=== PATIENT | female | born 1945 | race Caucasian/White ===

== ENCOUNTER → 2021-12-21 | Outpatient (CLI) | payer MEDICARE, OTHER ==
--- NOTE | 2021-12-21 11:44 | FL ---
EXAMINATION TYPE: FL barium swallow w video DATE OF EXAM: 12/21/2021 CLINICAL HISTORY: 76-year-old female R10.13, esophageal Dysphagia. Patient with an episode of food ge tting stuck followed by emesis. TECHNIQUE: Deglutition study is performed utilizing thin liquid barium, honey and nectar thick liqui d barium, barium thick pudding, and barium coated cracker. Total fluoroscopy time: 1 minute 23 seconds. Total images: None. Real-time fluoroscopy support was provided to speech pathology. COMPARISON: None. FINDINGS: The oral and pharyngeal phases show satisfactory initiation and propagation with all modalities teste d. The patient is edentulous but was able to masticate solids. There is an episode of moderate transi ent penetration with thin liquids during a large bolus swallow. No other penetration or aspiration se en. No significant pharyngeal residue was appreciated. Incidentally, we note tapering and narrowing along the distal third esophagus. Mild to moderate stric ture not excluded. There is also suggestion of a tiny hiatal hernia. IMPRESSION: 1. Moderate transient penetration with thin liquids during a large bolus swallow. Otherwise, no addit ional penetration or aspiration seen. 2. Suggestion of a smooth stricture along the distal third esophagus, proximal to the GE junction. En doscopy can further evaluate. Also, suggestion of a tiny hiatal hernia. Please refer to speech therapist notes for further details if necessary.
== END | disposition home or self-care (01) ==
LOC: RADFLMAIN 11:00
PROVIDERS: ATTEND Family Medicine
DX: R10.13 Epigastric pain (principal)
CPT/HCPCS: 74230

== ENCOUNTER 2022-02-08 10:59 | Emergency (ER) | payer MEDICARE, OTHER ==
--- NOTE | 2022-02-08 11:47 | ED ---
General Adult HPI - General Chief complaint: Nausea/Vomiting/Diarrhea Stated complaint: Vomiting Time Seen by Provider: 02/08/22 11:10 Source: patient, EMS, RN notes reviewed, old records reviewed Mode of arrival: EMS - History of Present Illness Initial comments: This is a 76-year-old female presents emergency Department because she was vomiting at the [facility] today. Patient supposedly was recently treated for H. pylori. Patient comes in today because she states she had a couple coughing is morning and then vomited and continues to feel a little bit nauseated. Enriqueta ent denies any abdominal pain patient denies any chest pain patient denies any difficulty breathing shortest breath. Patient denies any fever chills. There is been no report of any other symptoms no information is available because the patient had no family members or caretakers with her. - Related Data Home Medications Medication Instructions Recorded Confirmed Bismuth Subsalicylate 524 mg PO DAILY PRN 02/08/22 02/08/22 [Pepto-Bismol] Gonzalez-Gest 500mg Chew 1 tab PO BID PRN 02/08/22 02/08/22 Calcium Carbonate [Calcium] 600 mg PO DAILY PRN 02/08/22 02/08/22 Cholecalciferol [Vitamin D3 (25 50 mcg PO TU@0800 02/08/22 02/08/22 Mcg = 1000 Iu)] Cyanocobalamin (Vitamin B-12) 1,000 mcg PO Q7D 02/08/22 02/08/22 [Vitamin B-12] Docusate [Colace] 100 mg PO DAILY PRN 02/08/22 02/08/22 Omeprazole 20 mg PO DAILY@0700 02/08/22 02/08/22 Ondansetron [Zofran] 4 mg PO TID-W/MEALS PRN 02/08/22 02/08/22 Allergies Allergy/AdvReac Type Severity Reaction Status Date / Time No Known Allergies Allergy Verified 02/08/22 12:53 Review of Systems ROS Statement: Those systems with pertinent positive or pertinent negative responses have been documented in the HPI. ROS Other: All systems not noted in ROS Statement are negative. 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 Patient is nontoxic and well- hydrated and is in no acute distress. ENT: Neck is soft and supple. No significant lymphadenopathy is noted. Oropharynx is clear. Moist mucous membranes. Neck has full range of motion without eliciting any pain. EYES: The sclera were anicteric and conjunctiva were pink and moist. Extraocular movements were intact and pupils were equal round and reactive to light. Eyelids were unremarkable. PULMONARY: Unlabored respirations. Good breath sounds bilaterally. No audible rales rhonchi or wheezing was noted. CARDIOVASCULAR: There is a regular rate and rhythm without any murmurs gallops or rubs. ABDOMEN: Soft and nontender with normal bowel sounds. No palpable organomegaly was noted. There is no palpable pulsatile mass. SKIN: Skin is clear with no lesions or rashes and otherwise unremarkable. NEUROLOGIC: Patient is alert and oriented 2. Cranial nerves II through XII are grossly intact. Motor and sensory are also intact. Normal speech, volume and content. Symmetrical smile. MUSCULOSKELETAL: Normal extremities with adequate strength and full range of motion. LYMPHATICS: No significant lymphadenopathy is noted PSYCHIATRIC: Normal psychiatric evaluation. Course Vital Signs 02/08/22 02/08/22 11:04 12:23 Temperature 98.1 F Pulse Rate 79 71 Respiratory 18 20 Rate Blood Pressure 149/57 143/61 O2 Sat by Pulse 97 95 Oximetry Medical Decision Making - Medical Decision Making Patient was able to eat in the emergency department without any vomiting and she stated she had no nausea. Chest x-ray showed no acute abnormality - Lab Data Result diagrams: 02/08/22 11:41 02/08/22 11:41 Lab Results 02/08/22 02/08/22 Range/Units 11:41 11:41 WBC 7.3 (3.8-10.6) k/uL RBC 4.60 (3.80-5.40) m/uL Hgb 13.4 (11.4-16.0) gm/dL Hct 43.8 (34.0-46.0) % MCV 95.1 (80.0-100.0) fL MCH 29.1 (25.0-35.0) pg MCHC 30.6 L (31.0-37.0) g/dL RDW 14.2 (11.5-15.5) % Plt Count 318 (150-450) k/uL MPV 7.3 Neutrophils % 64 % Lymphocytes % 26 % Monocytes % 5 % Eosinophils % 3 % Basophils % 1 % Neutrophils # 4.7 (1.3-7.7) k/uL Lymphocytes # 1.9 (1.0-4.8) k/uL Monocytes # 0.3 (0-1.0) k/uL Eosinophils # 0.2 (0-0.7) k/uL Basophils # 0.1 (0-0.2) k/uL Sodium 141 (137-145) mmol/L Potassium 3.5 (3.5-5.1) mmol/L Chloride 107 (98-107) mmol/L Carbon Dioxide 19 L (22-30) mmol/L Anion Gap 15 mmol/L BUN 26 H (7-17) mg/dL Creatinine 1.45 H (0.52-1.04) mg/dL Est GFR (CKD-EPI)AfAm 41 (>60 ml/min/1.73 sqM) Est GFR (CKD-EPI)NonAf 35 (>60 ml/min/1.73 sqM) Glucose 102 H (74-99) mg/dL Calcium 9.3 (8.4-10.2) mg/dL Total Bilirubin 0.9 (0.2-1.3) mg/dL AST 22 (14-36) U/L ALT 11 (4-34) U/L Alkaline Phosphatase 80 (38-126) U/L Total Protein 8.2 (6.3-8.2) g/dL Albumin 4.5 (3.5-5.0) g/dL Amylase 133 H (30-110) U/L Lipase 98 (23-300) U/L Disposition Clinical Impression: Acute vomiting Disposition: HOME SELF-CARE Condition: Good Instructions (If sedation given, give patient instructions): Acute Nausea and Vomiting (ED) Is patient prescribed a controlled substance at d/c from ED?: No Referrals: Sam Hernandez MD [Primary Care Provider] - 1-2 days Time of Disposition: 13:15
--- NOTE | 2022-02-08 11:55 | XR ---
EXAMINATION TYPE: XR chest 2V DATE OF EXAM: 02/08/2022 COMPARISON: None HISTORY: Shortness of breath TECHNIQUE: Frontal and lateral views of the chest are obtained. FINDINGS: Scattered senescent parenchymal changes noted. Hyperinflation compatible with COPD. No evidence for infiltrate. No evidence for atelectasis. Heart size is stable. Mediastinal structures are stable and grossly unremarkable. No evidence for hilar prominence. Degenerative changes dorsal spine. IMPRESSION: 1. No evidence for acute pulmonary disease.
[2022-02-08 12:08] LABS: Basophils # (A) 0.1 k/uL (0-0.2); Basophils % (A) 1 %; Eosinophils # (A) 0.2 k/uL (0-0.7); Eosinophils % (A) 3 %; HCT 43.8 % (34.0-46.0); HGB 13.4 gm/dL (11.4-16.0); Lymphocytes # (A) 1.9 k/uL (1.0-4.8); Lymphocytes % (A) 26 %; MCH 29.1 pg (25.0-35.0); MCHC 30.6 g/dL (31.0-37.0); MCV 95.1 fL (80.0-100.0); Mean Platelet Volume 7.3; Monocytes # (A) 0.3 k/uL (0-1.0); Monocytes % (A) 5 %; Neutrophils # (A) 4.7 k/uL (1.3-7.7); Neutrophils % (A) 64 %; Platelet Count 318 k/uL (150-450); RDW 14.2 % (11.5-15.5); WBC 7.3 k/uL (3.8-10.6)
[2022-02-08 12:18] LABS: Albumin 4.5 g/dL (3.5-5.0); Calcium 9.3 mg/dL (8.4-10.2); Potassium 3.5 mmol/L (3.5-5.1); Total Bilirubin 0.9 mg/dL (0.2-1.3); Total Protein 8.2 g/dL (6.3-8.2)
[2022-02-08 15:43] VITALS: BP 143/77; PULSE 74; RESP 16; TEMP 98.2
== END 2022-02-08 15:41 | disposition home or self-care (01) ==
LOC: EC 10:59 → EEVIPCON 10:59 → EC 15:41
DX: R11.2 Nausea with vomiting, unspecified (principal)
CPT/HCPCS: 36415; 71046; 80053; 82150; 83690; 85025; 99284

== ENCOUNTER 2022-02-22 10:29 | Day surgery (SDC) | payer MEDICARE, OTHER ==
[~2022-02-22 10:29] MED LIST: LACTATED RINGERS 1,000 ML IV SCH
[2022-02-22 11:12] VITALS: TEMP 97.2
[2022-02-22] MEDS ORDERED: LIDOCAINE 2% INJ 20 MG/ML (2 ML VIAL) ONE (12:23)
[2022-02-22] MEDS ORDERED: PROPOFOL 10 MG/ML 20 ML VIAL IV ONE (12:23)
--- NOTE | 2022-02-22 12:39 | P.PCN ---
Date of Procedure: 02/22/22 Procedure(s) Performed: BRIEF HISTORY: Patient is a 76-year-old, pleasant, white female scheduled for an upper endoscopy as a part of evaluation of intermittent dysphagia to solids and pills for the last 1 month duration associated with intermittent passive regurgitation. She is on omeprazole 20 mg daily with no relief in her symptoms. PROCEDURE PERFORMED: Esophagogastroduodenoscopy with biopsy and dilation. PREOPERATIVE DIAGNOSIS: Intermittent dysphagia to solids. IV sedation per anesthesia. PROCEDURE: After informed consent was obtained, the patient was brought into the endoscopy unit. IV sedation was administered by Anesthesia under continuous monitoring. Initially the Olympus GIF-140 video endoscope was inserted into the mouth. Esophagus intubated without any difficulty. It was gradually advanced into the esophagus where a tight esophagus which was identified at 28 cm from the incisors.. The scope could not be advanced of the stricture. At this time I proceeded with balloon dilation using 8-10 mm TTS balloon in a sequential fashion for 30 seconds. Findings with dilation was able to advance the scope into the the stomach and duodenum and carefully examined. The bulb and the second part of the duodenum appeared normal. The scope at this time was withdrawn to the stomach, adequately insufflated with air, and upon careful examination, mucosa of the antrum, body, cardia and the fundus appeared normal. The scope was then withdrawn into the esophagus. The GE junction was located at 30 cm from the incisors. There was long segment of Moreno's esophagus extending from 28-30 cm from the incisors and multiple biopsies were done from this area. The rest of the esophagus appeared normal. There were no erosions or ulcerations seen and the patient tolerated the procedure well. IMPRESSION: 1. 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 2. 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 Moderate size hiatal hernia. RECOMMENDATIONS: The findings of this examination were discussed with the patient as well as her family. She will be started a liquid diet for lunch today. Continue with omeprazole 20 mg daily. Follow-up in office in 3 months. If he continues to persistent symptoms we'll plan a repeat upper endoscopy with dilation.
[2022-02-22] MEDS ORDERED: LABETALOL SYRINGE 5 MG/ML IV ONE (13:21)
[2022-02-22 13:42] VITALS: BP 160/70; PULSE 71; RESP 16
== END 2022-02-22 13:50 | disposition home or self-care (01) ==
LOC: ORWHC2ENDO 10:29
PROVIDERS: ATTEND Internal Medicine Gastroenterology
DX: K22.2 Esophageal obstruction (principal); K22.70 Barrett's esophagus without dysplasia; K44.9 Diaphragmatic hernia without obstruction or gangrene; Z79.899 Other long term (current) drug therapy; K21.9 Gastro-esophageal reflux disease without esophagitis; F03.90 Unspecified dementia, unspecified severity, without behavioral disturbance, psychotic disturbance, mood disturbance, and anxiety; Z97.2 Presence of dental prosthetic device (complete) (partial); Z90.49 Acquired absence of other specified parts of digestive tract
CPT/HCPCS: 88305; 43239; 43249; J2704; J2001; C1726

== ENCOUNTER 2022-09-25 20:14 | Emergency (ER) | payer MEDICARE, OTHER ==
--- NOTE | 2022-09-25 22:07 | XR ---
EXAMINATION TYPE: XR ankle complete LT DATE OF EXAM: 09/25/2022 9:55 PM INDICATION: Patient age:Female; 77 years old; Reason for study: pain; . COMPARISON: None TECHNIQUE: The left ankle is imaged in frontal, lateral and oblique projections. FINDINGS: There is no evidence of acute osseous pathology. The joint spaces are well-preserved without evidenc e of subluxation or dislocation. Kager's fat pad is intact. Soft tissues are within normal limits No radiopaque foreign bodies are identified. IMPRESSION: 1. No evidence of acute fracture.
--- NOTE | 2022-09-25 22:08 | XR ---
EXAMINATION TYPE: XR tibia fibula LT DATE OF EXAM: 09/25/2022 9:55 PM INDICATION: Patient age:Female; 77 years old; Reason for study: pain; PHH. COMPARISON: None TECHNIQUE: The left tibia/fibula was examined in AP and lateral projections. FINDINGS: No evidence of any acute osseous pathology, joint dislocation, or soft tissue swelling is n oted. IMPRESSION: No evidence of acute fracture.
--- NOTE | 2022-09-25 22:23 | ED ---
General Adult HPI - General Chief complaint: Extremity Injury, Lower Stated complaint: Left ankle pain Time Seen by Provider: 09/25/22 21:04 Source: EMS Mode of arrival: EMS Limitations: altered mental status - History of Present Illness Initial comments: This is a 77-year-old female who presents emergency department via EMS from her long term after suffering a left ankle sprain. The patient is at her baseline and was unable to provide any history. The patient did point to her left ankle and stated that it was painful however had full range of motion. The patient denied of any deformity noted. EMS was not present at the bedside however did give the report to the nurse. No further history was obtained at this time by the patient. - Related Data Home Medications Medication Instructions Recorded Confirmed Omeprazole 20 mg PO QAM 02/08/22 02/22/22 Ergocalciferol [Vitamin D2 (1250 1,250 mcg PO TU 02/20/22 02/20/22 Mcg = 21264 Iu)] Allergies Allergy/AdvReac Type Severity Reaction Status Date / Time No Known Allergies Allergy Verified 09/25/22 20:20 Review of Systems ROS Statement: Those systems with pertinent positive or pertinent negative responses have been documented in the HPI. 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 History of Any Multi-Drug Resistant Organisms: None Reported Past Surgical History: Unable to Obtain Past Psychological History: No Psychological Hx Reported Smoking Status: Never smoker General Exam Limitations: altered mental status (At baseline per EMS and obtained documen tation from the long term) General appearance: alert, in no apparent distress Head exam: Present: atraumatic, normocephalic Eye exam: Present: normal appearance, PERRL Pupils: Present: normal accommodation ENT exam: Present: normal exam, normal oropharynx Neck exam: Present: normal inspection, full ROM Respiratory exam: Present: normal lung sounds bilaterally Cardiovascular Exam: Present: regular rate, normal rhythm, normal heart sounds GI/Abdominal exam: Present: soft, normal bowel sounds Extremities exam: Present: normal inspection, full ROM, tenderness (Minor tenderness to palpation noted to the medial aspect of the left ankle however full range of motion was noted, no deformities noted) Back exam: Present: normal inspection, full ROM Neurological exam: Present: alert, altered (At baseline), CN II-XII intact Psychiatric exam: Present: normal affect, normal mood Skin exam: Present: warm, dry Course Vital Signs 09/25/22 20:21 Temperature 98.7 F Pulse Rate 78 Respiratory 15 Rate Blood Pressure 167/88 O2 Sat by Pulse 100 Oximetry Medical Decision Making - Medical Decision Making Was pt. sent in by a medical professional or institution? @ [Patient sent from long term Did you speak to anyone other than the patient for history? @EMS, nurse receiving the report from EMS Did you review nursing and triage notes? @Nursing and triage notes were reviewed as the patient was unable to provide a history but was at baseline Were old charts reviewed? @Obtained records from the long term was reviewed Differential Diagnosis? @Ankle fracture, left lower extremity fracture, left ankle sprain EKG interpreted by me (3pts min.)? @ [none] X-rays interpreted by me (1pt min.)? @X-rays of the left tib-fib and left ankle were obtained and were interpreted by myself and did not show any acute fractures or abnormalities noted. CT interpreted by me (1pt min.)? @ [none] U/S interpreted by me (1pt. min.)? @ [none] What testing was considered but not performed? (CT, X-rays, U/S, labs)? Why? @Computed tomography scan was considered however the patient had full range of motion of the left lower extremity and left ankle without any obvious deformity noted therefore x-rays were sufficient at this time What meds were considered but not given? Why? @What all was considered for pain however the patient did not complain of any acute pain and was not in acute distress Did you discuss the management of the patient with other professionals? @None Did you reconcile home meds? @ [none] Was smoking cessation discussed for >3mins.? @ [none] Was critical care preformed (if so, how long)? @ [none] Were there social determinants of health that impacted care today? How? (Homelessness, low income, unemployed, alcoholism, drug addiction, transportation, low edu. Level, literacy, decrease access to med. care, [facility], rehab)? @Patient does have developed mental delay vs dementia Was there de-escalation of care discussed even if they declined? (Discuss DNR or withdrawal of care, Hospice)? @None What co-morbidities impacted this encounter? (DM, HTN, Smoking, COPD, CAD, Cancer, CVA, Hep., AIDS, mental health diagnosis, sleep apnea, morbid obesity)? @Development delay versus dementia Was patient admitted / discharged? @The patient was seen and evaluated. X-rays were performed and were negative per the above interpretation. The patient continued to remain stable was stable for discharge back to the long term. The patient was placed in an dominic wrap and was discharged in stable condition. Undiagnosed new problem with uncertain prognosis? @ [none] Drug Therapy requiring intensive monitoring for toxicity (Heparin, Nitro, Insulin, Cardizem)? @ [none] Were any procedures done? @ [none] Diagnosis/symptom? @Left ankle sprain with tenderness of patient noted to the left medial ankle Acute, or Chronic, or Acute on Chronic? @Acute Uncomplicated (without systemic symptoms) or Complicated (systemic symptoms)? @Uncomplicated Side effects of treatment? @ [none] Exacerbation, Progression, or Severe Exacerbation] @ [no] Poses a threat to life or bodily function? @ [no] Disposition Clinical Impression: Ankle sprain Disposition: HOME SELF-CARE Condition: Stable Instructions (If sedation given, give patient instructions): Ankle Sprain (ED) Is patient prescribed a controlled substance at d/c from ED?: No Referrals: Sam Hernandez MD [Primary Care Provider] - 1-2 days Time of Disposition: 22:15
[2022-09-25 23:06] VITALS: BP 160/70; PULSE 80; RESP 20; TEMP 98.2
== END 2022-09-25 23:45 | disposition home or self-care (01) ==
LOC: EC 20:14
DX: S93.402A Sprain of unspecified ligament of left ankle, initial encounter (principal); X58.XXXA Exposure to other specified factors, initial encounter
CPT/HCPCS: 99283

== ENCOUNTER 2024-12-16 14:59 | Inpatient (IN) | payer MEDICARE, OTHER ==
[2024-12-16 15:09] LABS: Glucose,Whole Blood 153 mg/dL (70-110)
[2024-12-16 15:17] LABS: Glucose,Whole Blood 163 mg/dL (70-110)
--- NOTE | 2024-12-16 15:21 | ED ---
General Adult HPI - General Chief complaint: Altered Mental Status Stated complaint: AMS Time Seen by Provider: 12/16/24 15:02 Source: EMS, RN notes reviewed Mode of arrival: EMS Limitations: altered mental status, physical limitation - History of Present Illness Initial comments: Patient is a 79-year-old female presenting to the emergency department from [facility]. Patient is nonverbal and provides no history. This was reported as chronic. Patient reportedly sent to the emergency department secondary to vomiting and diarrhea. Patient does have order of stool and close are saturated. Patient does not converse or follow commands. - Related Data Home Medications Medication Instructions Recorded Confirmed Omeprazole 20 mg PO DAILY@0700 02/08/22 12/16/24 Bismuth Subsalicylate 524 mg PO DAILY PRN 07/02/23 12/16/24 [Pepto-Bismol] Calcium Carbonate [Calcium] 600 mg PO DAILY PRN 07/02/23 12/16/24 Cyanocobalamin (Vitamin B-12) 1,000 mcg PO FR@1700 07/02/23 12/16/24 [Vitamin B-12] Ondansetron [Zofran] 4 mg PO TID PRN 07/02/23 12/16/24 Albuterol Sulfate [Albuterol 2 puff INHALATION RT-Q6H PRN 12/16/24 12/16/24 Sulfate Hfa] Ammonium Lactate Cream [Lac-Hydrin 1 applic TOPICAL BID 12/16/24 12/16/24 12% Cream] Aspirin EC [Ecotrin Low Dose] 81 mg PO DAILY@0812/16/24 12/16/24 Atorvastatin [Lipitor] 20 mg PO HS@199912/16/24 12/16/24 Calcium Carbonate [Tums] 500 mg PO BID PRN 12/16/24 12/16/24 Cholecalciferol (Vitamin D3) 50 mcg PO DAILY@0800 12/16/24 12/16/24 [Vitamin D3 (50 Mcg = 2000 Iu)] Fluticasone/Vilanterol [Breo 1 puff INHALATION RT-DAILY@79912/16/24 12/16/24 Ellipta 100-25 Mcg Inhalr] Gabapentin [Neurontin] 100 mg PO TID@0800,1400,199912/16/24 12/16/24 Nystatin [Nystop] 1 applic TOPICAL HS@199912/16/24 12/16/24 cloNIDine HCL [Catapres] 0.2 mg PO BID@080012/16/24 12/16/24 Allergies Allergy/AdvReac Type Severity Reaction Status Date / Time No Known Allergies Allergy Verified 12/16/24 16:40 Review of Systems ROS Statement: Those systems with pertinent positive or pertinent negative responses have been documented in the HPI. ROS Other: All systems not noted in ROS Statement are negative. Limitations: ROS unobtainable due to patients medical condition Past Medical History Past Medical History: Dementia Additional Past Medical History / Comment(s): mental retardation History of Any Multi-Drug Resistant Organisms: None Reported Past Surgical History: Unable to Obtain Past Anesthesia/Blood Transfusion Reactions: Unable to Obtain Past Psychological History: No Psychological Hx Reported Smoking Status: Never smoker Past Alcohol Use History: Unable to Obtain Past Drug Use History: Unable to Obtain General Exam Limitations: altered mental status General appearance: in no apparent distress Head exam: Present: atraumatic Eye exam: Present: normal appearance, PERRL ENT exam: Present: mucous membranes dry Neck exam: Present: normal inspection. Absent: tenderness, meningismus Respiratory exam: Present: normal lung sounds bilaterally Cardiovascular Exam: Present: regular rate, normal rhythm GI/Abdominal exam: Present: soft. Absent: tenderness Extremities exam: Present: normal inspection. Absent: tenderness, pedal edema, calf tenderness Neurological exam: Present: altered, other (Nonverbal. Does not follow commands. No flaccid paralysis.) Expanded Eye Response: (3) open to voice Motor Response: (4) withdraws to pain Verbal Response: (1) no verbal response Psychiatric exam: Present: flat affect Skin exam: Present: normal color Course Vital Signs 12/16/24 12/16/24 12/16/24 15:01 16:11 17:37 Temperature 96.4 F L Pulse Rate 94 96 81 Respiratory 18 18 18 Rate Blood Pressure 132/81 155/87 131/79 O2 Sat by Pulse 87 L 96 95 Oximetry EKG Findings - EKG Results: EKG: interpreted by ERMD (LVH with repolarization changes), sinus rhythm, normal axis EKG shows: tachycardia Medical Decision Making - Medical Decision Making CT scan of the brain without acute abnormality. Age-related changes. Interpret ed by myself. Chest x-ray interpreted by myself does show mild interstitial changes. Was pt. sent in by a medical professional or institution (, JENI, EGG WORKER, urgent care, hospital, or senior living...) When possible be specific @ -Patient sent from home care Did you speak to anyone other than the patient for history (EMS, parent, family, police, friend...)? What history was obtained from this source @ -No Did you review nursing and triage notes (agree or disagree)? Why? @ -I reviewed and agree with nursing and triage notes Were old charts reviewed (outside hosp., previous admission, EMS record, old EKG, old radiological studies, urgent care reports/EKG's, senior living records)? Report findings @ -No old charts were reviewed Differential Diagnosis (chest pain, altered mental status, abdominal pain women, abdominal pain men, vaginal bleeding, weakness, fever, dyspnea, syncope, headac he, dizziness, GI bleed, back pain, seizure, CVA, palpatations, mental health, musculoskeletal)? @ -Differential Altered Mental Status: Hypoglycemia, DKA, hypercapnia, ETOH, overdose, CO poisoning, trauma, myxedema coma, HTN encephalopathy, infection, encephalitis, psychosis, intercranial hemorrhage, hepatic encephalopathy, meningitis, CVA, this is not meant to be an all-inclusive list EKG interpreted by me (3pts min.). @ -As above X-rays interpreted by me (1pt min.). @ -As above CT interpreted by me (1pt min.). @ -As above U/S interpreted by me (1pt. min.). @ -None done What testing was considered but not performed or refused? (CT, X-rays, U/S, labs)? Why? @ -None What meds were considered but not given or refused? Why? @ -None Did you discuss the management of the patient with other professionals (professionals i.e. , JENI, EGG WORKER, lab, RT, psych nurse, social sciences chair, quality checker, teacher, aoc director combat plans officer, correctional counselor/case manager)? Give summary @ -Case was discussed with Dr. Lynn will admit covering Dr. hernandez Was smoking cessation discussed for >3mins.? @ -No Was critical care preformed (if so, how long)? @ -No Were there social determinants of health that impacted care today? How? ( Homelessness, low income, unemployed, alcoholism, drug addiction, transportation, low edu. Level, literacy, decrease access to med. care, nursing home, rehab)? @ -No Was there de-escalation of care discussed even if they declined (Discuss DNR or withdrawal of care, Hospice)? DNR status @ -No What co-morbidities impacted this encounter? (DM, HTN, Smoking, COPD, CAD, Cancer, CVA, ARF, Chemo, Hep., AIDS, mental health diagnosis, sleep apnea, morbid obesity)? @ -None Was patient admitted / discharged? Hospital course, mention meds given and route, prescriptions, significant lab abnormalities, going to OR and other pertinent info. @ -Patient presents with vomiting and diarrhea and concern for change in mental status. Patient reevaluated and is able to state that she is cold and wants a blanket. Patient will be admitted. Admission orders written. Undiagnosed new problem with uncertain prognosis? @ -No Drug Therapy requiring intensive monitoring for toxicity (Heparin, Nitro, Insulin, Cardizem)? @ -No Were any procedures done? @ -No Diagnosis/symptom? @ -Altered mental status Acute, or Chronic, or Acute on Chronic? @ -Acute Uncomplicated (without systemic symptoms) or Complicated (systemic symptoms)? @ -Default Side effects of treatment? @ -No Exacerbation, Progression, or Severe Exacerbation? @ -No Poses a threat to life or bodily function? How? (Chest pain, USA, CA, pneumonia, PE, COPD, DKA, ARF, appy, cholecystitis, CVA, Diverticulitis, Homicidal, Suicidal, threat to staff... and all critical care pts) @ -No - Lab Data Result diagrams: 12/16/24 15:25 12/16/24 15:25 Lab Results 12/16/24 12/16/24 12/16/24 Range/Units 15:08 15:15 15:25 WBC (3.8-10.6) k/uL RBC (3.80-5.40) m/uL Hgb (11.4-16.0) gm/dL Hct (34.0-46.0) % MCV (80.0-100.0) fL MCH (25.0-35.0) pg MCHC (31.0-37.0) g/dL RDW (11.5-15.5) % Plt Count (150-450) k/uL MPV Neutrophils % % Lymphocytes % % Monocytes % % Eosinophils % % Basophils % % Neutrophils # (1.3-7.7) k/uL Lymphocytes # (1.0-4.8) k/uL Monocytes # (0-1.0) k/uL Eosinophils # (0-0.7) k/uL Basophils # (0-0.2) k/uL Hypochromasia PT (10.0-12.5) sec INR (<1.2) APTT (22.0-30.0) sec Sodium (137-145) mmol/L Potassium (3.5-5.1) mmol/L Chloride (98-107) mmol/L Carbon Dioxide (22-30) mmol/L Anion Gap mmol/L BUN (7-17) mg/dL Creatinine (0.52-1.04) mg/dL Est GFR (CKD-EPI)AfAm (>60 ml/min/1.73 sqM) Est GFR (CKD-EPI)NonAf (>60 ml/min/1.73 sqM) Glucose (74-99) mg/dL POC Glucose (mg/dL) 153 H 163 H (70-110) mg/dL POC Glu Special Service Representative ID Polly Kimmie [facility] Calcium (8.4-10.2) mg/dL Total Bilirubin (0.2-1.3) mg/dL AST (14-36) U/L ALT (4-34) U/L Alkaline Phosphatase (38-126) U/L Troponin I (0.000-0.034) ng/mL Total Protein (6.3-8.2) g/dL Albumin (3.5-5.0) g/dL Urine Color Urine Appearance (Clear) Urine pH (5.0-8.0) Ur Specific [place] (1.001-1.035) Urine Protein (Negative) Urine Glucose (UA) (Negative) Urine Ketones (Negative) Urine Blood (Negative) Urine Nitrite (Negative) Urine Bilirubin (Negative) Urine Urobilinogen (<2.0) mg/dL Ur Leukocyte Esterase (Negative) Urine RBC (0-5) /hpf Urine WBC (0-5) /hpf Ur Squamous Epith Cells (0-4) /hpf Urine Bacteria (None) /hpf Urine Mucus (None) /hpf Urine Opiates Screen (NotDetected) Ur Oxycodone Screen (NotDetected) Urine Methadone Screen (NotDetected) Ur Barbiturates Screen (NotDetected) U Tricyclic Antidepress (NotDetected) Ur Phencyclidine Scrn (NotDetected) Ur Amphetamines Screen (NotDetected) U Methamphetamines Scrn (NotDetected) U Benzodiazepines Scrn (NotDetected) Urine Cocaine Screen (NotDetected) U Marijuana (THC) Screen (NotDetected) Influenza Type A (PCR) Not Detected (Not Detectd) Influenza Type B (PCR) Not Detected (Not Detectd) RSV (PCR) Not Detected (Not Detectd) SARS-CoV-2 (PCR) Not Detected (Not Detectd) 12/16/24 12/16/24 12/16/24 Range/Units 15:25 15:25 15:25 WBC 17.3 H (3.8-10.6) k/uL RBC 4.76 (3.80-5.40) m/uL Hgb 13.7 (11.4-16.0) gm/dL Hct 46.1 H (34.0-46.0) % MCV 96.7 (80.0-100.0) fL MCH 28.8 (25.0-35.0) pg MCHC 29.8 L (31.0-37.0) g/dL RDW 15.2 (11.5-15.5) % Plt Count 332 (150-450) k/uL MPV 6.9 Neutrophils % 90 % Lymphocytes % 6 % Monocytes % 3 % Eosinophils % 0 % Basophils % 0 % Neutrophils # 15.6 H (1.3-7.7) k/uL Lymphocytes # 1.0 (1.0-4.8) k/uL Monocytes # 0.5 (0-1.0) k/uL Eosinophils # 0.0 (0-0.7) k/uL Basophils # 0.1 (0-0.2) k/uL Hypochromasia Marked PT 11.0 (10.0-12.5) sec INR 1.0 (<1.2) APTT 25.9 (22.0-30.0) sec Sodium (137-145) mmol/L Potassium (3.5-5.1) mmol/L Chloride (98-107) mmol/L Carbon Dioxide (22-30) mmol/L Anion Gap mmol/L BUN (7-17) mg/dL Creatinine (0.52-1.04) mg/dL Est GFR (CKD-EPI)AfAm (>60 ml/min/1.73 sqM) Est GFR (CKD-EPI)NonAf (>60 ml/min/1.73 sqM) Glucose (74-99) mg/dL POC Glucose (mg/dL) (70-110) mg/dL POC Glu Special Service Representative ID Calcium (8.4-10.2) mg/dL Total Bilirubin (0.2-1.3) mg/dL AST (14-36) U/L ALT (4-34) U/L Alkaline Phosphatase (38-126) U/L Troponin I (0.000-0.034) ng/mL Total Protein (6.3-8.2) g/dL Albumin (3.5-5.0) g/dL Urine Color Light Yellow Urine Appearance Cloudy H (Clear) Urine pH 5.5 (5.0-8.0) Ur Specific [place] 1.013 (1.001-1.035) Urine Protein Trace H (Negative) Urine Glucose (UA) Negative (Negative) Urine Ketones Negative (Negative) Urine Blood Negative (Negative) Urine Nitrite Positive H (Negative) Urine Bilirubin Negative (Negative) Urine Urobilinogen <2.0 (<2.0) mg/dL Ur Leukocyte Esterase Trace H (Negative) Urine RBC 1 (0-5) /hpf Urine WBC 11 H (0-5) /hpf Ur Squamous Epith Cells <1 (0-4) /hpf Urine Bacteria Occasional H (None) /hpf Urine Mucus Rare H (None) /hpf Urine Opiates Screen Not Detected (NotDetected) Ur Oxycodone Screen Not Detected (NotDetected) Urine Methadone Screen Not Detected (NotDetected) Ur Barbiturates Screen Not Detected (NotDetected) U Tricyclic Antidepress Detected H (NotDetected) Ur Phencyclidine Scrn Not Detected (NotDetected) Ur Amphetamines Screen Not Detected (NotDetected) U Methamphetamines Scrn Not Detected (NotDetected) U Benzodiazepines Scrn Not Detected (NotDetected) Urine Cocaine Screen Not Detected (NotDetected) U Marijuana (THC) Screen Not Detected (NotDetected) Influenza Type A (PCR) (Not Detectd) Influenza Type B (PCR) (Not Detectd) RSV (PCR) (Not Detectd) SARS-CoV-2 (PCR) (Not Detectd) 12/16/24 12/16/24 Range/Units 15:25 15:25 WBC (3.8-10.6) k/uL RBC (3.80-5.40) m/uL Hgb (11.4-16.0) gm/dL Hct (34.0-46.0) % MCV (80.0-100.0) fL MCH (25.0-35.0) pg MCHC (31.0-37.0) g/dL RDW (11.5-15.5) % Plt Count (150-450) k/uL MPV Neutrophils % % Lymphocytes % % Monocytes % % Eosinophils % % Basophils % % Neutrophils # (1.3-7.7) k/uL Lymphocytes # (1.0-4.8) k/uL Monocytes # (0-1.0) k/uL Eosinophils # (0-0.7) k/uL Basophils # (0-0.2) k/uL Hypochromasia PT (10.0-12.5) sec INR (<1.2) APTT (22.0-30.0) sec Sodium 142 (137-145) mmol/L Potassium 4.9 (3.5-5.1) mmol/L Chloride 107 (98-107) mmol/L Carbon Dioxide 18 L (22-30) mmol/L Anion Gap 17 mmol/L BUN 32 H (7-17) mg/dL Creatinine 1.19 H (0.52-1.04) mg/dL Est GFR (CKD-EPI)AfAm 51 (>60 ml/min/1.73 sqM) Est GFR (CKD-EPI)NonAf 44 (>60 ml/min/1.73 sqM) Glucose 177 H (74-99) mg/dL POC Glucose (mg/dL) (70-110) mg/dL POC Glu Special Service Representative ID Calcium 9.6 (8.4-10.2) mg/dL Total Bilirubin 0.9 (0.2-1.3) mg/dL AST 29 (14-36) U/L ALT 20 (4-34) U/L Alkaline Phosphatase 147 H (38-126) U/L Troponin I <0.012 (0.000-0.034) ng/mL Total Protein 8.6 H (6.3-8.2) g/dL Albumin 4.7 (3.5-5.0) g/dL Urine Color Urine Appearance (Clear) Urine pH (5.0-8.0) Ur Specific [place] (1.001-1.035) Urine Protein (Negative) Urine Glucose (UA) (Negative) Urine Ketones (Negative) Urine Blood (Negative) Urine Nitrite (Negative) Urine Bilirubin (Negative) Urine Urobilinogen (<2.0) mg/dL Ur Leukocyte Esterase (Negative) Urine RBC (0-5) /hpf Urine WBC (0-5) /hpf Ur Squamous Epith Cells (0-4) /hpf Urine Bacteria (None) /hpf Urine Mucus (None) /hpf Urine Opiates Screen (NotDetected) Ur Oxycodone Screen (NotDetected) Urine Methadone Screen (NotDetected) Ur Barbiturates Screen (NotDetected) U Tricyclic Antidepress (NotDetected) Ur Phencyclidine Scrn (NotDetected) Ur Amphetamines Screen (NotDetected) U Methamphetamines Scrn (NotDetected) U Benzodiazepines Scrn (NotDetected) Urine Cocaine Screen (NotDetected) U Marijuana (THC) Screen (NotDetected) Influenza Type A (PCR) (Not Detectd) Influenza Type B (PCR) (Not Detectd) RSV (PCR) (Not Detectd) SARS-CoV-2 (PCR) (Not Detectd) Disposition Clinical Impression: Altered mental status Disposition: ADMITTED IP TO THIS HOSP Is patient prescribed a controlled substance at d/c from ED?: No Referrals: Sam Hernandez MD [Primary Care Provider] - 1-2 days Time of Disposition: 20:49
[2024-12-16] MEDS: SODIUM CHLORIDE 0.9% 1,000 ML IV ONE (15:30)
[2024-12-16 15:47] LABS: Basophils # (A) 0.1 k/uL (0-0.2); Basophils % (A) 0 %; Eosinophils % (A) 0 %; HCT 46.1 % (34.0-46.0); HGB 13.7 gm/dL (11.4-16.0); Hypochromasia Marked; Lymphocytes % (A) 6 %; MCH 28.8 pg (25.0-35.0); MCHC 29.8 g/dL (31.0-37.0); MCV 96.7 fL (80.0-100.0); Mean Platelet Volume 6.9; Monocytes # (A) 0.5 k/uL (0-1.0); Monocytes % (A) 3 %; Neutrophils # (A) 15.6 k/uL (1.3-7.7); Neutrophils % (A) 90 %; Platelet Count 332 k/uL (150-450); RBC 4.76 m/uL (3.80-5.40); RDW 15.2 % (11.5-15.5); WBC 17.3 k/uL (3.8-10.6)
[2024-12-16 15:58] LABS: Partial Thromboplastin Time 25.9 sec (22.0-30.0)
[2024-12-16 15:59] LABS: ALT 20 U/L (4-34); African American GFR (CKD) 51 (>60 ml/min/1.73 sqM); Albumin 4.7 g/dL (3.5-5.0); Anion Gap 17 mmol/L; Blood Urea Nitrogen 32 mg/dL (7-17); Calcium 9.6 mg/dL (8.4-10.2); Carbon Dioxide 18 mmol/L (22-30); Chloride 107 mmol/L (98-107); Glucose 177 mg/dL (74-99); Non-African American GFR(CKD) 44 (>60 ml/min/1.73 sqM); Sodium 142 mmol/L (137-145); Total Bilirubin 0.9 mg/dL (0.2-1.3); Total Protein 8.6 g/dL (6.3-8.2)
[2024-12-16 16:02] LABS: AST 29 U/L (14-36); Alkaline Phosphatase 147 U/L (38-126); Potassium 4.9 mmol/L (3.5-5.1)
--- NOTE | 2024-12-16 16:05 | XR ---
EXAMINATION TYPE: XR chest 2V DATE OF EXAM: 12/16/2024 3:58 PM COMPARISON: Chest radiographs from 07/02/2023. CLINICAL INDICATION: Female, 79 years old with history of altered mental status; [facility] TECHNIQUE: XR chest 2V Frontal and lateral views of the chest. FINDINGS: Lungs/Pleura: There is no evidence of pleural effusion, focal consolidation, or pneumothorax. Pulmonary vascularity: Pulmonary vascular congestion. Heart/mediastinum: Cardiomediastinal silhouette is unremarkable. Atherosclerotic calcifications are seen in the aorta. Musculoskeletal: No acute osseous pathology. IMPRESSION: Mild pulmonary edema correlate with serum BNP. [facility], , 12/16/2024 4:03 PM
--- NOTE | 2024-12-16 16:09 | CT ---
EXAMINATION TYPE: CT brain wo con DATE OF EXAM: 12/16/2024 COMPARISON: 07/02/2023 CLINICAL INDICATION: Female, 79 years old with history of Altered mental status; [facility], AMS CT DLP: 1162.4 mGycm Automated exposure control for dose reduction was used. Findings: The ventricles, basal cisterns and sulci over the convexities are within normal limits for the patien t's age and there is no mass effect or shift of midline structures. No abnormal density is seen throughout the brain parenchyma and there is no acute intra or extra-axia l hemorrhage. The posterior fossa including the brainstem, fourth ventricle and cerebellar pontine angles appear no rmal. Intraorbital contents appear normal and symmetric. Visualized paranasal sinuses and mastoid air cells are well aerated. The calvarium is intact. IMPRESSION: There is no acute bleed or mass effect. Mild age appropriate senescent changes. No interval change co mpared to previous [facility], , 12/16/2024 4:07 PM
[2024-12-16 16:24] LABS: Influenza A Not Detected (Not Detectd); Influenza B Not Detected (Not Detectd); RSV Not Detected (Not Detectd)
[2024-12-16 17:26] LABS: Appearance,Urine Cloudy (Clear); Bacteria,Urine Occasional /hpf; Bilirubin,Urine Negative (Negative); Blood,Urine Negative (Negative); Color,Urine Light Yellow; Glucose,Urine (UA) Negative (Negative); Ketones,Urine Negative (Negative); Leukocyte Esterase,Urine Trace (Negative); Mucus,Urine Rare /hpf; Nitrite,Urine Positive (Negative); PH, Urine 5.5 (5.0-8.0); Protein,Urine Trace (Negative); RBC,Urine 1 /hpf (0-5); Specific Gravity,Urine 1.013 (1.001-1.035); Squamous Epithelial Cell,Urine <1 /hpf (0-4); Urobilinogen,Urine <2.0 mg/dL (<2.0); WBC,Urine 11 /hpf (0-5)
[2024-12-16 17:28] LABS: Amphetamine Screen,Urine Not Detected (NotDetected); Barbiturate Screen,Urine Not Detected (NotDetected); Benzodiazepines Screen,Urine Not Detected (NotDetected); Cocaine Screen,Urine Not Detected (NotDetected); Methadone Screen, Urine Not Detected (NotDetected); Opiate Screen,Urine Not Detected (NotDetected); Oxycodone Screen, Urine Not Detected (NotDetected); Phencyclidine Screen,Urine Not Detected (NotDetected); Tricyclic Antidepressant,Urine Detected (NotDetected); Urn Cannabinoid Scrn Not Detected (NotDetected)
[2024-12-16] MEDS ORDERED: NALOXONE 0.4 MG/ML 1 ML VIAL IV PRN (20:49)
[2024-12-16] MEDS ORDERED: CALCIUM CARBONATE 500 MG CHEWABLE PO PRN (21:21)
[2024-12-16] MEDS ORDERED: ONDANSETRON ODT 4 MG TAB PO PRN (21:21)
[2024-12-16] MEDS: cloNIDine HCL 0.2 MG TAB PO SCH (22:55)
[2024-12-16] MEDS: GABAPENTIN 100 MG CAP PO SCH (22:55)
[2024-12-16] MEDS: SODIUM CHLORIDE 0.9% 1,000 ML IV SCH (23:02)
[2024-12-16] MEDS: ATORVASTATIN 20 MG TAB PO SCH (23:06)
[2024-12-16] MEDS: ENOXAPARIN 40 MG/0.4 ML SYRINGE SQ SCH (23:06)
[2024-12-17] MEDS: AMMONIUM LACTATE 12% CREAM 140 GM TUBE TOPICAL SCH (00:11)
[2024-12-17 04:53] LABS: Basophils % (A) 0 %; Eosinophils % (A) 0 %; HCT 42.6 % (34.0-46.0); HGB 12.9 gm/dL (11.4-16.0); Hypochromasia Moderate; Lymphocytes # (A) 1.4 k/uL (1.0-4.8); Lymphocytes % (A) 9 %; MCH 28.9 pg (25.0-35.0); MCHC 30.2 g/dL (31.0-37.0); MCV 95.6 fL (80.0-100.0); Monocytes # (A) 0.8 k/uL (0-1.0); Monocytes % (A) 5 %; Neutrophils # (A) 14.1 k/uL (1.3-7.7); Neutrophils % (A) 85 %; Platelet Count 315 k/uL (150-450); RBC 4.46 m/uL (3.80-5.40); RDW 15.3 % (11.5-15.5); WBC 16.5 k/uL (3.8-10.6)
[2024-12-17 05:06] LABS: ALT 16 U/L (4-34); AST 21 U/L (14-36); African American GFR (CKD) 49 (>60 ml/min/1.73 sqM); Albumin 3.9 g/dL (3.5-5.0); Alkaline Phosphatase 118 U/L (38-126); Anion Gap 9 mmol/L; Blood Urea Nitrogen 32 mg/dL (7-17); Calcium 9.2 mg/dL (8.4-10.2); Carbon Dioxide 24 mmol/L (22-30); Chloride 108 mmol/L (98-107); Glucose 115 mg/dL (74-99); Non-African American GFR(CKD) 42 (>60 ml/min/1.73 sqM); Potassium 4.9 mmol/L (3.5-5.1); Sodium 141 mmol/L (137-145); Total Bilirubin 0.6 mg/dL (0.2-1.3); Total Protein 7.1 g/dL (6.3-8.2)
[2024-12-17] MEDS: SYMBICORT 80-4.5 MCG INHALER INHALATION SCH (07:52)
[2024-12-17] MEDS ORDERED: PANTOPRAZOLE 40 MG/10 ML VIAL IV SCH (09:00)
[2024-12-17] MEDS: PANTOPRAZOLE 40 MG TABLET PO SCH (09:53)
[2024-12-17] MEDS: ASPIRIN 81 MG PO SCH (09:53)
--- NOTE | 2024-12-17 15:07 | P.CNNES ---
History of Present Illness Consult date: 12/17/24 Requesting physician: Georgi Rudolph Reason for Consult: ams History of Present Illness: This is a 79 year-old woman who presents to the emergency department on 12/16/2024 from [place] home for episode of vomiting and diarrhea. Unable to obtain history from patient. Per the ED note, patient is non verbal at baseline. Upon seeing her she stated her name and date of but unable to provide history. Some of the work-up during this hospital visit consisted of: Is afebrile. wbc 17K and repeated is 16.5K and predominately is neutrophilic. Glucose is 177. Na, Ca, AST,ALT are normal. Creatnine is 1.23 and BUN 32. Patient has CKD. U/A: Nitrite is positive, leuko esteraste is trace and wbc 11 UDS is TCA positive. CT head: No acute bleed or mass effect. No interval change compared to previous. I personally reviewed CT and agree with report. CXR: Mild pumopnary edema. Review of Systems Limited but as per HPI. Past Medical History Past Medical History: Dementia Additional Past Medical History / Comment(s): mental retardation History of Any Multi-Drug Resistant Organisms: None Reported Past Surgical History: Unable to Obtain Past Anesthesia/Blood Transfusion Reactions: Unable to Obtain Past Psychological History: No Psychological Hx Reported Smoking Status: Never smoker Past Alcohol Use History: Unable to Obtain Past Drug Use History: Unable to Obtain Medications and Allergies Home Medications Medication Instructions Recorded Confirmed Type Omeprazole 20 mg PO DAILY@0700 /03/2712/16/24 History Bismuth Subsalicylate 524 mg PO DAILY PRN 07/02/23 12/16/24 History [Pepto-Bismol] Calcium Carbonate [Calcium] 600 mg PO DAILY PRN 07/02/23 12/16/24 History Cyanocobalamin (Vitamin B-12) 1,000 mcg PO FR@1700 07/02/23 12/16/24 History [Vitamin B-12] Ondansetron [Zofran] 4 mg PO TID PRN 07/02/23 12/16/24 History Albuterol Sulfate [Albuterol 2 puff INHALATION RT-Q6H PRN 12/16/24 12/16/24 History Sulfate Hfa] Ammonium Lactate Cream [Lac-Hydrin 1 applic TOPICAL BID 12/16/24 12/16/24 History 12% Cream] Aspirin EC [Ecotrin Low Dose] 81 mg PO DAILY@0800 12/16/24 12/16/24 History Atorvastatin [Lipitor] 20 mg PO HS@199912/16/24 12/16/24 History Calcium Carbonate [Tums] 500 mg PO BID PRN 12/16/24 12/16/24 History Cholecalciferol (Vitamin D3) 50 mcg PO DAILY@0800 12/16/24 12/16/24 History [Vitamin D3 (50 Mcg = 2000 Iu)] Fluticasone/Vilanterol [Breo 1 puff INHALATION RT-DAILY@0800 12/16/24 12/16/24 History Ellipta 100-25 Mcg Inhalr] Gabapentin [Neurontin] 100 mg PO TID@0800,1399,199912/16/24 12/16/24 History Nystatin [Nystop] 1 applic TOPICAL HS@199912/16/24 12/16/24 History cloNIDine HCL [Catapres] 0.2 mg PO BID@0800,199912/16/24 12/16/24 History Allergies Allergy/AdvReac Type Severity Reaction Status Date / Time No Known Allergies Allergy Verified 12/16/24 16:40 Physical Examination - Vital Signs Vital Signs: Vital Signs Temp Pulse Pulse Pulse Resp BP BP 12/17/24 12:23 97.6 F 71 18 189/75 12/17/24 07:27 98.6 F 92 17 166/63 12/17/24 01:03 97.8 F 19 156/69 12/16/24 23:58 97.3 F L 101 H 20 193/73 12/16/24 23:28 101 H 20 12/16/24 22:35 93 18 175/93 12/16/24 17:37 81 18 131/79 12/16/24 16:11 96 18 155/87 12/16/24 15:01 96.4 F L 94 18 132/81 Pulse Ox 12/17/24 12:23 95 12/17/24 07:27 95 12/17/24 01:03 96 12/16/24 23:58 92 L 12/16/24 23:28 12/16/24 22:35 94 L 12/16/24 17:37 95 12/16/24 16:11 96 12/16/24 15:01 87 L Intake and Output 12/16/24 12/17/24 12/17/24 22:59 06:59 14:59 Output Total 200 Balance -200 Output: Urine 200 Other: Weight 83.915 kg 83.915 kg General: Lying in bed and does not appear in acute distress. HENT: could not evaluated for neck rigidity since was not complying with examination. Neuro: Limited because of cooperation. Is awake, alert, oriented to self. Upon asking year and moth she would state her date of and kept on repeating it. Is following simple few commands by mimicking (closing eyes, lifting arms and smiles). Pupils are 4mm, round and reactive to light bilaterally. No facial weakness. No dysarthria. Motor: Strength is placing her arms at 90 degrees bilaterally and lifting legs above gravity. Sensation: Kept on repeating, "I can feel that". Rest is limited. Results - Laboratory Findings CBC and BMP: 12/17/24 04:14 12/17/24 04:14 Abnormal Lab Findings: Abnormal Labs 12/16/24 12/16/24 12/16/24 15:08 15:15 15:25 WBC 17.3 H Hct 46.1 H MCHC 29.8 L Neutrophils # 15.6 H Chloride Carbon Dioxide BUN Creatinine Glucose POC Glucose (mg/dL) 153 H 163 H Alkaline Phosphatase Total Protein Urine Appearance Urine Protein Urine Nitrite Ur Leukocyte Esterase Urine WBC Urine Bacteria Urine Mucus U Tricyclic Antidepress 12/16/24 12/16/24 12/17/24 15:25 15:25 04:14 WBC 16.5 H Hct MCHC 30.2 L Neutrophils # 14.1 H Chloride Carbon Dioxide 18 L BUN 32 H Creatinine 1.19 H Glucose 177 H POC Glucose (mg/dL) Alkaline Phosphatase 147 H Total Protein 8.6 H Urine Appearance Cloudy H Urine Protein Trace H Urine Nitrite Positive H Ur Leukocyte Esterase Trace H Urine WBC 11 H Urine Bacteria Occasional H Urine Mucus Rare H U Tricyclic Antidepress Detected H 12/17/24 04:14 WBC Hct MCHC Neutrophils # Chloride 108 H Carbon Dioxide BUN 32 H Creatinine 1.23 H Glucose 115 H POC Glucose (mg/dL) Alkaline Phosphatase Total Protein Urine Appearance Urine Protein Urine Nitrite Ur Leukocyte Esterase Urine WBC Urine Bacteria Urine Mucus U Tricyclic Antidepress Assessment and Plan Assessment: This is a 79 y/o woman who presents because of vomiting, diarrhea. Neurology is seeing patient for ams. She had leukocytosis and is afebrile. She has limited language per the ED (they stated nonverbal) and is chronic but she had limited language. Altered mental status possible due to urosepsis/septic encephalopathy. Mild pulmonary edema on CXR. Underlying dementia with limited language CKD Plan: I consulted I.D. team Pending urine and blood culture. Is on Ceftriaxone. I ordered ammonia level, TSH, Vitamin B12. If continues to be confused and unknown source can consider lumbar puncture. Will defer the rest of medical management to primary team and other specialist. Thank you for the consultation. Dr. Gomez will resume neurology service tomorrow A.M. Time with Patient: Greater than 30
--- NOTE | 2024-12-17 16:21 | P.CONS ---
History of Present Illness - Reason for Consult Consult date: 12/17/24 AMS, leukocytosis Requesting physician: Prabhakar aH - Chief Complaint Nausea vomiting and diarrhea x 1 day - History of Present Illness Patient is a 79-year-old female with a past medical history significant for mental dehydration/dementia and skilled nursing resident patient has been brought into the hospital from [facility] concerning for vomiting and diarrhea apparently started the day of presentation to the hospital on arrival to the ER patient was afebrile and no fever have recorded subsequently patient was not tachycardic hypotensive mildly hypoxic currently on 6 L nasal cannula oxygen he did have a white count of 17.3 BUN/creatinine has been mildly elevated liver enzymes are normal urine has been mildly positive patient did have a chest x-ray mild pulmonary edema correlate with serum BNP patient was started on Rocephin infectious disease was consulted patient not a very good historian for keep on repeating the same sentence and saying yes to most of the questions answered Review of Systems Negative positive point and negatives has been mentioned in the HPI, complete review of systems was performed and all other systems are negative Past Medical History Past Medical History: Dementia Additional Past Medical History / Comment(s): mental retardation History of Any Multi-Drug Resistant Organisms: None Reported Past Surgical History: Unable to Obtain Past Anesthesia/Blood Transfusion Reactions: Unable to Obtain Past Psychological History: No Psychological Hx Reported Smoking Status: Never smoker Past Alcohol Use History: Unable to Obtain Past Drug Use History: Unable to Obtain Medications and Allergies Home Medications Medication Instructions Recorded Confirmed Type Omeprazole 20 mg PO DAILY@0700 /03/2712/16/24 History Bismuth Subsalicylate 524 mg PO DAILY PRN 07/02/23 12/16/24 History [Pepto-Bismol] Calcium Carbonate [Calcium] 600 mg PO DAILY PRN 07/02/23 12/16/24 History Cyanocobalamin (Vitamin B-12) 1,000 mcg PO FR@1700 07/02/23 12/16/24 History [Vitamin B-12] Ondansetron [Zofran] 4 mg PO TID PRN 07/02/23 12/16/24 History Albuterol Sulfate [Albuterol 2 puff INHALATION RT-Q6H PRN 12/16/24 12/16/24 History Sulfate Hfa] Ammonium Lactate Cream [Lac-Hydrin 1 applic TOPICAL BID 12/16/24 12/16/24 History 12% Cream] Aspirin EC [Ecotrin Low Dose] 81 mg PO DAILY@0800 12/16/24 12/16/24 History Atorvastatin [Lipitor] 20 mg PO HS@199912/16/24 12/16/24 History Calcium Carbonate [Tums] 500 mg PO BID PRN 12/16/24 12/16/24 History Cholecalciferol (Vitamin D3) 50 mcg PO DAILY@0800 12/16/24 12/16/24 History [Vitamin D3 (50 Mcg = 2000 Iu)] Fluticasone/Vilanterol [Breo 1 puff INHALATION RT-DAILY@0812/16/24 12/16/24 History Ellipta 100-25 Mcg Inhalr] Gabapentin [Neurontin] 100 mg PO TID@0800,1399,199912/16/24 12/16/24 History Nystatin [Nystop] 1 applic TOPICAL HS@199912/16/24 12/16/24 History cloNIDine HCL [Catapres] 0.2 mg PO BID@08,199912/16/24 12/16/24 History Allergies Allergy/AdvReac Type Severity Reaction Status Date / Time No Known Allergies Allergy Verified 12/16/24 16:40 Physical Exam Vitals: Vital Signs Temp Pulse Pulse Pulse Resp BP BP 12/17/24 07:27 98.6 F 92 17 166/63 12/17/24 01:03 97.8 F 19 156/69 12/16/24 23:58 97.3 F L 101 H 20 193/73 12/16/24 23:28 101 H 20 12/16/24 22:35 93 18 175/93 12/16/24 17:37 81 18 131/79 12/16/24 16:11 96 18 155/87 12/16/24 15:01 96.4 F L 94 18 132/81 Pulse Ox 12/17/24 07:27 95 12/17/24 01:03 96 12/16/24 23:58 92 L 12/16/24 23:28 12/16/24 22:35 94 L 12/16/24 17:37 95 12/16/24 16:11 96 12/16/24 15:01 87 L Intake and Output 12/16/24 12/17/24 12/17/24 22:59 06:59 14:59 Output Total 200 Balance -200 Output: Urine 200 Other: Weight 83.915 kg 83.915 kg GENERAL DESCRIPTION: Elderly FEmale lying in bed, no distress. No tachypnea or accessory muscle of respiration use. HEENT: Shows Pallor , no scleral icterus. Oral mucous membrane is dry. NECK: Trachea central, no thyromegaly. LUNGS: Unlabored breathing. Clear to auscultation anteriorly. No wheeze or crackle. HEART: S1, S2, regular rate and rhythm. No loud murmur ABDOMEN: Soft, no tenderness , EXTREMITIES: No edema of feet. SKIN: No rash, no masses palpable. NEUROLOGICAL: The patient is pleasantly confused orientation cannot determine Results CBC & Chem 7: 12/17/24 04:14 12/17/24 04:14 Labs: Abnormal Lab Results - Last 24 Hours (Table) 12/16/24 12/16/24 12/16/24 Range/Units 15:08 15:15 15:25 WBC 17.3 H (3.8-10.6) k/uL Hct 46.1 H (34.0-46.0) % MCHC 29.8 L (31.0-37.0) g/dL Neutrophils # 15.6 H (1.3-7.7) k/uL Chloride (98-107) mmol/L Carbon Dioxide (22-30) mmol/L BUN (7-17) mg/dL Creatinine (0.52-1.04) mg/dL Glucose (74-99) mg/dL POC Glucose (mg/dL) 153 H 163 H (70-110) mg/dL Alkaline Phosphatase (38-126) U/L Total Protein (6.3-8.2) g/dL Urine Appearance (Clear) Urine Protein (Negative) Urine Nitrite (Negative) Ur Leukocyte Esterase (Negative) Urine WBC (0-5) /hpf Urine Bacteria (None) /hpf Urine Mucus (None) /hpf U Tricyclic Antidepress (NotDetected) 12/16/24 12/16/24 12/17/24 Range/Units 15:25 15:25 04:14 WBC 16.5 H (3.8-10.6) k/uL Hct (34.0-46.0) % MCHC 30.2 L (31.0-37.0) g/dL Neutrophils # 14.1 H (1.3-7.7) k/uL Chloride (98-107) mmol/L Carbon Dioxide 18 L (22-30) mmol/L BUN 32 H (7-17) mg/dL Creatinine 1.19 H (0.52-1.04) mg/dL Glucose 177 H (74-99) mg/dL POC Glucose (mg/dL) (70-110) mg/dL Alkaline Phosphatase 147 H (38-126) U/L Total Protein 8.6 H (6.3-8.2) g/dL Urine Appearance Cloudy H (Clear) Urine Protein Trace H (Negative) Urine Nitrite Positive H (Negative) Ur Leukocyte Esterase Trace H (Negative) Urine WBC 11 H (0-5) /hpf Urine Bacteria Occasional H (None) /hpf Urine Mucus Rare H (None) /hpf U Tricyclic Antidepress Detected H (NotDetected) 12/17/24 Range/Units 04:14 WBC (3.8-10.6) k/uL Hct (34.0-46.0) % MCHC (31.0-37.0) g/dL Neutrophils # (1.3-7.7) k/uL Chloride 108 H (98-107) mmol/L Carbon Dioxide (22-30) mmol/L BUN 32 H (7-17) mg/dL Creatinine 1.23 H (0.52-1.04) mg/dL Glucose 115 H (74-99) mg/dL POC Glucose (mg/dL) (70-110) mg/dL Alkaline Phosphatase (38-126) U/L Total Protein (6.3-8.2) g/dL Urine Appearance (Clear) Urine Protein (Negative) Urine Nitrite (Negative) Ur Leukocyte Esterase (Negative) Urine WBC (0-5) /hpf Urine Bacteria (None) /hpf Urine Mucus (None) /hpf U Tricyclic Antidepress (NotDetected) Assessment and Plan (1) Leukocytosis Current Visit: Yes Status: Acute Code(s): D72.829 - ELEVATED WHITE BLOOD CELL COUNT, UNSPECIFIED SNOMED Code(s): 873144640 (2) UTI (urinary tract infection) Current Visit: Yes Status: Acute Code(s): N39.0 - URINARY TRACT INFECTION, SITE NOT SPECIFIED SNOMED Code(s): 32805361 Plan: 1patient presented to hospital mental status changes also having nausea vomiting and diarrhea and did have elevated white count positive UA questionable UTI as abdominal was soft her clinical examination clinical suspicion remains to be low for BLOCK STACKER infection 2we will obtain stool studies and wait for urine culture to finalize 3continue empiric Rocephin 4if no improvement will consider LP We will follow on clinical condition and cultures to further adjust medication if needed Thank you for this consultation we will follow the patient along with you Dictation was produced using [employer] dictation software. please excuse any grammatical, word or spelling errors. Time with Patient: Greater than 30
[2024-12-17] MEDS: CYANOCOBALAMIN 500 MCG TAB PO SCH (17:36)
[2024-12-17] MEDS: ALBUTEROL NEBULIZED 2.5 MG/3 ML INHALATION PRN (17:46)
--- NOTE | 2024-12-17 17:54 | P.HPIM ---
History of Present Illness H&P Date: 12/17/24 Chief Complaint: Change in mentation This is a 79-year-old patient, resident of [facility]. Being followed by Dr. Larsen. Spoke to Kat the sr. social media & mobile manager she gave me this baseline after she spoke to the social media content manager at the [facility]. Normally patient gets around with a walker. Apparently is able x 1. Will often just say yes. She was sent in because they felt she was speaking less than her baseline. She patient unable to give me any history. I spoke to the aide on the floor. Patient not been eating. Covered head under the blankets. Patient is found to have UTI in the ER. Started on IV ceftriaxone. IV fluids. Review of systems cannot be done as patient really does not answer questions Social history: Resident of [facility]. Does use a four-wheel walker. No smoking alcohol history reported Physical examination: VITAL SIGNS: 98.6, 92, 17, 166 Pacitti 3, 95% 4 L GENERAL: BMI 29.9, lying bed awake. Often just say yeah yeah EYES: Pupils equal. Conjunctiva damian l. HEENT: External appearance of nose and ears normal, oral cavity grossly normal. NECK: JVD not raised; masses not palpable. HEART: First and second heart sounds are normal; no edema. LUNGS: Respiratory rate normal; clear to auscultation. ABDOMEN: Soft, nontender, liver spleen not palpable, no masses palpable. PSYCH: [Patient does state her name. Otherwise just Says yeah.. MUSCULOSKELETAL:No Clubbing/cyanosis;muscles-grossly intact. OA NEUROLOGICAL: Cranial nerves grossly intact; no facial asymmetry, moving all 4 limbs. Following simple commands. LYMPHATICS: No lymph nodes palpable in the axilla and neck INVESTIGATIONS, reviewed in the clinical context: November 19, 2024: White count 16.5 hemoglobin 12.9 platelets 315 sodium 141 potassium 4.9 BUN 32 creatinine 1.23 Troponin I less than 0.012 UA positive for nitrite, leukoesterase WBC Urine drug screen positive for tricyclic antidepressants Influenza type A, type B, RSV, SARS-CoV-2: Not detected EKG tracing personally reviewed by me-normal sinus rhythm. LVH. Some ST changes inferolateral leads. Chest x-ray film personally reviewed by me-possible infiltrate versus chronic changes CT brain: No acute. Age-appropriate senescent changes. Assessment and plan: -Acute mental status changes likely acute delirium from underlying UTI. 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 At baseline. 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 Ralph Heatonta Full code Care was discussed with nurse and the sr. social media & mobile manager. Antibiotics. IV fluids. Past Medical History Past Medical History: Dementia Additional Past Medical History / Comment(s): mental retardation History of Any Multi-Drug Resistant Organisms: None Reported Past Surgical History: Unable to Obtain Past Anesthesia/Blood Transfusion Reactions: Unable to Obtain Past Psychological History: No Psychological Hx Reported Smoking Status: Never smoker Past Alcohol Use History: Unable to Obtain Past Drug Use History: Unable to Obtain Medications and Allergies Home Medications Medication Instructions Recorded Confirmed Type Omeprazole 20 mg PO DAILY@0702/08/22 12/16/24 History Bismuth Subsalicylate 524 mg PO DAILY PRN 07/02/23 12/16/24 History [Pepto-Bismol] Calcium Carbonate [Calcium] 600 mg PO DAILY PRN 07/02/23 12/16/24 History Cyanocobalamin (Vitamin B-12) 1,000 mcg PO FR@1700 07/02/23 12/16/24 History [Vitamin B-12] Ondansetron [Zofran] 4 mg PO TID PRN 07/02/23 12/16/24 History Albuterol Sulfate [Albuterol 2 puff INHALATION RT-Q6H PRN 12/16/24 12/16/24 History Sulfate Hfa] Ammonium Lactate Cream [Lac-Hydrin 1 applic TOPICAL BID 12/16/24 12/16/24 History 12% Cream] Aspirin EC [Ecotrin Low Dose] 81 mg PO DAILY@79912/16/24 12/16/24 History Atorvastatin [Lipitor] 20 mg PO HS@199912/16/24 12/16/24 History Calcium Carbonate [Tums] 500 mg PO BID PRN 12/16/24 12/16/24 History Cholecalciferol (Vitamin D3) 50 mcg PO DAILY@0812/16/24 12/16/24 History [Vitamin D3 (50 Mcg = 2000 Iu)] Fluticasone/Vilanterol [Breo 1 puff INHALATION RT-DAILY@0800 12/16/24 12/16/24 History Ellipta 100-25 Mcg Inhalr] Gabapentin [Neurontin] 100 mg PO TID@08,1399,199912/16/24 12/16/24 History Nystatin [Nystop] 1 applic TOPICAL HS@199912/16/24 12/16/24 History cloNIDine HCL [Catapres] 0.2 mg PO BID@08,199912/16/24 12/16/24 History Allergies Allergy/AdvReac Type Severity Reaction Status Date / Time No Known Allergies Allergy Verified 12/16/24 16:40 Physical Exam Vitals: Vital Signs Temp Pulse Pulse Pulse Resp BP BP 12/17/24 07:27 98.6 F 92 17 166/63 12/17/24 01:03 97.8 F 19 156/69 12/16/24 23:58 97.3 F L 101 H 20 193/73 12/16/24 23:28 101 H 20 12/16/24 22:35 93 18 175/93 12/16/24 17:37 81 18 131/79 12/16/24 16:11 96 18 155/87 12/16/24 15:01 96.4 F L 94 18 132/81 Pulse Ox 12/17/24 07:27 95 12/17/24 01:03 96 12/16/24 23:58 92 L 12/16/24 23:28 12/16/24 22:35 94 L 12/16/24 17:37 95 12/16/24 16:11 96 12/16/24 15:01 87 L Intake and Output 12/16/24 12/17/24 12/17/24 22:59 06:59 14:59 Output Total 200 Balance -200 Output: Urine 200 Other: Weight 83.915 kg 83.915 kg Results CBC & Chem 7: 12/17/24 04:14 12/17/24 04:14 Labs: Abnormal Lab Results - Last 24 Hours (Table) 12/16/24 12/16/24 12/16/24 Range/Units 15:08 15:15 15:25 WBC 17.3 H (3.8-10.6) k/uL Hct 46.1 H (34.0-46.0) % MCHC 29.8 L (31.0-37.0) g/dL Neutrophils # 15.6 H (1.3-7.7) k/uL Chloride (98-107) mmol/L Carbon Dioxide (22-30) mmol/L BUN (7-17) mg/dL Creatinine (0.52-1.04) mg/dL Glucose (74-99) mg/dL POC Glucose (mg/dL) 153 H 163 H (70-110) mg/dL Alkaline Phosphatase (38-126) U/L Total Protein (6.3-8.2) g/dL Urine Appearance (Clear) Urine Protein (Negative) Urine Nitrite (Negative) Ur Leukocyte Esterase (Negative) Urine WBC (0-5) /hpf Urine Bacteria (None) /hpf Urine Mucus (None) /hpf U Tricyclic Antidepress (NotDetected) 12/16/24 12/16/24 12/17/24 Range/Units 15:25 15:25 04:14 WBC 16.5 H (3.8-10.6) k/uL Hct (34.0-46.0) % MCHC 30.2 L (31.0-37.0) g/dL Neutrophils # 14.1 H (1.3-7.7) k/uL Chloride (98-107) mmol/L Carbon Dioxide 18 L (22-30) mmol/L BUN 32 H (7-17) mg/dL Creatinine 1.19 H (0.52-1.04) mg/dL Glucose 177 H (74-99) mg/dL POC Glucose (mg/dL) (70-110) mg/dL Alkaline Phosphatase 147 H (38-126) U/L Total Protein 8.6 H (6.3-8.2) g/dL Urine Appearance Cloudy H (Clear) Urine Protein Trace H (Negative) Urine Nitrite Positive H (Negative) Ur Leukocyte Esterase Trace H (Negative) Urine WBC 11 H (0-5) /hpf Urine Bacteria Occasional H (None) /hpf Urine Mucus Rare H (None) /hpf U Tricyclic Antidepress Detected H (NotDetected) 12/17/24 Range/Units 04:14 WBC (3.8-10.6) k/uL Hct (34.0-46.0) % MCHC (31.0-37.0) g/dL Neutrophils # (1.3-7.7) k/uL Chloride 108 H (98-107) mmol/L Carbon Dioxide (22-30) mmol/L BUN 32 H (7-17) mg/dL Creatinine 1.23 H (0.52-1.04) mg/dL Glucose 115 H (74-99) mg/dL POC Glucose (mg/dL) (70-110) mg/dL Alkaline Phosphatase (38-126) U/L Total Protein (6.3-8.2) g/dL Urine Appearance (Clear) Urine Protein (Negative) Urine Nitrite (Negative) Ur Leukocyte Esterase (Negative) Urine WBC (0-5) /hpf Urine Bacteria (None) /hpf Urine Mucus (None) /hpf U Tricyclic Antidepress (NotDetected) Thrombosis Risk Factor Assmnt - Choose All That Apply Any of the Below Risk Factors Present?: No Other Risk Factors: Yes Each Risk Factor Represents 3 Points: Age 75 years or older Other congenital or acquired thrombophilia - If yes, enter type in comment: No Thrombosis Risk Factor Assessment Total Risk Factor Score: 3 Thrombosis Risk Factor Assessment Level: Moderate Risk
[2024-12-17] MEDS: NYSTATIN 100,000 UNIT/GM POWD 15 GM TOPICAL SCH (20:53)
[2024-12-17] MEDS: ZINC OXIDE PASTE (Z-GUARD) 1 APPLIC TOPICAL PRN (20:53)
--- NOTE | 2024-12-18 13:42 | XR ---
EXAMINATION TYPE: XR chest 2V DATE OF EXAM: 12/18/2024 1:32 PM COMPARISON: Chest radiographs from 12/16/2024 TECHNIQUE: XR chest 2V Frontal and lateral views of the chest. CLINICAL INDICATION:Female, 79 years old with history of cough; FINDINGS: Lungs/Pleura: There is flattening of the diaphragm with increased lucency of the lungs. No evidence o f pneumothorax, pleural effusion or focal consolidation. Left lower lung linear scarring. Chronic sen escent parenchymal change. Pulmonary vascularity: Unremarkable. Heart/mediastinum: Cardiomediastinal silhouette is enlarged and stable. Atherosclerotic calcificatio ns are seen in the aorta. Musculoskeletal: No acute osseous pathology. IMPRESSION: 1. No acute cardiopulmonary disease process. 2. COPD changes. [facility], , 12/18/2024 1:40 PM
--- NOTE | 2024-12-18 15:23 | P.PN ---
Subjective Progress Note Date: 12/18/24 The patient is a 79-year-old female who is seen in neurologic follow-up on December 18, 2024, in cross coverage for Dr. Ha, in collaboration with Patti Small, via teleneurology. The patient reportedly has a history of dementia and is currently diagnosed with urosepsis. Laboratory evaluation ordered by Dr. Ha reveals a normal ammonia level of 18. TSH is normal at 0.897. Vitamin D level continues to be pending at this time. Objective - Vital Signs Vital signs: Vital Signs Temp 98.2 F 12/18/24 12:15 Pulse 72 12/18/24 12:15 Resp 16 12/18/24 12:15 BP 126/83 12/18/24 12:15 Pulse Ox 96 12/18/24 12:15 FiO2 Intake & Output 12/17/24 12/18/24 12/18/24 18:59 06:59 18:59 Intake Total 2735 1490 2200 Balance 2735 1490 2200 Intake: Intake, IV Titration 875 950 Amount Sodium Chloride 0.9% 1, 825 900 000 ml @ 75 mls/hr IV . [id number] HERIBERTO Rx#:[id number] cefTRIAXone 1 gm In 50 50 Sodium Chloride 0.9% 50 ml @ 100 mls/hr IVPB Q12HR HERIBERTO Rx#:[id number] Oral [id number] Other: Voiding Method Diaper Toilet Bedpan Diaper External Catheter # Voids 3 1 5 - Exam General: The patient is reclining in the bed. She is well-nourished and in no acute distress. HEENT: Head is atraumatic, normocephalic. Fundus not visualized. There is no scleral icterus. Mucous membranes are moist. Extremities: There are multiple areas of ecchymosis involving the bilateral upper extremities. Neurological examination Mental status: The patient is awake. She is able to state her first name and date of . She is unable to report her age, location or current year. The patient speech is clear. She is markedly hard of hearing. Cranial nerves: 2-12 grossly intact, with the exception of diminished hearing. Motor: The patient is able to move all 4 extremities. She is unable to cooperate with formal strength testing. - Labs CBC & Chem 7: 12/17/24 04:14 12/17/24 04:14 Labs: Microbiology - Last 24 Hours (Table) 12/16/24 15:25 Urine Culture - Preliminary Urine,Catheterized Gram Neg Bacilli 12/16/24 22:46 Blood Culture - Preliminary Blood Assessment and Plan Assessment: This is a 79 y/o woman who presents because of vomiting, diarrhea. Neurology is seeing patient for ams. She had leukocytosis and is afebrile. She has limited language per the ED (they stated nonverbal) and is chronic but she had limited language. Altered mental status likely due to urosepsis/septic encephalopathy. Mild pulmonary edema on CXR. Underlying dementia with limited language CKD Plan: 1. Primary team to continue treating urosepsis 2. No further neurologic intervention is needed at this time. Neurology will sign off. Please call with questions or concerns. Time with Patient: Greater than 30 (40 minutes were spent caring for this patient today including, obtaining history, examining the patient, reviewing imaging, chart documentation, labs and creating this note)
--- NOTE | 2024-12-18 16:05 | P.PN ---
Subjective Progress Note Date: 12/18/24 Principal diagnosis: Reason for follow-up is UTI/leukocytosis Patient is a 79-year-old female with a past medical history significant for mental dehydration/dementia and skilled nursing resident patient has been brought into the hospital from [facility] concerning for vomiting and diarrhea did have a positive UA elevated white count concerning for UTI prompting this consultation. On today's evaluation that is 12/18/2024, patient did not have any fever patient seem to be slightly more awake today noticed to have more shortness of breath and requiring supplemental oxygen no clear history of choking on the food vomiting or diarrhea reported by the nursing staff. Blood cultures pending urine is growing gram-negative chest x-ray no acute cardiopulmonary disease process Objective - Vital Signs Vital signs: Vital Signs Temp 98.2 F 12/18/24 12:15 Pulse 72 12/18/24 12:15 Resp 16 12/18/24 12:15 BP 126/83 12/18/24 12:15 Pulse Ox 96 12/18/24 12:15 FiO2 Intake & Output 12/17/24 12/18/24 12/18/24 18:59 06:59 18:59 Intake Total 2735 1490 2200 Balance 2735 1490 2200 Intake: Intake, IV Titration 875 950 Amount Sodium Chloride 0.9% 1, 825 900 000 ml @ 75 mls/hr IV . [id number] HERIBERTO Rx#:[id number] cefTRIAXone 1 gm In 50 50 Sodium Chloride 0.9% 50 ml @ 100 mls/hr IVPB Q12HR HERIBERTO Rx#:[id number] Oral [id number] Other: Voiding Method Diaper Toilet Bedpan Diaper External Catheter # Voids 3 1 5 - Exam GENERAL DESCRIPTION: An elderly female lying in bed in no distress RESPIRATORY SYSTEM: Unlabored breathing , decreased breath sounds at bases HEART: S1 S2 regular rate and rhythm , ABDOMEN: Soft , no tenderness EXTREMITIES: No edema feet - Labs CBC & Chem 7: 12/17/24 04:14 12/17/24 04:14 Labs: Microbiology - Last 24 Hours (Table) 12/16/24 15:25 Urine Culture - Preliminary Urine,Catheterized Gram Neg Bacilli 12/16/24 22:46 Blood Culture - Preliminary Blood Assessment and Plan (1) Leukocytosis Current Visit: Yes Status: Acute Code(s): D72.829 - ELEVATED WHITE BLOOD CELL COUNT, UNSPECIFIED SNOMED Code(s): 264977918 (2) UTI (urinary tract infection) Current Visit: Yes Status: Acute Code(s): N39.0 - URINARY TRACT INFECTION, SITE NOT SPECIFIED SNOMED Code(s): 41863551 Plan: 1patient presented to hospital mental status changes also having nausea vomiting and diarrhea and did have elevated white count positive UA questionable UTI as abdominal was soft her clinical examination clinical suspicion remains to be low for TOOL DISTRIBUTOR infection 2patient did have some improvement her mentation urine is growing gram-negative with ID sensitivities pending continue with Rocephin while waiting for the culture to finalize Dictation was produced using [employer] dictation software. please excuse any grammatical, word or spelling errors. Time with Patient: Less than 30
--- NOTE | 2024-12-18 18:58 | P.PN ---
Progress Note - Text Progress Note Date: 12/18/24 Chief Complaint: Change in mentation This is a 79-year-old patient, resident of [facility]. Being followed by Dr. Larsen. Spoke to Kat the high school social studies tutor she gave me this baseline after she spoke to the retail planning manager at the [facility]. Normally patient gets around with a walker. Apparently is able x 1. Will often just say yes. She was sent in because they felt she was speaking less than her baseline. She patient unable to give me any history. I spoke to the aide on the floor. Patient not been eating. Covered head under the blankets. Patient is found to have UTI in the ER. Started on IV ceftriaxone. IV fluids. December 18: Patient doing much better today. Communicative. Stating that she wants to go back to the [facility]. Wants to get discharge.. Eating better. IV ceftriaxone.Urine culture growing gram-negative bacilli. Chest x-ray done today unremarkable. Have the patient sit up in the chair. Active Medications Albuterol Sulfate (Albuterol Nebulized 2.5 Mg/3 Ml) 2.5 mg INHALATION RT-Q6H PRN PRN Reason: Shortness Of Breath Last Admin: 12/18/24 18:06 Dose: 2.5 mg Aspirin (Aspirin 81 Mg) 81 mg PO DAILY@08 [facility] Last Admin: 12/18/24 09:07 Dose: 81 mg Atorvastatin Calcium (Atorvastatin 20 Mg Tab) 20 mg PO HS@1999 [facility] Last Admin: 12/17/24 20:52 Dose: 20 mg Budesonide/Formoterol Fumarate (Symbicort 80-4.5 Mcg Inhaler) 2 puff INHALATION RT-BID [facility] Last Admin: 12/18/24 18:07 Dose: 2 puff Calcium Carbonate/Glycine (Calcium Carbonate 500 Mg Chewable) 500 mg PO BID PRN PRN Reason: GI Upset Clonidine (Clonidine Hcl 0.2 Mg Tab) 0.2 mg PO BID@799,1999 [facility] Last Admin: 12/18/24 09:07 Dose: 0.2 mg Cyanocobalamin (Cyanocobalamin 500 Mcg Tab) 1,000 mcg PO FR@1700 [facility] Last Admin: 12/17/24 17:36 Dose: 1,000 mcg Enoxaparin Sodium (Enoxaparin 40 Mg/0.4 Ml Syringe) 40 mg SQ HS [facility] Last Admin: 12/17/24 20:52 Dose: 40 mg Gabapentin (Gabapentin 100 Mg Cap) 100 mg PO TID@0800,1400,1999 [facility] Last Admin: 12/18/24 14:52 Dose: 100 mg Ceftriaxone Sodium 1 gm/ (Sodium Chloride) 50 mls @ 100 mls/hr IVPB Q12HR [facility]; Protocol Last Admin: 12/18/24 09:07 Dose: 100 mls/hr Lactic Acid (Ammonium Lactate 12% Cream 140 Gm Tube) 1 applic TOPICAL BID [facility]; Protocol Last Admin: 12/18/24 09:07 Dose: 1 applic Naloxone HCl (Naloxone 0.4 Mg/Ml 1 Ml Vial) 0.2 mg IV Q2M PRN PRN Reason: Opioid Reversal Nystatin (Nystatin 100,000 Unit/Gm Powd 15 Gm) 1 applic TOPICAL HS@1999 [facility]; Protocol Last Admin: 12/17/24 20:53 Dose: 1 applic Ondansetron HCl (Ondansetron Odt 4 Mg Tab) 4 mg PO TID PRN PRN Reason: NAUSEA WITH MEALS Pantoprazole Sodium (Pantoprazole 40 Mg Tablet) 40 mg PO DAILY@0700 [facility] Last Admin: 12/18/24 09:07 Dose: 40 mg Petrolatum (Zinc Oxide Paste (Z-Guard) 1 Applic) 1 applic TOPICAL BID PRN; Protocol PRN Reason: Wound Healing Last Admin: 12/17/24 20:53 Dose: 1 applic Social history: Resident of [facility]. Does use a four-wheel walker. No smoking alcohol history reported Physical examination: VITAL SIGNS: 98, 78, 16, 152 x 70, 95% on 4 L GENERAL: BMI 29.9, lying bed awake. More talkative today. EYES: Pupils equal. Conjunctiva damian l. HEENT: External appearance of nose and ears normal, oral cavity grossly normal. NECK: JVD not raised; masses not palpable. HEART: First and second heart sounds are normal; no edema. LUNGS: Respiratory rate normal; clear to auscultation. ABDOMEN: Soft, nontender, liver spleen not palpable, no masses palpable. PSYCH: [Patient does state her name. Otherwise just Says yeah.. MUSCULOSKELETAL:No Clubbing/cyanosis;muscles-grossly intact. OA NEUROLOGICAL: Cranial nerves grossly intact; no facial asymmetry, moving all 4 limbs. Following simple commands. LYMPHATICS: No lymph nodes palpable in the axilla and neck INVESTIGATIONS, reviewed in the clinical context: November 19, 2024: White count 16.5 hemoglobin 12.9 platelets 315 sodium 141 potassium 4.9 BUN 32 creatinine 1.23 Troponin I less than 0.012 UA positive for nitrite, leukoesterase WBC Urine drug screen positive for tricyclic antidepressants Influenza type A, type B, RSV, SARS-CoV-2: Not detected EKG tracing personally reviewed by me-normal sinus rhythm. LVH. Some ST changes inferolateral leads. Chest x-ray film personally reviewed by me-possible infiltrate versus chronic changes CT brain: No acute. Age-appropriate senescent changes. 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 At baseline. 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 Breo Ellipta Full code Doing better. Continue IV ceftriaxone. Await cultures. Eating better. Past Medical History Past Medical History: Dementia Additional Past Medical History / Comment(s): mental retardation History of Any Multi-Drug Resistant Organisms: None Reported Past Surgical History: Unable to Obtain Past Anesthesia/Blood Transfusion Reactions: Unable to Obtain Past Psychological History: No Psychological Hx Reported Smoking Status: Never smoker Past Alcohol Use History: Unable to Obtain Past Drug Use History: Unable to Obtain
[2024-12-19 09:10] LABS: ABG Base Excess -1.7 mmol/L; ABG HCO3 24 mmol/L (21-25); ABG Oxygen Saturation 98.8 % (94-97); ABG PCO2 43 mmHg (35-45); ABG PH 7.35 (7.35-7.45); ABG PO2 120 mmHg (83-108); ABG TCO2 25 mmol/L (19-24); Allen Test Performed? Yes
[2024-12-19] MEDS: FUROSEMIDE 10 MG/ML 10 ML VIAL IV STA (11:04)
--- NOTE | 2024-12-19 11:14 | XR ---
EXAMINATION TYPE: XR chest 1V portable DATE OF EXAM: 12/19/2024 11:06 AM COMPARISON: Chest radiographs from 12/18/2024 TECHNIQUE: XR chest 1V portable Portable AP radiograph of the chest. CLINICAL INDICATION:Female, 79 years old with history of sob; FINDINGS: Lungs/Pleura: There is flattening of the diaphragm with increased lucency of the lungs. No evidence o f pneumothorax, pleural effusion or focal consolidation. Scattered regions of linear scarring and/or atelectasis. Chronic senescent parenchymal change. Pulmonary vascularity: Unremarkable. Heart/mediastinum: Cardiomediastinal silhouette is enlarged and stable. Atherosclerotic calcificatio ns are seen in the aorta. Musculoskeletal: No acute osseous pathology. IMPRESSION: 1. No acute cardiopulmonary disease process. 2. COPD changes with scattered regions of linear scarring and/or atelectasis. [facility], , 12/19/2024 11:12 AM
--- NOTE | 2024-12-19 13:44 | P.PN ---
Progress Note - Text Progress Note Date: 12/19/24 Chief Complaint: Shortness of breath This is a 79-year-old patient, resident of [facility]. Being followed by Dr. Larsen. Spoke to Kat the social security specialist she gave me this baseline after she spoke to the artist's manager at the [facility]. Normally patient gets around with a walker. Apparently is able x 1. Will often just say yes. She was sent in because they felt she was speaking less than her baseline. She patient unable to give me any history. I spoke to the aide on the floor. Patient not been eating. Covered head under the blankets. Patient is found to have UTI in the ER. Started on IV ceftriaxone. IV fluids. December 18: Patient doing much better today. Communicative. Stating that she wants to go back to the [facility]. Wants to get discharge.. Eating better. IV ceftriaxone.Urine culture growing gram-negative bacilli. Chest x-ray done today unremarkable. Have the patient sit up in the chair. December 19: Critical care note. Nurse called me this morning that patient's become more short of breath. Was down to 72% on 5 L. Patient's placed on Airvo. 70% FiO2. I ordered a stat chest x-ray. Patient had received IV fluids until yesterday. Patient is getting IV ceftriaxone for a UTI. Based on clinical findings and picture I gave the patient 1 dose of IV Lasix 60 mg. Patient remains on Airvo. Pulmonary Dr. Jeffery was consulted. I did speak to him. Spoke to the nurse. Patient moved to the telemetry floor/3 S. versus ICU depending on clinical course. ABG ordered: Active Medications Albuterol Sulfate (Albuterol Nebulized 2.5 Mg/3 Ml) 2.5 mg INHALATION RT-Q6H PRN PRN Reason: Shortness Of Breath Last Admin: 12/19/24 08:34 Dose: 2.5 mg Aspirin (Aspirin 81 Mg) 81 mg PO DAILY@0800 [facility] Last Admin: 12/19/24 09:03 Dose: 81 mg Atorvastatin Calcium (Atorvastatin 20 Mg Tab) 20 mg PO HS@2000 [facility] Last Admin: 12/18/24 20:13 Dose: 20 mg Budesonide/Formoterol Fumarate (Symbicort 80-4.5 Mcg Inhaler) 2 puff INHALATION RT-BID [facility] Last Admin: 12/19/24 08:28 Dose: 2 puff Calcium Carbonate/Glycine (Calcium Carbonate 500 Mg Chewable) 500 mg PO BID PRN PRN Reason: GI Upset Clonidine (Clonidine Hcl 0.2 Mg Tab) 0.2 mg PO BID@0800,1999 [facility] Last Admin: 12/19/24 09:03 Dose: 0.2 mg Cyanocobalamin (Cyanocobalamin 500 Mcg Tab) 1,000 mcg PO FR@1700 [facility] Last Admin: 12/17/24 17:36 Dose: 1,000 mcg Enoxaparin Sodium (Enoxaparin 40 Mg/0.4 Ml Syringe) 40 mg SQ HS [facility] Last Admin: 12/18/24 20:12 Dose: 40 mg Gabapentin (Gabapentin 100 Mg Cap) 100 mg PO TID@0800,1400,1999 [facility] Last Admin: 12/19/24 09:03 Dose: 100 mg Ceftriaxone Sodium 1 gm/ (Sodium Chloride) 50 mls @ 100 mls/hr IVPB Q12HR [facility]; Protocol Last Admin: 12/19/24 09:04 Dose: 100 mls/hr Lactic Acid (Ammonium Lactate 12% Cream 140 Gm Tube) 1 applic TOPICAL BID [facility]; Protocol Last Admin: 12/19/24 09:06 Dose: 1 applic Naloxone HCl (Naloxone 0.4 Mg/Ml 1 Ml Vial) 0.2 mg IV Q2M PRN PRN Reason: Opioid Reversal Nystatin (Nystatin 100,000 Unit/Gm Powd 15 Gm) 1 applic TOPICAL HS@1999 [facility]; Protocol Last Admin: 12/18/24 20:13 Dose: 1 applic Ondansetron HCl (Ondansetron Odt 4 Mg Tab) 4 mg PO TID PRN PRN Reason: NAUSEA WITH MEALS Pantoprazole Sodium (Pantoprazole 40 Mg Tablet) 40 mg PO DAILY@0700 [facility] Last Admin: 12/19/24 09:03 Dose: 40 mg Petrolatum (Zinc Oxide Paste (Z-Guard) 1 Applic) 1 applic TOPICAL BID PRN; Protocol PRN Reason: Wound Healing Last Admin: 12/17/24 20:53 Dose: 1 applic Social history: Resident of [facility]. Does use a four-wheel walker. No smoking alcohol history reported Physical examination: VITAL SIGNS: 97.5, 102, 26, 135 x 58, 100% on Airvo 60/70. GENERAL: BMI 29.9, lying bed awake. Short of breath EYES: Pupils equal. Conjunctiva damian l. HEENT: External appearance of nose and ears normal, oral cavity grossly normal. NECK: JVD unable to assess; masses not palpable. HEART: First and second heart sounds are normal; no edema. LUNGS: Respiratory rate increased, decreased breath sounds. ABDOMEN: Soft, nontender, liver spleen not palpable, no masses palpable. PSYCH: [Patient does state her name. Otherwise just Says yeah.. MUSCULOSKELETAL:No Clubbing/cyanosis;muscles-grossly intact. OA INVESTIGATIONS, reviewed in the clinical context: November 19, 2024: White count 16.5 hemoglobin 12.9 platelets 315 sodium 141 potassium 4.9 BUN 32 creatinine 1.23 Troponin I less than 0.012 UA positive for nitrite, leukoesterase WBC Urine drug screen positive for tricyclic antidepressants Influenza type A, type B, RSV, SARS-CoV-2: Not detected EKG tracing personally reviewed by me-normal sinus rhythm. LVH. Some ST changes inferolateral leads. Chest x-ray film personally reviewed by me-possible infiltrate versus chronic changes CT brain: No acute. Age-appropriate senescent changes. Assessment and plan: -Acute mental status changes likely acute delirium from underlying UTI.: Much improved -Acute UTI causing delirium: Cultures growing gram-negative bacilli IV ceftriaxone -Acute hypoxic respiratory failure likely from pulm edema from IV fluids Patient requiring Airvo. Pulmonary consulted. Chest x-ray reviewed. Move the patient to telemetry floor 3 W. -Acute pulm edema from IV fluids Lasix 60 mg IV x 1 given. Monitor I's and O's. 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 At baseline. 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 Breo Ellipta Full code Airvo. IV Lasix. Chest x-ray. ABG. Discussed with environmental sciences professor. Move the patient off the floor with telemetry. Critical care time spent: 40 minutes Past Medical History Past Medical History: Dementia Additional Past Medical History / Comment(s): mental retardation History of Any Multi-Drug Resistant Organisms: None Reported Past Surgical History: Unable to Obtain Past Anesthesia/Blood Transfusion Reactions: Unable to Obtain Past Psychological History: No Psychological Hx Reported Smoking Status: Never smoker Past Alcohol Use History: Unable to Obtain Past Drug Use History: Unable to Obtain
--- NOTE | 2024-12-19 13:49 | P.CNPUL ---
History of Present Illness Consult date: 12/19/24 Reason for consult: dyspnea History of present illness: This is a 79-year-old female patient who became acutely hypoxic this morning and the patient got transferred to telemetry unit and a pulmonary consultation was requested accordingly. The patient comes from [facility] home. The patient is known to have COPD and normally she gets around with the help of a walker. She has dementia and she is got some underlying mental and developmental delay and apparently she is is oriented x 1 at baseline. Her ability to provide history is quite limited. She was admitted to the hospital initially for some delirium and this was suspected to be related to urine tract infection and the patient was confirmed to have a gram-negative UTI and accordingly she was started on IV Rocephin. Cultures are still pending for now. Meanwhile, her blood counts were showing some leukocytosis and the white cell count on 12/17/2024 was at 16 with a hemoglobin 12.9. The patient also had a component of chronic kidney disease and the creatinine was at 1.1 with a BUN of 32 and a sodium level of 142. Troponins were negative. LFTs were normal. Thyroid function test showed a TSH of 0.8. The viral screen was negative at time of admission. The patient becomes hypoxic and according to the patient was placed on Airvo which is currently at 60 L with an FiO2 of 70%. Current pulse ox is 99%. She is afebrile. A chest x-ray was done this morning and it showed COPD with scattered linear changes and atelectatic change in lung base bilaterally and some mild pulm vessel congestion. The patient was given 60 mg of IV Lasix and subsequently she produced adequate urine output. She seems to be much more comfortable at this point in time. Hemodynamically, she remains stable. No reported aspiration. No reported seizure activity. Review of Systems ROS unobtainable: due to mental status Past Medical History Past Medical History: Dementia Additional Past Medical History / Comment(s): mental retardation History of Any Multi-Drug Resistant Organisms: None Reported Past Surgical History: Unable to Obtain Past Anesthesia/Blood Transfusion Reactions: Unable to Obtain Past Psychological History: No Psychological Hx Reported Smoking Status: Never smoker Past Alcohol Use History: Unable to Obtain Past Drug Use History: Unable to Obtain Medications and Allergies Home Medications Medication Instructions Recorded Confirmed Type Omeprazole 20 mg PO DAILY@0700 02/08/22 12/16/24 History Bismuth Subsalicylate 524 mg PO DAILY PRN 07/02/23 12/16/24 History [Pepto-Bismol] Calcium Carbonate [Calcium] 600 mg PO DAILY PRN 07/02/23 12/16/24 History Cyanocobalamin (Vitamin B-12) 1,000 mcg PO FR@1700 07/02/23 12/16/24 History [Vitamin B-12] Ondansetron [Zofran] 4 mg PO TID PRN 07/02/23 12/16/24 History Albuterol Sulfate [Albuterol 2 puff INHALATION RT-Q6H PRN 12/16/24 12/16/24 History Sulfate Hfa] Ammonium Lactate Cream [Lac-Hydrin 1 applic TOPICAL BID 12/16/24 12/16/24 History 12% Cream] Aspirin EC [Ecotrin Low Dose] 81 mg PO DAILY@0800 12/16/24 12/16/24 History Atorvastatin [Lipitor] 20 mg PO HS@199912/16/24 12/16/24 History Calcium Carbonate [Tums] 500 mg PO BID PRN 12/16/24 12/16/24 History Cholecalciferol (Vitamin D3) 50 mcg PO DAILY@0800 12/16/24 12/16/24 History [Vitamin D3 (50 Mcg = 2000 Iu)] Fluticasone/Vilanterol [Breo 1 puff INHALATION RT-DAILY@0812/16/24 12/16/24 H istory Ellipta 100-25 Mcg Inhalr] Gabapentin [Neurontin] 100 mg PO TID@0800,1400,199912/16/24 12/16/24 History Nystatin [Nystop] 1 applic TOPICAL HS@199912/16/24 12/16/24 History cloNIDine HCL [Catapres] 0.2 mg PO BID@0800,199912/16/24 12/16/24 History Allergies Allergy/AdvReac Type Severity Reaction Status Date / Time No Known Allergies Allergy Verified 12/16/24 16:40 Physical Exam Vitals: Vital Signs Temp Pulse Pulse Resp BP Pulse Ox FiO2 12/19/24 08:57 102 H 12/19/24 08:56 94 L 80 12/19/24 08:35 94 42 H 12/19/24 08:30 72 L 12/19/24 07:30 98.2 F 94 16 155/67 91 L 12/19/24 01:40 98.3 F 70 12 121/65 98 12/18/24 20:19 156/70 91 L 12/18/24 18:15 60 18 12/18/24 18:07 78 18 12/18/24 16:50 98.0 F 56 L 16 152/70 95 12/18/24 16:43 20 96 12/18/24 16:35 20 98 12/18/24 12:15 98.2 F 72 16 126/83 96 Intake and Output 12/18/24 12/19/24 12/19/24 22:59 06:59 14:59 Intake Total 540 237 Output Total 400 Balance 140 237 Intake: Oral 540 237 Output: Urine 400 Other: Voiding Method Diaper External Catheter The patient appeared well nourished and normally developed. Vital signs as documented. The patient is currently on Airvo with 50 L and FiO2 of 75% Head exam is unremarkable. No scleral icterus or corneal arcus noted. Neck is without jugular venous distension, thyromegaly, or carotid bruits. Carotid upstrokes are brisk bilaterally. Lungs are diminished breath sound lung base bilaterally along with some bibasilar crackles Or wheeze Cardiac exam reveals the PMI to be normally sized and situated. Rhythm is regular. First and second heart sounds normal. No murmurs, rubs or gallops. Abdominal exam reveals normal bowel sounds, no masses, no organomegaly and no aortic enlargement. Extremities are nonedematous and both femoral and pedal pulses are normal. Examination of the skin revealed no evidence of significant rashes, suspicious appearing nevi or other concerning lesions. Neurologically, the patient is awake and alert and the patient does not have any focal neurological deficit. Cranial nerves are essentially intact. Results - Laboratory Findings CBC and BMP: 12/17/24 04:14 12/17/24 04:14 ABG ABG pH 7.35 (7.35-7.45) 12/19/24 09:04 ABG pCO2 43 mmHg (35-45) 12/19/24 09:04 ABG pO2 120 mmHg (83-108) H 12/19/24 09:04 ABG O2 Saturation 98.8 % (94-97) H 12/19/24 09:04 PT/INR, D-dimer PT 11.0 sec (10.0-12.5) 12/16/24 15:25 INR 1.0 (<1.2) 12/16/24 15:25 Abnormal lab findings: Abnormal Labs 12/16/24 12/16/24 12/16/24 15:08 15:15 15:25 WBC 17.3 H Hct 46.1 H MCHC 29.8 L Neutrophils # 15.6 H ABG pO2 ABG Total CO2 ABG O2 Saturation Chloride Carbon Dioxide BUN Creatinine Glucose POC Glucose (mg/dL) 153 H 163 H Alkaline Phosphatase Total Protein Urine Appearance Urine Protein Urine Nitrite Ur Leukocyte Esterase Urine WBC Urine Bacteria Urine Mucus U Tricyclic Antidepress 12/16/24 12/16/24 12/17/24 15:25 15:25 04:14 WBC 16.5 H Hct MCHC 30.2 L Neutrophils # 14.1 H ABG pO2 ABG Total CO2 ABG O2 Saturation Chloride Carbon Dioxide 18 L BUN 32 H Creatinine 1.19 H Glucose 177 H POC Glucose (mg/dL) Alkaline Phosphatase 147 H Total Protein 8.6 H Urine Appearance Cloudy H Urine Protein Trace H Urine Nitrite Positive H Ur Leukocyte Esterase Trace H Urine WBC 11 H Urine Bacteria Occasional H Urine Mucus Rare H U Tricyclic Antidepress Detected H 12/17/24 12/19/24 04:14 09:04 WBC Hct MCHC Neutrophils # ABG pO2 120 H ABG Total CO2 25 H ABG O2 Saturation 98.8 H Chloride 108 H Carbon Dioxide BUN 32 H Creatinine 1.23 H Glucose 115 H POC Glucose (mg/dL) Alkaline Phosphatase Total Protein Urine Appearance Urine Protein Urine Nitrite Ur Leukocyte Esterase Urine WBC Urine Bacteria Urine Mucus U Tricyclic Antidepress - Diagnostic Findings Chest x-ray: image reviewed Assessment and Plan Plan: Acute hypoxic respiratory failure, the patient became acutely hypoxic this morning and the blood gases showed no significant respiratory acidosis. The patient is currently on Airvo at 60 L and FiO2 of 70%. Responded well to diuretics. Chest x-ray was reviewed. It showed chronic changes of COPD and some increased interstitial markings bilaterally. No reported aspiration. No evidence of pneumonia. Pulmonary embolism needs also to be considered. Urinary tract infection with gram-negative bacillus, remains on IV Rocephin Chronic dementia/developmental delay with impairment of the cognitive functions. Chronic gait dysfunction Hypertension Hyperlipidemia COPD/asthma maintained on Breo Ellipta on outpatient basis Acid reflux Plan Chesters the patient to telemetry Keep the patient on Airvo Continue IV Rocephin Check D-dimer Monitor urine output. Put the patient on Lasix 40 mg IV every [address] of the chest if no improvement in oxygenation with the next few hours Continue Symbicort and add albuterol nebulizer treatments 4 times daily [id number] Aspiration precautions Will continue to follow. Time with Patient: Greater than 30
--- NOTE | 2024-12-19 16:02 | P.PN ---
Subjective Progress Note Date: 12/19/24 Principal diagnosis: Reason for follow-up is UTI/leukocytosis Patient is a 79-year-old female with a past medical history significant for mental dehydration/dementia and senior care resident patient has been brought into the hospital from [facility] concerning for vomiting and diarrhea did have a positive UA elevated white count concerning for UTI prompting this consultation. On today's evaluation that is 12/19/2024, Patient is afebrile patient is currently on high flow nasal cannula oxygen/Airvo, the patient slightly more weak denies any chest pain no worsening cough no abdominal pain or diarrhea. Patient did have a D-dimer of 0.82 no CBC was done today urine with an E. coli sensitive to ceftriaxone blood culture negative Objective - Vital Signs Vital signs: Vital Signs Temp 98.5 F 12/19/24 15:32 Pulse 56 L 12/19/24 15:32 Resp 22 12/19/24 15:32 BP 145/71 12/19/24 15:32 Pulse Ox 99 12/19/24 15:32 FiO2 70 12/19/24 15:32 Intake & Output 12/18/24 12/19/24 12/19/24 18:59 06:59 18:59 Intake Total 2200 540 237 Output Total 400 1075 Balance 2200 140 -838 Intake: Oral 2200 540 237 Output: Urine 400 1075 Other: Voiding Method Toilet Diaper Diaper Bedpan External Catheter External Catheter Diaper External Catheter # Voids 5 - Exam GENERAL DESCRIPTION: An elderly female lying in bed in no distress RESPIRATORY SYSTEM: Unlabored breathing , decreased breath sounds at bases HEART: S1 S2 regular rate and rhythm , ABDOMEN: Soft , no tenderness EXTREMITIES: No edema feet - Labs CBC & Chem 7: 12/17/24 04:14 12/17/24 04:14 Labs: Abnormal Lab Results - Last 24 Hours (Table) 12/19/24 12/19/24 Range/Units 09:04 14:32 D-Dimer 0.82 H (<0.60) mg/L FEU ABG pO2 120 H (83-108) mmHg ABG Total CO2 25 H (19-24) mmol/L ABG O2 Saturation 98.8 H (94-97) % Microbiology - Last 24 Hours (Table) 12/16/24 15:25 Urine Culture - Final Urine,Catheterized Escherichia coli 12/16/24 22:46 Blood Culture - Preliminary Blood Assessment and Plan (1) Leukocytosis Current Visit: Yes Status: Acute Code(s): D72.829 - ELEVATED WHITE BLOOD CELL COUNT, UNSPECIFIED SNOMED Code(s): 325840644 (2) UTI (urinary tract infection) Current Visit: Yes Status: Acute Code(s): N39.0 - URINARY TRACT INFECTION, SITE NOT SPECIFIED SNOMED Code(s): 08088490 Plan: 1patient presented to hospital mental status changes also having nausea vomiting and diarrhea and did have elevated white count positive UA questionable UTI as abdominal was soft her clinical examination clinical suspicion remains to be low for DIRECTOR NEW PRODUCT infection 2patient did have some improvement her mentation urine is growing E. coli that is sensitive to ceftriaxone blood culture have been negative 3we will continue with Rocephin and monitor clinical course closely Dictation was produced using [employer] dictation software. please excuse any grammatical, word or spelling errors. Time with Patient: Less than 30
--- NOTE | 2024-12-20 12:52 | XR ---
EXAMINATION TYPE: XR chest 1V portable DATE OF EXAM: 12/20/2024 12:49 PM COMPARISON: 12/19/2024 CLINICAL INDICATION: Female, 79 years old with history of sob, TECHNIQUE: XR chest 1V portable views of the chest are obtained. FINDINGS: Demonstrated are scattered senescent parenchymal change. There is no evidence for focal infiltrate. The heart is stable. Hilar and mediastinal structures are within normal limits. Degenerative changes are seen of the dorsal spine. IMPRESSION: 1. Chronic changes without evidence for acute pulmonary disease. [facility], , 12/20/2024 12:50 PM
--- NOTE | 2024-12-20 13:15 | US ---
EXAMINATION TYPE: US venous doppler duplex LE DATE OF EXAM: 12/20/2024 12:25 PM COMPARISON: NONE CLINICAL INDICATION: Female, 79 years old with history of poss DVT; Pain, Pain TECHNIQUE: The lower extremity deep venous system is examined utilizing real time linear array sonog camacho with graded compression, color doppler sonography, and spectral doppler. SIDE PERFORMED: Bilateral FINDINGS: VESSELS IMAGED: Common Femoral Vein Deep Femoral Vein Greater Saphenous Vein * Femoral Vein Popliteal Vein Small Saphenous Vein * Proximal Calf Veins (* superficial vessels) Right Leg: Negative for DVT, Color Doppler imaging shows patency of the vessels. Spectral waveforms are within normal limits. Left Leg: Negative for DVT, Color Doppler imaging shows patency of the vessels. Spectral waveforms a re within normal limits. IMPRESSION: No ultrasound evidence for deep venous thrombosis. [facility], , 12/20/2024 1:12 PM
--- NOTE | 2024-12-20 17:19 | P.PN ---
Subjective Progress Note Date: 12/20/24 Principal diagnosis: Reason for follow-up is UTI/leukocytosis Patient is a 79-year-old female with a past medical history significant for mental dehydration/dementia and long term resident patient has been brought into the hospital from [facility] concerning for vomiting and diarrhea did have a positive UA elevated white count concerning for UTI prompting this consultation. On today's evaluation that is 12/20/2024, patient has been afebrile, patient is breathing comfortably however still requiring high flow nasal cannula oxygen denies any chest pain or any worsening cough no abdominal pain or diarrhea. No new lab has been repeated today chest x-ray chronic changes without evidence for acute pulmonary process lower extremity Doppler negative for DVT Objective - Vital Signs Vital signs: Vital Signs Temp 97.9 F 12/20/24 08:00 Pulse 53 L 12/20/24 12:00 Resp 24 12/20/24 12:00 BP 122/74 12/20/24 12:00 Pulse Ox 94 L 12/20/24 12:10 FiO2 64 12/20/24 12:10 Intake & Output 12/19/24 12/20/24 12/20/24 18:59 06:59 18:59 Intake Total 237 10 576 Output Total 1525 200 200 Balance -1288 -190 376 Weight 82 kg Intake: IV 10 Invasive Line 3 10 Oral 237 576 Output: Urine 1525 200 200 Other: Voiding Method Diaper Diaper External Catheter External Catheter # Bowel Movements 0 - Exam GENERAL DESCRIPTION: An elderly female lying in bed in no distress RESPIRATORY SYSTEM: Unlabored breathing , decreased breath sounds at bases HEART: S1 S2 regular rate and rhythm , ABDOMEN: Soft , no tenderness EXTREMITIES: No edema feet - Labs CBC & Chem 7: 12/17/24 04:14 12/17/24 04:14 Labs: Abnormal Lab Results - Last 24 Hours (Table) 12/19/24 Range/Units 14:32 D-Dimer 0.82 H (<0.60) mg/L FEU Microbiology - Last 24 Hours (Table) 12/16/24 22:46 Blood Culture - Preliminary Blood 12/16/24 15:25 Urine Culture - Final Urine,Catheterized Escherichia coli Assessment and Plan (1) Leukocytosis Current Visit: Yes Status: Acute Code(s): D72.829 - ELEVATED WHITE BLOOD CELL COUNT, UNSPECIFIED SNOMED Code(s): 007412742 (2) UTI (urinary tract infection) Current Visit: Yes Status: Acute Code(s): N39.0 - URINARY TRACT INFECTION, SITE NOT SPECIFIED SNOMED Code(s): 20618065 Plan: 1patient presented to hospital mental status changes also having nausea vomiting and diarrhea and did have elevated white count positive UA questionable UTI as abdominal was soft her clinical examination clinical suspicion remains to be low for AUTOMOTIVE DISMANTLER infection 2patient did have some improvement her mentation urine is growing E. coli that is sensitive to ceftriaxone blood culture have been negative 3patient is currently being treated with Rocephin to continue while inpatient care discussed with admitting physician Dictation was produced using [employer] dictation software. please excuse any grammatical, word or spelling errors. Time with Patient: Less than 30
--- NOTE | 2024-12-20 18:56 | P.PN ---
Subjective Progress Note Date: 12/20/24 This is a 79-year-old female patient who became acutely hypoxic this morning and the patient got transferred to telemetry unit and a pulmonary consultation was requested accordingly. The patient comes from [facility] home. The patient is known to have COPD and normally she gets around with the help of a walker. She has dementia and she is got some underlying mental and developmental delay and apparently she is is oriented x 1 at baseline. Her ability to provide history is quite limited. She was admitted to the hospital initially for some delirium and this was suspected to be related to urine tract infection and the patient was confirmed to have a gram-negative UTI and accordingly she was started on IV Rocephin. Cultures are still pending for now. Meanwhile, her blood counts were showing some leukocytosis and the white cell count on 12/17/2024 was at 16 with a hemoglobin 12.9. The patient also had a component of chronic kidney disease and the creatinine was at 1.1 with a BUN of 32 and a sodium level of 142. Troponins were negative. LFTs were normal. Thyroid function test showed a TSH of 0.8. The viral screen was negative at time of admission. The patient becomes hypoxic and according to the patient was placed on Airvo which is currently at 60 L with an FiO2 of 70%. Current pulse ox is 99%. She is afebrile. A chest x-ray was done this morning and it showed COPD with scattered linear changes and atelectatic change in lung base bilaterally and some mild pulm vessel congestion. The patient was given 60 mg of IV Lasix and subsequently she produced adequate urine output. She seems to be much more comfortable at this point in time. Hemodynamically, she remains stable. No reported aspiration. No reported seizure activity. The patient is seen today December 20, 2024 in follow-up on the selective care unit. She is currently resting in bed. She remains on Airvo high flow oxygen at 60 L and 64% FiO2. She is a poor historian. Unable to obtain much information. Arterial blood gases on 80% FiO2 revealed a PaO2 of 120, pCO2 43 and a pH of 7.35. No evidence for acute pulmonary disease. Doppler of the lower extremities revealed no evidence of DVT. No new labs today. She remains on Symbicort, albuterol. Urine culture positive for E. coli. Antibiotics in the form of ceftriaxone. Lovenox for DVT prophylaxis. Objective - Vital Signs Vital signs: Vital Signs Temp 97.9 F 12/20/24 08:00 Pulse 60 12/20/24 18:45 Resp 24 12/20/24 16:00 BP 133/61 12/20/24 16:00 Pulse Ox 100 12/20/24 18:32 FiO2 64 12/20/24 18:32 Intake & Output 12/19/24 12/20/24 12/20/24 18:59 06:59 18:59 Intake Total 237 10 716 Output Total 1525 200 200 Balance -1288 -190 516 Weight 82 kg Intake: IV 10 20 Invasive Line 3 10 20 Oral 237 696 Output: Urine 1525 200 200 Other: Voiding Method Diaper Diaper Diaper External Catheter External Catheter External Catheter # Bowel Movements 0 - Exam GENERAL EXAM: Alert, 79-year-old female, on Airvo high flow oxygen at 60 L and 64%, comfortable in no apparent distress. HEAD: Normocephalic. EYES: Normal reaction of pupils, equal size. NOSE: Clear with pink turbinates. THROAT: No erythema or exudates. NECK: No masses, no JVD. CHEST: No chest wall deformity. LUNGS: Equal air entry with no crackles, wheeze, rhonchi or dullness. CVS: S1 and S2 normal with no audible murmur, regular rhythm. ABDOMEN: No hepatosplenomegaly, normal bowel sounds, no guarding or rigidity. SPINE: No scoliosis or deformity SKIN: No rashes CENTRAL NERVOUS SYSTEM: Impaired, only answers yes to questioning, tone is normal in all 4 extremities. EXTREMITIES: There is no peripheral edema. No clubbing, no cyanosis. Peripheral pulses are intact. - Labs CBC & Chem 7: 12/17/24 04:14 12/17/24 04:14 Labs: Microbiology - Last 24 Hours (Table) 12/16/24 22:46 Blood Culture - Preliminary Blood Assessment and Plan Assessment: Acute hypoxic respiratory failure, the patient became acutely hypoxic yesterday and the blood gases showed no significant respiratory acidosis. The patient is currently on Airvo at 60 L and FiO2 of 64%. Responded well to diuretics. Chest x-ray was reviewed. It showed chronic changes of COPD and some increased interstitial markings bilaterally. No reported aspiration. No evidence of pneumonia. Pulmonary embolism needs also to be considered. Dopplers of the lower extremity negative for DVT Urinary tract infection with E. coli, remains on IV Rocephin Chronic dementia/developmental delay with impairment of the cognitive functions. Chronic gait dysfunction Hypertension Hyperlipidemia COPD/asthma maintained on Breo Ellipta on outpatient basis Acid reflux Plan: The patient was seen and evaluated Chest x-ray, Dopplers and medications reviewed No evidence of DVT Continue antibiotics for UTI Continue bronchodilators Lovenox for DVT prophylaxis Titrate down the FiO2 as tolerated We will continue to follow I have personally seen and examined the patient, performed the documentation and the assessment and plan as written. Number of minutes spent on the visit: 10 Dictation was produced using [employer] dictation software. Please excuse any grammatical, word or spelling errors.
--- NOTE | 2024-12-20 21:25 | P.PN ---
Progress Note - Text Progress Note Date: 12/20/24 Chief Complaint: Shortness of breath This is a 79-year-old patient, resident of [facility]. Being followed by Dr. Larsen. Spoke to Kat the social media content manager she gave me this baseline after she spoke to the brand development manager at the [facility]. Normally patient gets around with a walker. Apparently is able x 1. Will often just say yes. She was sent in because they felt she was speaking less than her baseline. She patient unable to give me any history. I spoke to the aide on the floor. Patient not been eating. Covered head under the blankets. Patient is found to have UTI in the ER. Started on IV ceftriaxone. IV fluids. December 18: Patient doing much better today. Communicative. Stating that she wants to go back to the [facility]. Wants to get discharge.. Eating better. IV ceftriaxone.Urine culture growing gram-negative bacilli. Chest x-ray done today unremarkable. Have the patient sit up in the chair. December 19: Critical care note. Nurse called me this morning that patient's become more short of breath. Was down to 72% on 5 L. Patient's placed on Airvo. 70% FiO2. I ordered a stat chest x-ray. Patient had received IV fluids until yesterday. Patient is getting IV ceftriaxone for a UTI. Based on clinical findings and picture I gave the patient 1 dose of IV Lasix 60 mg. Patient remains on Airvo. Pulmonary Dr. Jeffery was consulted. I did speak to him. Spoke to the nurse. Patient moved to the telemetry floor/3 S. versus ICU depending on clinical course. ABG ordered: December 20: On telemetry floor. On Airvo. Ordered a chest x-ray. No infiltrate. May be venous prominence. Will repeat a dose of Lasix 60 mg x 1. Order Doppler ultrasound lower extremity. Negative for DVT. Pulmonary did order a VQ scan. Active Medications Albuterol Sulfate (Albuterol Nebulized 2.5 Mg/3 Ml) 2.5 mg INHALATION RT-Q6H PRN PRN Reason: Shortness Of Breath Last Admin: 12/20/24 18:32 Dose: 2.5 mg Aspirin (Aspirin 81 Mg) 81 mg PO DAILY@0800 [facility] Last Admin: 12/20/24 08:47 Dose: 81 mg Atorvastatin Calcium (Atorvastatin 20 Mg Tab) 20 mg PO HS@1999 [facility] Last Admin: 12/20/24 20:30 Dose: 20 mg Budesonide/Formoterol Fumarate (Symbicort 80-4.5 Mcg Inhaler) 2 puff INHALATION RT-BID [facility] Last Admin: 12/20/24 18:32 Dose: 2 puff Calcium Carbonate/Glycine (Calcium Carbonate 500 Mg Chewable) 500 mg PO BID PRN PRN Reason: GI Upset Clonidine (Clonidine Hcl 0.2 Mg Tab) 0.2 mg PO BID@0800,1999 [facility] Last Admin: 12/20/24 20:30 Dose: 0.2 mg Cyanocobalamin (Cyanocobalamin 500 Mcg Tab) 1,000 mcg PO FR@1700 [facility] Last Admin: 12/17/24 17:36 Dose: 1,000 mcg Enoxaparin Sodium (Enoxaparin 40 Mg/0.4 Ml Syringe) 40 mg SQ HS [facility] Last Admin: 12/20/24 20:30 Dose: 40 mg Furosemide (Furosemide 10 Mg/Ml 10 Ml Vial) 60 mg IV ONCE STA Stop: 12/20/24 21:23 Gabapentin (Gabapentin 100 Mg Cap) 100 mg PO TID@0800,1400,1999 [facility] Last Admin: 12/20/24 20:30 Dose: 100 mg Ceftriaxone Sodium 1 gm/ (Sodium Chloride) 50 mls @ 100 mls/hr IVPB Q12HR [facility]; Protocol Last Admin: 12/20/24 20:30 Dose: 100 mls/hr Lactic Acid (Ammonium Lactate 12% Cream 140 Gm Tube) 1 applic TOPICAL BID [facility]; Protocol Last Admin: 12/20/24 20:31 Dose: 1 applic Naloxone HCl (Naloxone 0.4 Mg/Ml 1 Ml Vial) 0.2 mg IV Q2M PRN PRN Reason: Opioid Reversal Nystatin (Nystatin 100,000 Unit/Gm Powd 15 Gm) 1 applic TOPICAL HS@1999 [facility]; Protocol Last Admin: 12/20/24 20:31 Dose: 1 applic Ondansetron HCl (Ondansetron Odt 4 Mg Tab) 4 mg PO TID PRN PRN Reason: NAUSEA WITH MEALS Pantoprazole Sodium (Pantoprazole 40 Mg Tablet) 40 mg PO DAILY@0700 [facility] Last Admin: 12/20/24 06:32 Dose: 40 mg Petrolatum (Zinc Oxide Paste (Z-Guard) 1 Applic) 1 applic TOPICAL BID PRN; Protocol PRN Reason: Wound Healing Last Admin: 12/17/24 20:53 Dose: 1 applic Social history: Resident of [facility]. Does use a four-wheel walker. No smoking alcohol history reported Physical examination: VITAL SIGNS: 97.9, 59, 22, 156 x 75, 96% on Airvo 60/65 GENERAL: BMI 29.9, lying bed awake. Short of breath EYES: Pupils equal. Conjunctiva damian l. HEENT: External appearance of nose and ears normal, oral cavity grossly normal. NECK: JVD unable to assess; masses not palpable. HEART: First and second heart sounds are normal; no edema. LUNGS: Respiratory rate increased, decreased breath sounds. ABDOMEN: Soft, nontender, liver spleen not palpable, no masses palpable. PSYCH: [Patient does state her name. Otherwise just Says yeah.. MUSCULOSKELETAL:No Clubbing/cyanosis;muscles-grossly intact. OA INVESTIGATIONS, reviewed in the clinical context: Doppler ultrasound bilateral lower extremity: Negative for DVT December 19: D-dimer 0.82 November 19, 2024: White count 16.5 hemoglobin 12.9 platelets 315 sodium 141 potassium 4.9 BUN 32 creatinine 1.23 Troponin I less than 0.012 UA positive for nitrite, leukoesterase WBC Urine drug screen positive for tricyclic antidepressants Influenza type A, type B, RSV, SARS-CoV-2: Not detected EKG tracing personally reviewed by me-normal sinus rhythm. LVH. Some ST changes inferolateral leads. Chest x-ray film personally reviewed by me-possible infiltrate versus chronic changes CT brain: No acute. Age-appropriate senescent changes. Assessment and plan: -Acute mental status changes likely acute delirium from underlying UTI.: Much improved -Acute UTI causing delirium: Cultures growing E. coli IV ceftriaxone -Acute hypoxic respiratory failure: Not improving Possible fluid overload. Repeat IV Lasix 60 mg. No clinical evidence of infiltrate. Rule out PE. 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 At baseline. 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 Breo Ellipta Full code Airvo. Repeat IV Lasix. VQ scan ordered. Doppler negative for DVT. Past Medical History Past Medical History: Dementia Additional Past Medical History / Comment(s): mental retardation History of Any Multi-Drug Resistant Organisms: None Reported Past Surgical History: Unable to Obtain Past Anesthesia/Blood Transfusion Reactions: Unable to Obtain Past Psychological History: No Psychological Hx Reported Smoking Status: Never smoker Past Alcohol Use History: Unable to Obtain Past Drug Use History: Unable to Obtain
[2024-12-20] MEDS: FUROSEMIDE 10 MG/ML 10 ML VIAL IV STA (23:04)
[2024-12-21 08:20] LABS: African American GFR (CKD) 42 (>60 ml/min/1.73 sqM); Anion Gap 10 mmol/L; Blood Urea Nitrogen 32 mg/dL (7-17); Calcium 8.6 mg/dL (8.4-10.2); Carbon Dioxide 29 mmol/L (22-30); Chloride 99 mmol/L (98-107); Glucose 95 mg/dL (74-99); Non-African American GFR(CKD) 36 (>60 ml/min/1.73 sqM); Sodium 138 mmol/L (137-145)
--- NOTE | 2024-12-21 09:31 | NM ---
EXAMINATION TYPE: NM pul perfusion DATE OF EXAM: 12/21/2024 COMPARISON: NONE CLINICAL INDICATION: Female, 79 years old with history of pulm embolism; Following administration of 5.31 mCi Tc 99m MAA. Images obtained post injection. FINDINGS: Patchy areas of perihilar decrease perfusion are indeterminant. No segmental or subsegmental perfusio n defects. Correlate with ventilation study. IMPRESSION: Indeterminate probability for pulmonary embolism. [facility], , 12/21/2024 9:29 AM
[2024-12-21] MEDS: Apixaban Initiation Dose--VTE 5 MG TAB PO SCH (12:34)
--- NOTE | 2024-12-21 15:36 | P.PN ---
Subjective Progress Note Date: 12/21/24 Principal diagnosis: Reason for follow-up is UTI/leukocytosis Patient is a 79-year-old female with a past medical history significant for mental dehydration/dementia and senior care resident patient has been brought into the hospital from [facility] concerning for vomiting and diarrhea did have a positive UA elevated white count concerning for UTI prompting this consultation. On today's evaluation that is 12/21/2024, Patient is afebrile this morning patient denies having any chest pain shortness of breath with no cough no nausea with no abdominal pain or diarrhea. Patient did have a creatinine 1.40 blood culture has been negative urine is growing E. coli Objective - Vital Signs Vital signs: Vital Signs Temp 97.9 F 12/21/24 09:45 Pulse 83 12/21/24 09:45 Resp 20 12/21/24 09:45 BP 120/72 12/21/24 09:45 Pulse Ox 94 L 12/21/24 15:16 FiO2 60 12/21/24 08:01 Intake & Output 12/20/24 12/21/24 12/21/24 18:59 06:59 18:59 Intake Total 716 20 250 Output Total 200 1450 Balance 516 -1430 250 Weight 82.1 kg Intake: IV 20 20 10 Invasive Line 3 20 20 10 Oral 696 240 Output: Urine 200 1450 Other: Voiding Method Diaper Diaper Diaper External Catheter External Catheter External Catheter - Exam GENERAL DESCRIPTION: An elderly female lying in bed in no distress RESPIRATORY SYSTEM: Unlabored breathing , decreased breath sounds at bases HEART: S1 S2 regular rate and rhythm , ABDOMEN: Soft , no tenderness EXTREMITIES: No edema feet - Labs CBC & Chem 7: 12/17/24 04:14 12/21/24 07:28 Labs: Abnormal Lab Results - Last 24 Hours (Table) 12/21/24 Range/Units 07:28 BUN 32 H (7-17) mg/dL Creatinine 1.40 H (0.52-1.04) mg/dL Assessment and Plan (1) Leukocytosis Current Visit: Yes Status: Acute Code(s): D72.829 - ELEVATED WHITE BLOOD CELL COUNT, UNSPECIFIED SNOMED Code(s): 385831800 (2) UTI (urinary tract infection) Current Visit: Yes Status: Acute Code(s): N39.0 - URINARY TRACT INFECTION, SITE NOT SPECIFIED SNOMED Code(s): 60436857 Plan: 1patient presented to hospital mental status changes also having nausea vomiting and diarrhea and did have elevated white count positive UA questionable UTI as abdominal was soft her clinical examination clinical suspicion remains to be low for CERTIFIED ORTHOTIST PRACTICE MANAGER infection 2patient did have some improvement her mentation urine is growing E. coli that is sensitive to ceftriaxone blood culture have been negative 3patient to continue with Rocephin while inpatient and monitor clinical course closely Dictation was produced using [employer] dictation software. please excuse any grammatical, word or spelling errors. Time with Patient: Less than 30
--- NOTE | 2024-12-21 15:49 | P.PN ---
Subjective Progress Note Date: 12/21/24 Principal diagnosis: Acute hypoxic respiratory failure secondary to COPD and possible pulmonary embolism. This is a 79-year-old female patient who became acutely hypoxic this morning and the patient got transferred to telemetry unit and a pulmonary consultation was requested accordingly. The patient comes from [facility] home. The patient is known to have COPD and normally she gets around with the help of a walker. She has dementia and she is got some underlying mental and developmental delay and apparently she is is oriented x 1 at baseline. Her ability to provide history i s quite limited. She was admitted to the hospital initially for some delirium and this was suspected to be related to urine tract infection and the patient was confirmed to have a gram-negative UTI and accordingly she was started on IV Rocephin. Cultures are still pending for now. Meanwhile, her blood counts were showing some leukocytosis and the white cell count on 12/17/2024 was at 16 with a hemoglobin 12.9. The patient also had a component of chronic kidney disease and the creatinine was at 1.1 with a BUN of 32 and a sodium level of 142. Troponins were negative. LFTs were normal. Thyroid function test showed a TSH of 0.8. The viral screen was negative at time of admission. The patient becomes hypoxic and according to the patient was placed on Airvo which is currently at 60 L with an FiO2 of 70%. Current pulse ox is 99%. She is afebrile. A chest x-ray was done this morning and it showed COPD with scattered linear changes and atelectatic change in lung base bilaterally and some mild pulm vessel congestion. The patient was given 60 mg of IV Lasix and subsequently she prod uced adequate urine output. She seems to be much more comfortable at this point in time. Hemodynamically, she remains stable. No reported aspiration. No reported seizure activity. The patient is seen today December 20, 2024 in follow-up on the selective care unit. She is currently resting in bed. She remains on Airvo high flow oxygen at 60 L and 64% FiO2. She is a poor historian. Unable to obtain much information. Arterial blood gases on 80% FiO2 revealed a PaO2 of 120, pCO2 43 and a pH of 7.35. No evidence for acute pulmonary disease. Doppler of the lower extremities revealed no evidence of DVT. No new labs today. She remains on Symbicort, albuterol. Urine culture positive for E. coli. Antibiotics in the form of ceftriaxone. Lovenox for DVT prophylaxis. Seen today on 12/21/2024, continues to require significant amount of oxygen, presently on 15 L high flow nasal cannula and O2 saturation is 94 to 96%. A VQ scan was done yesterday, and it was in intermediate probability. Considering we cannot do a CT angiogram of the chest, and considering her D-dimer is elevated, although she had a negative venous Doppler, I am going to recommend that we place the patient on Eliquis. Dr. Lynn is considering a bubble echocardiogram to rule out shunt. I believe at this point it is best to continue present supportive care measures and treat the patient with Eliquis and once her renal functioning improves, could consider CT angiogram of the chest. The patient herself is not a great historian, she seems to be quite confused. And answers yes to every question we asked. ABG on 80% FiO2 showed a pO2 of 120 pCO2 43 pH of 7.35, very unlikely that this is an ABG of a shunt. Objective - Vital Signs Vital signs: Vital Signs Temp 97.9 F 12/21/24 09:45 Pulse 83 12/21/24 09:45 Resp 20 12/21/24 09:45 BP 120/72 12/21/24 09:45 Pulse Ox 94 L 12/21/24 15:16 FiO2 60 12/21/24 08:01 Intake & Output 12/20/24 12/21/24 12/21/24 18:59 06:59 18:59 Intake Total 716 20 250 Output Total 200 1450 Balance 516 -1430 250 Weight 82.1 kg Intake: IV 20 20 10 Invasive Line 3 20 20 10 Oral 696 240 Output: Urine 200 1450 Other: Voiding Method Diaper Diaper Diaper External Catheter External Catheter External Catheter - Exam GENERAL EXAM: Alert, 79-year-old female, 15 L high flow nasal cannula HEAD: Normocephalic. EYES: Normal reaction of pupils, equal size. NOSE: Clear with pink turbinates. THROAT: No erythema or exudates. NECK: No masses, no JVD. CHEST: No chest wall deformity. LUNGS: Equal air entry with no crackles, wheeze, rhonchi or dullness. CVS: S1 and S2 normal with no audible murmur, regular rhythm. ABDOMEN: No hepatosplenomegaly, normal bowel sounds, no guarding or rigidity. SKIN: No rashes CENTRAL NERVOUS SYSTEM: Impaired, only answers yes to questioning, tone is normal in all 4 extremities. EXTREMITIES: There is no peripheral edema. No clubbing, no cyanosis. Peripheral pulses are intact. - Labs CBC & Chem 7: 12/17/24 04:14 12/21/24 07:28 Labs: Abnormal Lab Results - Last 24 Hours (Table) 12/21/24 Range/Units 07:28 BUN 32 H (7-17) mg/dL Creatinine 1.40 H (0.52-1.04) mg/dL Assessment and Plan Assessment: Impression: Acute hypoxic respiratory failure, the patient became acutely hypoxic yesterday and the blood gases showed no significant respiratory acidosis. Requiring high flow FiO2 15 L high flow nasal cannula however considering the patient has an intermediate VQ scan, I will recommend treatment with Eliquis for presumptive thromboembolic disease, although this is not confirmed, but we cannot perform a CT angiogram on this patient, and consider CT angiogram of the chest once her renal functioning improved. Urinary tract infection with E. coli, remains on IV Rocephin Chronic dementia/developmental delay with impairment of the cognitive functions. Chronic gait dysfunction Hypertension Hyperlipidemia COPD/asthma maintained on Breo Ellipta on outpatient basis Acid reflux Plan: Will recommend Eliquis per protocol based on intermediate VQ scan and cannot do CT angiogram, elevated D-dimer, VQ scan was reviewed Chest x-ray, Dopplers and medications reviewed No evidence of DVT Continue antibiotics for UTI Continue bronchodilators Lovenox for DVT prophylaxis Titrate FiO2 as tolerated Will continue to follow Discussed her status with admitting physician/Dr. Lynn Time with Patient: Less than 30
--- NOTE | 2024-12-21 21:52 | P.PN ---
Progress Note - Text Progress Note Date: 12/21/24 Chief Complaint: Shortness of breath This is a 79-year-old patient, resident of [facility]. Being followed by Dr. Larsen. Spoke to Kat the social science analyst she gave me this baseline after she spoke to the manager field sales at the [facility]. Normally patient gets around with a walker. Apparently is able x 1. Will often just say yes. She was sent in because they felt she was speaking less than her baseline. She patient unable to give me any history. I spoke to the aide on the floor. Patient not been eating. Covered head under the blankets. Patient is found to have UTI in the ER. Started on IV ceftriaxone. IV fluids. December 18: Patient doing much better today. Communicative. Stating that she wants to go back to the [facility]. Wants to get discharge.. Eating better. IV ceftriaxone.Urine culture growing gram-negative bacilli. Chest x-ray done today unremarkable. Have the patient sit up in the chair. December 19: Critical care note. Nurse called me this morning that patient's become more short of breath. Was down to 72% on 5 L. Patient's placed on Airvo. 70% FiO2. I ordered a stat chest x-ray. Patient had received IV fluids until yesterday. Patient is getting IV ceftriaxone for a UTI. Based on clinical findings and picture I gave the patient 1 dose of IV Lasix 60 mg. Patient remains on Airvo. Pulmonary Dr. Jeffery was consulted. I did speak to him. Spoke to the nurse. Patient moved to the telemetry floor/3 S. versus ICU depending on clinical course. ABG ordered: December 20: On telemetry floor. On Airvo. Ordered a chest x-ray. No infiltrate. May be venous prominence. Will repeat a dose of Lasix 60 mg x 1. Order Doppler ultrasound lower extremity. Negative for DVT. Pulmonary did order a VQ scan. December 21: VQ scan was ordered by pulmonary. Intermediate probability. This started the patient on Eliquis. 2D echo with bubble study is being ordered to check if there is a shunt. 2 explain for her hypoxia. Eating some. Will DC IV ceftriaxone.-Has received 5 days for UTI. Active Medications Albuterol Sulfate (Albuterol Nebulized 2.5 Mg/3 Ml) 2.5 mg INHALATION RT-Q6H PRN PRN Reason: Shortness Of Breath Last Admin: 12/21/24 08:01 Dose: 2.5 mg Apixaban (Apixaban Initiation Dose--Vte 5 Mg Tab) 10 mg PO BID [facility]; Taper Stop: 01/20/25 08:59 Last Admin: 12/21/24 12:34 Dose: 10 mg Aspirin (Aspirin 81 Mg) 81 mg PO DAILY@0800 [facility] Last Admin: 12/21/24 09:38 Dose: 81 mg Atorvastatin Calcium (Atorvastatin 20 Mg Tab) 20 mg PO HS@1999 [facility] Last Admin: 12/20/24 20:30 Dose: 20 mg Budesonide/Formoterol Fumarate (Symbicort 80-4.5 Mcg Inhaler) 2 puff INHALATION RT-BID [facility] Last Admin: 12/21/24 21:02 Dose: 2 puff Calcium Carbonate/Glycine (Calcium Carbonate 500 Mg Chewable) 500 mg PO BID PRN PRN Reason: GI Upset Clonidine (Clonidine Hcl 0.2 Mg Tab) 0.2 mg PO BID@799,1999 [facility] Last Admin: 12/21/24 09:38 Dose: 0.2 mg Cyanocobalamin (Cyanocobalamin 500 Mcg Tab) 1,000 mcg PO FR@1700 [facility] Last Admin: 12/17/24 17:36 Dose: 1,000 mcg Gabapentin (Gabapentin 100 Mg Cap) 100 mg PO TID@0800,1399,1999 [facility] Last Admin: 12/21/24 12:35 Dose: 100 mg Ceftriaxone Sodium 1 gm/ (Sodium Chloride) 50 mls @ 100 mls/hr IVPB Q12HR [facility]; Protocol Last Admin: 12/21/24 09:38 Dose: 100 mls/hr Lactic Acid (Ammonium Lactate 12% Cream 140 Gm Tube) 1 applic TOPICAL BID [facility]; Protocol Last Admin: 12/21/24 09:38 Dose: 1 applic Naloxone HCl (Naloxone 0.4 Mg/Ml 1 Ml Vial) 0.2 mg IV Q2M PRN PRN Reason: Opioid Reversal Nystatin (Nystatin 100,000 Unit/Gm Powd 15 Gm) 1 applic TOPICAL HS@1999 [facility]; Protocol Last Admin: 12/20/24 20:31 Dose: 1 applic Ondansetron HCl (Ondansetron Odt 4 Mg Tab) 4 mg PO TID PRN PRN Reason: NAUSEA WITH MEALS Pantoprazole Sodium (Pantoprazole 40 Mg Tablet) 40 mg PO DAILY@0700 [facility] Last Admin: 12/21/24 06:22 Dose: 40 mg Petrolatum (Zinc Oxide Paste (Z-Guard) 1 Applic) 1 applic TOPICAL BID PRN; Protocol PRN Reason: Wound Healing Last Admin: 12/17/24 20:53 Dose: 1 applic Social history: Resident of [facility]. Does use a four-wheel walker. No smoking alcohol history reported Physical examination: VITAL SIGNS: 97.9, 83, 20, 120 x 72, 94% on 15 L GENERAL: BMI 29.9, lying bed awake. Short of breath EYES: Pupils equal. Conjunctiva damian l. HEENT: External appearance of nose and ears normal, oral cavity grossly normal. NECK: JVD unable to assess; masses not palpable. HEART: First and second heart sounds are normal; no edema. LUNGS: Respiratory rate increased, decreased breath sounds. ABDOMEN: Soft, nontender, liver spleen not palpable, no masses palpable. PSYCH: [Patient does state her name. Otherwise just Says yeah.. MUSCULOSKELETAL:No Clubbing/cyanosis;muscles-grossly intact. OA INVESTIGATIONS, reviewed in the clinical context: December 21: BUN 32 creatinine 1.40 TSH 0.8 B12 733 folate 14.9 Doppler ultrasound bilateral lower extremity: Negative for DVT December 19: D-dimer 0.82 November 19, 2024: White count 16.5 hemoglobin 12.9 platelets 315 sodium 141 potassium 4.9 BUN 32 creatinine 1.23 Troponin I less than 0.012 UA positive for nitrite, leukoesterase WBC Urine drug screen positive for tricyclic antidepressants Influenza type A, type B, RSV, SARS-CoV-2: Not detected EKG tracing personally reviewed by me-normal sinus rhythm. LVH. Some ST changes inferolateral leads. Chest x-ray film personally reviewed by me-possible infiltrate versus chronic changes CT brain: No acute. Age-appropriate senescent changes. Assessment and plan: -Acute mental status changes likely acute delirium from underlying UTI.: Much improved -Acute UTI causing delirium: Cultures growing E. coli IV ceftriaxone-will DC has received 5 days of the same -Acute hypoxic respiratory failure: Possibility of PE. Possible fluid overload. Repeat IV Lasix 60 mg. No clinical evidence of infiltrate. 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 At baseline. 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 Breo Ellipta Full code High flow nasal cannula. Eliquis started for intermediate VQ scan. DC ceftriaxone. 2D echocardiogram with bubble study. Past Medical History Past Medical History: Dementia Additional Past Medical History / Comment(s): mental retardation History of Any Multi-Drug Resistant Organisms: None Reported Past Surgical History: Unable to Obtain Past Anesthesia/Blood Transfusion Reactions: Unable to Obtain Past Psychological History: No Psychological Hx Reported Smoking Status: Never smoker Past Alcohol Use History: Unable to Obtain Past Drug Use History: Unable to Obtain
--- NOTE | 2024-12-22 17:03 | P.PN ---
Subjective Progress Note Date: 12/22/24 Principal diagnosis: Acute hypoxic respiratory failure secondary to COPD and possible pulmonary embolism. This is a 79-year-old female patient who became acutely hypoxic this morning and the patient got transferred to telemetry unit and a pulmonary consultation was requested accordingly. The patient comes from [facility] home. The patient is known to have COPD and normally she gets around with the help of a walker. She has dementia and she is got some underlying mental and developmental delay and apparently she is is oriented x 1 at baseline. Her ability to provide history i s quite limited. She was admitted to the hospital initially for some delirium and this was suspected to be related to urine tract infection and the patient was confirmed to have a gram-negative UTI and accordingly she was started on IV Rocephin. Cultures are still pending for now. Meanwhile, her blood counts were showing some leukocytosis and the white cell count on 12/17/2024 was at 16 with a hemoglobin 12.9. The patient also had a component of chronic kidney disease and the creatinine was at 1.1 with a BUN of 32 and a sodium level of 142. Troponins were negative. LFTs were normal. Thyroid function test showed a TSH of 0.8. The viral screen was negative at time of admission. The patient becomes hypoxic and according to the patient was placed on Airvo which is currently at 60 L with an FiO2 of 70%. Current pulse ox is 99%. She is afebrile. A chest x-ray was done this morning and it showed COPD with scattered linear changes and atelectatic change in lung base bilaterally and some mild pulm vessel congestion. The patient was given 60 mg of IV Lasix and subsequently she prod uced adequate urine output. She seems to be much more comfortable at this point in time. Hemodynamically, she remains stable. No reported aspiration. No reported seizure activity. The patient is seen today December 20, 2024 in follow-up on the selective care unit. She is currently resting in bed. She remains on Airvo high flow oxygen at 60 L and 64% FiO2. She is a poor historian. Unable to obtain much information. Arterial blood gases on 80% FiO2 revealed a PaO2 of 120, pCO2 43 and a pH of 7.35. No evidence for acute pulmonary disease. Doppler of the lower extremities revealed no evidence of DVT. No new labs today. She remains on Symbicort, albuterol. Urine culture positive for E. coli. Antibiotics in the form of ceftriaxone. Lovenox for DVT prophylaxis. Seen today on 12/21/2024, continues to require significant amount of oxygen, presently on 15 L high flow nasal cannula and O2 saturation is 94 to 96%. A VQ scan was done yesterday, and it was in intermediate probability. Considering we cannot do a CT angiogram of the chest, and considering her D-dimer is elevated, although she had a negative venous Doppler, I am going to recommend that we place the patient on Eliquis. Dr. Lynn is considering a bubble echocardiogram to rule out shunt. I believe at this point it is best to continue present supportive care measures and treat the patient with Eliquis and once her renal functioning improves, could consider CT angiogram of the chest. The patient herself is not a great historian, she seems to be quite confused. And answers yes to every question we asked. ABG on 80% FiO2 showed a pO2 of 120 pCO2 43 pH of 7.35, very unlikely that this is an ABG of a shunt. Patient was seen today, remains on high flow nasal cannula alternate between 8 up to 15, patient does not seem to be in distress, O2 sats is 95%. Yesterday I placed the patient on Eliquis, not much of a change noted so far, she is supposed to have a bubble study to make sure the patient does not have a shunt. Again clinically the patient seems to be in no distress whatsoever. But still requiring high FiO2. Basic metabolic profile is normal BUN is 32 creat 1.40, last chest x-ray from 12/20 showed mostly chronic changes but no clear-cut evidence of acute pulmonary disease. Objective - Vital Signs Vital signs: Vital Signs Temp 97.4 F L 12/22/24 16:00 Pulse 54 L 12/22/24 16:00 Resp 20 12/22/24 16:00 BP 114/60 12/22/24 16:00 Pulse Ox 95 12/22/24 16:00 FiO2 60 12/21/24 08:01 Intake & Output 12/21/24 12/22/24 12/22/24 18:59 06:59 18:59 Intake Total 440 10 Balance 440 10 Weight 82 kg Intake: IV 20 10 Invasive Line 3 20 10 Oral 420 Other: Voiding Method Diaper Diaper Diaper External Catheter External Catheter External Catheter # Voids 1 - Exam GENERAL EXAM: Alert, 79-year-old female, on high flow nasal cannula HEAD: Normocephalic. EYES: Normal reaction of pupils, equal size. NOSE: Clear with pink turbinates. THROAT: No erythema or exudates. NECK: No masses, no JVD. CHEST: No chest wall deformity. LUNGS: Equal air entry with no crackles, wheeze, rhonchi or dullness. CVS: S1 and S2 normal with no audible murmur, regular rhythm. ABDOMEN: No hepatosplenomegaly, normal bowel sounds, no guarding or rigidity. SKIN: No rashes CENTRAL NERVOUS SYSTEM: Impaired, cannot assess patient is nonverbal however today she mentioned that she is being discharged EXTREMITIES: There is no peripheral edema. No clubbing, no cyanosis. Peripheral pulses are intact. - Labs CBC & Chem 7: 12/17/24 04:14 12/21/24 07:28 Labs: Microbiology - Last 24 Hours (Table) 12/16/24 22:46 Blood Culture - Final Blood Assessment and Plan Assessment: Impression: Acute hypoxic respiratory failure, the patient became acutely hypoxic yesterday and the blood gases showed no significant respiratory acidosis. Requiring high flow FiO2 15 L high flow nasal cannula however considering the patient has an intermediate VQ scan, I will recommend treatment with Eliquis for presumptive thromboembolic disease, although this is not confirmed, but we cannot perform a CT angiogram on this patient, and consider CT angiogram of the chest once her renal functioning improved. Urinary tract infection with E. coli, remains on IV Rocephin Chronic dementia/developmental delay with impairment of the cognitive functions. Chronic gait dysfunction Hypertension Hyperlipidemia COPD/asthma maintained on Breo Ellipta on outpatient basis Acid reflux Plan: Continue present supportive care measures Continue FiO2 titration as tolerated Awaiting bubble study which was ordered by Dr. Lynn Continue antibiotics for UTI Continue bronchodilators Lovenox for DVT prophylaxis Titrate FiO2 as tolerated Will continue to follow Time with Patient: Less than 30
--- NOTE | 2024-12-22 17:11 | P.PN ---
Subjective Progress Note Date: 12/22/24 Principal diagnosis: Reason for follow-up is UTI/leukocytosis Patient is a 79-year-old female with a past medical history significant for mental dehydration/dementia and [facility] resident patient has been brought into the hospital from [facility] concerning for vomiting and diarrhea did have a positive UA elevated white count concerning for UTI prompting this consultation. On today's evaluation that is 12/22/2024,the patient denies any fever or any chills, patient is breathing comfortably however still requiring 15 L high flow nasal oxygen denies any chest pain occasional cough no abdominal pain or diarrhea mention he wants to go home. Patient did not have any blood draw today blood culture negative Objective - Vital Signs Vital signs: Vital Signs Temp 98 F 12/22/24 12:00 Pulse 56 L 12/22/24 12:00 Resp 21 12/22/24 12:00 BP 119/62 12/22/24 12:00 Pulse Ox 98 12/22/24 12:22 FiO2 60 12/21/24 08:01 Intake & Output 12/21/24 12/22/24 12/22/24 18:59 06:59 18:59 Intake Total 440 10 Balance 440 10 Weight 82 kg Intake: IV 20 10 Invasive Line 3 20 10 Oral 420 Other: Voiding Method Diaper Diaper Diaper External Catheter External Catheter External Catheter # Voids 1 - Exam GENERAL DESCRIPTION: An elderly female lying in bed in no distress RESPIRATORY SYSTEM: Unlabored breathing , decreased breath sounds at bases HEART: S1 S2 regular rate and rhythm , ABDOMEN: Soft , no tenderness EXTREMITIES: No edema feet - Labs CBC & Chem 7: 12/17/24 04:14 12/21/24 07:28 Labs: Microbiology - Last 24 Hours (Table) 12/16/24 22:46 Blood Culture - Final Blood Assessment and Plan (1) Leukocytosis Current Visit: Yes Status: Acute Code(s): D72.829 - ELEVATED WHITE BLOOD CELL COUNT, UNSPECIFIED SNOMED Code(s): 852917479 (2) UTI (urinary tract infection) Current Visit: Yes Status: Acute Code(s): N39.0 - URINARY TRACT INFECTION, SITE NOT SPECIFIED SNOMED Code(s): 96991236 Plan: 1patient presented to hospital mental status changes also having nausea vomiting and diarrhea and did have elevated white count positive UA questionable UTI as abdominal was soft her clinical examination clinical suspicion remains to be low for TERMITE [employer] REPRESENTATIVE infection 2patient has completed antibiotic therapy for the UTI Rocephin was discontinued by admitting team yesterday we will monitor the patient closely off antibiotic therapy, currently waiting for the stabilization of the pulmonary status before discharge Dictation was produced using [employer] dictation software. please excuse any grammatical, word or spelling errors. Time with Patient: Less than 30
--- NOTE | 2024-12-22 19:19 | P.PN ---
Progress Note - Text Progress Note Date: 12/22/24 Chief Complaint: Shortness of breath This is a 79-year-old patient, resident of [facility]. Being followed by Dr. Larsen. Spoke to Kat the social media intern she gave me this baseline after she spoke to the land leases and rentals manager at the [facility]. Normally patient gets around with a walker. Apparently is able x 1. Will often just say yes. She was sent in because they felt she was speaking less than her baseline. She patient unable to give me any history. I spoke to the aide on the floor. Patient not been eating. Covered head under the blankets. Patient is found to have UTI in the ER. Started on IV ceftriaxone. IV fluids. December 18: Patient doing much better today. Communicative. Stating that she wants to go back to the [facility]. Wants to get discharge.. Eating better. IV ceftriaxone.Urine culture growing gram-negative bacilli. Chest x-ray done today unremarkable. Have the patient sit up in the chair. December 19: Critical care note. Nurse called me this morning that patient's become more short of breath. Was down to 72% on 5 L. Patient's placed on Airvo. 70% FiO2. I ordered a stat chest x-ray. Patient had received IV fluids until yesterday. Patient is getting IV ceftriaxone for a UTI. Based on clinical findings and picture I gave the patient 1 dose of IV Lasix 60 mg. Patient remains on Airvo. Pulmonary Dr. Jeffery was consulted. I did speak to him. Spoke to the nurse. Patient moved to the telemetry floor/3 S. versus ICU depending on clinical course. ABG ordered: December 20: On telemetry floor. On Airvo. Ordered a chest x-ray. No infiltrate. May be venous prominence. Will repeat a dose of Lasix 60 mg x 1. Order Doppler ultrasound lower extremity. Negative for DVT. Pulmonary did order a VQ scan. December 21: VQ scan was ordered by pulmonary. Intermediate probability. This started the patient on Eliquis. 2D echo with bubble study is being ordered to check if there is a shunt. 2 explain for her hypoxia. Eating some. Will DC IV ceftriaxone.-Has received 5 days for UTI. December 22: Patient on 15 L high flow nasal cannula. This afternoon. More breathing. Pending 2D echo with bubble study. Patient is felt to have underlying PE given the suddenness of presentation. Hence on Eliquis. Active Medications Albuterol Sulfate (Albuterol Nebulized 2.5 Mg/3 Ml) 2.5 mg INHALATION RT-Q6H PRN PRN Reason: Shortness Of Breath Last Admin: 12/21/24 08:01 Dose: 2.5 mg Apixaban (Apixaban Initiation Dose--Vte 5 Mg Tab) 10 mg PO BID [facility]; Taper Stop: 01/20/25 08:59 Last Admin: 12/22/24 08:52 Dose: 10 mg Aspirin (Aspirin 81 Mg) 81 mg PO DAILY@0800 [facility] Last Admin: 12/22/24 08:53 Dose: 81 mg Atorvastatin Calcium (Atorvastatin 20 Mg Tab) 20 mg PO HS@1999 [facility] Last Admin: 12/21/24 22:41 Dose: 20 mg Budesonide/Formoterol Fumarate (Symbicort 80-4.5 Mcg Inhaler) 2 puff INHALATION RT-BID [facility] Last Admin: 12/22/24 08:56 Dose: 2 puff Calcium Carbonate/Glycine (Calcium Carbonate 500 Mg Chewable) 500 mg PO BID PRN PRN Reason: GI Upset Clonidine (Clonidine Hcl 0.2 Mg Tab) 0.2 mg PO BID@799,1999 [facility] Last Admin: 12/22/24 08:53 Dose: 0.2 mg Cyanocobalamin (Cyanocobalamin 500 Mcg Tab) 1,000 mcg PO FR@1700 [facility] Last Admin: 12/17/24 17:36 Dose: 1,000 mcg Gabapentin (Gabapentin 100 Mg Cap) 100 mg PO TID@0800,1400,1999 [facility] Last Admin: 12/22/24 17:28 Dose: 100 mg Ceftriaxone Sodium 1 gm/ (Sodium Chloride) 50 mls @ 100 mls/hr IVPB Q12HR [facility]; Protocol Last Admin: 12/22/24 08:52 Dose: 100 mls/hr Lactic Acid (Ammonium Lactate 12% Cream 140 Gm Tube) 1 applic TOPICAL BID [facility]; Protocol Last Admin: 12/22/24 08:53 Dose: 1 applic Naloxone HCl (Naloxone 0.4 Mg/Ml 1 Ml Vial) 0.2 mg IV Q2M PRN PRN Reason: Opioid Reversal Nystatin (Nystatin 100,000 Unit/Gm Powd 15 Gm) 1 applic TOPICAL HS@1999 [facility]; Protocol Last Admin: 12/21/24 22:41 Dose: 1 applic Ondansetron HCl (Ondansetron Odt 4 Mg Tab) 4 mg PO TID PRN PRN Reason: NAUSEA WITH MEALS Pantoprazole Sodium (Pantoprazole 40 Mg Tablet) 40 mg PO DAILY@0700 [facility] Last Admin: 12/22/24 06:35 Dose: 40 mg Petrolatum (Zinc Oxide Paste (Z-Guard) 1 Applic) 1 applic TOPICAL BID PRN; Protocol PRN Reason: Wound Healing Last Admin: 12/17/24 20:53 Dose: 1 applic Social history: Resident of [facility]. Does use a four-wheel walker. No smoking alcohol history reported Physical examination: VITAL SIGNS: 98, 56, 21, 119/62, 100% on 15 L high flow oxygen GENERAL: BMI 29.9, lying bed awake. Mouth breathing EYES: Pupils equal. Conjunctiva damian l. HEENT: External appearance of nose and ears normal, oral cavity grossly normal. NECK: JVD unable to assess; masses not palpable. HEART: First and second heart sounds are normal; no edema. LUNGS: Respiratory rate increased, decreased breath sounds. ABDOMEN: Soft, nontender, liver spleen not palpable, no masses palpable. PSYCH: [Patient does state her name. Otherwise just Says yeah.. MUSCULOSKELETAL:No Clubbing/cyanosis;muscles-grossly intact. OA INVESTIGATIONS, reviewed in the clinical context: December 21: BUN 32 creatinine 1.40 TSH 0.8 B12 733 folate 14.9 Doppler ultrasound bilateral lower extremity: Negative for DVT December 19: D-dimer 0.82 November 19, 2024: White count 16.5 hemoglobin 12.9 platelets 315 sodium 141 po tassium 4.9 BUN 32 creatinine 1.23 Troponin I less than 0.012 UA positive for nitrite, leukoesterase WBC Urine drug screen positive for tricyclic antidepressants Influenza type A, type B, RSV, SARS-CoV-2: Not detected EKG tracing personally reviewed by me-normal sinus rhythm. LVH. Some ST changes inferolateral leads. Chest x-ray film personally reviewed by me-possible infiltrate versus chronic c hanges CT brain: No acute. Age-appropriate senescent changes. Assessment and plan: -Acute mental status changes likely acute delirium from underlying UTI.: Much improved -Acute UTI causing delirium: Cultures growing E. coli IV ceftriaxone-will DC has received 5 days of the same -Acute hypoxic respiratory failure: Probable PE.-Given the suddenness of presentation: Slow to respond. Currently on 15 L- Initially fluid overload received IV Lasix. 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 At baseline. 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 Breo Ellipta Full code High flow nasal cannula. Eliquis. Pending. 2D echocardiogram with bubble study. Past Medical History Past Medical History: Dementia Additional Past Medical History / Comment(s): mental retardation History of Any Multi-Drug Resistant Organisms: None Reported Past Surgical History: Unable to Obtain Past Anesthesia/Blood Transfusion Reactions: Unable to Obtain Past Psychological History: No Psychological Hx Reported Smoking Status: Never smoker Past Alcohol Use History: Unable to Obtain Past Drug Use History: Unable to Obtain
[2024-12-23 06:58] LABS: HCT 36.8 % (34.0-46.0); HGB 11.4 gm/dL (11.4-16.0); Hypochromasia Slight; MCH 29.4 pg (25.0-35.0); MCV 94.9 fL (80.0-100.0); Mean Platelet Volume 7.8; Platelet Count 299 k/uL (150-450); RBC 3.87 m/uL (3.80-5.40); RDW 14.7 % (11.5-15.5); WBC 9.4 k/uL (3.8-10.6)
[2024-12-23 07:16] LABS: African American GFR (CKD) 49 (>60 ml/min/1.73 sqM); Anion Gap 5 mmol/L; Blood Urea Nitrogen 34 mg/dL (7-17); Calcium 8.4 mg/dL (8.4-10.2); Carbon Dioxide 31 mmol/L (22-30); Chloride 101 mmol/L (98-107); Glucose 112 mg/dL (74-99); Non-African American GFR(CKD) 42 (>60 ml/min/1.73 sqM); Potassium 3.9 mmol/L (3.5-5.1); Sodium 137 mmol/L (137-145)
--- NOTE | 2024-12-23 11:46 | CA ---
Transthoracic Echo Report Name: Orville Calix Age: 79 Gender: F : 1945 Exam Date: 12/23/2024 09:26 Exam Location: [place] [facility] Ht (in): 66 Wt (lb): 180 Ordering Physician: Dago Lynn MD Attending/Referring Phys: Pickle Processor Linda Sanabria RDCS Procedure CPT: Indications: bubble study for shunt Cardiac Hx: Dementia Technical Quality: Fair Contrast 1: Agitated Saline Total Dose (mL): 10 Contrast 2: Total Dose (mL): MEASUREMENTS (Male / Female) Normal Values 2D ECHO LV Diastolic Diameter PLAX 3.4 cm 4.2 - 5.9 / 3.9 - 5.3 cm LV Systolic Diameter PLAX 1.6 cm IVS Diastolic Thickness 0.9 cm 0.6 - 1.0 / 0.6 - 0.9 cm LVPW Diastolic Thickness 1.0 cm 0.6 - 1.0 / 0.6 - 0.9 cm LV Relative Wall Thickness 0.6 RV Internal Dim ED PLAX 2.2 cm LVOT Diameter 2.0 cm LA Systolic Diameter LX 3.5 cm 3.0 - 4.0 / 2.7 - 3.8 cm LV Diastolic Volume MOD BP 28.7 cm??? 67 - 155 / 56 - 104 cm??? LV Systolic Volume MOD BP 10.9 cm??? 22 - 58 / 19 - 49 cm??? LV Ejection Fraction MOD BP 61.8 % >= 55 % LV Cardiac Index MOD BP 664.6 cm???/min???m??? LV Diastolic Volume MOD 4C 37.7 cm??? LV Systolic Volume MOD 4C 13.9 cm??? LV Ejection Fraction MOD 4C 63.1 % LV Cardiac Index MOD 4C 892.4 cm???/min???m??? LV Diastolic Length 4C 6.5 cm LV Systolic Length 4C 5.3 cm LV Diastolic Volume MOD 2C 19.0 cm??? LV Systolic Volume MOD 2C 8.8 cm??? LV Ejection Fraction MOD 2C 53.9 % LV Cardiac Index MOD 2C 384.1 cm???/min???m??? LV Diastolic Length 2C 5.7 cm LV Systolic Length 2C 5.5 cm M-MODE Aortic Root Diameter MM 2.6 cm LA Systolic Diameter MM 3.3 cm LA Ao Ratio MM 1.3 AV Cusp Separation MM 0.9 cm DOPPLER AV Peak Velocity 210.9 cm/s AV Peak Gradient 17.8 mmHg AV Mean Velocity 142.6 cm/s AV Mean Gradient 9.3 mmHg AV Velocity Time Integral 46.7 cm AI Peak Velocity 374.8 cm/s AI Peak Gradient 56.2 mmHg AI Pressure Half Time 623.4 ms LVOT Peak Velocity 119.4 cm/s LVOT Peak Gradient 5.7 mmHg LVOT Velocity Time Integral 28.7 cm LVOT Stroke Volume 94.0 cm??? LVOT Stroke Volume Index 49.2 ml/m??? LVOT Cardiac Index 3528.3 cm???/min???m??? AV Area Cont Eq vti 2.0 cm??? AV Area Cont Eq pk 1.9 cm??? Mitral E Point Velocity 97.7 cm/s Mitral A Point Velocity 106.9 cm/s Mitral E to A Ratio 0.9 MV Deceleration Time 272.4 ms MV E' Velocity 6.5 cm/s Mitral E to MV E' Ratio 15.1 TR Peak Velocity 238.7 cm/s TR Peak Gradient 22.8 mmHg FINDINGS Left Ventricle Left ventricular ejection fraction is estimated at 60-65%. Mildly increased posterior wall thickness. Normal left ventricular systolic function with no obvious regional wall motion abnormalities. Left ventricular cavity size normal. Right Ventricle Normal right ventricular size and function. Right ventricular systolic pressure within normal limits. Right Atrium Mild right atrial dilatation. Negative agitated saline bubble study for right to left shunt. Left Atrium Mild left atrial dilatation. Mitral Valve Structurally normal mitral valve. Trace to mild mitral regurgitation. No mitral stenosis. Aortic Valve Trileaflet aortic valve. Mild aortic stenosis with a peak gradient of 18mmHg and a mean gradient of 9mmHg. Mild aortic regurgitation. Tricuspid Valve Structurally normal tricuspid valve. Mild tricuspid regurgitation. No tricuspid stenosis. Pulmonic Valve Structurally normal pulmonic valve. Trace pulmonic regurgitation. No pulmonic stenosis. Pericardium No pericardial or pleural effusion. Aorta Normal size aortic root and proximal ascending aorta. CONCLUSIONS Normal LV size and systolic function. Aortic valve sclerosis and mild mitral annular calcification. Mildly increased gradient across aortic valve. Mild mitral and tricuspid regurgitation. Mildly enlarged atria. No pericardial effusion. Bubble study was negative for shunt Previewed by: Dr. Shanice Ricardo MD (Electronically Signed) Final Date: 23 December 2024 11:45
[2024-12-23 14:31] VITALS: BMI 29.2
--- NOTE | 2024-12-23 15:00 | P.PN ---
Subjective Progress Note Date: 12/23/24 Principal diagnosis: Acute hypoxic respiratory failure secondary to COPD and possible pulmonary embolism. This is a 79-year-old female patient who became acutely hypoxic this morning and the patient got transferred to telemetry unit and a pulmonary consultation was requested accordingly. The patient comes from [facility] home. The patient is known to have COPD and normally she gets around with the help of a walker. She has dementia and she is got some underlying mental and developmental delay and apparently she is is oriented x 1 at baseline. Her ability to provide history i s quite limited. She was admitted to the hospital initially for some delirium and this was suspected to be related to urine tract infection and the patient was confirmed to have a gram-negative UTI and accordingly she was started on IV Rocephin. Cultures are still pending for now. Meanwhile, her blood counts were showing some leukocytosis and the white cell count on 12/17/2024 was at 16 with a hemoglobin 12.9. The patient also had a component of chronic kidney disease and the creatinine was at 1.1 with a BUN of 32 and a sodium level of 142. Troponins were negative. LFTs were normal. Thyroid function test showed a TSH of 0.8. The viral screen was negative at time of admission. The patient becomes hypoxic and according to the patient was placed on Airvo which is currently at 60 L with an FiO2 of 70%. Current pulse ox is 99%. She is afebrile. A chest x-ray was done this morning and it showed COPD with scattered linear changes and atelectatic change in lung base bilaterally and some mild pulm vessel congestion. The patient was given 60 mg of IV Lasix and subsequently she prod uced adequate urine output. She seems to be much more comfortable at this point in time. Hemodynamically, she remains stable. No reported aspiration. No reported seizure activity. The patient is seen today December 20, 2024 in follow-up on the selective care unit. She is currently resting in bed. She remains on Airvo high flow oxygen at 60 L and 64% FiO2. She is a poor historian. Unable to obtain much information. Arterial blood gases on 80% FiO2 revealed a PaO2 of 120, pCO2 43 and a pH of 7.35. No evidence for acute pulmonary disease. Doppler of the lower extremities revealed no evidence of DVT. No new labs today. She remains on Symbicort, albuterol. Urine culture positive for E. coli. Antibiotics in the form of ceftriaxone. Lovenox for DVT prophylaxis. Seen today on 12/21/2024, continues to require significant amount of oxygen, presently on 15 L high flow nasal cannula and O2 saturation is 94 to 96%. A VQ scan was done yesterday, and it was in intermediate probability. Considering we cannot do a CT angiogram of the chest, and considering her D-dimer is elevated, although she had a negative venous Doppler, I am going to recommend that we place the patient on Eliquis. Dr. Lynn is considering a bubble echocardiogram to rule out shunt. I believe at this point it is best to continue present supportive care measures and treat the patient with Eliquis and once her renal functioning improves, could consider CT angiogram of the chest. The patient herself is not a great historian, she seems to be quite confused. And answers yes to every question we asked. ABG on 80% FiO2 showed a pO2 of 120 pCO2 43 pH of 7.35, very unlikely that this is an ABG of a shunt. Patient was seen today, remains on high flow nasal cannula alternate between 8 up to 15, patient does not seem to be in distress, O2 sats is 95%. Yesterday I placed the patient on Eliquis, not much of a change noted so far, she is supposed to have a bubble study to make sure the patient does not have a shunt. Again clinically the patient seems to be in no distress whatsoever. But still requiring high FiO2. Basic metabolic profile is normal BUN is 32 creat 1.40, last chest x-ray from 12/20 showed mostly chronic changes but no clear-cut evidence of acute pulmonary disease. Patient was seen today on 12/23/2024, remains on nasal cannula, however patient is down to 4 L nasal cannula, and her O2 saturation is ranging between 95 to 100%. Patient has made a significant improvement almost in the last 2 days. We were able to titrate her FiO2 down, and I believe at this point the patient coul d be considered for discharge to [facility]. Patient is asking to be discharged home, she is becoming even more verbal at this point. WBC count is 9.4 hemoglobin 11.4 electrolytes are normal BUN is 34 creatinine 1.23 Objective - Vital Signs Vital signs: Vital Signs Temp 98.5 F 12/23/24 08:10 Pulse 74 12/23/24 11:40 Resp 18 12/23/24 11:40 BP 109/54 12/23/24 11:40 Pulse Ox 100 12/23/24 11:40 FiO2 60 12/21/24 08:01 Intake & Output 12/22/24 12/23/24 12/23/24 18:59 06:59 18:59 Intake Total 118 360 Output Total 500 250 400 Balance -382 -250 -40 Weight 82 kg 82 kg Intake: Oral 118 360 Output: Urine 500 250 400 Other: Voiding Method Diaper Diaper Diaper External Catheter External Catheter External Catheter - Exam GENERAL EXAM: Alert, 79-year-old female, on 4 L nasal cannula HEAD: Normocephalic. EYES: Normal reaction of pupils, equal size. NOSE: Clear with pink turbinates. THROAT: No erythema or exudates. NECK: No masses, no JVD. CHEST: No chest wall deformity. LUNGS: Equal air entry with no crackles, wheeze, rhonchi or dullness. CVS: S1 and S2 normal with no audible murmur, regular rhythm. ABDOMEN: No hepatosplenomegaly, normal bowel sounds, no guarding or rigidity. SKIN: No rashes CENTRAL NERVOUS SYSTEM: Impaired, but today she seems to be more verbal and asking to be discharged. EXTREMITIES: There is no peripheral edema. No clubbing, no cyanosis. Peripheral pulses are intact. - Labs CBC & Chem 7: 12/23/24 06:12 12/23/24 06:12 Labs: Abnormal Lab Results - Last 24 Hours (Table) 12/23/24 Range/Units 06:12 Carbon Dioxide 31 H (22-30) mmol/L BUN 34 H (7-17) mg/dL Creatinine 1.23 H (0.52-1.04) mg/dL Glucose 112 H (74-99) mg/dL Assessment and Plan Assessment: Impression: Acute hypoxic respiratory failure,, multifactorial, significantly improved Possible pulmonary embolism remains on anticoagulation therapy Urinary tract infection with E. coli, remains on IV Rocephin Chronic dementia/developmental delay with impairment of the cognitive functions. Chronic gait dysfunction Hypertension Hyperlipidemia COPD/asthma maintained on Breo Ellipta on outpatient basis Acid reflux Plan: Continue O2 titration Consider discharge planning Follow-up on outpatient basis. Continue antibiotics for UTI, on outpatient basis Continue bronchodilators on outpatient basis Will clear patient for discharge Time with Patient: Less than 30
--- NOTE | 2024-12-23 15:28 | P.PN ---
Subjective Progress Note Date: 12/23/24 Principal diagnosis: Reason for follow-up is UTI/leukocytosis Patient is a 79-year-old female with a past medical history significant for mental dehydration/dementia and long-term resident patient has been brought into the hospital from [facility] concerning for vomiting and diarrhea did have a positive UA elevated white count concerning for UTI prompting this consultation. On today's evaluation that is 12/23/2024,the patient remains to be afebrile, patient is on r 4 L nasal cannula supplemental oxygen and denies any chest pain or cough no abdominal pain diarrhea fever nausea want to go home. The patient white count is 9.4, creatinine is 1.23 blood culture has been negative Objective - Vital Signs Vital signs: Vital Signs Temp 98.5 F 12/23/24 08:10 Pulse 74 12/23/24 11:40 Resp 18 12/23/24 11:40 BP 109/54 12/23/24 11:40 Pulse Ox 100 12/23/24 11:40 FiO2 60 12/21/24 08:01 Intake & Output 12/22/24 12/23/24 12/23/24 18:59 06:59 18:59 Intake Total 118 180 Output Total 500 250 Balance -382 -250 180 Weight 82 kg Intake: Oral 118 180 Output: Urine 500 250 Other: Voiding Method Diaper Diaper Diaper External Catheter External Catheter External Catheter - Exam GENERAL DESCRIPTION: An elderly female lying in bed in no distress RESPIRATORY SYSTEM: Unlabored breathing , decreased breath sounds at bases HEART: S1 S2 regular rate and rhythm , ABDOMEN: Soft , no tenderness EXTREMITIES: No edema feet - Labs CBC & Chem 7: 12/23/24 06:12 12/23/24 06:12 Labs: Abnormal Lab Results - Last 24 Hours (Table) 12/23/24 Range/Units 06:12 Carbon Dioxide 31 H (22-30) mmol/L BUN 34 H (7-17) mg/dL Creatinine 1.23 H (0.52-1.04) mg/dL Glucose 112 H (74-99) mg/dL Assessment and Plan (1) Leukocytosis Current Visit: Yes Status: Acute Code(s): D72.829 - ELEVATED WHITE BLOOD CELL COUNT, UNSPECIFIED SNOMED Code(s): 864822790 (2) UTI (urinary tract infection) Current Visit: Yes Status: Acute Code(s): N39.0 - URINARY TRACT INFECTION, SITE NOT SPECIFIED SNOMED Code(s): 36377936 Plan: 1patient presented to hospital mental status changes also having nausea vomiting and diarrhea and did have elevated white count positive UA questionable UTI as abdominal was soft her clinical examination clinical suspicion remains to be low for POSTDOCTORAL SCIENTIST infection 2patient has completed antibiotic therapy for the UTI Rocephin has been discontinued seem to be doing well off antibiotic white count has been normal Dictation was produced using [employer] dictation software. please excuse any grammatical, word or spelling errors. Time with Patient: Less than 30
--- NOTE | 2024-12-23 23:40 | P.PN ---
Progress Note - Text Progress Note Date: 12/23/24 Chief Complaint: Shortness of breath This is a 79-year-old patient, resident of [facility]. Being followed by Dr. Larsen. Spoke to Kat the social service manager she gave me this baseline after she spoke to the manager finance at the [facility]. Normally patient gets around with a walker. Apparently is able x 1. Will often just say yes. She was sent in because they felt she was speaking less than her baseline. She patient unable to give me any history. I spoke to the aide on the floor. Patient not been eating. Covered head under the blankets. Patient is found to have UTI in the ER. Started on IV ceftriaxone. IV fluids. December 18: Patient doing much better today. Communicative. Stating that she wants to go back to the [facility]. Wants to get discharge.. Eating better. IV ceftriaxone.Urine culture growing gram-negative bacilli. Chest x-ray done today unremarkable. Have the patient sit up in the chair. December 19: Critical care note. Nurse called me this morning that patient's become more short of breath. Was down to 72% on 5 L. Patient's placed on Airvo. 70% FiO2. I ordered a stat chest x-ray. Patient had received IV fluids until yesterday. Patient is getting IV ceftriaxone for a UTI. Based on clinical findings and picture I gave the patient 1 dose of IV Lasix 60 mg. Patient remains on Airvo. Pulmonary Dr. Jeffery was consulted. I did speak to him. Spoke to the nurse. Patient moved to the telemetry floor/3 S. versus ICU depending on clinical course. ABG ordered: December 20: On telemetry floor. On Airvo. Ordered a chest x-ray. No infiltrate. May be venous prominence. Will repeat a dose of Lasix 60 mg x 1. Order Doppler ultrasound lower extremity. Negative for DVT. Pulmonary did order a VQ scan. December 21: VQ scan was ordered by pulmonary. Intermediate probability. This started the patient on Eliquis. 2D echo with bubble study is being ordered to check if there is a shunt. 2 explain for her hypoxia. Eating some. Will DC IV ceftriaxone.-Has received 5 days for UTI. December 22: Patient on 15 L high flow nasal cannula. This afternoon. More breathing. Pending 2D echo with bubble study. Patient is felt to have underlying PE given the suddenness of presentation. Hence on Eliquis. December 23: Saw the patient this morning. FiO2 down to 4 L. 2D echo-EF 60 to 65%. Negative bubble study. Patient be treated for PE. Taper down FiO2.. Active Medications Albuterol Sulfate (Albuterol Nebulized 2.5 Mg/3 Ml) 2.5 mg INHALATION RT-Q6H PRN PRN Reason: Shortness Of Breath Last Admin: 12/22/24 20:47 Dose: 2.5 mg Apixaban (Apixaban Initiation Dose--Vte 5 Mg Tab) 10 mg PO BID [facility]; Taper Stop: 01/20/25 08:59 Last Admin: 12/23/24 20:21 Dose: 10 mg Aspirin (Aspirin 81 Mg) 81 mg PO DAILY@08 [facility] Last Admin: 12/23/24 10:19 Dose: 81 mg Atorvastatin Calcium (Atorvastatin 20 Mg Tab) 20 mg PO HS@1999 [facility] Last Admin: 12/23/24 20:21 Dose: 20 mg Budesonide/Formoterol Fumarate (Symbicort 80-4.5 Mcg Inhaler) 2 puff INHALATION RT-BID [facility] Last Admin: 12/23/24 20:19 Dose: 2 puff Calcium Carbonate/Glycine (Calcium Carbonate 500 Mg Chewable) 500 mg PO BID PRN PRN Reason: GI Upset Clonidine (Clonidine Hcl 0.2 Mg Tab) 0.2 mg PO BID@799,1999 [facility] Last Admin: 12/23/24 20:21 Dose: 0.2 mg Cyanocobalamin (Cyanocobalamin 500 Mcg Tab) 1,000 mcg PO FR@1700 [facility] Last Admin: 12/17/24 17:36 Dose: 1,000 mcg Gabapentin (Gabapentin 100 Mg Cap) 100 mg PO TID@0800,1399,1999 [facility] Last Admin: 12/23/24 20:21 Dose: 100 mg Lactic Acid (Ammonium Lactate 12% Cream 140 Gm Tube) 1 applic TOPICAL BID [facility]; Protocol Last Admin: 12/23/24 20:22 Dose: Not Given Naloxone HCl (Naloxone 0.4 Mg/Ml 1 Ml Vial) 0.2 mg IV Q2M PRN PRN Reason: Opioid Reversal Nystatin (Nystatin 100,000 Unit/Gm Powd 15 Gm) 1 applic TOPICAL HS@1999 [facility]; Protocol Last Admin: 12/23/24 20:22 Dose: Not Given Ondansetron HCl (Ondansetron Odt 4 Mg Tab) 4 mg PO TID PRN PRN Reason: NAUSEA WITH MEALS Pantoprazole Sodium (Pantoprazole 40 Mg Tablet) 40 mg PO DAILY@0700 [facility] Last Admin: 12/23/24 06:43 Dose: 40 mg Petrolatum (Zinc Oxide Paste (Z-Guard) 1 Applic) 1 applic TOPICAL BID PRN; Protocol PRN Reason: Wound Healing Last Admin: 12/17/24 20:53 Dose: 1 applic Social history: Resident of [facility]. Does use a four-wheel walker. No smoking alcohol history reported Physical examination: VITAL SIGNS: 98.5, 52, 18, 114/59, 95% on 4 L GENERAL: BMI 29.9, lying bed awake. More comfortable EYES: Pupils equal. Conjunctiva damian l. HEENT: External appearance of nose and ears normal, oral cavity grossly normal. NECK: JVD unable to assess; masses not palpable. HEART: First and second heart sounds are normal; no edema. LUNGS: Respiratory rate increased, decreased breath sounds. ABDOMEN: Soft, nontender, liver spleen not palpable, no masses palpable. PSYCH: [Patient does state her name. Otherwise just Says yeah.. MUSCULOSKELETAL:No Clubbing/cyanosis;muscles-grossly intact. OA INVESTIGATIONS, reviewed in the clinical context: December 31: White count 9.4 hemoglobin 11.4 platelets 299 potassium 3.9 BUN 34 creatinine 1.23. Ammonia 16 vitamin B12 733 folate 14.9 TSH 0.8 December 21: BUN 32 creatinine 1.40 TSH 0.8 B12 733 folate 14.9 Doppler ultrasound bilateral lower extremity: Negative for DVT December 19: D-dimer 0.82 November 19, 2024: White count 16.5 hemoglobin 12.9 platelets 315 sodium 141 potassium 4.9 BUN 32 creatinine 1.23 Troponin I less than 0.012 UA positive for nitrite, leukoesterase WBC Urine drug screen positive for tricyclic antidepressants Influenza type A, type B, RSV, SARS-CoV-2: Not detected EKG tracing personally reviewed by me-normal sinus rhythm. LVH. Some ST changes inferolateral leads. Chest x-ray film personally reviewed by me-possible infiltrate versus chronic changes CT brain: No acute. Age-appropriate senescent changes. Assessment and plan: -Acute mental status changes likely acute delirium from underlying UTI.: Much improved -Acute UTI causing delirium: Cultures growing E. coli IV ceftriaxone-will DC has received 5 days of the same -Acute hypoxic respiratory failure: Probable PE.-Given the suddenness of presentation: Much improved Initially on 15 L of oxygen. Now down to 4 L. Initially fluid overload received IV Lasix. 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 At baseline. 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 Breo Ellipta Full code Taper down FiO2. Hopefully plan to discharge tomorrow. Past Medical History Past Medical History: Dementia Additional Past Medical History / Comment(s): mental retardation History of Any Multi-Drug Resistant Organisms: None Reported Past Surgical History: Unable to Obtain Past Anesthesia/Blood Transfusion Reactions: Unable to Obtain Past Psychological History: No Psychological Hx Reported Smoking Status: Never smoker Past Alcohol Use History: Unable to Obtain Past Drug Use History: Unable to Obtain
[2024-12-24 08:11] VITALS: TEMP 97.9
--- NOTE | 2024-12-24 14:58 | P.PN ---
Subjective Progress Note Date: 12/24/24 Principal diagnosis: Reason for follow-up is UTI/leukocytosis Patient is a 79-year-old female with a past medical history significant for mental dehydration/dementia and half-way resident patient has been brought into the hospital from [facility] concerning for vomiting and diarrhea did have a positive UA elevated white count concerning for UTI prompting this consultation. On today's evaluation that is 12/24/2024, the patient continues to be afebrile, the patient is on 3 L of oxygen and breathing comfortably, the Pt denies having any chest pain or cough, the patient denies abdominal pain or diarrhea. White count is 9.4 creatinine is 1.23 as of yesterday no lab draw today Objective - Vital Signs Vital signs: Vital Signs Temp 97.9 F 12/24/24 08:10 Pulse 50 L 12/24/24 11:05 Resp 17 12/24/24 11:05 BP 100/66 12/24/24 11:05 Pulse Ox 96 12/24/24 11:05 FiO2 60 12/21/24 08:01 Intake & Output 12/23/24 12/24/24 12/24/24 18:59 06:59 18:59 Intake Total 540 180 Output Total 400 550 Balance 140 -550 180 Weight 82 kg 70 kg Intake: Oral 540 180 Output: Urine 400 550 Other: Voiding Method Diaper Diaper Diaper External Catheter External Catheter External Catheter # Voids 125 - Exam GENERAL DESCRIPTION: An elderly female lying in bed in no distress RESPIRATORY SYSTEM: Unlabored breathing , decreased breath sounds at bases HEART: S1 S2 regular rate and rhythm , ABDOMEN: Soft , no tenderness EXTREMITIES: No edema feet - Labs CBC & Chem 7: 12/23/24 06:12 12/23/24 06:12 Assessment and Plan (1) Leukocytosis Current Visit: Yes Status: Acute Code(s): D72.829 - ELEVATED WHITE BLOOD CELL COUNT, UNSPECIFIED SNOMED Code(s): 634676203 (2) UTI (urinary tract infection) Current Visit: Yes Status: Acute Code(s): N39.0 - URINARY TRACT INFECTION, SITE NOT SPECIFIED SNOMED Code(s): 30004581 Plan: 1patient presented to hospital mental status changes also having nausea vomiting and diarrhea and did have elevated white count positive UA questionable UTI as abdominal was soft her clinical examination clinical suspicion remains to be low for [employer] infection 2patient has completed antibiotic therapy for the UTI Rocephin has been discontinued and is currently being monitored closely off antibiotic therapy white count remains to be normal as of yesterday Dictation was produced using [employer] software. please excuse any grammatical, word or spelling errors. Time with Patient: Less than 30
[2024-12-24 15:12] VITALS: BP 107/45; PULSE 54; RESP 18
--- NOTE | 2024-12-24 15:31 | P.PN ---
Subjective Progress Note Date: 12/24/24 Principal diagnosis: Acute hypoxic respiratory failure secondary to COPD and possible pulmonary embolism. This is a 79-year-old female patient who became acutely hypoxic this morning and the patient got transferred to telemetry unit and a pulmonary consultation was requested accordingly. The patient comes from [facility] home. The patient is known to have COPD and normally she gets around with the help of a walker. She has dementia and she is got some underlying mental and developmental delay and apparently she is is oriented x 1 at baseline. Her ability to provide history i s quite limited. She was admitted to the hospital initially for some delirium and this was suspected to be related to urine tract infection and the patient was confirmed to have a gram-negative UTI and accordingly she was started on IV Rocephin. Cultures are still pending for now. Meanwhile, her blood counts were showing some leukocytosis and the white cell count on 12/17/2024 was at 16 with a hemoglobin 12.9. The patient also had a component of chronic kidney disease and the creatinine was at 1.1 with a BUN of 32 and a sodium level of 142. Troponins were negative. LFTs were normal. Thyroid function test showed a TSH of 0.8. The viral screen was negative at time of admission. The patient becomes hypoxic and according to the patient was placed on Airvo which is currently at 60 L with an FiO2 of 70%. Current pulse ox is 99%. She is afebrile. A chest x-ray was done this morning and it showed COPD with scattered linear changes and atelectatic change in lung base bilaterally and some mild pulm vessel congestion. The patient was given 60 mg of IV Lasix and subsequently she prod uced adequate urine output. She seems to be much more comfortable at this point in time. Hemodynamically, she remains stable. No reported aspiration. No reported seizure activity. The patient is seen today December 20, 2024 in follow-up on the selective care unit. She is currently resting in bed. She remains on Airvo high flow oxygen at 60 L and 64% FiO2. She is a poor historian. Unable to obtain much information. Arterial blood gases on 80% FiO2 revealed a PaO2 of 120, pCO2 43 and a pH of 7.35. No evidence for acute pulmonary disease. Doppler of the lower extremities revealed no evidence of DVT. No new labs today. She remains on Symbicort, albuterol. Urine culture positive for E. coli. Antibiotics in the form of ceftriaxone. Lovenox for DVT prophylaxis. Seen today on 12/21/2024, continues to require significant amount of oxygen, presently on 15 L high flow nasal cannula and O2 saturation is 94 to 96%. A VQ scan was done yesterday, and it was in intermediate probability. Considering we cannot do a CT angiogram of the chest, and considering her D-dimer is elevated, although she had a negative venous Doppler, I am going to recommend that we place the patient on Eliquis. Dr. Lynn is considering a bubble echocardiogram to rule out shunt. I believe at this point it is best to continue present supportive care measures and treat the patient with Eliquis and once her renal functioning improves, could consider CT angiogram of the chest. The patient herself is not a great historian, she seems to be quite confused. And answers yes to every question we asked. ABG on 80% FiO2 showed a pO2 of 120 pCO2 43 pH of 7.35, very unlikely that this is an ABG of a shunt. Patient was seen today, remains on high flow nasal cannula alternate between 8 up to 15, patient does not seem to be in distress, O2 sats is 95%. Yesterday I placed the patient on Eliquis, not much of a change noted so far, she is supposed to have a bubble study to make sure the patient does not have a shunt. Again clinically the patient seems to be in no distress whatsoever. But still requiring high FiO2. Basic metabolic profile is normal BUN is 32 creat 1.40, last chest x-ray from 12/20 showed mostly chronic changes but no clear-cut evidence of acute pulmonary disease. Patient was seen today on 12/23/2024, remains on nasal cannula, however patient is down to 4 L nasal cannula, and her O2 saturation is ranging between 95 to 100%. Patient has made a significant improvement almost in the last 2 days. We were able to titrate her FiO2 down, and I believe at this point the patient coul d be considered for discharge to [facility]. Patient is asking to be discharged home, she is becoming even more verbal at this point. WBC count is 9.4 hemoglobin 11.4 electrolytes are normal BUN is 34 creatinine 1.23 Seen today on 12/24/2024, patient is doing much better, now on 3 L nasal cannula with O2 sats 96%, she has no active pulmonary symptoms, and I believe the patient is awaiting ECF placement. Objective - Vital Signs Vital signs: Vital Signs Temp 97.9 F 12/24/24 08:10 Pulse 54 L 12/24/24 15:11 Resp 18 12/24/24 15:11 BP 107/45 12/24/24 15:11 Pulse Ox 96 12/24/24 15:11 FiO2 60 12/21/24 08:01 Intake & Output 12/23/24 12/24/24 12/24/24 18:59 06:59 18:59 Intake Total 540 180 Output Total 400 550 Balance 140 -550 180 Weight 82 kg 70 kg Intake: Oral 540 180 Output: Urine 400 550 Other: Voiding Method Diaper Diaper Diaper External Catheter External Catheter External Catheter # Voids 125 - Exam GENERAL EXAM: Alert, 79-year-old female, on 3 L nasal cannula O2 sats 96% HEAD: Normocephalic. EYES: Normal reaction of pupils, equal size. NOSE: Clear with pink turbinates. THROAT: No erythema or exudates. NECK: No masses, no JVD. CHEST: No chest wall deformity. LUNGS: Equal air entry with no crackles, wheeze, rhonchi or dullness. CVS: S1 and S2 normal with no audible murmur, regular rhythm. ABDOMEN: No hepatosplenomegaly, normal bowel sounds, no guarding or rigidity. SKIN: No rashes CENTRAL NERVOUS SYSTEM: Impaired, but today she seems to be more verbal and asking to be discharged. EXTREMITIES: There is no peripheral edema. No clubbing, no cyanosis. Peripheral pulses are intact. - Labs CBC & Chem 7: 12/23/24 06:12 12/23/24 06:12 Assessment and Plan Assessment: Impression: Acute hypoxic respiratory failure,, multifactorial, significantly improved Possible pulmonary embolism remains on anticoagulation therapy Urinary tract infection with E. coli, remains on IV Rocephin Chronic dementia/developmental delay with impairment of the cognitive functions. Chronic gait dysfunction Hypertension Hyperlipidemia COPD/asthma maintained on Breo Ellipta on outpatient basis Acid reflux Plan: Continue O2 titration Cleared for discharge if cleared by other consultants Follow-up on outpatient basis. Continue antibiotics for UTI, on outpatient basis Continue bronchodilators on outpatient basis Will clear patient for discharge Time with Patient: Less than 30
--- NOTE | 2024-12-24 18:05 | P.DS ---
Providers Date of admission: 12/16/24 20:50 Expected date of discharge: 12/24/24 Attending physician: Dago Lynn Consults: 12/16/24 20:49 Consult Physician Routine Consulting Provider: Prabhakar Ha Consult Reason/Comments: ams Do you want consulting provider notified?: Yes 12/17/24 10:12 Consult Physician Routine Consulting Provider: Randy Guidry Consult Reason/Comments: ams, leukocytosis Do you want consulting provider notified?: Yes 12/19/24 09:00 Consult Physician Urgent Consulting Provider: Nery Jeffery Consult Reason/Comments: respiratory distress Do you want consulting provider notified?: Yes Primary care physician: [facility] Course: Chief Complaint: Shortness of breath This is a 79-year-old patient, resident of [facility]. Being followed by Dr. Larsen. Spoke to Kat the social science instructor she gave me this baseline after she spoke to the stable manager at the [facility]. Normally patient gets around with a walker. Apparently is able x 1. Will often just say yes. She was sent in because they felt she was speaking less than her baseline. She patient unable to give me any history. I spoke to the aide on the floor. Patient not been eating. Covered head under the blankets. Patient is found to have UTI in the ER. Started on IV ceftriaxone. IV fluids. December 18: Patient doing much better today. Communicative. Stating that she wants to go back to the [facility]. Wants to get discharge.. Eating better. IV ceftriaxone.Urine culture growing gram-negative bacilli. Chest x-ray done today unremarkable. Have the patient sit up in the chair. December 19: Critical care note. Nurse called me this morning that patient's become more short of breath. Was down to 72% on 5 L. Patient's placed on Airvo. 70% FiO2. I ordered a stat chest x-ray. Patient had received IV fluids until yesterday. Patient is getting IV ceftriaxone for a UTI. Based on clinical findings and picture I gave the patient 1 dose of IV Lasix 60 mg. Patient remains on Airvo. Pulmonary Dr. Jeffery was consulted. I did speak to him. Spoke to the nurse. Patient moved to the telemetry floor/3 S. versus ICU depending on clinical course. ABG ordered: December 20: On telemetry floor. On Airvo. Ordered a chest x-ray. No infiltrate. May be venous prominence. Will repeat a dose of Lasix 60 mg x 1. Order Doppler ultrasound lower extremity. Negative for DVT. Pulmonary did order a VQ scan. December 21: VQ scan was ordered by pulmonary. Intermediate probability. This started the patient on Eliquis. 2D echo with bubble study is being ordered to check if there is a shunt. 2 explain for her hypoxia. Eating some. Will DC IV ceftriaxone.-Has received 5 days for UTI. December 22: Patient on 15 L high flow nasal cannula. This afternoon. More breathing. Pending 2D echo with bubble study. Patient is felt to have underlying PE given the suddenness of presentation. Hence on Eliquis. December 23: Saw the patient this morning. FiO2 down to 4 L. 2D echo-EF 60 to 65%. Negative bubble study. Patient be treated for PE. Taper down FiO2.. December 24: Saw the patient this morning. Breathing better. On room air did desaturate. Will be discharged on 3 L of oxygen. On Eliquis. Eating fair. Discussed with Dr. Horton and nurse: Cleared for discharge Discussion and discharge planning more than 35 minutes Social history: Resident of [facility]. Does use a four-wheel walker. No smoking alcohol history reported Physical examination: VITAL SIGNS: Afebrile, 54, 18, 107 x 45, 96% on 3 L. Did desaturate on room air GENERAL: BMI 29.9, lying bed awake., Comfortable EYES: Pupils equal. Conjunctiva damian l. HEENT: External appearance of nose and ears normal, oral cavity grossly normal. NECK: JVD unable to assess; masses not palpable. HEART: First and second heart sounds are normal; no edema. LUNGS: Respiratory rate increased, decreased breath sounds. ABDOMEN: Soft, nontender, liver spleen not palpable, no masses palpable. PSYCH: [[place] few words. MUSCULOSKELETAL:No Clubbing/cyanosis;muscles-grossly intact. OA INVESTIGATIONS, reviewed in the clinical context: December 23 White count 9.4 hemoglobin 11.4 platelets 299 potassium 3.9 BUN 34 creatinine 1.23. Ammonia 16 vitamin B12 733 folate 14.9 TSH 0.8 December 21: BUN 32 creatinine 1.40 TSH 0.8 B12 733 folate 14.9 Doppler ultrasound bilateral lower extremity: Negative for DVT December 19: D-dimer 0.82 November 19, 2024: White count 16.5 hemoglobin 12.9 platelets 315 sodium 141 potassium 4.9 BUN 32 creatinine 1.23 Troponin I less than 0.012 UA positive for nitrite, leukoesterase WBC Urine drug screen positive for tricyclic antidepressants Influenza type A, type B, RSV, SARS-CoV-2: Not detected EKG tracing personally reviewed by me-normal sinus rhythm. LVH. Some ST changes inferolateral leads. Chest x-ray film personally reviewed by me-possible infiltrate versus chronic changes CT brain: No acute. Age-appropriate senescent changes. Assessment and plan: -Acute mental status changes likely acute delirium from underlying UTI.: Much improved -Acute UTI causing delirium: Cultures growing E. coli IV ceftriaxone-will DC has received 5 days of the same -Acute hypoxic respiratory failure: Probable PE.-Given the suddenness of presentation: Much improved Initially on 15 L of oxygen. Now down to 4 L. Initially fluid overload received IV Lasix. 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 At baseline. 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 Ralph Scott Full code Disposition: [facility] Past Medical History Past Medical History: Dementia Additional Past Medical History / Comment(s): mental retardation History of Any Multi-Drug Resistant Organisms: None Reported Past Surgical History: Unable to Obtain Past Anesthesia/Blood Transfusion Reactions: Unable to Obtain Past Psychological History: No Psychological Hx Reported Smoking Status: Never smoker Past Alcohol Use History: Unable to Obtain Past Drug Use History: Unable to Obtain Plan - Discharge Summary Discharge Rx Participant: Yes New Discharge Prescriptions: New Apixaban [Eliquis Starter Pack (for VTE)] 5 - 10 mg PO DIRECTED 30 Days #1 each Continue Omeprazole 20 mg PO DAILY@0700 Cyanocobalamin (Vitamin B-12) [Vitamin B-12] 1,000 mcg PO FR@1700 Calcium Carbonate [Calcium] 600 mg PO DAILY PRN PRN Reason: Gi Upset Albuterol Sulfate [Albuterol Sulfate Hfa] 2 puff INHALATION RT-Q6H PRN PRN Reason: Shortness Of Breath Gabapentin [Neurontin] 100 mg PO TID@0800,1400,1999 Atorvastatin [Lipitor] 20 mg PO HS@1999 Ammonium Lactate Cream [Lac-Hydrin 12% Cream] 1 applic TOPICAL BID Bismuth Subsalicylate [Pepto-Bismol] 524 mg PO DAILY PRN PRN Reason: Gi Upset Ondansetron [Zofran] 4 mg PO TID PRN PRN Reason: NAUSEA WITH MEALS Calcium Carbonate [Tums] 500 mg PO BID PRN PRN Reason: Gi Upset Cholecalciferol (Vitamin D3) [Vitamin D3 (50 Mcg = 2000 Iu)] 50 mcg PO DAILY@0800 Nystatin [Nystop] 1 applic TOPICAL HS@1999 cloNIDine HCL [Catapres] 0.2 mg PO BID@08,1999 Fluticasone/Vilanterol [Breo Ellipta 100-25 Mcg Inhalr] 1 puff INHALATION RT- DAILY@0800 Aspirin EC [Ecotrin Low Dose] 81 mg PO DAILY@0800 Discharge Medication List Omeprazole 20 mg PO DAILY@0700 02/08/22 [History] Bismuth Subsalicylate [Pepto-Bismol] 524 mg PO DAILY PRN 07/02/23 [History] Calcium Carbonate [Calcium] 600 mg PO DAILY PRN 07/02/23 [History] Cyanocobalamin (Vitamin B-12) [Vitamin B-12] 1,000 mcg PO FR@1700 07/02/23 [History] Ondansetron [Zofran] 4 mg PO TID PRN 07/02/23 [History] Albuterol Sulfate [Albuterol Sulfate Hfa] 2 puff INHALATION RT-Q6H PRN 12/16/24 [History] Ammonium Lactate Cream [Lac-Hydrin 12% Cream] 1 applic TOPICAL BID 12/16/24 [History] Aspirin EC [Ecotrin Low Dose] 81 mg PO DAILY@0800 12/16/24 [History] Atorvastatin [Lipitor] 20 mg PO HS@199912/16/24 [History] Calcium Carbonate [Tums] 500 mg PO BID PRN 12/16/24 [History] Cholecalciferol (Vitamin D3) [Vitamin D3 (50 Mcg = 2000 Iu)] 50 mcg PO DAILY@0800 12/16/24 [History] Fluticasone/Vilanterol [Breo Ellipta 100-25 Mcg Inhalr] 1 puff INHALATION RT- DAILY@0812/16/24 [History] Gabapentin [Neurontin] 100 mg PO TID@0800,1400,199912/16/24 [History] Nystatin [Nystop] 1 applic TOPICAL HS@199912/16/24 [History] cloNIDine HCL [Catapres] 0.2 mg PO BID@0800,199912/16/24 [History] Apixaban [Eliquis Starter Pack (for VTE)] 5 - 10 mg PO DIRECTED 30 Days #1 each 12/24/24 [Rx] Follow up Appointment(s)/Referral(s): Emir Horton MD [STAFF PHYSICIAN] - 2 Weeks Sam Hernandez MD [Primary Care Provider] - 1-2 days Activity/Diet/Wound Care/Special Instructions: [employer] [phone] supplier of home oxygen.
== END 2024-12-24 18:13 | disposition home or self-care (01) | DRG 689 ==
LOC: EC 14:59 → 5NMEDONC 20:49 → OBSVTOIN 20:50 → 5NMEDONC 21:45 → 3SCARD 12-19 11:36
PROVIDERS: ADMIT Hospitalist; ATTEND Hospitalist
DX: N39.0 Urinary tract infection, site not specified (principal); G93.41 Metabolic encephalopathy; J96.01 Acute respiratory failure with hypoxia; J81.0 Acute pulmonary edema; I26.99 Other pulmonary embolism without acute cor pulmonale; F02.80 Dementia in other diseases classified elsewhere, unspecified severity, without behavioral disturbance, psychotic disturbance, mood disturbance, and anxiety; Z11.52 Encounter for screening for COVID-19; I12.9 Hypertensive chronic kidney disease with stage 1 through stage 4 chronic kidney disease, or unspecified chronic kidney disease; J45.40 Moderate persistent asthma, uncomplicated; N18.9 Chronic kidney disease, unspecified; I08.3 Combined rheumatic disorders of mitral, aortic and tricuspid valves; F05 Delirium due to known physiological condition; G30.9 Alzheimer's disease, unspecified; J44.89 Other specified chronic obstructive pulmonary disease; R26.9 Unspecified abnormalities of gait and mobility; E78.5 Hyperlipidemia, unspecified; F79 Unspecified intellectual disabilities; K21.9 Gastro-esophageal reflux disease without esophagitis; B96.20 Unspecified Escherichia coli [E. coli] as the cause of diseases classified elsewhere; E87.70 Fluid overload, unspecified; Z79.51 Long term (current) use of inhaled steroids; Z79.82 Long term (current) use of aspirin; Z79.899 Other long term (current) drug therapy
CPT/HCPCS: 36415; 36600; 70450; 71045; 71046; 78580; 80048; 80053; 80306; 81001; 82140; 82607; 82746; 82805; 83605; 84443; 84484; 85025; 85027; 85379; 85610; 85730; 87040; 87077; 87086; 87186; 87636; 93005; 93306; 93970; 94640; 94760; 96360; 96361; 96372; 99285

== ENCOUNTER 2025-03-07 09:56 | Inpatient (IN) | payer MEDICARE, OTHER ==
[2025-03-07] MEDS: IPRATROPIUM 0.5 MG/2.5 ML NEBU INHALATION STA (10:45)
[2025-03-07] MEDS: ALBUTEROL NEBULIZED 2.5 MG/3 ML INHALATION STA (10:46)
--- NOTE | 2025-03-07 10:52 | XR ---
EXAMINATION TYPE: XR chest 2V DATE OF EXAM: 03/07/2025 10:45 AM COMPARISON: 12/20/2024 CLINICAL INDICATION: Female, 79 years old with history of difficulty breathing, TECHNIQUE: XR chest 2V view(s) obtained. FINDINGS: The heart size is normal. The pulmonary vasculature is upper limits of normal. The lungs are clear. IMPRESSION: 1. Mild vascular prominence. Correlate for volume overload. [facility], , 03/07/2025 10:50 AM
--- NOTE | 2025-03-07 11:07 | ED ---
General Adult HPI - General Chief complaint: Shortness of Breath Stated complaint: SHANI Time Seen by Provider: 03/07/25 10:05 Source: patient, EMS, RN notes reviewed, old records reviewed Mode of arrival: EMS Limitations: no limitations - History of Present Illness Initial comments: This is a 79-year-old female who is unable to give any of her history secondary to her dementia. Patient was brought in because she is having difficulty breathing. Patient has had no history of fever chills. Patient has no chest pain or palpitations. Patient has a history of COPD. - Related Data Home Medications Medication Instructions Recorded Confirmed Omeprazole 20 mg PO DAILY@0700 02/08/22 12/16/24 Bismuth Subsalicylate 524 mg PO DAILY PRN 07/02/23 12/16/24 [Pepto-Bismol] Calcium Carbonate [Calcium] 600 mg PO DAILY PRN 07/02/23 12/16/24 Cyanocobalamin (Vitamin B-12) 1,000 mcg PO FR@1700 07/02/23 12/16/24 [Vitamin B-12] Ondansetron [Zofran] 4 mg PO TID PRN 07/02/23 12/16/24 Albuterol Sulfate [Albuterol 2 puff INHALATION RT-Q6H PRN 12/16/24 12/16/24 Sulfate Hfa] Ammonium Lactate Cream [Lac-Hydrin 1 applic TOPICAL BID 12/16/24 12/16/24 12% Cream] Aspirin EC [Ecotrin Low Dose] 81 mg PO DAILY@0812/16/24 12/16/24 Atorvastatin [Lipitor] 20 mg PO HS@199912/16/24 12/16/24 Calcium Carbonate [Tums] 500 mg PO BID PRN 12/16/24 12/16/24 Cholecalciferol (Vitamin D3) 50 mcg PO DAILY@0812/16/24 12/16/24 [Vitamin D3 (50 Mcg = 2000 Iu)] Fluticasone/Vilanterol [Breo 1 puff INHALATION RT-DAILY@79912/16/24 12/16/24 Ellipta 100-25 Mcg Inhalr] Gabapentin [Neurontin] 100 mg PO TID@0800,1400,199912/16/24 12/16/24 Nystatin [Nystop] 1 applic TOPICAL HS@199912/16/24 12/16/24 cloNIDine HCL [Catapres] 0.2 mg PO BID@0800,199912/16/24 12/16/24 Previous Rx's Medication Instructions Recorded Apixaban [Eliquis Starter Pack 5 - 10 mg PO DIRECTED 30 Days 12/24/24 (for VTE)] #1 each Allergies Allergy/AdvReac Type Severity Reaction Status Date / Time No Known Allergies Allergy Verified 03/07/25 10:05 Review of Systems ROS Statement: Those systems with pertinent positive or pertinent negative responses have been documented in the HPI. ROS Other: All systems not noted in ROS Statement are negative. Past Medical History Past Medical History: Dementia Additional Past Medical History / Comment(s): mental retardation History of Any Multi-Drug Resistant Organisms: None Reported Past Surgical History: Unable to Obtain Past Anesthesia/Blood Transfusion Reactions: Unable to Obtain Past Psychological History: No Psychological Hx Reported Smoking Status: Never smoker Past Alcohol Use History: Unable to Obtain Past Drug Use History: Unable to Obtain General Exam - General Exam Comments Initial Comments: GENERAL: Patient is well-developed and well-nourished. Patient is nontoxic and well- hydrated and is in mild distress. ENT: Neck is soft and supple. No significant lymphadenopathy is noted. Oropharynx is clear. Moist mucous membranes. Neck has full range of motion without eliciting any pain. There is no thyroid enlargement and no masses were felt. EYES: The sclera were anicteric and conjunctiva were pink and moist. Extraocular movements were intact and pupils were equal round and reactive to light. Ey elids were unremarkable. PULMONARY: Patient is having diffuse wheezing CARDIOVASCULAR: There is a regular rate and rhythm without any murmurs gallops or rubs. Femoral pulses are equal bilaterally ABDOMEN: Soft and nontender with normal bowel sounds. No palpable organomegaly was noted. There is no palpable pulsatile mass. SKIN: Skin is clear with no lesions or rashes and otherwise unremarkable. NEUROLOGIC: Patient is alert and oriented x 1. Cranial nerves II through XII are grossly intact. Motor and sensory are also intact. Normal speech, volume and content. Symmetrical smile. MUSCULOSKELETAL: Normal extremities with adequate strength and full range of motion. No lower extremity swelling or edema. No calf tenderness. LYMPHATICS: No significant lymphadenopathy is noted PSYCHIATRIC: Unable to assess secondary to the patient's dementia Limitations: no limitations Course Vital Signs 03/07/25 03/07/25 03/07/25 10:01 10:05 10:46 Temperature 97.6 F Pulse Rate 92 73 Respiratory 32 H Rate Blood Pressure 133/51 O2 Sat by Pulse 83 L 97 Oximetry 03/07/25 03/07/25 11:06 11:14 Temperature Pulse Rate 80 86 Respiratory 22 Rate Blood Pressure 109/50 O2 Sat by Pulse 90 L Oximetry Medical Decision Making - Medical Decision Making Was pt. sent in by a medical professional or institution (, JENI, SURGICAL ASSISTANT CERTIFIED, urgent care, hospital, or intermediate...) When possible be specific @ -No Did you speak to anyone other than the patient for history (EMS, parent, family, police, friend...)? What history was obtained from this source @ -No Did you review nursing and triage notes (agree or disagree)? Why? @ -I reviewed and agree with nursing and triage notes Were old charts reviewed (outside hosp., previous admission, EMS record, old EKG, old radiological studies, urgent care reports/EKG's, intermediate records)? Report findings @ -No old charts were reviewed Differential Diagnosis? @ -Differential Dyspnea: Coronary syndrome, arrhythmia, tamponade, asthma, COPD, pulmonary embolism, pneumonia, pneumothorax, pulmonary effusion, anaphylaxis, diabetic ketoacidosis, flailed chest, pulmonary contusion, diaphragmatic rupture, anemia, neuromuscular, this is not meant to be an all-inclusive list. EKG interpreted by me (3pts min.). @ -As above X-rays interpreted by me (1pt min.). @ -Chest x-ray shows no acute abnormality CT interpreted by me (1pt min.). @ -None done U/S interpreted by me (1pt. min.). @ -None done What testing was considered but not performed or refused? (CT, X-rays, U/S, labs)? Why? @ -None What meds were considered but not given or refused? Why? @ -None Did you discuss the management of the patient with other professionals (professionals i.e. JENI Lyman, SURGICAL ASSISTANT CERTIFIED, lab, RT, psych nurse, social media marketing specialist, flooring professional, teacher, consumer safety officer, machine adjuster leader case trim)? Give summary @ -I spoke with Dr. Lynn and he agreed to admit the patient Was smoking cessation discussed for >3mins.? @ -No Was critical care preformed (if so, how long)? @ -35 minutes Were there social determinants of health that impacted care today? How? (Homelessness, low income, unemployed, alcoholism, drug addiction, trans portation, low edu. Level, literacy, decrease access to med. care, [facility], rehab)? @ -No Was there de-escalation of care discussed even if they declined (Discuss DNR or withdrawal of care, Hospice)? DNR status @ -No What co-morbidities impacted this encounter? (DM, HTN, Smoking, COPD, CAD, Cancer, CVA, ARF, Chemo, Hep., AIDS, mental health diagnosis, sleep apnea, morbid obesity)? @ -None Was patient admitted / discharged? Hospital course, mention meds given and route, prescriptions, significant lab abnormalities, going to OR and other pertinent info. @ -Patient got multiple breathing treatments in the emergency department while steroids and antibiotics. Patient will be admitted for exacerbation of COPD. Undiagnosed new problem with uncertain prognosis? @ -No Drug Therapy requiring intensive monitoring for toxicity (Heparin, Nitro, Insulin, Cardizem)? @ -No Were any procedures done? @ -No Diagnosis/symptom? @ -COPD exacerbation Acute, or Chronic, or Acute on Chronic? @ -Acute Uncomplicated (without systemic symptoms) or Complicated (systemic symptoms)? @ -Complicated Side effects of treatment? @ -No Exacerbation, Progression, or Severe Exacerbation? @ -No Poses a threat to life or bodily function? How? (Chest pain, [place], ND, pneumonia, PE, COPD, DKA, ARF, appy, cholecystitis, CVA, Diverticulitis, Homicidal, Suicidal, threat to staff... and all critical care pts) @ -Yes this can lead to hypoxia and endorgan dysfunction - Lab Data Result diagrams: 03/07/25 10:20 03/07/25 10:20 Lab Results 03/07/25 03/07/25 03/07/25 Range/Units 10:20 10:20 10:20 WBC 15.84 H (4.50-10.00) 10*3/uL RBC 3.85 L (4.10-5.20) 10*6/uL Hgb 11.4 L (12.0-15.0) g/dL Hct 36.4 L (37.2-46.3) % MCV 94.5 (80.0-97.0) fL MCH 29.6 (27.0-32.0) pg MCHC 31.3 L (32.0-37.0) g/dL Plt Count 258 (140-440) 10*3/uL MPV 9.3 L (9.5-12.2) fL Immature Gran % (Auto) 0.5 % Neutrophils % 87.3 % Lymphocytes % 6.6 % Monocytes % 5.0 % Eosinophils % 0.3 % Basophils % 0.3 % Immature Gran # 0.08 H (0.00-0.04) 10*3/uL Neutrophils # 13.82 H (1.80-7.70) 10*3/uL Lymphocytes # 1.05 (0.90-5.00) 10*3/uL Monocytes # 0.79 (0.20-1.00) 10*3/uL Eosinophils # 0.05 (0.04-0.35) 10*3/uL Basophils # 0.05 (0.00-0.10) 10*3/uL PT 14.7 H (10.0-12.5) sec INR 1.4 H (<1.2) APTT 37.5 H (22.0-30.0) sec Sodium 140 (137-145) mmol/L Potassium 4.9 (3.5-5.1) mmol/L Chloride 109 H (98-107) mmol/L Carbon Dioxide 18 L (22-30) mmol/L Anion Gap 13 mmol/L BUN 33 H (7-17) mg/dL Creatinine 1.44 H (0.52-1.04) mg/dL Est GFR (CKD-EPI)AfAm 40 (>60 ml/min/1.73 sqM) Est GFR (CKD-EPI)NonAf 35 (>60 ml/min/1.73 sqM) Glucose 186 H (74-99) mg/dL Plasma Lactic Acid Emilio (0.7-2.0) mmol/L Calcium 8.9 (8.4-10.2) mg/dL Magnesium 1.9 (1.6-2.3) mg/dL Total Bilirubin 1.0 (0.2-1.3) mg/dL AST 26 (14-36) U/L ALT 13 (4-34) U/L Alkaline Phosphatase 127 H (38-126) U/L Troponin I (0.000-0.034) ng/mL NT-Pro-B Natriuret Pep 1280 pg/mL Total Protein 6.7 (6.3-8.2) g/dL Albumin 3.5 (3.5-5.0) g/dL 03/07/25 03/07/25 Range/Units 10:20 10:20 WBC (4.50-10.00) 10*3/uL RBC (4.10-5.20) 10*6/uL Hgb (12.0-15.0) g/dL Hct (37.2-46.3) % MCV (80.0-97.0) fL MCH (27.0-32.0) pg MCHC (32.0-37.0) g/dL Plt Count (140-440) 10*3/uL MPV (9.5-12.2) fL Immature Gran % (Auto) % Neutrophils % % Lymphocytes % % Monocytes % % Eosinophils % % Basophils % % Immature Gran # (0.00-0.04) 10*3/uL Neutrophils # (1.80-7.70) 10*3/uL Lymphocytes # (0.90-5.00) 10*3/uL Monocytes # (0.20-1.00) 10*3/uL Eosinophils # (0.04-0.35) 10*3/uL Basophils # (0.00-0.10) 10*3/uL PT (10.0-12.5) sec INR (<1.2) APTT (22.0-30.0) sec Sodium (137-145) mmol/L Potassium (3.5-5.1) mmol/L Chloride (98-107) mmol/L Carbon Dioxide (22-30) mmol/L Anion Gap mmol/L BUN (7-17) mg/dL Creatinine (0.52-1.04) mg/dL Est GFR (CKD-EPI)AfAm (>60 ml/min/1.73 sqM) Est GFR (CKD-EPI)NonAf (>60 ml/min/1.73 sqM) Glucose (74-99) mg/dL Plasma Lactic Acid Emilio 2.7 H* (0.7-2.0) mmol/L Calcium (8.4-10.2) mg/dL Magnesium (1.6-2.3) mg/dL Total Bilirubin (0.2-1.3) mg/dL AST (14-36) U/L ALT (4-34) U/L Alkaline Phosphatase (38-126) U/L Troponin I <0.012 (0.000-0.034) ng/mL NT-Pro-B Natriuret Pep pg/mL Total Protein (6.3-8.2) g/dL Albumin (3.5-5.0) g/dL Disposition Clinical Impression: COPD exacerbation Disposition: ADMITTED IP TO THIS HOSP Referrals: Nestor Larsen MD [Primary Care Provider] - 1-2 days Time of Disposition: 13:40
[2025-03-07] MEDS: methylPREDNISolone SOD SUCCI 125 MG/2 ML VIAL IV STA (11:12)
[2025-03-07 11:27] LABS: Basophils # (A) 0.05 10*3/uL (0.00-0.10); Basophils % (A) 0.3 %; Eosinophils # (A) 0.05 10*3/uL (0.04-0.35); Eosinophils % (A) 0.3 %; HCT 36.4 % (37.2-46.3); HGB 11.4 g/dL (12.0-15.0); Lymphocytes # (A) 1.05 10*3/uL (0.90-5.00); Lymphocytes % (A) 6.6 %; MCH 29.6 pg (27.0-32.0); MCHC 31.3 g/dL (32.0-37.0); MCV 94.5 fL (80.0-97.0); Mean Platelet Volume 9.3 fL (9.5-12.2); Monocytes # (A) 0.79 10*3/uL (0.20-1.00); Neutrophils # (A) 13.82 10*3/uL (1.80-7.70); Neutrophils % (A) 87.3 %; Platelet Count 258 10*3/uL (140-440); RBC 3.85 10*6/uL (4.10-5.20); RDW 15.9 % (11.5-14.5); WBC 15.84 10*3/uL (4.50-10.00)
[2025-03-07 11:34] LABS: ALT 13 U/L (4-34); African American GFR (CKD) 40 (>60 ml/min/1.73 sqM); Albumin 3.5 g/dL (3.5-5.0); Anion Gap 13 mmol/L; Blood Urea Nitrogen 33 mg/dL (7-17); Calcium 8.9 mg/dL (8.4-10.2); Carbon Dioxide 18 mmol/L (22-30); Chloride 109 mmol/L (98-107); Magnesium 1.9 mg/dL (1.6-2.3); Non-African American GFR(CKD) 35 (>60 ml/min/1.73 sqM); Sodium 140 mmol/L (137-145); Total Protein 6.7 g/dL (6.3-8.2)
[2025-03-07 11:35] LABS: INR 1.4 (<1.2); Partial Thromboplastin Time 37.5 sec (22.0-30.0); Prothrombin Time 14.7 sec (10.0-12.5)
[2025-03-07 11:42] LABS: NT-Pro-B-Type Natriuretic Pept 1280 pg/mL
[2025-03-07 11:53] LABS: AST 26 U/L (14-36); Alkaline Phosphatase 127 U/L (38-126); Glucose 186 mg/dL (74-99)
[2025-03-07 11:56] LABS: Potassium 4.9 mmol/L (3.5-5.1)
[2025-03-07] MEDS ORDERED: NALOXONE 0.4 MG/ML 1 ML VIAL IVP PRN (13:47)
[2025-03-07] MEDS: AMOXIC-POT CLAV 875-125MG 1 EACH TAB PO SCH (14:41)
[2025-03-07] MEDS: IPRATROPIUM-ALBUTEROL 3 ML NEB INHALATION SCH (14:48)
[2025-03-07] MEDS: IPRATROPIUM-ALBUTEROL 3 ML NEB INHALATION STA (15:59)
[2025-03-07] MEDS: methylPREDNISolone SOD SUCCI 125 MG/2 ML VIAL IV SCH (18:09)
[2025-03-07] MEDS ORDERED: ONDANSETRON ODT 4 MG TAB PO PRN (19:21)
[2025-03-07] MEDS ORDERED: NON FORMULARY DRUG (Calcium Carbonate [Calcium] 600 MG Tablet) PO PRN (19:21)
--- NOTE | 2025-03-07 19:40 | P.HPIM ---
History of Present Illness H&P Date: 03/07/25 Chief Complaint: Short of breath This is a 79-year-old patient, resident of [facility]. Being followed by Dr. Larsen. baseline: Normally patient gets around with a walker. Speaks in short sentences, with limited vocabulary. December 22, 2024 patient diagnosed with acute PE. For which she is on Eliquis. Patient was discharged on 3 L of oxygen Patient was sent into the ER for shortness of breath. Per the EMS report patient had a cough and a runny nose all weekend. And patient's pulse ox dropped down to the 70s. Found the patient to have wheezing was given a nebulized bronchodilator. EMS took a pulse ox it was 86%.-RA Not really able to give much of history. Review of systems: See above Social history: Resident of [facility]. Does use a four-wheel walker. No smoking alcohol history reported Physical examination: VITAL SIGNS: 133 x 57, 86, respiration 22, pulse ox 86% room air at the [facility] per EMS GENERAL: BMI 30, laying in bed, appears short of EYES: Pupils equal. Conjunctiva damian l. HEENT: External appearance of nose and ears normal, oral cavity grossly normal. NECK: JVD unable to assess; masses not palpable. HEART: First and second heart sounds are normal; no edema. LUNGS: Respiratory rate increased, decreased breath sounds. ABDOMEN: Soft, nontender, liver spleen not palpable, no masses palpable. PSYCH: [Speaks in Short sentences. Keeps repeating she was to go back s. MUSCULOSKELETAL:No Clubbing/cyanosis;muscles-grossly intact. OA NEUROLOGICAL: Cranial nerves grossly intact; no facial asymmetry, moving all 4 limbs. Following simple commands. LYMPHATICS: No lymph nodes palpable in the axilla and neck INVESTIGATIONS, reviewed in the clinical context: . March 07, 2025: White count 15.8 hemoglobin 11.4 platelets 258 sodium 140 potassium 4.9 BUN 33 creatinine 1.44 Lactic acid 2.7 Troponin I less than 0.012, proBNP 1280 EKG tracing personally reviewed by me-normal sinus rhythm. Chest x-ray film personally reviewed by me-possible infiltrate Assessment and plan: -Pneumonia, suspect gram-negative organism, causing hypoxia IV ceftriaxone. -Acute hypoxic respiratory failure from above. [facility] reported pulse ox in the 70s. Oxygen supplement -Chronic hypoxic respiratory failure. Patient recently discharged on 3 L of oxygen. -Chronic PE. 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 At baseline.). Speaks in short sentences. Repeats herself. 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 does use a four-wheel walker -GERD Omeprazole -Essential hypertension Catapres 0.2 mg twice daily -Hyperlipidemia Lipitor 20 mg nightly -Moderate persistent asthma Bronchodilators Full code Past Medical History Past Medical History: Dementia Additional Past Medical History / Comment(s): mental retardation History of Any Multi-Drug Resistant Organisms: None Reported Past Surgical History: Unable to Obtain Past Anesthesia/Blood Transfusion Reactions: Unable to Obtain Past Psychological History: No Psychological Hx Reported Smoking Status: Never smoker Past Alcohol Use History: Unable to Obtain Past Drug Use History: Unable to Obtain Medications and Allergies Home Medications Medication Instructions Recorded Confirmed Type Omeprazole 20 mg PO DAILY@0702/08/22 03/07/25 History Bismuth Subsalicylate 524 mg PO DIRECTED PRN 07/02/23 03/07/25 History [Pepto-Bismol] Calcium Carbonate [Calcium] 600 mg PO DAILY PRN 07/02/23 03/07/25 History Cyanocobalamin (Vitamin B-12) 1,000 mcg PO FR@1700 07/02/23 03/07/25 History [Vitamin B-12] Ondansetron [Zofran] 4 mg PO TID PRN 07/02/23 03/07/25 History Albuterol Sulfate [Albuterol 2 puff INHALATION RT-Q6H PRN 12/16/24 03/07/25 History Sulfate Hfa] Ammonium Lactate Cream [Lac-Hydrin 1 applic TOPICAL BID 12/16/24 03/07/25 History 12% Cream] Aspirin EC [Ecotrin Low Dose] 81 mg PO DAILY@0812/16/24 03/07/25 History Atorvastatin [Lipitor] 20 mg PO HS@199912/16/24 03/07/25 History Calcium Carbonate [Tums] 500 mg PO BID PRN 12/16/24 03/07/25 History Cholecalciferol (Vitamin D3) 50 mcg PO DAILY@0800 12/16/24 03/07/25 History [Vitamin D3 (50 Mcg = 2000 Iu)] Gabapentin [Neurontin] 100 mg PO TID@0800,1399,199912/16/24 03/07/25 History Nystatin [Nystop] 1 applic TOPICAL DAILY 12/16/24 03/07/25 History cloNIDine HCL [Catapres] 0.2 mg PO BID@799,199912/16/24 03/07/25 History Albuterol Nebulized [Ventolin 2.5 mg INHALATION RT-TID 03/07/25 03/07/25 History Nebulized] Apixaban [Eliquis] 5 mg PO BID@799,199903/07/25 03/07/25 History Allergies Allergy/AdvReac Type Severity Reaction Status Date / Time No Known Allergies Allergy Verified 03/07/25 17:43 Physical Exam Vitals: Vital Signs Temp Pulse Resp BP Pulse Ox 03/07/25 16:09 78 03/07/25 15:59 84 03/07/25 15:44 94 20 111/69 03/07/25 14:57 82 03/07/25 14:48 81 03/07/25 14:40 84 16 117/69 95 03/07/25 11:14 86 22 109/50 90 L 03/07/25 11:06 80 03/07/25 10:46 73 03/07/25 10:05 97 03/07/25 10:01 97.6 F 92 32 H 133/51 83 L Intake and Output 03/07/25 03/07/25 03/07/25 06:59 14:59 22:59 Other: Weight 79.379 kg Results CBC & Chem 7: 03/07/25 10:20 03/07/25 10:20 Labs: Abnormal Lab Results - Last 24 Hours (Table) 03/07/25 03/07/25 03/07/25 Range/Units 10:20 10:20 10:20 WBC 15.84 H (4.50-10.00) 10*3/uL RBC 3.85 L (4.10-5.20) 10*6/uL Hgb 11.4 L (12.0-15.0) g/dL Hct 36.4 L (37.2-46.3) % MCHC 31.3 L (32.0-37.0) g/dL MPV 9.3 L (9.5-12.2) fL Immature Gran # 0.08 H (0.00-0.04) 10*3/uL Neutrophils # 13.82 H (1.80-7.70) 10*3/uL PT 14.7 H (10.0-12.5) sec INR 1.4 H (<1.2) APTT 37.5 H (22.0-30.0) sec Chloride 109 H (98-107) mmol/L Carbon Dioxide 18 L (22-30) mmol/L BUN 33 H (7-17) mg/dL Creatinine 1.44 H (0.52-1.04) mg/dL Glucose 186 H (74-99) mg/dL Plasma Lactic Acid Emilio (0.7-2.0) mmol/L Alkaline Phosphatase 127 H (38-126) U/L 03/07/25 03/07/25 03/07/25 Range/Units 10:20 14:41 18:07 WBC (4.50-10.00) 10*3/uL RBC (4.10-5.20) 10*6/uL Hgb (12.0-15.0) g/dL Hct (37.2-46.3) % MCHC (32.0-37.0) g/dL MPV (9.5-12.2) fL Immature Gran # (0.00-0.04) 10*3/uL Neutrophils # (1.80-7.70) 10*3/uL PT (10.0-12.5) sec INR (<1.2) APTT (22.0-30.0) sec Chloride (98-107) mmol/L Carbon Dioxide (22-30) mmol/L BUN (7-17) mg/dL Creatinine (0.52-1.04) mg/dL Glucose (74-99) mg/dL Plasma Lactic Acid Emilio 2.7 H* 2.6 H* 2.3 H* (0.7-2.0) mmol/L Alkaline Phosphatase (38-126) U/L
[2025-03-07] MEDS: IPRATROPIUM-ALBUTEROL 3 ML NEB INHALATION PRN (20:59)
[2025-03-07 21:11] LABS: Appearance,Urine Clear (Clear); Bilirubin,Urine Negative (Negative); Blood,Urine Negative (Negative); Color,Urine Yellow; Glucose,Urine (UA) Negative (Negative); Ketones,Urine Negative (Negative); Leukocyte Esterase,Urine Negative (Negative); Nitrite,Urine Negative (Negative); Protein,Urine Trace (Negative); Specific Gravity,Urine 1.017 (1.001-1.035); Urobilinogen,Urine <2.0 mg/dL (<2.0)
[2025-03-07] MEDS: AMMONIUM LACTATE 12% CREAM 140 GM TUBE TOPICAL SCH (21:14)
[2025-03-07] MEDS: GABAPENTIN 100 MG CAP PO SCH (21:15)
[2025-03-07] MEDS: AZITHROMYCIN 500 MG TAB PO SCH (21:15)
[2025-03-07] MEDS: APIXABAN 5 MG TAB PO SCH (21:15)
[2025-03-07] MEDS: ATORVASTATIN 20 MG TAB PO SCH (21:15)
[2025-03-07] MEDS: cloNIDine HCL 0.2 MG TAB PO SCH (21:15)
[2025-03-07 21:46] LABS: Influenza A Not Detected (Not Detectd); Influenza B Not Detected (Not Detectd); RSV Not Detected (Not Detectd)
[2025-03-07 23:41] LABS: Glucose,Whole Blood 217 mg/dL (70-110)
--- NOTE | 2025-03-08 00:52 | P.CNPUL ---
History of Present Illness Consult date: 03/08/25 Requesting physician: Dago Lynn Reason for consult: COPD History of present illness: Patient is a 79-year-old female with past medical history significant for hypertension, hyperlipidemia, COPD, home oxygen dependent, and advanced dementia. Patient is alert but unable to provide any useful information. I am told her baseline mentation is oriented to self. She resides at [facility], an adult foster care facility. Of note, patient recently hospitalized December, with a urinary tract infection. During this time, felt to possibly have a pulmonary embolism. Pulmonary perfusion scan was indeterminate. She was placed on Eliquis. According to the ER note, yesterday morning, patient was sent in by EMS from her [facility] home after being found to have increased work of breathing. Workup in the ED including a chest x-ray showing mild vascular prominence. CBC remarkable for leukocytosis with a WBC count of 15.8, hemoglobin 11.4, platelets CMP: Sodium 140, potassium 4.9, chloride 109, serum bicarb 18, BUN 33, cre atinine 1.44, glucose 186. 2.7 and now 3.2. Lactic troponin less than 0.012. EKG: Sinus rhythm, rate 79 bpm, no acute ST segment elevations. NT proBNP 1280. Most recent available echocardiogram from December, estimating a left ventricular ejection fraction of 60 to 65%, as well as, mild mitral and tricuspid regurgitation. Urinalysis unremarkable for infection. Viral screen negative for influenza A/B, RSV, COVID. She is currently being evaluated in the emergency department. She is on 8 L high flow nasal cannula. She appears nondistressed. She was placed empirically on a combination of azithromycin and Rocephin. Afebrile. Also, previously noted to be wheezing, and her COPD was felt to be an exacerbation. She was previously started on a combination of DuoNebs and IV Solu-Medrol. Review of Systems ROS unobtainable: due to mental status Past Medical History Past Medical History: COPD, Dementia, Hypertension, Pulmonary Embolus (PE) Additional Past Medical History / Comment(s): mental retardation History of Any Multi-Drug Resistant Organisms: None Reported Past Surgical History: Unable to Obtain Past Anesthesia/Blood Transfusion Reactions: Unable to Obtain Smoking Status: Never smoker Medications and Allergies Home Medications Medication Instructions Recorded Confirmed Type Omeprazole 20 mg PO DAILY@0700 02/08/22 03/07/25 History Bismuth Subsalicylate 524 mg PO DIRECTED PRN 07/02/23 03/07/25 History [Pepto-Bismol] Calcium Carbonate [Calcium] 600 mg PO DAILY PRN 07/02/23 03/07/25 History Cyanocobalamin (Vitamin B-12) 1,000 mcg PO FR@1700 07/02/23 03/07/25 History [Vitamin B-12] Ondansetron [Zofran] 4 mg PO TID PRN 07/02/23 03/07/25 History Albuterol Sulfate [Albuterol 2 puff INHALATION RT-Q6H PRN 12/16/24 03/07/25 History Sulfate Hfa] Ammonium Lactate Cream [Lac-Hydrin 1 applic TOPICAL BID 12/16/24 03/07/25 History 12% Cream] Aspirin EC [Ecotrin Low Dose] 81 mg PO DAILY@0812/16/24 03/07/25 History Atorvastatin [Lipitor] 20 mg PO HS@199912/16/24 03/07/25 History Calcium Carbonate [Tums] 500 mg PO BID PRN 12/16/24 03/07/25 History Cholecalciferol (Vitamin D3) 50 mcg PO DAILY@0800 12/16/24 03/07/25 History [Vitamin D3 (50 Mcg = 2000 Iu)] Gabapentin [Neurontin] 100 mg PO TID@0800,1400,199912/16/24 03/07/25 History Nystatin [Nystop] 1 applic TOPICAL DAILY 12/16/24 03/07/25 History cloNIDine HCL [Catapres] 0.2 mg PO BID@0800,199912/16/24 03/07/25 History Albuterol Nebulized [Ventolin 2.5 mg INHALATION RT-TID 03/07/25 03/07/25 History Nebulized] Apixaban [Eliquis] 5 mg PO BID@0800,199903/07/25 03/07/25 History Allergies Allergy/AdvReac Type Severity Reaction Status Date / Time No Known Allergies Allergy Verified 03/07/25 17:43 Physical Exam Vitals: Vital Signs Temp Pulse Pulse Resp BP BP Pulse Ox 03/07/25 22:18 28 H 93 L 03/07/25 21:13 91 03/07/25 21:00 105 H 03/07/25 20:06 80 03/07/25 20:00 92 32 H 124/77 93 L 03/07/25 19:49 95 03/07/25 16:09 78 03/07/25 15:59 84 03/07/25 15:44 94 20 111/69 03/07/25 14:57 82 03/07/25 14:48 81 03/07/25 14:40 84 16 117/69 95 03/07/25 11:14 86 22 109/50 90 L 03/07/25 11:06 80 03/07/25 10:46 73 03/07/25 10:05 97 03/07/25 10:01 97.6 F 92 32 H 133/51 83 L Intake and Output 03/07/25 03/07/25 03/08/25 14:59 22:59 06:59 Output Total 350 Balance -350 Output: Urine 350 Other: Weight 79.379 kg 79.379 kg GENERAL EXAM: Alert, 79-year-old female, on 8 L high flow nasal cannula, fairly comfortable in no apparent distress. HEAD: Normocephalic and atraumatic EYES: Normal reaction of pupils, equal size. NOSE: Clear with pink turbinates. THROAT: No erythema or exudates. NECK: No masses, no JVD. CHEST: No chest wall deformity. LUNGS: Equal air entry with left basilar inspiratory crackles. No wheezing, rhonchi, focal dullness. No conversational dyspnea or accessory muscle use.. CVS: S1 and S2 normal with no audible murmur, regular rhythm. No extra heart sounds ABDOMEN: No hepatosplenomegaly, active bowel sounds, no guarding or rigidity. SPINE: No scoliosis or deformity SKIN: Moist erythemic rash underneath both breasts and sternum CENTRAL NERVOUS SYSTEM: No focal deficits, tone is normal in all 4 extremities. EXTREMITIES: There is no peripheral edema, clubbing, or cyanosis. Peripheral pulses are intact. Results - Laboratory Findings CBC and BMP: 03/07/25 10:20 03/07/25 10:20 PT/INR, D-dimer PT 14.7 sec (10.0-12.5) H 03/07/25 10:20 INR 1.4 (<1.2) H 06/02/25 10:20 Abnormal lab findings: Abnormal Labs 03/07/25 03/07/25 03/07/25 10:20 10:20 10:20 WBC 15.84 H RBC 3.85 L Hgb 11.4 L Hct 36.4 L MCHC 31.3 L MPV 9.3 L Immature Gran # 0.08 H Neutrophils # 13.82 H PT 14.7 H INR 1.4 H APTT 37.5 H Chloride 109 H Carbon Dioxide 18 L BUN 33 H Creatinine 1.44 H Glucose 186 H POC Glucose (mg/dL) Plasma Lactic Acid Emilio Alkaline Phosphatase 127 H Urine Protein 03/07/25 03/07/25 03/07/25 10:20 14:41 18:07 WBC RBC Hgb Hct MCHC MPV Immature Gran # Neutrophils # PT INR APTT Chloride Carbon Dioxide BUN Creatinine Glucose POC Glucose (mg/dL) Plasma Lactic Acid Emilio 2.7 H* 2.6 H* 2.3 H* Alkaline Phosphatase Urine Protein 03/07/25 03/07/25 03/07/25 21:00 22:13 23:40 WBC RBC Hgb Hct MCHC MPV Immature Gran # Neutrophils # PT INR APTT Chloride Carbon Dioxide BUN Creatinine Glucose POC Glucose (mg/dL) 217 H Plasma Lactic Acid Emilio 3.2 H* Alkaline Phosphatase Urine Protein Trace H - Diagnostic Findings Chest x-ray: image reviewed Assessment and Plan Assessment: Acute hypoxic respiratory failure, secondary to acute COPD/asthma exacerbation. Chest x-ray showing chronic changes with hyperinflation and increased in terstitial markings bilaterally. Viral screen negative for influenza A/B, RSV, COVID. Acute leukocytosis Acute on chronic kidney disease Mild anion gap metabolic acidosis History of questionable PE, anticoagulated on Eliquis Chronic dementia/developmental delay with impairment of the cognitive functions. Chronic gait dysfunction Hypertension Hyperlipidemia COPD/asthma maintained on Breo Ellipta on outpatient basis GERD Intertrigo Obesity, with a BMI of 30 kg/m Plan: Continue supplemental oxygen Continue combination of bronchodilators and IV Solu-Medrol. Add budesonide and formoterol inhalations. Continue empiric antibiotics Eliquis has been continued GI prophylaxis with Protonix Case to be reviewed with my supervising physician, further recommendations to follow I have personally seen and examined the patient, performed the documentation and the assessment and plan as written. Number of minutes spent on the visit:20 This is a joint evaluation that was done along with the nurse practitioner. This evaluation was done in 35 minutes. This patient was hospitalized for worsening shortness of breath attributed to an acute COPD exacerbation. The patient is a very poor historian. She cannot volunteer any history. She has advanced dementia and significant impairment in the cognitive functions. I reviewed her chest x-ray and there is no clear indication for any underlying pneumonia. The patient has some mild leukocytosis and lactic acid level was slightly elevated upon time of admission at 3.2 and dropped down to 1.6. Otherwise, she does have some mild non-anion gap metabolic acidosis. BUN was 33 with a creatinine of 1.4. Viral screen was negative. UA was negative. The white cell count was at 15.8 with a hemoglobin 11.4. The patient was started on a combination of Rocephin and Zithromax. The patient was started on IV fluids and she is on normal saline at 75 cc an hour. She remains on DuoNeb updrafts, Perforomist and Pulmicort nebulized twice a day and she is also on anticoagulation with Eliquis. She remains on oxygen and she is currently on 2 L of O2 nasal cannula with a pulse ox of 96% and her oxygenation is improved over the past 24 hours. Will continue to follow. Time with Patient: Greater than 30
[2025-03-08] MEDS: SODIUM CHLORIDE 0.9% 1,000 ML IV SCH (01:28)
[2025-03-08] MEDS: PANTOPRAZOLE 40 MG TABLET PO SCH (06:08)
[2025-03-08] MEDS: CHOLECALCIFEROL 25 MCG (1000 IU) TABLET PO SCH (08:09)
[2025-03-08] MEDS: ASPIRIN 81 MG PO SCH (08:10)
[2025-03-08] MEDS: NYSTATIN 100,000 UNIT/GM POWD 15 GM TOPICAL SCH (08:10)
[2025-03-08] MEDS: FORMOTEROL FUMARATE 20 MCG/2 ML NEBU INHALATION SCH (08:45)
[2025-03-08] MEDS: BUDESONIDE 1 MG/2 ML NEBU INHALATION SCH (08:45)
[2025-03-08 12:24] LABS: Glucose,Whole Blood 159 mg/dL (70-110)
--- NOTE | 2025-03-08 15:59 | P.PN ---
Progress Note - Text Progress Note Date: 03/08/25 Chief Complaint: Short of breath This is a 79-year-old patient, resident of [facility]. Being followed by Dr. Larsen. baseline: Normally patient gets around with a walker. Speaks in short sentences, with limited vocabulary. December 22, 2024 patient diagnosed with acute PE. For which she is on Eliquis. Patient was discharged on 3 L of oxygen Patient was sent into the ER for shortness of breath. Per the EMS report patient had a cough and a runny nose all weekend. And patient's pulse ox dropped down to the 70s. Found the patient to have wheezing was given a nebulized bronchodilator. EMS took a pulse ox it was 86%.-RA Not really able to give much of history. March 08: Admitted with pneumonia, acute hypoxic respiratory failure. On 6 L nasal cannula this morning. Has been refusing food. Ensure ordered. Some audible wheezing with congested cough Active Medications Albuterol/Ipratropium (Ipratropium-Albuterol 3 Ml Neb) 3 ml INHALATION RT-QID [facility] Last Admin: 03/08/25 12:01 Dose: 3 ml Albuterol/Ipratropium (Ipratropium-Albuterol 3 Ml Neb) 3 ml INHALATION RT-Q2H PRN PRN Reason: Shortness Of Breath Or Wheezing Last Admin: 03/07/25 20:59 Dose: 3 ml Apixaban (Apixaban 5 Mg Tab) 5 mg PO BID@0800,1999 [facility]; Protocol Last Admin: 03/08/25 08:10 Dose: 5 mg Aspirin (Aspirin 81 Mg) 81 mg PO DAILY@0800 [facility] Last Admin: 03/08/25 08:10 Dose: 81 mg Atorvastatin Calcium (Atorvastatin 20 Mg Tab) 20 mg PO HS@1999 [facility] Last Admin: 03/07/25 21:15 Dose: 20 mg Azithromycin (Azithromycin 500 Mg Tab) 500 mg PO [facility]; Protocol Stop: 03/09/25 21:01 Last Admin: 03/07/25 21:15 Dose: 500 mg Budesonide (Budesonide 1 Mg/2 Ml Nebu) 1 mg INHALATION RT-BID [facility] Last Admin: 03/08/25 08:45 Dose: 1 mg Calcium Carbonate/Glycine (Calcium Carbonate 500 Mg Chewable) 500 mg PO BID PRN PRN Reason: GI Upset Cholecalciferol (Cholecalciferol 25 Mcg (1000 Iu) Tablet) 50 mcg PO DAILY@0800 [facility] Last Admin: 03/08/25 08:09 Dose: 50 mcg Clonidine (Clonidine Hcl 0.2 Mg Tab) 0.2 mg PO BID@08,1999 [facility] Last Admin: 03/08/25 08:44 Dose: 0.2 mg Cyanocobalamin (Cyanocobalamin 500 Mcg Tab) 1,000 mcg PO FR@1700 [facility] Formoterol Fumarate (Formoterol Fumarate 20 Mcg/2 Ml Nebu) 20 mcg INHALATION RT-BID [facility] Last Admin: 03/08/25 08:45 Dose: 20 mcg Gabapentin (Gabapentin 100 Mg Cap) 100 mg PO TID@0800,1399,1999 [facility] Last Admin: 03/08/25 12:29 Dose: 100 mg Ceftriaxone Sodium 1 gm/ (Sodium Chloride) 50 mls @ 100 mls/hr IVPB Q24H [facility]; Protocol Last Admin: 03/07/25 21:14 Dose: 100 mls/hr Sodium Chloride (Saline 0.9%) 1,000 mls @ 75 mls/hr IV .[id number] [facility] Last Admin: 03/08/25 12:29 Dose: 75 mls/hr Lactic Acid (Ammonium Lactate 12% Cream 140 Gm Tube) 1 applic TOPICAL BID [facility]; Protocol Last Admin: 03/08/25 08:10 Dose: 1 applic Methylprednisolone Sodium Succinate (Methylprednisolone Sod Succi 125 Mg/2 Ml Vial) 60 mg IV Q6HR [facility] Last Admin: 03/08/25 12:28 Dose: 60 mg Naloxone HCl (Naloxone 0.4 Mg/Ml 1 Ml Vial) 0.2 mg IVP Q2M PRN PRN Reason: Opioid Reversal Nystatin (Nystatin 100,000 Unit/Gm Powd 15 Gm) 1 applic TOPICAL DAILY [facility]; Protocol Last Admin: 03/08/25 08:10 Dose: 1 applic Ondansetron HCl (Ondansetron Odt 4 Mg Tab) 4 mg PO TID PRN PRN Reason: NAUSEA WITH MEALS Pantoprazole Sodium (Pantoprazole 40 Mg Tablet) 40 mg PO DAILY@0700 [facility] Last Admin: 03/08/25 06:08 Dose: 40 mg Social history: Resident of [facility]. Does use a four-wheel walker. No smoking alcohol history reported Physical examination: VITAL SIGNS: 98.1, 68, 26, 143 x 64, 96% on 6 L GENERAL: BMI 30, laying in bed, congested with cough with audible wheezing EYES: Pupils equal. Conjunctiva damian l. HEENT: External appearance of nose and ears normal, oral cavity grossly normal. NECK: JVD unable to assess; masses not palpable. HEART: First and second heart sounds are normal; no edema. LUNGS: Respiratory rate increased, decreased breath sounds. Expiratory wheezing ABDOMEN: Soft, nontender, liver spleen not palpable, no masses palpable. PSYCH: [Speaks in Short sentences. Does. MUSCULOSKELETAL:No Clubbing/cyanosis;muscles-grossly intact. OA INVESTIGATIONS, reviewed in the clinical context: March 08: Procalcitonin 0.54 . March 07, 2025: White count 15.8 hemoglobin 11.4 platelets 258 sodium 140 potassium 4.9 BUN 33 creatinine 1.44 Lactic acid 2.7 Troponin I less than 0.012, proBNP 1280 EKG tracing personally reviewed by me-normal sinus rhythm. Chest x-ray film personally reviewed by me-possible infiltrate Assessment and plan: -Pneumonia, suspect gram-negative organism, causing hypoxia IV ceftriaxone. -Acute hypoxic respiratory failure from above. [facility] reported pulse ox in the 70s.: Slow to respond Oxygen 6 L -Chronic hypoxic respiratory failure. recently discharged on 3 L of oxygen. -Chronic PE. 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 At baseline.). Speaks in short sentences. Repeats herself. 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 Oral intake. Ensure ordered. Past Medical History Past Medical History: Dementia Additional Past Medical History / Comment(s): mental retardation History of Any Multi-Drug Resistant Organisms: None Reported Past Surgical History: Unable to Obtain Past Anesthesia/Blood Transfusion Reactions: Unable to Obtain Past Psychological History: No Psychological Hx Reported Smoking Status: Never smoker Past Alcohol Use History: Unable to Obtain Past Drug Use History: Unable to Obtain
[2025-03-08] MEDS ORDERED: guaiFENesin-DM 100-10MG/5ML 10 ML CUP PO PRN (23:25)
[2025-03-09 06:10] LABS: HGB 10.3 g/dL (12.0-15.0); MCH 28.7 pg (27.0-32.0); MCHC 30.3 g/dL (32.0-37.0); MCV 94.7 fL (80.0-97.0); Mean Platelet Volume 9.9 fL (9.5-12.2); Platelet Count 306 10*3/uL (140-440); RBC 3.59 10*6/uL (4.10-5.20); RDW 15.5 % (11.5-14.5); WBC 14.41 10*3/uL (4.50-10.00)
[2025-03-09 06:21] LABS: ALT 16 U/L (4-34); AST 20 U/L (14-36); African American GFR (CKD) 48 (>60 ml/min/1.73 sqM); Albumin 3.1 g/dL (3.5-5.0); Alkaline Phosphatase 111 U/L (38-126); Anion Gap 10 mmol/L; Blood Urea Nitrogen 48 mg/dL (7-17); Calcium 8.9 mg/dL (8.4-10.2); Carbon Dioxide 20 mmol/L (22-30); Chloride 109 mmol/L (98-107); Glucose 144 mg/dL (74-99); Non-African American GFR(CKD) 42 (>60 ml/min/1.73 sqM); Potassium 4.5 mmol/L (3.5-5.1); Sodium 139 mmol/L (137-145); Total Bilirubin 0.3 mg/dL (0.2-1.3)
--- NOTE | 2025-03-09 07:59 | XR ---
EXAMINATION TYPE: XR chest 1V portable DATE OF EXAM: 03/09/2025 5:23 AM COMPARISON: 03/07/2025 CLINICAL INDICATION: Female, 79 years old with history of pna, TECHNIQUE: XR chest 1V portable view(s) obtained. Patient is rotated to the left. FINDINGS: The heart size is normal. The pulmonary vasculature is normal. There is some developing infiltrate at the right base. Mild diffuse increased lung markings are prese nt and be related to volume overload. IMPRESSION: 1. Slight increase in diffuse pulmonary edema. Clinical correlation recommended. 2. Developing infiltrate at the right base. Atelectasis and pneumonia could be considered. [facility], , 03/09/2025 7:56 AM
--- NOTE | 2025-03-09 15:17 | P.PN ---
Subjective Progress Note Date: 03/09/25 Patient is a 79-year-old female with past medical history significant for hypertension, hyperlipidemia, COPD, home oxygen dependent, and advanced dementia. Patient is alert but unable to provide any useful information. I am told her baseline mentation is oriented to self. She resides at [facility], [facility]. Of note, patient recently hospitalized December, with a urinary tract infection. During this time, felt to possibly have a pulmonary embolism. Pulmonary perfusion scan was indeterminate. She was placed on Eliquis. According to the ER note, yesterday morning, patient was sent in by EMS from her [facility] home after being found to have increased work of breathing. Workup in the ED including a chest x-ray showing mild vascular prominence. CBC remarkable for leukocytosis with a WBC count of 15.8, hemoglobin 11.4, platelets CMP: Sodium 140, potassium 4.9, chloride 109, serum bicarb 18, BUN 33, creatinine 1.44, glucose 186. 2.7 and now 3.2. Lactic troponin less than 0. 012. EKG: Sinus rhythm, rate 79 bpm, no acute ST segment elevations. NT proBNP 1280. Most recent available echocardiogram from December, estimating a left ventricular ejection fraction of 60 to 65%, as well as, mild mitral and tricuspid regurgitation. Urinalysis unremarkable for infection. Viral screen negative for influenza A/B, RSV, COVID. She is currently being evaluated in the emergency department. She is on 8 L high flow nasal cannula. She appears nondistressed. She was placed empirically on a combination of azithromycin and Rocephin. Afebrile. Also, previously noted to be wheezing, and her COPD was felt to be an exacerbation. She was previously started on a combination of Duo Nebs and IV Solu-Medrol. 03/09/2024, the patient is being seen for a follow-up. The patient is calm and comfortable. She is advanced dementia and she is unable to volunteer any history. 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 No significant bronchospasm or wheezing. No significant respiratory distress at rest. She is currently on 40 Suboxone by nasal cannula. She is still slightly bronchospastic and wheezy and she is on DuoNeb updrafts, and she is also on IV Solu-Medrol 60 mg every 6 hours. She remains on empiric antibiotic coverage with a combination of Rocephin and Zithromax. Hemodynamically stable. Lactic acid level is improved. The white cell count of 14.4 with a heme of 10.3. He has 48 with a creatinine of 1.2 and sodium is at 139 and a potassium level is at 4.5. Lactic acid level is down to 1.6. Viral screen was negative. Urine cultures were negative. The most recent chest x-ray from today shows no acute pulmonary abnormalities. There is slight increase in diffuse interstitial markings bilaterally. Right lower lobe pulmonary infiltrate is noted although this is nonspecific finding. Objective - Vital Signs Vital signs: Vital Signs Temp 97.6 F 03/09/25 08:00 Pulse 63 03/09/25 09:20 Resp 22 03/09/25 08:00 BP 149/81 03/09/25 08:00 Pulse Ox 93 L 03/09/25 09:01 FiO2 Intake & Output 03/08/25 03/09/25 03/09/25 18:59 06:59 18:59 Output Total 400 300 Balance -400 -300 Weight 76.6 kg Output: Urine 400 300 Other: # Bowel Movements 1 - Exam GENERAL EXAM: Alert, 79-year-old female, on 4 L high flow nasal cannula, fairly comfortable in no apparent distress. HEAD: Normocephalic and atraumatic EYES: Normal reaction of pupils, equal size. NOSE: Clear with pink turbinates. THROAT: No erythema or exudates. NECK: No masses, no JVD. CHEST: No chest wall deformity. LUNGS: Equal air entry with left basilar inspiratory crackles. No wheezing, rhonchi, focal dullness. No conversational dyspnea or accessory muscle use.. CVS: S1 and S2 normal with no audible murmur, regular rhythm. No extra heart sounds ABDOMEN: No hepatosplenomegaly, active bowel sounds, no guarding or rigidity. SPINE: No scoliosis or deformity SKIN: Moist erythemic rash underneath both breasts and sternum CENTRAL NERVOUS SYSTEM: No focal deficits, tone is normal in all 4 extremities. EXTREMITIES: There is no peripheral edema, clubbing, or cyanosis. Peripheral pulses are intact. - Labs CBC & Chem 7: 03/09/25 05:38 03/09/25 05:38 Labs: Abnormal Lab Results - Last 24 Hours (Table) 06/12/2803/08/25 03/09/25 Range/Units 11:48 12:23 05:38 WBC 14.41 H (4.50-10.00) 10*3/uL RBC 3.59 L (4.10-5.20) 10*6/uL Hgb 10.3 L (12.0-15.0) g/dL Hct 34.0 L (37.2-46.3) % MCHC 30.3 L (32.0-37.0) g/dL Chloride (98-107) mmol/L Carbon Dioxide (22-30) mmol/L BUN (7-17) mg/dL Creatinine (0.52-1.04) mg/dL Glucose (74-99) mg/dL POC Glucose (mg/dL) 159 H (70-110) mg/dL Total Protein (6.3-8.2) g/dL Albumin (3.5-5.0) g/dL Procalcitonin 0.54 H (0.02-0.50) ng/mL 03/09/25 Range/Units 05:38 WBC (4.50-10.00) 10*3/uL RBC (4.10-5.20) 10*6/uL Hgb (12.0-15.0) g/dL Hct (37.2-46.3) % MCHC (32.0-37.0) g/dL Chloride 109 H (98-107) mmol/L Carbon Dioxide 20 L (22-30) mmol/L BUN 48 H (7-17) mg/dL Creatinine 1.24 H (0.52-1.04) mg/dL Glucose 144 H (74-99) mg/dL POC Glucose (mg/dL) (70-110) mg/dL Total Protein 6.0 L (6.3-8.2) g/dL Albumin 3.1 L (3.5-5.0) g/dL Procalcitonin (0.02-0.50) ng/mL Assessment and Plan Assessment: Acute hypoxic respiratory failure, secondary to acute COPD/asthma exacerbation. Chest x-ray showing chronic changes with hyperinflation and increased interstitial markings bilaterally. Viral screen negative for influenza A/B, RSV, COVID. Acute leukocytosis Acute on chronic kidney disease Mild anion gap metabolic acidosis History of questionable PE, anticoagulated on Eliquis Chronic dementia/developmental delay with impairment of the cognitive functions. Chronic gait dysfunction Hypertension Hyperlipidemia COPD/asthma maintained on Breo Ellipta on outpatient basis GERD Intertrigo Obesity, with a BMI of 30 kg/m Plan: Continue supplemental oxygen Continue combination of bronchodilators and IV Solu-Medrol. Add budesonide and formoterol inhalations. Continue empiric antibiotics Eliquis has been continued GI prophylaxis with Protonix Case to be reviewed with my supervising physician, further recommendations to follow I have personally seen and examined the patient, performed the documentation and the assessment and plan as written. Number of minutes spent on the visit:20 This is a joint evaluation that was done along with the nurse practitioner. This evaluation was done in 35 minutes. This patient was hospitalized for worsening shortness of breath attributed to an acute COPD exacerbation. The patient is a very poor historian. She cannot volunteer any history. She has advanced dementia and significant impairment in the cognitive functions. I reviewed her chest x-ray and there is no clear indication for any underlying pneumonia. The patient has some mild leukocytosis and lactic acid level was slightly elevated upon time of admission at 3.2 and dropped down to 1.6. Ot herwise, she does have some mild non-anion gap metabolic acidosis. BUN was 33 with a creatinine of 1.4. Viral screen was negative. UA was negative. The white cell count was at 15.8 with a hemoglobin 11.4. The patient was started on a combination of Rocephin and Zithromax. The patient was started on IV fluids and she is on normal saline at 75 cc an hour. She remains on DuoNeb updrafts, Perforomist and Pulmicort nebulized twice a day and she is also on anticoagulation with Eliquis. She remains on oxygen and she is currently on 2 L of O2 nasal cannula with a pulse ox of 96% and her oxygenation is improved over the past 24 hours. Will continue to follow. Plan: Acute hypoxic respiratory failure, secondary to acute COPD/asthma exacerbation. Chest x-ray showing chronic changes with hyperinflation and increased interstitial markings bilaterally. Viral screen negative for influenza A/B, RSV, COVID. Oxygenation has improved and the patient is currently on 4 L of oxygen by nasal cannula. Noted typically the patient is on 3 L of O2 at home. Questionable right lower lobe pulmonary infiltrate. Pneumonia is considered to be less likely. Acute leukocytosis Acute on chronic kidney disease, creatinine is improving Mild anion gap metabolic acidosis, improved History of questionable PE, anticoagulated on Eliquis Chronic dementia/developmental delay with impairment of the cognitive functions. Chronic gait dysfunction Hypertension Hyperlipidemia COPD/asthma maintained on Breo Ellipta on outpatient basis GERD Intertrigo Obesity, with a BMI of 30 kg/m Plan: Continue supplemental oxygen and wean the oxygen flow to maintain saturation above 90%, baseline oxygen requirements at 3 L Continue combination of bronchodilators and IV Solu-Medrol. Continue budesonide and formoterol inhalations. Continue empiric antibiotics and the patient is currently on a combination of Rocephin and Zithromax Eliquis has been continued GI prophylaxis with Protonix IV fluids and she is on normal saline at 75 cc an hour. Will continue to follow make further recommendations based on her progress. Not completely ready for discharge yet. She is a person who lives in [facility] home Time with Patient: Greater than 30 Time with Patient: Greater than 30
[2025-03-09] MEDS: HALOPERIDOL LACTATE 5 MG/ML 1 ML VIAL IVP ONE (16:55)
[2025-03-09] MEDS: LORazepam 0.5 MG TAB PO ONE (16:55)
--- NOTE | 2025-03-09 17:38 | P.PN ---
Progress Note - Text Progress Note Date: 03/09/25 Chief Complaint: Short of breath This is a 79-year-old patient, resident of [facility]. Being followed by Dr. Larsen. baseline: Normally patient gets around with a walker. Speaks in short sentences, with limited vocabulary. December 22, 2024 patient diagnosed with acute PE. For which she is on Eliquis. Patient was discharged on 3 L of oxygen Patient was sent into the ER for shortness of breath. Per the EMS report patient had a cough and a runny nose all weekend. And patient's pulse ox dropped down to the 70s. Found the patient to have wheezing was given a nebulized bronchodilator. EMS took a pulse ox it was 86%.-RA Not really able to give much of history. March 08: Admitted with pneumonia, acute hypoxic respiratory failure. On 6 L nasal cannula this morning. Has been refusing food. Ensure ordered. Some audible wheezing with congested cough March 09: ICU. Patient is keep repeating that she wants to go back to her place. Keeps repeating this again and again. Refusing food and medications sometimes. Was ordered to calm her down. Will also add some Seroquel for tonight. Patient also continues to cough and wheezing. Requiring 4 L, nasal cannula Active Medications Albuterol/Ipratropium (Ipratropium-Albuterol 3 Ml Neb) 3 ml INHALATION RT-QID [facility] Last Admin: 03/09/25 16:38 Dose: Not Given Albuterol/Ipratropium (Ipratropium-Albuterol 3 Ml Neb) 3 ml INHALATION RT-Q2H PRN PRN Reason: Shortness Of Breath Or Wheezing Last Admin: 03/07/25 20:59 Dose: 3 ml Apixaban (Apixaban 5 Mg Tab) 5 mg PO BID@0800,1999 [facility]; Protocol Last Admin: 03/09/25 07:53 Dose: 5 mg Aspirin (Aspirin 81 Mg) 81 mg PO DAILY@0800 [facility] Last Admin: 03/09/25 07:54 Dose: 81 mg Atorvastatin Calcium (Atorvastatin 20 Mg Tab) 20 mg PO HS@1999 [facility] Last Admin: 03/08/25 19:31 Dose: 20 mg Azithromycin (Azithromycin 500 Mg Tab) 500 mg PO [facility]; Protocol Stop: 03/09/25 21:01 Last Admin: 03/08/25 19:31 Dose: 500 mg Budesonide (Budesonide 1 Mg/2 Ml Nebu) 1 mg INHALATION RT-BID [facility] Last Admin: 03/09/25 09:01 Dose: 1 mg Calcium Carbonate/Glycine (Calcium Carbonate 500 Mg Chewable) 500 mg PO BID PRN PRN Reason: GI Upset Cholecalciferol (Cholecalciferol 25 Mcg (1000 Iu) Tablet) 50 mcg PO DAILY@0800 [facility] Last Admin: 03/09/25 07:53 Dose: 50 mcg Clonidine (Clonidine Hcl 0.2 Mg Tab) 0.2 mg PO BID@0800,2000 [facility] Last Admin: 03/09/25 07:53 Dose: 0.2 mg Cyanocobalamin (Cyanocobalamin 500 Mcg Tab) 1,000 mcg PO FR@1700 [facility] Formoterol Fumarate (Formoterol Fumarate 20 Mcg/2 Ml Nebu) 20 mcg INHALATION RT-BID [facility] Last Admin: 03/09/25 09:01 Dose: 20 mcg Gabapentin (Gabapentin 100 Mg Cap) 100 mg PO TID@0800,1400,1999 [facility] Last Admin: 03/09/25 12:13 Dose: Not Given Guaifenesin/Dextromethorphan (Guaifenesin-Dm 100-10mg/5ml 10 Ml Cup) 10 ml PO Q6HR PRN PRN Reason: Cough Ceftriaxone Sodium 1 gm/ (Sodium Chloride) 50 mls @ 100 mls/hr IVPB Q24H [facility]; Protocol Last Admin: 03/08/25 19:28 Dose: 100 mls/hr Lactic Acid (Ammonium Lactate 12% Cream 140 Gm Tube) 1 applic TOPICAL BID [facility]; Protocol Last Admin: 03/09/25 07:54 Dose: 1 applic Methylprednisolone Sodium Succinate (Methylprednisolone Sod Succi 125 Mg/2 Ml Vial) 60 mg IV Q6HR [facility] Last Admin: 03/09/25 16:55 Dose: 60 mg Naloxone HCl (Naloxone 0.4 Mg/Ml 1 Ml Vial) 0.2 mg IVP Q2M PRN PRN Reason: Opioid Reversal Nystatin (Nystatin 100,000 Unit/Gm Powd 15 Gm) 1 applic TOPICAL DAILY [facility]; Protocol Last Admin: 03/09/25 07:54 Dose: 1 applic Ondansetron HCl (Ondansetron Odt 4 Mg Tab) 4 mg PO TID PRN PRN Reason: NAUSEA WITH MEALS Pantoprazole Sodium (Pantoprazole 40 Mg Tablet) 40 mg PO DAILY@0700 [facility] Last Admin: 03/09/25 06:21 Dose: 40 mg Quetiapine Fumarate (Quetiapine 25 Mg Tab) 12.5 mg PO [facility] Social history: Resident of [facility]. Does use a four-wheel walker. No smoking alcohol history reported Physical examination: VITAL SIGNS: 7.9, 93, 22, 146 x 79, 90% on 3 L GENERAL: BMI 30, laying in bed, congested- cough with audible wheezing EYES: Pupils equal. Conjunctiva damian l. HEENT: External appearance of nose and ears normal, oral cavity grossly normal. NECK: JVD unable to assess; masses not palpable. HEART: First and second heart sounds are normal; no edema. LUNGS: Respiratory rate increased, decreased breath sounds. Expiratory wheezing ABDOMEN: Soft, nontender, liver spleen not palpable, no masses palpable. PSYCH: [Keeps repeating that she wants to be discharged MUSCULOSKELETAL:No Clubbing/cyanosis;muscles-grossly intact. OA INVESTIGATIONS, reviewed in the clinical context: March 09: 10.3 potassium 4.5 creatinine 1.24 March 08: Procalcitonin 0.54 . March 07, 2025: White count 15.8 hemoglobin 11.4 platelets 258 sodium 140 potassium 4.9 BUN 33 creatinine 1.44 Lactic acid 2.7 Troponin I less than 0.012, proBNP 1280 EKG tracing personally reviewed by me-normal sinus rhythm. Chest x-ray film personally reviewed by me-possible infiltrate Assessment and plan: -Pneumonia, suspect gram-negative organism, causing hypoxia IV ceftriaxone. -Acute hypoxic respiratory failure from above. [facility] reported pulse ox in the 70s.: Better Oxygen 4 L -Chronic hypoxic respiratory failure. recently discharged on 3 L of oxygen. -Chronic PE. December 22, 2024 Eliquis -Increased agitation and anxiety Seroquel at night. 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 At baseline.). Speaks in short sentences. Repeats herself. 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 does use a four-wheel walker -GERD Omeprazole -Essential hypertension Catapres 0.2 mg twice daily -Hyperlipidemia Lipitor 20 mg nightly -Moderate persistent asthma Bronchodilators Full code Past Medical History Past Medical History: Dementia Additional Past Medical History / Comment(s): mental retardation History of Any Multi-Drug Resistant Organisms: None Reported Past Surgical History: Unable to Obtain Past Anesthesia/Blood Transfusion Reactions: Unable to Obtain Past Psychological History: No Psychological Hx Reported Smoking Status: Never smoker Past Alcohol Use History: Unable to Obtain Past Drug Use History: Unable to Obtain
[2025-03-09] MEDS: QUEtiapine 25 MG TAB PO SCH (21:13)
[2025-03-10] MEDS: FUROSEMIDE 10 MG/ML 4 ML VIAL IV STA (02:12)
--- NOTE | 2025-03-10 03:03 | XR ---
EXAM: XR Chest, 1 View CLINICAL HISTORY: XR Reason: Increased O2 demands TECHNIQUE: Frontal view of the chest. COMPARISON: 03/09/2025 at 5:18 a.m. FINDINGS: Lungs: Lungs are mildly hyperinflated with coarse reticular increased densities throughout both lungs suggesting mild emphysema, unchanged. Possible bibasilar infiltrates and possible 12 mm right lower lobe pulmonary nodule versus scarring, similar to previous. Pleural space: Unremarkable. No pneumothorax. Heart: The cardiac silhouette is enlarged, similar to previous. Mediastinum: Unremarkable. Normal mediastinal contour. Bones/joints: Unremarkable. No acute fracture. Vasculature: The aortic arch is mildly calcified, unchanged. IMPRESSION: 1. Lungs are mildly hyperinflated with coarse reticular increased densities throughout both lungs suggesting mild emphysema, unchanged. Possible bibasilar infiltrates and possible 12 mm right lower lobe pulmonary nodule versus scarring, similar to previous. 2. The cardiac silhouette is enlarged, similar to previous.
[2025-03-10 10:47] LABS: HCT 34.6 % (37.2-46.3); HGB 11.1 g/dL (12.0-15.0); MCH 29.6 pg (27.0-32.0); MCHC 32.1 g/dL (32.0-37.0); MCV 92.3 fL (80.0-97.0); Mean Platelet Volume 9.6 fL (9.5-12.2); Platelet Count 335 10*3/uL (140-440); RBC 3.75 10*6/uL (4.10-5.20); RDW 15.2 % (11.5-14.5); WBC 11.09 10*3/uL (4.50-10.00)
[2025-03-10 10:58] LABS: ALT 22 U/L (4-34); AST 22 U/L (14-36); African American GFR (CKD) 42 (>60 ml/min/1.73 sqM); Albumin 3.5 g/dL (3.5-5.0); Alkaline Phosphatase 136 U/L (38-126); Anion Gap 12 mmol/L; Blood Urea Nitrogen 55 mg/dL (7-17); Calcium 9.1 mg/dL (8.4-10.2); Carbon Dioxide 23 mmol/L (22-30); Chloride 105 mmol/L (98-107); Glucose 155 mg/dL (74-99); Non-African American GFR(CKD) 36 (>60 ml/min/1.73 sqM); Potassium 4.3 mmol/L (3.5-5.1); Sodium 140 mmol/L (137-145); Total Bilirubin 0.5 mg/dL (0.2-1.3); Total Protein 6.6 g/dL (6.3-8.2)
[2025-03-10 11:06] LABS: NT-Pro-B-Type Natriuretic Pept 8700 pg/mL
--- NOTE | 2025-03-10 13:17 | P.PN ---
Subjective Progress Note Date: 03/10/25 Patient is a 79-year-old female with past medical history significant for hypertension, hyperlipidemia, COPD, home oxygen dependent, and advanced dementia. Patient is alert but unable to provide any useful information. I am told her baseline mentation is oriented to self. She resides at [place], [facility]. Of note, patient recently hospitalized December, with a urinary tract infection. During this time, felt to possibly have a pulmonary embolism. Pulmonary perfusion scan was indeterminate. She was placed on Eliquis. According to the ER note, yesterday morning, patient was sent in by EMS from her [facility] home after being found to have increased work of breathing. Workup in the ED including a chest x-ray showing mild vascular prominence. CBC remarkable for leukocytosis with a WBC count of 15.8, hemoglobin 11.4, platelets CMP: Sodium 140, potassium 4.9, chloride 109, serum bicarb 18, BUN 33, creatinine 1.44, glucose 186. 2.7 and now 3.2. Lactic troponin less than 0. 012. EKG: Sinus rhythm, rate 79 bpm, no acute ST segment elevations. NT proBNP 1280. Most recent available echocardiogram from December, estimating a left ventricular ejection fraction of 60 to 65%, as well as, mild mitral and tricuspid regurgitation. Urinalysis unremarkable for infection. Viral screen negative for influenza A/B, RSV, COVID. She is currently being evaluated in the emergency department. She is on 8 L high flow nasal cannula. She appears nondistressed. She was placed empirically on a combination of azithromycin and Rocephin. Afebrile. Also, previously noted to be wheezing, and her COPD was felt to be an exacerbation. She was previously started on a combination of Duo Nebs and IV Solu-Medrol. 03/09/2024, the patient is being seen for a follow-up. The patient is calm and comfortable. She is advanced dementia and she is unable to volunteer any history. 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 No significant bronchospasm or wheezing. No significant respiratory distress at rest. She is currently on 40 Suboxone by nasal cannula. She is still slightly bronchospastic and wheezy and she is on DuoNeb updrafts, and she is also on IV Solu-Medrol 60 mg every 6 hours. She remains on empiric antibiotic coverage with a combination of Rocephin and Zithromax. Hemodynamically stable. Lactic acid level is improved. The white cell count of 14.4 with a heme of 10.3. He has 48 with a creatinine of 1.2 and sodium is at 139 and a potassium level is at 4.5. Lactic acid level is down to 1.6. Viral screen was negative. Urine cultures were negative. The most recent chest x-ray from today shows no acute pulmonary abnormalities. There is slight increase in diffuse interstitial markings bilaterally. Right lower lobe pulmonary infiltrate is noted although this is nonspecific finding. 03/10/2025, the patient is being seen for a follow-up. Overnight, the patient became more wheezy and tachycardic. She also had increased oxygen requirements and she was placed on 15 L of oxygen by nasal cannula. She is currently weaned down to 7 L. A chest x-ray was done and the patient was found to have a coarse reticular interstitial infiltrates bilaterally with background emphysema. There is also basal infiltrate and a 12 mm right lower lobe pulmonary nodule. Meanwhile, the patient remains hemodynamically stable. IV fluids are currently at KVO. The patient was given a dose of Lasix yesterday 40 mg IV push and she produced approximately 400 cc of urine output. The white cell count 14.4 with a hemoglobin 10.3 and a platelet count of 306. BUN 55 the creatinine 1.39. Sodium is at 140 with a potassium of 4.3 and a chloride is 105 and the bicarb is 23. LFTs are normal. proBNP level is 8700. Procalcitonin level is at 0.54. The patient remains on IV Rocephin. Remains on bronchodilators. Remains on IV Solu-Medrol and she seems to be less bronchospastic compared to earlier. She has advanced dementia, unable to volunteer any history and the patient continues to state that she wants to go back to her [facility] facility. Objective - Vital Signs Vital signs: Vital Signs Temp 97.6 F 03/10/25 04:00 Pulse 115 H 03/10/25 09:30 Resp 15 03/10/25 09:30 BP 125/59 03/10/25 09:30 Pulse Ox 94 L 03/10/25 09:30 FiO2 Intake & Output 06/04/25 06/05/25 06/05/25 18:59 06:59 18:59 Intake Total 50 Output Total 200 600 400 Balance -200 -550 -400 Weight 71.6 kg Intake: Intake, IV Titration 50 Amount cefTRIAXone 1 gm In 50 Sodium Chloride 0.9% 50 ml @ 100 mls/hr IVPB Q24H [facility] Rx#:[id number] Output: Urine 200 600 400 Other: Voiding Method External Catheter External Catheter # Voids 1 - Exam GENERAL EXAM: Alert, 79-year-old female, on 7 L high flow nasal cannula, fairly comfortable in no apparent distress. HEAD: Normocephalic and atraumatic EYES: Normal reaction of pupils, equal size. NOSE: Clear with pink turbinates. THROAT: No erythema or exudates. NECK: No masses, no JVD. CHEST: No chest wall deformity. LUNGS: Equal air entry with left basilar inspiratory crackles. No wheezing, rhonchi, focal dullness. No conversational dyspnea or accessory muscle use.. CVS: S1 and S2 normal with no audible murmur, regular rhythm. No extra heart sounds ABDOMEN: No hepatosplenomegaly, active bowel sounds, no guarding or rigidity. SPINE: No scoliosis or deformity SKIN: Moist erythemic rash underneath both breasts and sternum CENTRAL NERVOUS SYSTEM: No focal deficits, tone is normal in all 4 extremities. EXTREMITIES: There is no peripheral edema, clubbing, or cyanosis. Peripheral pulses are intact. - Labs CBC & Chem 7: 03/10/25 10:11 03/10/25 10:11 Assessment and Plan Plan: Acute hypoxic respiratory failure, secondary to acute COPD/asthma exacerbation. Chest x-ray showing chronic changes with hyperinflation and increased interstitial markings bilaterally. Viral screen negative for influenza A/B, RSV, COVID. Oxygenation has improved and the patient is currently on 4 L of oxygen by nasal cannula. Noted typically the patient is on 3 L of O2 at home. Questionable right lower lobe pulmonary infiltrate. The patient continues to be covered by the antibiotics and the patient remains on IV Rocephin. Oxygenation has gotten worse and the patient is currently on 7 L of oxygen nasal cannula Acute leukocytosis, stable Acute on chronic kidney disease, creatinine is improving Mild anion gap metabolic acidosis, improved History of questionable PE, anticoagulated on Eliquis Chronic dementia/developmental delay with impairment of the cognitive functions. Chronic gait dysfunction Hypertension Hyperlipidemia COPD/asthma maintained on Breo Ellipta on outpatient basis GERD Intertrigo Obesity, with a BMI of 30 kg/m Plan: Continue supplemental oxygen and wean the oxygen flow to maintain saturation above 90%, baseline oxygen requirements at 3 L Continue combination of bronchodilators and IV Solu-Medrol. Continue budesonide and formoterol inhalations. Continue empiric antibiotics and the patient is currently on IV Rocephin Chest x-ray was noted IV fluids are currently at KVO Eliquis has been continued GI prophylaxis with Protonix Will continue to follow make further recommendations based on her progress. Time with Patient: Greater than 30 Time with Patient: Greater than 30
--- NOTE | 2025-03-10 15:50 | P.PN ---
Progress Note - Text Progress Note Date: 03/10/25 Chief Complaint: Short of breath This is a 79-year-old patient, resident of [facility]. Being followed by Dr. Larsen. baseline: Normally patient gets around with a walker. Speaks in short sentences, with limited vocabulary. December 22, 2024 patient diagnosed with acute PE. For which she is on Eliquis. Patient was discharged on 3 L of oxygen Patient was sent into the ER for shortness of breath. Per the EMS report patient had a cough and a runny nose all weekend. And patient's pulse ox dropped down to the 70s. Found the patient to have wheezing was given a nebulized bronchodilator. EMS took a pulse ox it was 86%.-RA Not really able to give much of history. March 08: Admitted with pneumonia, acute hypoxic respiratory failure. On 6 L nasal cannula this morning. Has been refusing food. Ensure ordered. Some audible wheezing with congested cough March 09: ICU. Patient is keep repeating that she wants to go back to her place. Keeps repeating this again and again. Refusing food and medications sometimes. Was ordered to calm her down. Will also add some Seroquel for tonight. Patient also continues to cough and wheezing. Requiring 4 L, nasal cannula March: ICU. oxygen requirement and got up to 11. Patient continues to repeat that she wants to go home. Refused breakfast but ate all her lunch Active Medications Albuterol/Ipratropium (Ipratropium-Albuterol 3 Ml Neb) 3 ml INHALATION RT-QID [facility] Last Admin: 03/10/25 15:23 Dose: 3 ml Albuterol/Ipratropium (Ipratropium-Albuterol 3 Ml Neb) 3 ml INHALATION RT-Q2H PRN PRN Reason: Shortness Of Breath Or Wheezing Last Admin: 03/10/25 00:51 Dose: 3 ml Apixaban (Apixaban 5 Mg Tab) 5 mg PO BID@0800,1999 [facility]; Protocol Last Admin: 03/10/25 08:38 Dose: 5 mg Aspirin (Aspirin 81 Mg) 81 mg PO DAILY@0800 [facility] Last Admin: 03/10/25 08:38 Dose: 81 mg Atorvastatin Calcium (Atorvastatin 20 Mg Tab) 20 mg PO HS@1999 [facility] Last Admin: 03/09/25 21:11 Dose: 20 mg Budesonide (Budesonide 1 Mg/2 Ml Nebu) 1 mg INHALATION RT-BID [facility] Last Admin: 03/10/25 08:10 Dose: 1 mg Calcium Carbonate/Glycine (Calcium Carbonate 500 Mg Chewable) 500 mg PO BID PRN PRN Reason: GI Upset Cholecalciferol (Cholecalciferol 25 Mcg (1000 Iu) Tablet) 50 mcg PO DAILY@0800 [facility] Last Admin: 03/10/25 08:38 Dose: 50 mcg Clonidine (Clonidine Hcl 0.2 Mg Tab) 0.2 mg PO BID@0800,1999 [facility] Last Admin: 03/10/25 08:40 Dose: 0.2 mg Cyanocobalamin (Cyanocobalamin 500 Mcg Tab) 1,000 mcg PO FR@1700 [facility] Formoterol Fumarate (Formoterol Fumarate 20 Mcg/2 Ml Nebu) 20 mcg INHALATION RT-BID [facility] Last Admin: 03/10/25 08:10 Dose: 20 mcg Gabapentin (Gabapentin 100 Mg Cap) 100 mg PO TID@0800,1399,1999 [facility] Last Admin: 03/10/25 14:23 Dose: 100 mg Guaifenesin/Dextromethorphan (Guaifenesin-Dm 100-10mg/5ml 10 Ml Cup) 10 ml PO Q6HR PRN PRN Reason: Cough Ceftriaxone Sodium 1 gm/ (Sodium Chloride) 50 mls @ 100 mls/hr IVPB Q24H [facility]; Protocol Last Admin: 03/09/25 21:11 Dose: 100 mls/hr Lactic Acid (Ammonium Lactate 12% Cream 140 Gm Tube) 1 applic TOPICAL BID [facility]; Protocol Last Admin: 03/10/25 08:40 Dose: 1 applic Methylprednisolone Sodium Succinate (Methylprednisolone Sod Succi 125 Mg/2 Ml Vial) 60 mg IV Q6HR [facility] Last Admin: 03/10/25 11:54 Dose: 60 mg Naloxone HCl (Naloxone 0.4 Mg/Ml 1 Ml Vial) 0.2 mg IVP Q2M PRN PRN Reason: Opioid Reversal Nystatin (Nystatin 100,000 Unit/Gm Powd 15 Gm) 1 applic TOPICAL DAILY [facility]; Protocol Last Admin: 03/10/25 08:41 Dose: 1 applic Ondansetron HCl (Ondansetron Odt 4 Mg Tab) 4 mg PO TID PRN PRN Reason: NAUSEA WITH MEALS Pantoprazole Sodium (Pantoprazole 40 Mg Tablet) 40 mg PO DAILY@0700 [facility] Last Admin: 03/10/25 06:44 Dose: 40 mg Quetiapine Fumarate (Quetiapine 25 Mg Tab) 12.5 mg PO [facility] Last Admin: 03/09/25 21:13 Dose: 12.5 mg Social history: Resident of [facility]. Does use a four-wheel walker. No smoking alcohol history reported Physical examination: VITAL SIGNS: 97.7, 107, 28, 1 3580, 94% on 11 L GENERAL: BMI 30, laying in bed, congested- cough with wheezing EYES: Pupils equal. Conjunctiva damian l. HEENT: External appearance of nose and ears normal, oral cavity grossly normal. NECK: JVD unable to assess; masses not palpable. HEART: First and second heart sounds are normal; no edema. LUNGS: Respiratory rate increased, decreased breath sounds. Expiratory wheezing ABDOMEN: Soft, nontender, liver spleen not palpable, no masses palpable. PSYCH: [Keeps repeating that she wants to be discharged MUSCULOSKELETAL:No Clubbing/cyanosis;muscles-grossly intact. OA INVESTIGATIONS, reviewed in the clinical context: March 10: White count 11 hemoglobin 11.1 platelets 335 potassium 4.3 BUN 55 creatinine 1.39 March 09: 10.3 potassium 4.5 creatinine 1.24 March 08: Procalcitonin 0.54 . March 07, 2025: White count 15.8 hemoglobin 11.4 platelets 258 sodium 140 potassium 4.9 BUN 33 creatinine 1.44 Lactic acid 2.7 Troponin I less than 0.012, proBNP 1280 EKG tracing personally reviewed by me-normal sinus rhythm. Chest x-ray film personally reviewed by me-possible infiltrate Assessment and plan: -Pneumonia, suspect gram-negative organism, causing hypoxia IV ceftriaxone. -Acute hypoxic respiratory failure from above. [facility] reported pulse ox in the 70s.: Slow to respond Oxygen requirement up to 11 L -Chronic hypoxic respiratory failure. recently discharged on 3 L of oxygen. -Chronic PE. December 22, 2024 Eliquis -Increased agitation and anxiety Seroquel at night. 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 At baseline.). Speaks in short sentences. Repeats herself. 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 Incentive spirometry. Past Medical History Past Medical History: Dementia Additional Past Medical History / Comment(s): mental retardation History of Any Multi-Drug Resistant Organisms: None Reported Past Surgical History: Unable to Obtain Past Anesthesia/Blood Transfusion Reactions: Unable to Obtain Past Psychological History: No Psychological Hx Reported Smoking Status: Never smoker Past Alcohol Use History: Unable to Obtain Past Drug Use History: Unable to Obtain
[2025-03-11 07:07] LABS: Basophils # (A) 0.02 10*3/uL (0.00-0.10); Basophils % (A) 0.2 %; HGB 10.9 g/dL (12.0-15.0); Lymphocytes # (A) 0.79 10*3/uL (0.90-5.00); Lymphocytes % (A) 8.9 %; MCH 28.8 pg (27.0-32.0); MCHC 31.1 g/dL (32.0-37.0); MCV 92.6 fL (80.0-97.0); Mean Platelet Volume 9.4 fL (9.5-12.2); Monocytes # (A) 0.38 10*3/uL (0.20-1.00); Monocytes % (A) 4.3 %; Neutrophils # (A) 7.52 10*3/uL (1.80-7.70); Neutrophils % (A) 85.1 %; Platelet Count 295 10*3/uL (140-440); RBC 3.78 10*6/uL (4.10-5.20); RDW 15.2 % (11.5-14.5); WBC 8.84 10*3/uL (4.50-10.00)
[2025-03-11 08:08] LABS: African American GFR (CKD) 47 (>60 ml/min/1.73 sqM); Anion Gap 9 mmol/L; Blood Urea Nitrogen 54 mg/dL (7-17); Calcium 8.7 mg/dL (8.4-10.2); Carbon Dioxide 23 mmol/L (22-30); Chloride 106 mmol/L (98-107); Glucose 140 mg/dL (74-99); Non-African American GFR(CKD) 41 (>60 ml/min/1.73 sqM); Potassium 4.5 mmol/L (3.5-5.1); Sodium 138 mmol/L (137-145)
--- NOTE | 2025-03-11 08:13 | XR ---
EXAMINATION TYPE: XR chest 1V portable DATE OF EXAM: 03/11/2025 5:31 AM COMPARISON: None. CLINICAL INDICATION: Female, 79 years old with history of increased oxygen demand, TECHNIQUE: XR chest 1V portable view(s) obtained. FINDINGS: The heart size is normal. The pulmonary vasculature is normal. Mild lingular infiltrate has developed . Some platelike atelectasis remains in the right lung base IMPRESSION: 1. Developing lingular infiltrate at the level of the cardiac apex. 2. Stable atelectatic type changes right base [facility], , 03/11/2025 8:10 AM
[2025-03-11] MEDS: CALCIUM CARBONATE 500 MG CHEWABLE PO PRN (09:10)
--- NOTE | 2025-03-11 16:56 | P.PN ---
Progress Note - Text Progress Note Date: 03/11/25 Chief Complaint: Short of breath This is a 79-year-old patient, resident of [facility]. Being followed by Dr. Larsen. baseline: Normally patient gets around with a walker. Speaks in short sentences, with limited vocabulary. December 22, 2024 patient diagnosed with acute PE. For which she is on Eliquis. Patient was discharged on 3 L of oxygen Patient was sent into the ER for shortness of breath. Per the EMS report patient had a cough and a runny nose all weekend. And patient's pulse ox dropped down to the 70s. Found the patient to have wheezing was given a nebulized bronchodilator. EMS took a pulse ox it was 86%.-RA Not really able to give much of history. March 08: Admitted with pneumonia, acute hypoxic respiratory failure. On 6 L nasal cannula this morning. Has been refusing food. Ensure ordered. Some audible wheezing with congested cough March 09: ICU. Patient is keep repeating that she wants to go back to her place. Keeps repeating this again and again. Refusing food and medications sometimes. Was ordered to calm her down. Will also add some Seroquel for tonight. Patient also continues to cough and wheezing. Requiring 4 L, nasal cannula March: ICU. oxygen requirement and got up to 11. Patient continues to repeat that she wants to go home. Refused breakfast but ate all her lunch March 11: Down to 10 L. Some congested cough still present. Oral intake fluctuating but better. Spoke to manager case management looking into rehab. She is getting in touch with the guardian. Active Medications Albuterol/Ipratropium (Ipratropium-Albuterol 3 Ml Neb) 3 ml INHALATION RT-QID [facility] Last Admin: 03/11/25 15:07 Dose: 3 ml Albuterol/Ipratropium (Ipratropium-Albuterol 3 Ml Neb) 3 ml INHALATION RT-Q2H PRN PRN Reason: Shortness Of Breath Or Wheezing Last Admin: 03/10/25 00:51 Dose: 3 ml Apixaban (Apixaban 5 Mg Tab) 5 mg PO BID@0800,2000 [facility]; Protocol Last Admin: 03/11/25 09:10 Dose: 5 mg Aspirin (Aspirin 81 Mg) 81 mg PO DAILY@0800 [facility] Last Admin: 03/11/25 09:10 Dose: 81 mg Atorvastatin Calcium (Atorvastatin 20 Mg Tab) 20 mg PO HS@1999 [facility] Last Admin: 03/10/25 21:47 Dose: 20 mg Budesonide (Budesonide 1 Mg/2 Ml Nebu) 1 mg INHALATION RT-BID [facility] Last Admin: 03/11/25 10:27 Dose: Not Given Calcium Carbonate/Glycine (Calcium Carbonate 500 Mg Chewable) 500 mg PO BID PRN PRN Reason: GI Upset Last Admin: 03/11/25 09:10 Dose: 500 mg Cholecalciferol (Cholecalciferol 25 Mcg (1000 Iu) Tablet) 50 mcg PO DAILY@0800 [facility] Last Admin: 03/11/25 09:10 Dose: 50 mcg Clonidine (Clonidine Hcl 0.2 Mg Tab) 0.2 mg PO BID@799,1999 [facility] Last Admin: 03/11/25 09:10 Dose: 0.2 mg Cyanocobalamin (Cyanocobalamin 500 Mcg Tab) 1,000 mcg PO FR@1700 [facility] Formoterol Fumarate (Formoterol Fumarate 20 Mcg/2 Ml Nebu) 20 mcg INHALATION RT-BID [facility] Last Admin: 03/11/25 10:27 Dose: Not Given Gabapentin (Gabapentin 100 Mg Cap) 100 mg PO TID@0800,1400,1999 [facility] Last Admin: 03/11/25 15:53 Dose: 100 mg Guaifenesin/Dextromethorphan (Guaifenesin-Dm 100-10mg/5ml 10 Ml Cup) 10 ml PO Q6HR PRN PRN Reason: Cough Ceftriaxone Sodium 1 gm/ (Sodium Chloride) 50 mls @ 100 mls/hr IVPB Q24H [facility]; Protocol Last Admin: 03/10/25 21:47 Dose: 100 mls/hr Lactic Acid (Ammonium Lactate 12% Cream 140 Gm Tube) 1 applic TOPICAL BID [facility]; Protocol Last Admin: 03/11/25 09:11 Dose: 1 applic Methylprednisolone Sodium Succinate (Methylprednisolone Sod Succi 125 Mg/2 Ml Vial) 60 mg IV Q6HR [facility] Last Admin: 03/11/25 12:27 Dose: 60 mg Naloxone HCl (Naloxone 0.4 Mg/Ml 1 Ml Vial) 0.2 mg IVP Q2M PRN PRN Reason: Opioid Reversal Nystatin (Nystatin 100,000 Unit/Gm Powd 15 Gm) 1 applic TOPICAL DAILY [facility]; Protocol Last Admin: 03/11/25 09:11 Dose: 1 applic Ondansetron HCl (Ondansetron Odt 4 Mg Tab) 4 mg PO TID PRN PRN Reason: NAUSEA WITH MEALS Pantoprazole Sodium (Pantoprazole 40 Mg Tablet) 40 mg PO DAILY@0700 [facility] Last Admin: 03/11/25 06:13 Dose: 40 mg Quetiapine Fumarate (Quetiapine 25 Mg Tab) 12.5 mg PO HS [facility] Last Admin: 03/10/25 21:48 Dose: 12.5 mg Social history: Resident of [facility]. Does use a four-wheel walker. No smoking alcohol history reported Physical examination: VITAL SIGNS: 98.2, 83, 22, 160 x 77, 88% on 10 L GENERAL: BMI 30, laying in bed, congested- cough with wheezing EYES: Pupils equal. Conjunctiva damian l. HEENT: External appearance of nose and ears normal, oral cavity grossly normal. NECK: JVD unable to assess; masses not palpable. HEART: First and second heart sounds are normal; no edema. LUNGS: Respiratory rate increased, decreased breath sounds. Expiratory wheezing ABDOMEN: Soft, nontender, liver spleen not palpable, no masses palpable. PSYCH: Will repeat answers and repeat the same sentence MUSCULOSKELETAL:No Clubbing/cyanosis;muscles-grossly intact. OA INVESTIGATIONS, reviewed in the clinical context: March 11: White count 8.8 hemoglobin 10.9 potassium 4.5 creatinine 1.27 March 10: White count 11 hemoglobin 11.1 platelets 335 potassium 4.3 BUN 55 creatinine 1.39 March 09: 10.3 potassium 4.5 creatinine 1.24 March 08: Procalcitonin 0.54 . March 07, 2025: White count 15.8 hemoglobin 11.4 platelets 258 sodium 140 potassium 4.9 BUN 33 creatinine 1.44 Lactic acid 2.7 Troponin I less than 0.012, proBNP 1280 EKG tracing personally reviewed by me-normal sinus rhythm. Chest x-ray film personally reviewed by me-possible infiltrate Assessment and plan: -Pneumonia, suspect gram-negative organism, causing hypoxia IV ceftriaxone. -Acute hypoxic respiratory failure from above. [facility] reported pulse ox in the 70s.: Slow to respond Oxygen requirement-10 L -Chronic hypoxic respiratory failure. recently discharged on 3 L of oxygen. -Chronic PE. December 22, 2024 Eliquis -Increased agitation and anxiety Seroquel at night. 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 At baseline.). Speaks in short sentences. Repeats herself. 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 Looking to possibly go to rehab Past Medical History Past Medical History: Dementia Additional Past Medical History / Comment(s): mental retardation History of Any Multi-Drug Resistant Organisms: None Reported Past Surgical History: Unable to Obtain Past Anesthesia/Blood Transfusion Reactions: Unable to Obtain Past Psychological History: No Psychological Hx Reported Smoking Status: Never smoker Past Alcohol Use History: Unable to Obtain Past Drug Use History: Unable to Obtain
[2025-03-11] MEDS: methylPREDNISolone SOD SUCCI 40 MG/ML 1 ML VIAL IV SCH (17:32)
[2025-03-11] MEDS: CYANOCOBALAMIN 500 MCG TAB PO SCH (17:32)
--- NOTE | 2025-03-11 19:39 | P.PN ---
Subjective Progress Note Date: 03/11/25 Patient is a 79-year-old female with past medical history significant for hypertension, hyperlipidemia, COPD, home oxygen dependent, and advanced dementia. Patient is alert but unable to provide any useful information. I am told her baseline mentation is oriented to self. She resides at [place], an [facility]. Of note, patient recently hospitalized December, with a urinary tract infection. During this time, felt to possibly have a pulmonary embolism. Pulmonary perfusion scan was indeterminate. She was placed on Eliquis. According to the ER note, yesterday morning, patient was sent in by EMS from her [facility] home after being found to have increased work of breathing. Workup in the ED including a chest x-ray showing mild vascular prominence. CBC remarkable for leukocytosis with a WBC count of 15.8, hemoglobin 11.4, platelets CMP: Sodium 140, potassium 4.9, chloride 109, serum bicarb 18, BUN 33, creatinine 1.44, glucose 186. 2.7 and now 3.2. Lactic troponin less than 0. 012. EKG: Sinus rhythm, rate 79 bpm, no acute ST segment elevations. NT proBNP 1280. Most recent available echocardiogram from December, estimating a left ventricular ejection fraction of 60 to 65%, as well as, mild mitral and tricuspid regurgitation. Urinalysis unremarkable for infection. Viral screen negative for influenza A/B, RSV, COVID. She is currently being evaluated in the emergency department. She is on 8 L high flow nasal cannula. She appears nondistressed. She was placed empirically on a combination of azithromycin and Rocephin. Afebrile. Also, previously noted to be wheezing, and her COPD was felt to be an exacerbation. She was previously started on a combination of Duo Nebs and IV Solu-Medrol. 03/09/2024, the patient is being seen for a follow-up. The patient is calm and comfortable. She is advanced dementia and she is unable to volunteer any history. 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 No significant bronchospasm or wheezing. No significant respiratory distress at rest. She is currently on 40 Suboxone by nasal cannula. She is still slightly bronchospastic and wheezy and she is on DuoNeb updrafts, and she is also on IV Solu-Medrol 60 mg every 6 hours. She remains on empiric antibiotic coverage with a combination of Rocephin and Zithromax. Hemodynamically stable. Lactic acid level is improved. The white cell count of 14.4 with a heme of 10.3. He has 48 with a creatinine of 1.2 and sodium is at 139 and a potassium level is at 4.5. Lactic acid level is down to 1.6. Viral screen was negative. Urine cultures were negative. The most recent chest x-ray from today shows no acute pulmonary abnormalities. There is slight increase in diffuse interstitial markings bilaterally. Right lower lobe pulmonary infiltrate is noted although this is nonspecific finding. 03/10/2025, the patient is being seen for a follow-up. Overnight, the patient became more wheezy and tachycardic. She also had increased oxygen requirements and she was placed on 15 L of oxygen by nasal cannula. She is currently weaned down to 7 L. A chest x-ray was done and the patient was found to have a coarse reticular interstitial infiltrates bilaterally with background emphysema. There is also basal infiltrate and a 12 mm right lower lobe pulmonary nodule. Meanwhile, the patient remains hemodynamically stable. IV fluids are currently at KVO. The patient was given a dose of Lasix yesterday 40 mg IV push and she produced approximately 400 cc of urine output. The white cell count 14.4 with a hemoglobin 10.3 and a platelet count of 306. BUN 55 the creatinine 1.39. Sodium is at 140 with a potassium of 4.3 and a chloride is 105 and the bicarb is 23. LFTs are normal. proBNP level is 8700. Procalcitonin level is at 0.54. The patient remains on IV Rocephin. Remains on bronchodilators. Remains on IV Solu-Medrol and she seems to be less bronchospastic compared to earlier. She has advanced dementia, unable to volunteer any history and the patient continues to state that she wants to go back to her AF facility. On 03/11/2025, the patient is still requiring higher oxygen flow and earlier she was on 10 L and she was weaned down to 7 L and her pulse ox around 96%. Repeat chest x-ray revealed development of a lingular infiltrate and stable atelectatic change in the right lung base. The patient is currently on IV Rocephin. She is also being treated for an acute CF exacerbation probably due to pneumonia. She is on bronchodilators. Is on steroids. The white cell count is 8.8 with a hemoglobin 10.9 and platelet count of 295. BUN is 54 with a creatinine 1.27 and sodium levels at 138 and a potassium level is at 4.5. She has advanced dementia. She is on IV Solu-Medrol 40 mg every 8 hours. Rest of the home medications have been resumed. She is also on anticoagulation with Eliquis. No other significant events and the patient was transferred out of the intensive care unit yesterday. Objective - Vital Signs Vital signs: Vital Signs Temp 97.6 F 03/11/25 08:40 Pulse 87 03/11/25 08:40 Resp 20 03/11/25 08:40 BP 183/71 03/11/25 08:40 Pulse Ox 90 L 03/11/25 08:40 FiO2 Intake & Output 03/10/25 03/11/25 03/11/25 18:59 06:59 18:59 Intake Total 150 Output Total 650 400 100 Balance -650 -250 -100 Weight 69.8 kg Intake: Intake, IV Titration 150 Amount cefTRIAXone 1 gm In 150 Sodium Chloride 0.9% 50 ml @ 100 mls/hr IVPB Q24H [facility] Rx#:[id number] Output: Urine 650 400 100 Other: Voiding Method External Catheter External Catheter External Catheter # Voids 1 1 # Bowel Movements 1 - Exam GENERAL EXAM: Alert, 79-year-old female, on 7 L high flow nasal cannula, fairly comfortable in no apparent distress. HEAD: Normocephalic and atraumatic EYES: Normal reaction of pupils, equal size. NOSE: Clear with pink turbinates. THROAT: No erythema or exudates. NECK: No masses, no JVD. CHEST: No chest wall deformity. LUNGS: Equal air entry with left basilar inspiratory crackles. No wheezing, rhonchi, focal dullness. No conversational dyspnea or accessory muscle use.. CVS: S1 and S2 normal with no audible murmur, regular rhythm. No extra heart sounds ABDOMEN: No hepatosplenomegaly, active bowel sounds, no guarding or rigidity. SPINE: No scoliosis or deformity SKIN: Moist erythemic rash underneath both breasts and sternum CENTRAL NERVOUS SYSTEM: No focal deficits, tone is normal in all 4 extremities. EXTREMITIES: There is no peripheral edema, clubbing, or cyanosis. Peripheral pulses are intact. - Labs CBC & Chem 7: 03/11/25 06:38 03/11/25 06:38 Labs: Abnormal Lab Results - Last 24 Hours (Table) 03/11/25 03/11/25 Range/Units 06:38 06:38 RBC 3.78 L (4.10-5.20) 10*6/uL Hgb 10.9 L (12.0-15.0) g/dL Hct 35.0 L (37.2-46.3) % MCHC 31.1 L (32.0-37.0) g/dL MPV 9.4 L (9.5-12.2) fL Immature Gran # 0.13 H (0.00-0.04) 10*3/uL Lymphocytes # 0.79 L (0.90-5.00) 10*3/uL Eosinophils # 0.00 L (0.04-0.35) 10*3/uL BUN 54 H (7-17) mg/dL Creatinine 1.27 H (0.52-1.04) mg/dL Glucose 140 H (74-99) mg/dL Assessment and Plan Plan: Acute hypoxic respiratory failure, secondary to acute COPD/asthma exacerbation. Acute on chronic hypoxic respiratory failure, currently on 7 L of oxygen by nasal cannula Lingular pneumonia and patchy right lower lobe pulmonary filtrates, remains on IV Rocephin Acute leukocytosis, stable Acute on chronic kidney disease, creatinine is improving Mild anion gap metabolic acidosis, improved History of questionable PE, anticoagulated on Eliquis Chronic dementia/developmental delay with impairment of the cognitive functions. Chronic gait dysfunction Hypertension Hyperlipidemia COPD/asthma maintained on Breo Ellipta on outpatient basis GERD Intertrigo Obesity, with a BMI of 30 kg/m Plan: Continue supplemental oxygen and wean the oxygen flow to maintain saturation ab ove 90%, baseline oxygen requirements at 3 L, currently the patient is on 7 L Continue combination of bronchodilators and IV Solu-Medrol. Continue budesonide and formoterol inhalations. Continue empiric antibiotics and the patient is currently on IV Rocephin Chest x-ray was noted, repeat chest x-ray in AM. Consider antibiotic modification if no improvement. IV fluids are currently at KVO Eliquis has been continued GI prophylaxis with Protonix Will continue to follow make further recommendations based on her progress. Time with Patient: Greater than 30 Time with Patient: Greater than 30
--- NOTE | 2025-03-12 08:28 | XR ---
EXAMINATION TYPE: XR chest 1V DATE OF EXAM: 03/12/2025 4:59 AM COMPARISON: 03/11/2025 CLINICAL INDICATION: Female, 79 years old with history of Follow-up pneumonia, TECHNIQUE: XR chest 1V view(s) obtained. FINDINGS: The heart size is normal. The pulmonary vasculature is normal. There is some linear opacity at the left hilum may be some atelectasis. There is improved left lower lobe infiltrate. The atelectasis at the right base has improved. Some mild diffuse increased lung opa cities are present can be compatible with stable pulmonary edema. IMPRESSION: 1. Mild diffuse pulmonary edema. 2. Mild atelectasis bilateral regions. [facility], , 03/12/2025 8:26 AM
[2025-03-12] MEDS: CEFEPIME 2 GM in SODIUM CHLORIDE 0.9% 100 ML IVPB SCH (09:05)
[2025-03-12 11:28] LABS: Basophils # (A) 0.03 10*3/uL (0.00-0.10); Basophils % (A) 0.2 %; HCT 35.1 % (37.2-46.3); HGB 11.7 g/dL (12.0-15.0); Lymphocytes # (A) 0.84 10*3/uL (0.90-5.00); MCH 30.2 pg (27.0-32.0); MCHC 33.3 g/dL (32.0-37.0); MCV 90.5 fL (80.0-97.0); Monocytes # (A) 1.26 10*3/uL (0.20-1.00); Neutrophils # (A) 11.51 10*3/uL (1.80-7.70); Neutrophils % (A) 82.2 %; Platelet Count 344 10*3/uL (140-440); RBC 3.88 10*6/uL (4.10-5.20); RDW 15.3 % (11.5-14.5)
[2025-03-12 11:44] LABS: African American GFR (CKD) 47 (>60 ml/min/1.73 sqM); Anion Gap 9 mmol/L; Blood Urea Nitrogen 46 mg/dL (7-17); Calcium 8.7 mg/dL (8.4-10.2); Carbon Dioxide 24 mmol/L (22-30); Chloride 102 mmol/L (98-107); Glucose 133 mg/dL (74-99); Non-African American GFR(CKD) 41 (>60 ml/min/1.73 sqM); Potassium 4.1 mmol/L (3.5-5.1); Sodium 135 mmol/L (137-145)
--- NOTE | 2025-03-12 11:55 | P.PN ---
Subjective Progress Note Date: 03/12/25 Patient is a 79-year-old female with past medical history significant for hypertension, hyperlipidemia, COPD, home oxygen dependent, and advanced dementia. Patient is alert but unable to provide any useful information. I am told her baseline mentation is oriented to self. She resides at [place], an [facility]. Of note, patient recently hospitalized December, with a urinary tract infection. During this time, felt to possibly have a pulmonary embolism. Pulmonary perfusion scan was indeterminate. She was placed on Eliquis. According to the ER note, yesterday morning, patient was sent in by EMS from her [facility] home after being found to have increased work of breathing. Workup in the ED including a chest x-ray showing mild vascular prominence. CBC remarkable for leukocytosis with a WBC count of 15.8, hemoglobin 11.4, platelets CMP: Sodium 140, potassium 4.9, chloride 109, serum bicarb 18, BUN 33, creatinine 1.44, glucose 186. 2.7 and now 3.2. Lactic troponin less than 0. 012. EKG: Sinus rhythm, rate 79 bpm, no acute ST segment elevations. NT proBNP 1280. Most recent available echocardiogram from December, estimating a left ventricular ejection fraction of 60 to 65%, as well as, mild mitral and tricuspid regurgitation. Urinalysis unremarkable for infection. Viral screen negative for influenza A/B, RSV, COVID. She is currently being evaluated in the emergency department. She is on 8 L high flow nasal cannula. She appears nondistressed. She was placed empirically on a combination of azithromycin and Rocephin. Afebrile. Also, previously noted to be wheezing, and her COPD was felt to be an exacerbation. She was previously started on a combination of Duo Nebs and IV Solu-Medrol. 03/09/2024, the patient is being seen for a follow-up. The patient is calm and comfortable. She is advanced dementia and she is unable to volunteer any history. 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 No significant bronchospasm or wheezing. No significant respiratory distress at rest. She is currently on 40 Suboxone by nasal cannula. She is still slightly bronchospastic and wheezy and she is on DuoNeb updrafts, and she is also on IV Solu-Medrol 60 mg every 6 hours. She remains on empiric antibiotic coverage with a combination of Rocephin and Zithromax. Hemodynamically stable. Lactic acid level is improved. The white cell count of 14.4 with a heme of 10.3. He has 48 with a creatinine of 1.2 and sodium is at 139 and a potassium level is at 4.5. Lactic acid level is down to 1.6. Viral screen was negative. Urine cultures were negative. The most recent chest x-ray from today shows no acute pulmonary abnormalities. There is slight increase in diffuse interstitial markings bilaterally. Right lower lobe pulmonary infiltrate is noted although this is nonspecific finding. 03/10/2025, the patient is being seen for a follow-up. Overnight, the patient became more wheezy and tachycardic. She also had increased oxygen requirements and she was placed on 15 L of oxygen by nasal cannula. She is currently weaned down to 7 L. A chest x-ray was done and the patient was found to have a coarse reticular interstitial infiltrates bilaterally with background emphysema. There is also basal infiltrate and a 12 mm right lower lobe pulmonary nodule. Meanwhile, the patient remains hemodynamically stable. IV fluids are currently at KVO. The patient was given a dose of Lasix yesterday 40 mg IV push and she produced approximately 400 cc of urine output. The white cell count 14.4 with a hemoglobin 10.3 and a platelet count of 306. BUN 55 the creatinine 1.39. Sodium is at 140 with a potassium of 4.3 and a chloride is 105 and the bicarb is 23. LFTs are normal. proBNP level is 8700. Procalcitonin level is at 0.54. The patient remains on IV Rocephin. Remains on bronchodilators. Remains on IV Solu-Medrol and she seems to be less bronchospastic compared to earlier. She has advanced dementia, unable to volunteer any history and the patient continues to state that she wants to go back to her AF facility. On 03/11/2025, the patient is still requiring higher oxygen flow and earlier she was on 10 L and she was weaned down to 7 L and her pulse ox around 96%. Repeat chest x-ray revealed development of a lingular infiltrate and stable atelectatic change in the right lung base. The patient is currently on IV Rocephin. She is also being treated for an acute CF exacerbation probably due to pneumonia. She is on bronchodilators. Is on steroids. The white cell count is 8.8 with a hemoglobin 10.9 and platelet count of 295. BUN is 54 with a creatinine 1.27 and sodium levels at 138 and a potassium level is at 4.5. She has advanced dementia. She is on IV Solu-Medrol 40 mg every 8 hours. Rest of the home medications have been resumed. She is also on anticoagulation with Eliquis. No other significant events and the patient was transferred out of the intensive care unit yesterday. On 03/12/2025, the patient remains on 7 L of oxygen by nasal cannula. Repeat chest x-ray was done today and the findings are consistent with COPD and mild diffuse pulmonary edema and areas of atelectasis bilaterally. An area of left lower lobe consolidation cannot be completely ruled out. The patient remains on 7 L of O2 nasal cannula, white cell count of 14 with a hemoglobin 11.7 and a platelet count of 344. BUN is 46 with a creatinine of 1.2. Serum bicarbonate 24. In terms of antibiotic coverage, the patient was on IV Rocephin and the patient will be switched to IV cefepime. The patient is also on bronchodilators. The patient is on IV Solu-Medrol. The patient anticoagulation with Eliquis. She continues to have a congested cough. No significant respiratory distress at rest. Objective - Vital Signs Vital signs: Vital Signs Temp 98.1 F 03/12/25 03:49 Pulse 82 03/12/25 08:32 Resp 22 03/12/25 08:25 BP 174/72 03/12/25 08:25 Pulse Ox 90 L 03/12/25 08:25 FiO2 Intake & Output 03/11/25 03/12/25 03/12/25 18:59 06:59 18:59 Intake Total 270 0 Output Total 100 1300 150 Balance 170 -1300 -150 Weight 70 kg Intake: Oral 270 0 Output: Urine 100 1300 150 Other: Voiding Method External Catheter External Catheter # Voids 1 1 # Bowel Movements 1 1 - Exam GENERAL EXAM: Alert, 79-year-old female, on 7 L high flow nasal cannula, fairly comfortable in no apparent distress. HEAD: Normocephalic and atraumatic EYES: Normal reaction of pupils, equal size. NOSE: Clear with pink turbinates. THROAT: No erythema or exudates. NECK: No masses, no JVD. CHEST: No chest wall deformity. LUNGS: Equal air entry with left basilar inspiratory crackles. No wheezing, rhonchi, focal dullness. No conversational dyspnea or accessory muscle use.. CVS: S1 and S2 normal with no audible murmur, regular rhythm. No extra heart sounds ABDOMEN: No hepatosplenomegaly, active bowel sounds, no guarding or rigidity. SPINE: No scoliosis or deformity SKIN: Moist erythemic rash underneath both breasts and sternum CENTRAL NERVOUS SYSTEM: No focal deficits, tone is normal in all 4 extremities. EXTREMITIES: There is no peripheral edema, clubbing, or cyanosis. Peripheral pulses are intact. - Labs CBC & Chem 7: 03/12/25 10:37 03/12/25 10:37 Assessment and Plan Plan: Acute hypoxic respiratory failure, secondary to acute COPD/asthma exacerbation. Underlying pneumonia cannot be completely excluded especially in the left lower lobe. Meanwhile, the follow-up chest x-ray shows mild pulm vessel congestion and atelectatic changes bilaterally. She does have background COPD in addition and all of the structures are contributing to her acute on top of chronic hypoxic respiratory failure. Acute on chronic hypoxic respiratory failure, currently on 7 L of oxygen by nasal cannula Lingular pneumonia and patchy right lower lobe pulmonary filtrates, remains on IV Rocephin Acute leukocytosis, stable Acute on chronic kidney disease, creatinine is improving Mild anion gap metabolic acidosis, improved History of questionable PE, anticoagulated on Eliquis Chronic dementia/developmental delay with impairment of the cognitive functions. Chronic gait dysfunction Hypertension Hyperlipidemia COPD/asthma maintained on Breo Ellipta on outpatient basis GERD Intertrigo Obesity, with a BMI of 30 kg/m Plan: Continue supplemental oxygen and wean the oxygen flow to maintain saturation above 90%, baseline oxygen requirements at 3 L, currently the patient is on 7 L Continue combination of bronchodilators and IV Solu-Medrol. Continue budesonide and formoterol inhalations. Continue empiric antibiotics and the patient will be switched to IV cefepime. Chest x-ray was noted, repeat chest x-ray in AM. IV fluids are currently at KVO Eliquis has been continued GI prophylaxis with Protonix Will continue to follow make further recommendations based on her progress. Time with Patient: Greater than 30 Time with Patient: Greater than 30
--- NOTE | 2025-03-12 18:23 | P.PN ---
Progress Note - Text Progress Note Date: 03/12/25 Chief Complaint: Short of breath This is a 79-year-old patient, resident of [facility]. Being followed by Dr. Larsen. baseline: Normally patient gets around with a walker. Speaks in short sentences, with limited vocabulary. December 22, 2024 patient diagnosed with acute PE. For which she is on Eliquis. Patient was discharged on 3 L of oxygen Patient was sent into the ER for shortness of breath. Per the EMS report patient had a cough and a runny nose all weekend. And patient's pulse ox dropped down to the 70s. Found the patient to have wheezing was given a nebulized bronchodilator. EMS took a pulse ox it was 86%.-RA Not really able to give much of history. March 08: Admitted with pneumonia, acute hypoxic respiratory failure. On 6 L nasal cannula this morning. Has been refusing food. Ensure ordered. Some audible wheezing with congested cough March 09: ICU. Patient is keep repeating that she wants to go back to her place. Keeps repeating this again and again. Refusing food and medications sometimes. Was ordered to calm her down. Will also add some Seroquel for tonight. Patient also continues to cough and wheezing. Requiring 4 L, nasal cannula March: ICU. oxygen requirement and got up to 11. Patient continues to repeat that she wants to go home. Refused breakfast but ate all her lunch March 11: Down to 10 L. Some congested cough still present. Oral intake fluctuating but better. Spoke to caseworker protective services looking into rehab. She is getting in touch with the guardian. March 12: Breathing is better. Less congestion. Down to 4 L. Oral intake variable. Awaiting to go to rehab. Will change Solu-Medrol every 12. Reclinin g in bed coloring Active Medications Albuterol/Ipratropium (Ipratropium-Albuterol 3 Ml Neb) 3 ml INHALATION RT-QID [facility] Last Admin: 03/12/25 15:53 Dose: 3 ml Albuterol/Ipratropium (Ipratropium-Albuterol 3 Ml Neb) 3 ml INHALATION RT-Q2H PRN PRN Reason: Shortness Of Breath Or Wheezing Last Admin: 03/10/25 00:51 Dose: 3 ml Apixaban (Apixaban 5 Mg Tab) 5 mg PO BID@0800,1999 [facility]; Protocol Last Admin: 03/12/25 09:04 Dose: 5 mg Aspirin (Aspirin 81 Mg) 81 mg PO DAILY@08 [facility] Last Admin: 03/12/25 09:04 Dose: 81 mg Atorvastatin Calcium (Atorvastatin 20 Mg Tab) 20 mg PO HS@1999 [facility] Last Admin: 03/11/25 20:11 Dose: 20 mg Budesonide (Budesonide 1 Mg/2 Ml Nebu) 1 mg INHALATION RT-BID [facility] Last Admin: 03/12/25 08:01 Dose: 1 mg Calcium Carbonate/Glycine (Calcium Carbonate 500 Mg Chewable) 500 mg PO BID PRN PRN Reason: GI Upset Last Admin: 03/11/25 09:10 Dose: 500 mg Cholecalciferol (Cholecalciferol 25 Mcg (1000 Iu) Tablet) 50 mcg PO DAILY@08 [facility] Last Admin: 03/12/25 09:04 Dose: 50 mcg Clonidine (Clonidine Hcl 0.2 Mg Tab) 0.2 mg PO BID@ [facility] Last Admin: 03/12/25 09:05 Dose: 0.2 mg Cyanocobalamin (Cyanocobalamin 500 Mcg Tab) 1,000 mcg PO FR@1700 [facility] Last Admin: 03/11/25 17:32 Dose: 1,000 mcg Formoterol Fumarate (Formoterol Fumarate 20 Mcg/2 Ml Nebu) 20 mcg INHALATION RT-BID [facility] Last Admin: 03/12/25 08:27 Dose: 20 mcg Gabapentin (Gabapentin 100 Mg Cap) 100 mg PO TID@0800,1399,1999 [facility] Last Admin: 03/12/25 14:33 Dose: 100 mg Guaifenesin/Dextromethorphan (Guaifenesin-Dm 100-10mg/5ml 10 Ml Cup) 10 ml PO Q6HR PRN PRN Reason: Cough Cefepime HCl 2 gm/ Sodium (Chloride) 100 mls @ 25 mls/hr IVPB Q12HR [facility]; Protocol Last Admin: 03/12/25 09:05 Dose: 25 mls/hr Lactic Acid (Ammonium Lactate 12% Cream 140 Gm Tube) 1 applic TOPICAL BID [facility]; Protocol Last Admin: 03/12/25 09:07 Dose: 1 applic Naloxone HCl (Naloxone 0.4 Mg/Ml 1 Ml Vial) 0.2 mg IVP Q2M PRN PRN Reason: Opioid Reversal Nystatin (Nystatin 100,000 Unit/Gm Powd 15 Gm) 1 applic TOPICAL DAILY [facility]; Protocol Last Admin: 03/12/25 09:06 Dose: 1 applic Ondansetron HCl (Ondansetron Odt 4 Mg Tab) 4 mg PO TID PRN PRN Reason: NAUSEA WITH MEALS Pantoprazole Sodium (Pantoprazole 40 Mg Tablet) 40 mg PO DAILY@0700 [facility] Last Admin: 03/12/25 06:14 Dose: 40 mg Quetiapine Fumarate (Quetiapine 25 Mg Tab) 12.5 mg PO HS [facility] Last Admin: 03/11/25 20:12 Dose: 12.5 mg Social history: Resident of [facility]. Does use a four-wheel walker. No smoking alcohol history reported Physical examination: VITAL SIGNS: Afebrile, 82, 22, 150 x 73, 95% on 4 L GENERAL: Reclining in bed, coloring EYES: Pupils equal. Conjunctiva damian l. HEENT: External appearance of nose and ears normal, oral cavity grossly normal. NECK: JVD unable to assess; masses not palpable. HEART: First and second heart sounds are normal; no edema. LUNGS: Respiratory rate increased, decreased breath sounds. ABDOMEN: Soft, nontender, liver spleen not palpable, no masses palpable. PSYCH: Will repeat answers and repeat the same sentence MUSCULOSKELETAL:No Clubbing/cyanosis;muscles-grossly intact. OA INVESTIGATIONS, reviewed in the clinical context: March 12: White count 14 hemoglobin 11.7 potassium 4.1 creatinine 1.26 March 11: White count 8.8 hemoglobin 10.9 potassium 4.5 creatinine 1.27 March 10: White count 11 hemoglobin 11.1 platelets 335 potassium 4.3 BUN 55 creatinine 1.39 March 09: 10.3 potassium 4.5 creatinine 1.24 March 08: Procalcitonin 0.54 . March 07, 2025: White count 15.8 hemoglobin 11.4 platelets 258 sodium 140 potassium 4.9 BUN 33 creatinine 1.44 Lactic acid 2.7 Troponin I less than 0.012, proBNP 1280 EKG tracing personally reviewed by me-normal sinus rhythm. Chest x-ray film personally reviewed by me-possible infiltrate Assessment and plan: -Pneumonia, suspect gram-negative organism, causing hypoxia: Improving IV ceftriaxone. -Acute hypoxic respiratory failure from above. AFC reported pulse ox in the 70s.: Improving Oxygen requirement-4 L -Chronic hypoxic respiratory failure. recently discharged on 3 L of oxygen. -Chronic PE. December 22, 2024 Eliquis -Increased agitation and anxiety Seroquel at night. 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 At baseline.). Speaks in short sentences. Repeats herself. 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 does use a four-wheel walker -GERD Omeprazole -Essential hypertension Catapres 0.2 mg twice daily -Hyperlipidemia Lipitor 20 mg nightly -Moderate persistent asthma Bronchodilators Full code -Public guardian Cut back Solu-Medrol to 40 mg every 12 l, oral intake better Past Medical History Past Medical History: Dementia Additional Past Medical History / Comment(s): mental retardation History of Any Multi-Drug Resistant Organisms: None Reported Past Surgical History: Unable to Obtain Past Anesthesia/Blood Transfusion Reactions: Unable to Obtain Past Psychological History: No Psychological Hx Reported Smoking Status: Never smoker Past Alcohol Use History: Unable to Obtain Past Drug Use History: Unable to Obtain
[2025-03-13] MEDS: methylPREDNISolone SOD SUCCI 40 MG/ML 1 ML VIAL IV SCH (04:57)
--- NOTE | 2025-03-13 08:53 | P.PN ---
Progress Note - Text Progress Note Date: 03/13/25 Chief Complaint: Short of breath This is a 79-year-old patient, resident of [facility]. Being followed by Dr. Larsen. baseline: Normally patient gets around with a walker. Speaks in short sentences, with limited vocabulary. December 22, 2024 patient diagnosed with acute PE. For which she is on Eliquis. Patient was discharged on 3 L of oxygen Patient was sent into the ER for shortness of breath. Per the EMS report patient had a cough and a runny nose all weekend. And patient's pulse ox dropped down to the 70s. Found the patient to have wheezing was given a nebulized bronchodilator. EMS took a pulse ox it was 86%.-RA Not really able to give much of history. March 08: Admitted with pneumonia, acute hypoxic respiratory failure. On 6 L nasal cannula this morning. Has been refusing food. Ensure ordered. Some audible wheezing with congested cough March 09: ICU. Patient is keep repeating that she wants to go back to her place. Keeps repeating this again and again. Refusing food and medications sometimes. Was ordered to calm her down. Will also add some Seroquel for tonight. Patient also continues to cough and wheezing. Requiring 4 L, nasal cannula March: ICU. oxygen requirement and got up to 11. Patient continues to repeat that she wants to go home. Refused breakfast but ate all her lunch March 11: Down to 10 L. Some congested cough still present. Oral intake fluctuating but better. Spoke to case managers looking into rehab. She is getting in touch with the guardian. March 12: Breathing is better. Less congestion. Down to 4 L. Oral intake variable. Awaiting to go to rehab. Will change Solu-Medrol every 12. Reclinin g in bed coloring March 13: Oxygenation status fluctuates. Chest x-ray shows some infiltrates. Patient was placed on IV cefepime yesterday for worsening pneumonia. Oral intake fair. Active Medications Albuterol/Ipratropium (Ipratropium-Albuterol 3 Ml Neb) 3 ml INHALATION RT-QID [facility] Last Admin: 03/13/25 08:04 Dose: 3 ml Albuterol/Ipratropium (Ipratropium-Albuterol 3 Ml Neb) 3 ml INHALATION RT-Q2H PRN PRN Reason: Shortness Of Breath Or Wheezing Last Admin: 03/10/25 00:51 Dose: 3 ml Apixaban (Apixaban 5 Mg Tab) 5 mg PO BID@799,1999 [facility]; Protocol Last Admin: 03/13/25 07:32 Dose: 5 mg Aspirin (Aspirin 81 Mg) 81 mg PO DAILY@0800 [facility] Last Admin: 03/13/25 07:31 Dose: 81 mg Atorvastatin Calcium (Atorvastatin 20 Mg Tab) 20 mg PO HS@1999 [facility] Last Admin: 03/12/25 19:54 Dose: 20 mg Budesonide (Budesonide 1 Mg/2 Ml Nebu) 1 mg INHALATION RT-BID [facility] Last Admin: 03/13/25 08:04 Dose: 1 mg Calcium Carbonate/Glycine (Calcium Carbonate 500 Mg Chewable) 500 mg PO BID PRN PRN Reason: GI Upset Last Admin: 03/11/25 09:10 Dose: 500 mg Cholecalciferol (Cholecalciferol 25 Mcg (1000 Iu) Tablet) 50 mcg PO DAILY@0800 [facility] Last Admin: 03/13/25 07:32 Dose: 50 mcg Clonidine (Clonidine Hcl 0.2 Mg Tab) 0.2 mg PO BID@ [facility] Last Admin: 03/13/25 07:32 Dose: 0.2 mg Cyanocobalamin (Cyanocobalamin 500 Mcg Tab) 1,000 mcg PO FR@1700 [facility] Last Admin: 03/11/25 17:32 Dose: 1,000 mcg Formoterol Fumarate (Formoterol Fumarate 20 Mcg/2 Ml Nebu) 20 mcg INHALATION RT-BID [facility] Last Admin: 03/13/25 08:23 Dose: 20 mcg Gabapentin (Gabapentin 100 Mg Cap) 100 mg PO TID@0800,1399,1999 [facility] Last Admin: 03/13/25 07:32 Dose: 100 mg Guaifenesin/Dextromethorphan (Guaifenesin-Dm 100-10mg/5ml 10 Ml Cup) 10 ml PO Q6HR PRN PRN Reason: Cough Cefepime HCl 2 gm/ Sodium (Chloride) 100 mls @ 25 mls/hr IVPB Q12HR [facility]; Protocol Last Admin: 03/12/25 19:54 Dose: 25 mls/hr Lactic Acid (Ammonium Lactate 12% Cream 140 Gm Tube) 1 applic TOPICAL BID [facility]; Protocol Last Admin: 03/12/25 19:55 Dose: 1 applic Methylprednisolone Sodium Succinate (Methylprednisolone Sod Succi 40 Mg/Ml 1 Ml Vial) 40 mg IV Q12H [facility] Last Admin: 03/13/25 04:57 Dose: 40 mg Naloxone HCl (Naloxone 0.4 Mg/Ml 1 Ml Vial) 0.2 mg IVP Q2M PRN PRN Reason: Opioid Reversal Nystatin (Nystatin 100,000 Unit/Gm Powd 15 Gm) 1 applic TOPICAL DAILY [facility]; Protocol Last Admin: 03/12/25 09:06 Dose: 1 applic Ondansetron HCl (Ondansetron Odt 4 Mg Tab) 4 mg PO TID PRN PRN Reason: NAUSEA WITH MEALS Pantoprazole Sodium (Pantoprazole 40 Mg Tablet) 40 mg PO DAILY@0700 [facility] Last Admin: 03/13/25 04:57 Dose: 40 mg Quetiapine Fumarate (Quetiapine 25 Mg Tab) 12.5 mg PO HS [facility] Last Admin: 03/12/25 19:54 Dose: 12.5 mg Social history: Resident of [facility]. Does use a four-wheel walker. No smoking alcohol history reported Physical examination: VITAL SIGNS: 98, 77, 622, 189 x 79, 88% on 4 L repeat 90% on 5 L GENERAL: Reclining in bed, a bit tired EYES: Pupils equal. Conjunctiva damian l. HEENT: External appearance of nose and ears normal, oral cavity grossly normal. NECK: JVD unable to assess; masses not palpable. HEART: First and second heart sounds are normal; no edema. LUNGS: Respiratory rate increased, decreased breath sounds.. Some crackles ABDOMEN: Soft, nontender, liver spleen not palpable, no masses palpable. PSYCH: Does answer simple questions. Does repeat herself. MUSCULOSKELETAL:No Clubbing/cyanosis;muscles-grossly intact. OA INVESTIGATIONS, reviewed in the clinical context: March 12: White count 14 hemoglobin 11.7 potassium 4.1 creatinine 1.26 March 11: White count 8.8 hemoglobin 10.9 potassium 4.5 creatinine 1.27 March 10: White count 11 hemoglobin 11.1 platelets 335 potassium 4.3 BUN 55 creatinine 1.39 March 09: 10.3 potassium 4.5 creatinine 1.24 March 08: Procalcitonin 0.54 . March 07, 2025: White count 15.8 hemoglobin 11.4 platelets 258 sodium 140 potassium 4.9 BUN 33 creatinine 1.44 Lactic acid 2.7 Troponin I less than 0.012, proBNP 1280 EKG tracing personally reviewed by me-normal sinus rhythm. Chest x-ray film personally reviewed by me-possible infiltrate Assessment and plan: -Pneumonia, suspect gram-negative organism, causing hypoxia: Clinical worsening IV ceftriaxone. Discontinued IV cefepime started on March 12 -Acute hypoxic respiratory failure from above. AFC reported pulse ox in the 70s.: Worsening Oxygen requirement-5 L -Chronic hypoxic respiratory failure. recently discharged on 3 L of oxygen. -Chronic PE. December 22, 2024 Eliquis -Increased agitation and anxiety Seroquel at night. 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 At baseline.). Speaks in short sentences. Repeats herself. 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 does use a four-wheel walker -GERD Omeprazole -Essential hypertension Catapres 0.2 mg twice daily -Hyperlipidemia Lipitor 20 mg nightly -Moderate persistent asthma Bronchodilators Full code -Public guardian Antibiotic changed to cefepime. Oxygen. Not ready for discharge Past Medical History Past Medical History: Dementia Additional Past Medical History / Comment(s): mental retardation History of Any Multi-Drug Resistant Organisms: None Reported Past Surgical History: Unable to Obtain Past Anesthesia/Blood Transfusion Reactions: Unable to Obtain Past Psychological History: No Psychological Hx Reported Smoking Status: Never smoker Past Alcohol Use History: Unable to Obtain Past Drug Use History: Unable to Obtain
--- NOTE | 2025-03-13 11:26 | XR ---
EXAMINATION TYPE: XR chest 1V DATE OF EXAM: 03/13/2025 5:36 AM COMPARISON: None. CLINICAL INDICATION: Female, 79 years old with history of Follow-up pneumonia, TECHNIQUE: XR chest 1V view(s) obtained. FINDINGS: The heart size is somewhat prominent. The pulmonary vasculature is prominent. Mild diffuse increased lung markings are present. Correlate for volume overload IMPRESSION: 1. Clinical correlation for volume overload versus congestive heart failure. Follow-up can be perform ed.. [facility], , 03/13/2025 11:23 AM
--- NOTE | 2025-03-13 15:02 | P.PN ---
Subjective Progress Note Date: 03/13/25 Patient is a 79-year-old female with past medical history significant for hypertension, hyperlipidemia, COPD, home oxygen dependent, and advanced dementia. Patient is alert but unable to provide any useful information. I am told her baseline mentation is oriented to self. She resides at [place], an [facility]. Of note, patient recently hospitalized December, with a urinary tract infection. During this time, felt to possibly have a pulmonary embolism. Pulmonary perfusion scan was indeterminate. She was placed on Eliquis. According to the ER note, yesterday morning, patient was sent in by EMS from her [facility] home after being found to have increased work of breathing. Workup in the ED including a chest x-ray showing mild vascular prominence. CBC remarkable for leukocytosis with a WBC count of 15.8, hemoglobin 11.4, platelets CMP: Sodium 140, potassium 4.9, chloride 109, serum bicarb 18, BUN 33, creatinine 1.44, glucose 186. 2.7 and now 3.2. Lactic troponin less than 0. 012. EKG: Sinus rhythm, rate 79 bpm, no acute ST segment elevations. NT proBNP 1280. Most recent available echocardiogram from December, estimating a left ventricular ejection fraction of 60 to 65%, as well as, mild mitral and tricuspid regurgitation. Urinalysis unremarkable for infection. Viral screen negative for influenza A/B, RSV, COVID. She is currently being evaluated in the emergency department. She is on 8 L high flow nasal cannula. She appears nondistressed. She was placed empirically on a combination of azithromycin and Rocephin. Afebrile. Also, previously noted to be wheezing, and her COPD was felt to be an exacerbation. She was previously started on a combination of Duo Nebs and IV Solu-Medrol. 03/09/2024, the patient is being seen for a follow-up. The patient is calm and comfortable. She is advanced dementia and she is unable to volunteer any history. 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 No significant bronchospasm or wheezing. No significant respiratory distress at rest. She is currently on 40 Suboxone by nasal cannula. She is still slightly bronchospastic and wheezy and she is on DuoNeb updrafts, and she is also on IV Solu-Medrol 60 mg every 6 hours. She remains on empiric antibiotic coverage with a combination of Rocephin and Zithromax. Hemodynamically stable. Lactic acid level is improved. The white cell count of 14.4 with a heme of 10.3. He has 48 with a creatinine of 1.2 and sodium is at 139 and a potassium level is at 4.5. Lactic acid level is down to 1.6. Viral screen was negative. Urine cultures were negative. The most recent chest x-ray from today shows no acute pulmonary abnormalities. There is slight increase in diffuse interstitial markings bilaterally. Right lower lobe pulmonary infiltrate is noted although this is nonspecific finding. 03/10/2025, the patient is being seen for a follow-up. Overnight, the patient became more wheezy and tachycardic. She also had increased oxygen requirements and she was placed on 15 L of oxygen by nasal cannula. She is currently weaned down to 7 L. A chest x-ray was done and the patient was found to have a coarse reticular interstitial infiltrates bilaterally with background emphysema. There is also basal infiltrate and a 12 mm right lower lobe pulmonary nodule. Meanwhile, the patient remains hemodynamically stable. IV fluids are currently at KVO. The patient was given a dose of Lasix yesterday 40 mg IV push and she produced approximately 400 cc of urine output. The white cell count 14.4 with a hemoglobin 10.3 and a platelet count of 306. BUN 55 the creatinine 1.39. Sodium is at 140 with a potassium of 4.3 and a chloride is 105 and the bicarb is 23. LFTs are normal. proBNP level is 8700. Procalcitonin level is at 0.54. The patient remains on IV Rocephin. Remains on bronchodilators. Remains on IV Solu-Medrol and she seems to be less bronchospastic compared to earlier. She has advanced dementia, unable to volunteer any history and the patient continues to state that she wants to go back to her [facility] facility. On 03/11/2025, the patient is still requiring higher oxygen flow and earlier she was on 10 L and she was weaned down to 7 L and her pulse ox around 96%. Repeat chest x-ray revealed development of a lingular infiltrate and stable atelectatic change in the right lung base. The patient is currently on IV Rocephin. She is also being treated for an acute CF exacerbation probably due to pneumonia. She is on bronchodilators. Is on steroids. The white cell count is 8.8 with a hemoglobin 10.9 and platelet count of 295. BUN is 54 with a creatinine 1.27 and sodium levels at 138 and a potassium level is at 4.5. She has advanced dementia. She is on IV Solu-Medrol 40 mg every 8 hours. Rest of the home medications have been resumed. She is also on anticoagulation with Eliquis. No other significant events and the patient was transferred out of the intensive care unit yesterday. On 03/12/2025, the patient remains on 7 L of oxygen by nasal cannula. Repeat chest x-ray was done today and the findings are consistent with COPD and mild diffuse pulmonary edema and areas of atelectasis bilaterally. An area of left lower lobe consolidation cannot be completely ruled out. The patient remains on 7 L of O2 nasal cannula, white cell count of 14 with a hemoglobin 11.7 and a platelet count of 344. BUN is 46 with a creatinine of 1.2. Serum bicarbonate 24. In terms of antibiotic coverage, the patient was on IV Rocephin and the patient will be switched to IV cefepime. The patient is also on bronchodilators. The patient is on IV Solu-Medrol. The patient anticoagulation with Eliquis. She continues to have a congested cough. No significant respiratory distress at rest. Continue 03/13/2025, the patient is doing well. Oxygenation is improved and the patient is currently on 40 of oxygen by nasal cannula. Repeat chest x-ray from today shows some mild pulm vas congestion. No airspace disease or consolidation. The white cell count is at 14 with a hemoglobin of 11.7 from yesterday. Platelet count is at 344. BUN is 46 with a creatinine of 1.2. No chest pain. She is resting comfortably in bed. Sitter is at the bedside.She remains on bronchodilators. She remains on steroids. Objective - Vital Signs Vital signs: Vital Signs Temp 98.0 F 03/13/25 07:24 Pulse 83 03/13/25 08:30 Resp 16 03/13/25 07:24 BP 133/79 03/13/25 09:23 Pulse Ox 95 03/13/25 09:23 FiO2 Intake & Output 03/12/25 03/13/25 03/13/25 18:59 06:59 18:59 Intake Total 120 10 Output Total 150 Balance -30 10 Weight 67.3 kg Intake: IV 10 Invasive Line 3 10 Oral 120 Output: Urine 150 Other: Voiding Method External Catheter External Catheter External Catheter # Voids 1 2 # Bowel Movements 1 - Exam GENERAL EXAM: Alert, 79-year-old female, on 4 L high flow nasal cannula, fairly comfortable in no apparent distress. HEAD: Normocephalic and atraumatic EYES: Normal reaction of pupils, equal size. NOSE: Clear with pink turbinates. THROAT: No erythema or exudates. NECK: No masses, no JVD. CHEST: No chest wall deformity. LUNGS: Equal air entry with left basilar inspiratory crackles. No wheezing, rhonchi, focal dullness. No conversational dyspnea or accessory muscle use.. CVS: S1 and S2 normal with no audible murmur, regular rhythm. No extra heart sounds ABDOMEN: No hepatosplenomegaly, active bowel sounds, no guarding or rigidity. SPINE: No scoliosis or deformity SKIN: Moist erythemic rash underneath both breasts and sternum CENTRAL NERVOUS SYSTEM: No focal deficits, tone is normal in all 4 extremities. EXTREMITIES: There is no peripheral edema, clubbing, or cyanosis. Peripheral pulses are intact. - Labs CBC & Chem 7: 03/12/25 10:37 03/12/25 10:37 Labs: Abnormal Lab Results - Last 24 Hours (Table) 03/12/25 03/12/25 Range/Units 10:37 10:37 WBC 14.00 H (4.50-10.00) 10*3/uL RBC 3.88 L (4.10-5.20) 10*6/uL Hgb 11.7 L (12.0-15.0) g/dL Hct 35.1 L (37.2-46.3) % MPV 9.0 L (9.5-12.2) fL Immature Gran # 0.36 H (0.00-0.04) 10*3/uL Neutrophils # 11.51 H (1.80-7.70) 10*3/uL Lymphocytes # 0.84 L (0.90-5.00) 10*3/uL Monocytes # 1.26 H (0.20-1.00) 10*3/uL Eosinophils # 0.00 L (0.04-0.35) 10*3/uL Sodium 135 L (137-145) mmol/L BUN 46 H (7-17) mg/dL Creatinine 1.26 H (0.52-1.04) mg/dL Glucose 133 H (74-99) mg/dL Assessment and Plan Plan: Acute hypoxic respiratory failure, secondary to acute COPD/asthma exacerbation. Underlying pneumonia cannot be completely excluded especially in the left lower lobe. Meanwhile, the follow-up chest x-ray shows mild pulm vessel congestion and atelectatic changes bilaterally. She does have background COPD in addition and all of the structures are contributing to her acute on top of chronic hypoxic respiratory failure. Follow-up chest x-ray shows some mild pulm vas congestion. No airspace disease or consolidation from today. Acute on chronic hypoxic respiratory failure, currently on 4 L of oxygen by nasal cannula Lingular pneumonia and patchy right lower lobe pulmonary filtrates, remains on IV Rocephin Acute leukocytosis, stable Acute on chronic kidney disease, creatinine is improving Mild anion gap metabolic acidosis, improved History of questionable PE, anticoagulated on Eliquis Chronic dementia/developmental delay with impairment of the cognitive functions. Chronic gait dysfunction Hypertension Hyperlipidemia COPD/asthma maintained on Breo Ellipta on outpatient basis GERD Intertrigo Obesity, with a BMI of 30 kg/m Plan: Continue supplemental oxygen and wean the oxygen flow to maintain saturation above 90%, baseline oxygen requirements at 3 L, currently the patient is on 4 L Continue combination of bronchodilators and IV Solu-Medrol. Continue budesonide and formoterol inhalations. Continue IV cefepime. Chest x-ray was noted, no airspace disease or consolidation. IV fluids are currently at KVO Eliquis has been continued GI prophylaxis with Protonix Clinically improved. Sitter at the bedside. Time with Patient: Greater than 30
--- NOTE | 2025-03-14 13:45 | P.PN ---
Subjective Progress Note Date: 03/14/25 Patient is a 79-year-old female with past medical history significant for hypertension, hyperlipidemia, COPD, home oxygen dependent, and advanced dementia. Patient is alert but unable to provide any useful information. I am told her baseline mentation is oriented to self. She resides at [place], an [facility]. Of note, patient recently hospitalized December, with a urinary tract infection. During this time, felt to possibly have a pulmonary embolism. Pulmonary perfusion scan was indeterminate. She was placed on Eliquis. According to the ER note, yesterday morning, patient was sent in by EMS from her [facility] home after being found to have increased work of breathing. Workup in the ED including a chest x-ray showing mild vascular prominence. CBC remarkable for leukocytosis with a WBC count of 15.8, hemoglobin 11.4, platelets CMP: Sodium 140, potassium 4.9, chloride 109, serum bicarb 18, BUN 33, creatinine 1.44, glucose 186. 2.7 and now 3.2. Lactic troponin less than 0.0 12. EKG: Sinus rhythm, rate 79 bpm, no acute ST segment elevations. NT proBNP 1280. Most recent available echocardiogram from December, estimating a left ventricular ejection fraction of 60 to 65%, as well as, mild mitral and tricuspid regurgitation. Urinalysis unremarkable for infection. Viral screen negative for influenza A/B, RSV, COVID. She is currently being evaluated in the emergency department. She is on 8 L high flow nasal cannula. She appears nondistressed. She was placed empirically on a combination of azithromycin and Rocephin. Afebrile. Also, previously noted to be wheezing, and her COPD was felt to be an exacerbation. She was previously started on a combination of DuoN ebs and IV Solu-Medrol. 03/09/2024, the patient is being seen for a follow-up. The patient is calm and comfortable. She is advanced dementia and she is unable to volunteer any history. 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 No significant bronchospasm or wheezing. No significant respiratory distress at rest. She is currently on 40 Suboxone by nasal cannula. She is still slightly bronchospastic and wheezy and she is on DuoNeb updrafts, and she is also on IV Solu-Medrol 60 mg every 6 hours. She remains on empiric antibiotic coverage with a combination of Rocephin and Zithromax. Hemodynamically stable. Lactic acid level is improved. The white cell count of 14.4 with a heme of 10.3. He has 48 with a creatinine of 1.2 and sodium is at 139 and a potassium level is at 4.5. Lactic acid level is down to 1.6. Viral screen was negative. Urine cultures were negative. The most recent chest x-ray from today shows no acute pulmonary abnormalities. There is slight increase in diffuse interstitial markings bilaterally. Right lower lobe pulmonary infiltrate is noted although this is nonspecific finding. 03/10/2025, the patient is being seen for a follow-up. Overnight, the patient became more wheezy and tachycardic. She also had increased oxygen requirements and she was placed on 15 L of oxygen by nasal cannula. She is currently weaned down to 7 L. A chest x-ray was done and the patient was found to have a coarse reticular interstitial infiltrates bilaterally with background emphysema. There is also basal infiltrate and a 12 mm right lower lobe pulmonary nodule. Meanwhile, the patient remains hemodynamically stable. IV fluids are currently at KVO. The patient was given a dose of Lasix yesterday 40 mg IV push and she produced approximately 400 cc of urine output. The white cell count 14.4 with a hemoglobin 10.3 and a platelet count of 306. BUN 55 the creatinine 1.39. Sodium is at 140 with a potassium of 4.3 and a chloride is 105 and the bicarb is 23. LFTs are normal. proBNP level is 8700. Procalcitonin level is at 0.54. The patient remains on IV Rocephin. Remains on bronchodilators. Remains on IV Solu-Medrol and she seems to be less bronchospastic compared to earlier. She has advanced dementia, unable to volunteer any history and the patient continues to state that she wants to go back to her [facility] facility. On 03/11/2025, the patient is still requiring higher oxygen flow and earlier she was on 10 L and she was weaned down to 7 L and her pulse ox around 96%. Repeat chest x-ray revealed development of a lingular infiltrate and stable atelectatic change in the right lung base. The patient is currently on IV Rocephin. She is also being treated for an acute CF exacerbation probably due to pneumonia. She is on bronchodilators. Is on steroids. The white cell count is 8.8 with a hemoglobin 10.9 and platelet count of 295. BUN is 54 with a creatinine 1.27 and sodium levels at 138 and a potassium level is at 4.5. She has advanced dementia. She is on IV Solu-Medrol 40 mg every 8 hours. Rest of the home medications have been resumed. She is also on anticoagulation with Eliquis. No other significant events and the patient was transferred out of the intensive care unit yesterday. On 03/12/2025, the patient remains on 7 L of oxygen by nasal cannula. Repeat chest x-ray was done today and the findings are consistent with COPD and mild diffuse pulmonary edema and areas of atelectasis bilaterally. An area of left lower lobe consolidation cannot be completely ruled out. The patient remains on 7 L of O2 nasal cannula, white cell count of 14 with a hemoglobin 11.7 and a platelet count of 344. BUN is 46 with a creatinine of 1.2. Serum bicarbonate 24. In terms of antibiotic coverage, the patient was on IV Rocephin and the patient will be switched to IV cefepime. The patient is also on bronchodilators. The patient is on IV Solu-Medrol. The patient anticoagulation with Eliquis. She continues to have a congested cough. No significant respiratory distress at rest. Continue 03/13/2025, the patient is doing well. Oxygenation is improved and the patient is currently on 40 of oxygen by nasal cannula. Repeat chest x-ray from today shows some mild pulm vas congestion. No airspace disease or consolidation. The white cell count is at 14 with a hemoglobin of 11.7 from yesterday. Platelet count is at 344. BUN is 46 with a creatinine of 1.2. No chest pain. She is resting comfortably in bed. Sitter is at the bedside.She remains on bronchodilators. She remains on steroids. The patient is seen today March 14, 2025 in follow-up on the regular medical floor. She is currently sitting up in bed. Awake and alert in no acute distress. Maintaining O2 saturations in the 90s on 5 L/min per nasal cannula. She has been afebrile. Hemodynamically stable. Follow-up chest x-ray continues to show some mild fluid volume overload. She remains on DuoNeb inhalations, Pulmicort and Perforomist inhalations, Solu-Medrol. Remains on cefepime. Anticoagulated with Eliquis. Objective - Vital Signs Vital signs: Vital Signs Temp 98.3 F 03/14/25 07:16 Pulse 68 03/14/25 13:09 Resp 18 03/14/25 07:16 BP 155/76 03/14/25 07:16 Pulse Ox 96 03/14/25 07:16 FiO2 Intake & Output 03/13/25 03/14/25 03/14/25 18:59 06:59 18:59 Intake Total 10 Balance 10 Weight 68 kg Intake: IV 10 Invasive Line 3 10 Other: Voiding Method External Catheter Bedside Commode Bedside Commode Diaper Diaper # Voids 0 1 - Exam GENERAL EXAM: Alert, 79-year-old female, on 5 L high flow nasal cannula, comfortable in no apparent distress. HEAD: Normocephalic and atraumatic EYES: Normal reaction of pupils, equal size. NOSE: Clear with pink turbinates. THROAT: No erythema or exudates. NECK: No masses, no JVD. CHEST: No chest wall deformity. LUNGS: Equal air entry with left basilar inspiratory crackles. No wheezing, rhonchi, focal dullness. CVS: S1 and S2 normal with no audible murmur, regular rhythm. No extra heart sounds ABDOMEN: No hepatosplenomegaly, active bowel sounds, no guarding or rigidity. SPINE: No scoliosis or deformity SKIN: Moist erythemic rash underneath both breasts and sternum CENTRAL NERVOUS SYSTEM: No focal deficits, tone is normal in all 4 extremities. EXTREMITIES: There is no peripheral edema, clubbing, or cyanosis. Peripheral pulses are intact. - Labs CBC & Chem 7: 03/12/25 10:37 03/12/25 10:37 Assessment and Plan Assessment: Acute hypoxic respiratory failure, secondary to acute COPD/asthma exacerbation. Underlying pneumonia cannot be completely excluded especially in the left lower lobe. Meanwhile, the follow-up chest x-ray shows mild pulm vessel congestion and atelectatic changes bilaterally. She does have background COPD in addition contributing to her acute on top of chronic hypoxic respiratory failure. Follow-up chest x-ray shows some mild pulm vas congestion. No airspace disease or consolidation from today. Acute on chronic hypoxic respiratory failure, currently on 5 L of oxygen by nasal cannula Lingular pneumonia and patchy right lower lobe pulmonary filtrates, completed Rocephin Acute leukocytosis, stable Acute on chronic kidney disease, creatinine is improving Mild anion gap metabolic acidosis, improved History of questionable PE, anticoagulated on Eliquis Chronic dementia/developmental delay with impairment of the cognitive functions. Chronic gait dysfunction Hypertension Hyperlipidemia COPD/asthma maintained on Breo Ellipta on outpatient basis GERD Obesity, with a BMI of 26 kg/m Plan: The patient was seen and evaluated Most recent labs, chest x-ray and medications reviewed Remains on DuoNeb inhalations Remains on Pulmicort and Perforomist inhalations Discontinue Solu-Medrol Initiate a prednisone taper Titrate down the FiO2 as tolerated May require subacute rehab at discharge Case management is following This patient was seen independently by the pulmonary nurse practitioner addressing pulmonary issues I have personally seen and examined the patient, performed the documentation and the assessment and plan as written. Number of minutes spent on the visit: 24 Dictation was produced using [employer] dictation software. Please excuse any grammatical, word or spelling errors.
--- NOTE | 2025-03-14 14:12 | P.PN ---
Progress Note - Text Progress Note Date: 03/14/25 Chief Complaint: Short of breath This is a 79-year-old patient, resident of [facility]. Being followed by Dr. Larsen. baseline: Normally patient gets around with a walker. Speaks in short sentences, with limited vocabulary. December 22, 2024 patient diagnosed with acute PE. For which she is on Eliquis. Patient was discharged on 3 L of oxygen Patient was sent into the ER for shortness of breath. Per the EMS report patient had a cough and a runny nose all weekend. And patient's pulse ox dropped down to the 70s. Found the patient to have wheezing was given a nebulized bronchodilator. EMS took a pulse ox it was 86%.-RA Not really able to give much of history. March 08: Admitted with pneumonia, acute hypoxic respiratory failure. On 6 L nasal cannula this morning. Has been refusing food. Ensure ordered. Some audible wheezing with congested cough March 09: ICU. Patient is keep repeating that she wants to go back to her place. Keeps repeating this again and again. Refusing food and medications sometimes. Was ordered to calm her down. Will also add some Seroquel for tonight. Patient also continues to cough and wheezing. Requiring 4 L, nasal cannula March: ICU. oxygen requirement and got up to 11. Patient continues to repeat that she wants to go home. Refused breakfast but ate all her lunch March 11: Down to 10 L. Some congested cough still present. Oral intake fluctuating but better. Spoke to case folder looking into rehab. She is getting in touch with the guardian. March 12: Breathing is better. Less congestion. Down to 4 L. Oral intake variable. Awaiting to go to rehab. Will change Solu-Medrol every 12. Reclinin g in bed coloring March 13: Oxygenation status fluctuates. Chest x-ray shows some infiltrates. Patient was placed on IV cefepime yesterday for worsening pneumonia. Oral intake fair. March 14: Up in the chair. Appears more restful. Chest x-ray from yesterday may show some fluid overload. Will give 1 dose of IV Lasix 40 mg. Seen by pulmonary. Switched over to oral prednisone. Continue IV cefepime. Oxygen being scaled down. Looking at patient into rehab.. Decreased oral intake today Active Medications Albuterol/Ipratropium (Ipratropium-Albuterol 3 Ml Neb) 3 ml INHALATION RT-QID [facility] Last Admin: 03/14/25 12:59 Dose: 3 ml Albuterol/Ipratropium (Ipratropium-Albuterol 3 Ml Neb) 3 ml INHALATION RT-Q2H PRN PRN Reason: Shortness Of Breath Or Wheezing Last Admin: 03/10/25 00:51 Dose: 3 ml Apixaban (Apixaban 5 Mg Tab) 5 mg PO BID@799,1999 [facility]; Protocol Last Admin: 03/14/25 08:37 Dose: 5 mg Aspirin (Aspirin 81 Mg) 81 mg PO DAILY@08 [facility] Last Admin: 03/14/25 08:38 Dose: 81 mg Atorvastatin Calcium (Atorvastatin 20 Mg Tab) 20 mg PO HS@1999 [facility] Last Admin: 03/13/25 20:44 Dose: 20 mg Budesonide (Budesonide 1 Mg/2 Ml Nebu) 1 mg INHALATION RT-BID [facility] Last Admin: 03/14/25 09:32 Dose: 1 mg Calcium Carbonate/Glycine (Calcium Carbonate 500 Mg Chewable) 500 mg PO BID PRN PRN Reason: GI Upset Last Admin: 03/11/25 09:10 Dose: 500 mg Cholecalciferol (Cholecalciferol 25 Mcg (1000 Iu) Tablet) 50 mcg PO DAILY@0800 [facility] Last Admin: 03/14/25 08:37 Dose: 50 mcg Clonidine (Clonidine Hcl 0.2 Mg Tab) 0.2 mg PO BID@799,1999 [facility] Last Admin: 03/14/25 08:37 Dose: 0.2 mg Cyanocobalamin (Cyanocobalamin 500 Mcg Tab) 1,000 mcg PO FR@1700 [facility] Last Admin: 03/11/25 17:32 Dose: 1,000 mcg Formoterol Fumarate (Formoterol Fumarate 20 Mcg/2 Ml Nebu) 20 mcg INHALATION RT-BID [facility] Last Admin: 03/14/25 09:32 Dose: 20 mcg Furosemide (Furosemide 10 Mg/Ml 4 Ml Vial) 40 mg IV ONCE STA Stop: 03/14/25 14:06 Gabapentin (Gabapentin 100 Mg Cap) 100 mg PO TID@0800,1399,1999 [facility] Last Admin: 03/14/25 13:08 Dose: 100 mg Guaifenesin/Dextromethorphan (Guaifenesin-Dm 100-10mg/5ml 10 Ml Cup) 10 ml PO Q6HR PRN PRN Reason: Cough Cefepime HCl 2 gm/ Sodium (Chloride) 100 mls @ 25 mls/hr IVPB Q12HR [facility]; Protocol Last Admin: 03/14/25 09:55 Dose: 25 mls/hr Lactic Acid (Ammonium Lactate 12% Cream 140 Gm Tube) 1 applic TOPICAL BID [facility]; Protocol Last Admin: 03/14/25 08:38 Dose: 1 applic Naloxone HCl (Naloxone 0.4 Mg/Ml 1 Ml Vial) 0.2 mg IVP Q2M PRN PRN Reason: Opioid Reversal Nystatin (Nystatin 100,000 Unit/Gm Powd 15 Gm) 1 applic TOPICAL DAILY [facility]; Protocol Last Admin: 03/14/25 08:38 Dose: 1 applic Ondansetron HCl (Ondansetron Odt 4 Mg Tab) 4 mg PO TID PRN PRN Reason: NAUSEA WITH MEALS Pantoprazole Sodium (Pantoprazole 40 Mg Tablet) 40 mg PO DAILY@0700 [facility] Last Admin: 03/14/25 06:29 Dose: 40 mg Prednisone (Prednisone 20 Mg Tab) 40 mg PO DAILY [facility] Quetiapine Fumarate (Quetiapine 25 Mg Tab) 12.5 mg PO HS [facility] Last Admin: 03/13/25 20:43 Dose: 12.5 mg Social history: Resident of [facility]. Does use a four-wheel walker. No smoking alcohol history reported Physical examination: VITAL SIGNS: 98.3, 68, 18, 155/76, 96% on 5 L GENERAL: Up in a chair, breathing better EYES: Pupils equal. Conjunctiva damian l. HEENT: External appearance of nose and ears normal, oral cavity grossly normal. NECK: JVD unable to assess; masses not palpable. HEART: First and second heart sounds are normal; no edema. LUNGS: Respiratory rate normal, decreased breath sounds.. ABDOMEN: Soft, nontender, liver spleen not palpable, no masses palpable. PSYCH: Does answer simple questions. Does repeat herself. MUSCULOSKELETAL:No Clubbing/cyanosis;muscles-grossly intact. OA INVESTIGATIONS, reviewed in the clinical context: March 12: White count 14 hemoglobin 11.7 potassium 4.1 creatinine 1.26 March 11: White count 8.8 hemoglobin 10.9 potassium 4.5 creatinine 1.27 March 10: White count 11 hemoglobin 11.1 platelets 335 potassium 4.3 BUN 55 creatinine 1.39 March 09: 10.3 potassium 4.5 creatinine 1.24 March 08: Procalcitonin 0.54 . March 07, 2025: White count 15.8 hemoglobin 11.4 platelets 258 sodium 140 potassium 4.9 BUN 33 creatinine 1.44 Lactic acid 2.7 Troponin I less than 0.012, proBNP 1280 EKG tracing personally reviewed by me-normal sinus rhythm. Chest x-ray film personally reviewed by me-possible infiltrate Assessment and plan: -Pneumonia, suspect gram-negative organism, causing hypoxia: Improvement IV ceftriaxone. Discontinued IV cefepime started on March 12 Check procalcitonin -Acute hypoxic respiratory failure from above. AFC reported pulse ox in the 70s.: Some improvement Oxygen requirement-5 L -Chronic hypoxic respiratory failure. recently discharged on 3 L of oxygen. -Chronic PE. December 22, 2024 Eliquis -Increased agitation and anxiety Seroquel at night. 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 At baseline.). Speaks in short sentences. Repeats herself. 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 does use a four-wheel walker -GERD Omeprazole -Essential hypertension Catapres 0.2 mg twice daily -Hyperlipidemia Lipitor 20 mg nightly -Moderate persistent asthma Bronchodilators Full code -Public guardian Give 1 dose of IV Lasix. Some component of fluid overload. Check procal citonin. Doubled on FiO2. Spoke to case folder about possible discharge to rehab soon Past Medical History Past Medical History: Dementia Additional Past Medical History / Comment(s): mental retardation History of Any Multi-Drug Resistant Organisms: None Reported Past Surgical History: Unable to Obtain Past Anesthesia/Blood Transfusion Reactions: Unable to Obtain Past Psychological History: No Psychological Hx Reported Smoking Status: Never smoker Past Alcohol Use History: Unable to Obtain Past Drug Use History: Unable to Obtain
[2025-03-14 14:19] VITALS: BMI 25.7
[2025-03-14] MEDS: FUROSEMIDE 10 MG/ML 4 ML VIAL IV STA (14:34)
[2025-03-15] MEDS: predniSONE 20 MG TAB PO SCH (09:17)
--- NOTE | 2025-03-15 11:45 | P.PN ---
Subjective Progress Note Date: 03/15/25 Patient is a 79-year-old female with past medical history significant for hypertension, hyperlipidemia, COPD, home oxygen dependent, and advanced dementia. Patient is alert but unable to provide any useful information. I am told her baseline mentation is oriented to self. She resides at [facility], an [facility] care facility. Of note, patient recently hospitalized December, with a urinary tract infection. During this time, felt to possibly have a pulmonary embolism. Pulmonary perfusion scan was indeterminate. She was placed on Eliquis. According to the ER note, yesterday morning, patient was sent in by EMS from her [facility] home after being found to have increased work of breathing. Workup in the ED including a chest x-ray showing mild vascular prominence. CBC remarkable for leukocytosis with a WBC count of 15.8, hemoglobin 11.4, platelets CMP: Sodium 140, potassium 4.9, chloride 109, serum bicarb 18, BUN 33, creatinine 1.44, glucose 186. 2.7 and now 3.2. Lactic troponin less than 0.0 12. EKG: Sinus rhythm, rate 79 bpm, no acute ST segment elevations. NT proBNP 1280. Most recent available echocardiogram from December, estimating a left ventricular ejection fraction of 60 to 65%, as well as, mild mitral and tricuspid regurgitation. Urinalysis unremarkable for infection. Viral screen negative for influenza A/B, RSV, COVID. She is currently being evaluated in the emergency department. She is on 8 L high flow nasal cannula. She appears nondistressed. She was placed empirically on a combination of azithromycin and Rocephin. Afebrile. Also, previously noted to be wheezing, and her COPD was felt to be an exacerbation. She was previously started on a combination of DuoN ebs and IV Solu-Medrol. 03/09/2024, the patient is being seen for a follow-up. The patient is calm and comfortable. She is advanced dementia and she is unable to volunteer any history. 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 No significant bronchospasm or wheezing. No significant respiratory distress at rest. She is currently on 40 Suboxone by nasal cannula. She is still slightly bronchospastic and wheezy and she is on DuoNeb updrafts, and she is also on IV Solu-Medrol 60 mg every 6 hours. She remains on empiric antibiotic coverage with a combination of Rocephin and Zithromax. Hemodynamically stable. Lactic acid level is improved. The white cell count of 14.4 with a heme of 10.3. He has 48 with a creatinine of 1.2 and sodium is at 139 and a potassium level is at 4.5. Lactic acid level is down to 1.6. Viral screen was negative. Urine cultures were negative. The most recent chest x-ray from today shows no acute pulmonary abnormalities. There is slight increase in diffuse interstitial markings bilaterally. Right lower lobe pulmonary infiltrate is noted although this is nonspecific finding. 03/10/2025, the patient is being seen for a follow-up. Overnight, the patient became more wheezy and tachycardic. She also had increased oxygen requirements and she was placed on 15 L of oxygen by nasal cannula. She is currently weaned down to 7 L. A chest x-ray was done and the patient was found to have a coarse reticular interstitial infiltrates bilaterally with background emphysema. There is also basal infiltrate and a 12 mm right lower lobe pulmonary nodule. Meanwhile, the patient remains hemodynamically stable. IV fluids are currently at KVO. The patient was given a dose of Lasix yesterday 40 mg IV push and she produced approximately 400 cc of urine output. The white cell count 14.4 with a hemoglobin 10.3 and a platelet count of 306. BUN 55 the creatinine 1.39. Sodium is at 140 with a potassium of 4.3 and a chloride is 105 and the bicarb is 23. LFTs are normal. proBNP level is 8700. Procalcitonin level is at 0.54. The patient remains on IV Rocephin. Remains on bronchodilators. Remains on IV Solu-Medrol and she seems to be less bronchospastic compared to earlier. She has advanced dementia, unable to volunteer any history and the patient continues to state that she wants to go back to her [facility] facility. On 03/11/2025, the patient is still requiring higher oxygen flow and earlier she was on 10 L and she was weaned down to 7 L and her pulse ox around 96%. Repeat chest x-ray revealed development of a lingular infiltrate and stable atelectatic change in the right lung base. The patient is currently on IV Rocephin. She is also being treated for an acute CF exacerbation probably due to pneumonia. She is on bronchodilators. Is on steroids. The white cell count is 8.8 with a hemoglobin 10.9 and platelet count of 295. BUN is 54 with a creatinine 1.27 and sodium levels at 138 and a potassium level is at 4.5. She has advanced dementia. She is on IV Solu-Medrol 40 mg every 8 hours. Rest of the home medications have been resumed. She is also on anticoagulation with Eliquis. No other significant events and the patient was transferred out of the intensive care unit yesterday. On 03/12/2025, the patient remains on 7 L of oxygen by nasal cannula. Repeat chest x-ray was done today and the findings are consistent with COPD and mild diffuse pulmonary edema and areas of atelectasis bilaterally. An area of left lower lobe consolidation cannot be completely ruled out. The patient remains on 7 L of O2 nasal cannula, white cell count of 14 with a hemoglobin 11.7 and a platelet count of 344. BUN is 46 with a creatinine of 1.2. Serum bicarbonate 24. In terms of antibiotic coverage, the patient was on IV Rocephin and the patient will be switched to IV cefepime. The patient is also on bronchodilators. The patient is on IV Solu-Medrol. The patient anticoagulation with Eliquis. She continues to have a congested cough. No significant respiratory distress at rest. Continue 03/13/2025, the patient is doing well. Oxygenation is improved and the patient is currently on 40 of oxygen by nasal cannula. Repeat chest x-ray from today shows some mild pulm vas congestion. No airspace disease or consolidation. The white cell count is at 14 with a hemoglobin of 11.7 from yesterday. Platelet count is at 344. BUN is 46 with a creatinine of 1.2. No chest pain. She is resting comfortably in bed. Sitter is at the bedside.She remains on bronchodilators. She remains on steroids. The patient is seen today March 14, 2025 in follow-up on the regular medical floor. She is currently sitting up in bed. Awake and alert in no acute distress. Maintaining O2 saturations in the 90s on 5 L/min per nasal cannula. She has been afebrile. Hemodynamically stable. Follow-up chest x-ray continues to show some mild fluid volume overload. She remains on DuoNeb inhalations, Pulmicort and Perforomist inhalations, Solu-Medrol. Remains on cefepime. Anticoagulated with Eliquis. The patient is seen today March 15, 2025 in follow-up on the regular medical floor. She is currently awake and alert in no acute distress. Sitting up in a chair. Denies any worsening shortness of breath, cough or congestion. She is maintaining good O2 saturations in the 90s on 4 L/min per nasal cannula. She has been afebrile. Hemodynamically stable. No new labs today. She remains on DuoNeb inhalations, Pulmicort and Perforomist inhalations, prednisone taper. Anticoagulated with Eliquis. Remains on antibiotics in the form of cefepime. Objective - Vital Signs Vital signs: Vital Signs Temp 98.6 F 03/15/25 00:29 Pulse 90 03/15/25 09:06 Resp 18 03/15/25 09:06 BP 158/83 03/15/25 08:00 Pulse Ox 94 L 03/15/25 09:00 FiO2 Intake & Output 03/14/25 03/15/25 03/15/25 18:59 06:59 18:59 Weight 68 kg 68 kg Other: Voiding Method Bedside Commode Bedside Commode Bedside Commode Diaper Diaper Diaper # Voids 6 1 # Bowel Movements 1 - Exam GENERAL EXAM: Alert, 79-year-old female, sitting up in a chair, on 4 L high flow nasal cannula, in no apparent distress. HEAD: Normocephalic and atraumatic EYES: Normal reaction of pupils, equal size. NOSE: Clear with pink turbinates. THROAT: No erythema or exudates. NECK: No masses, no JVD. CHEST: No chest wall deformity. LUNGS: Equal air entry with no crackles, wheezing, or rhonchi. CVS: S1 and S2 normal with no audible murmur, regular rhythm. No extra heart sounds ABDOMEN: No hepatosplenomegaly, active bowel sounds, no guarding or rigidity. SPINE: No scoliosis or deformity SKIN: Moist erythemic rash underneath both breasts and sternum CENTRAL NERVOUS SYSTEM: No focal deficits, tone is normal in all 4 extremities. EXTREMITIES: There is no peripheral edema, clubbing, or cyanosis. Peripheral pulses are intact. - Labs CBC & Chem 7: 03/12/25 10:37 03/12/25 10:37 Assessment and Plan Assessment: Acute hypoxic respiratory failure, secondary to acute COPD/asthma exacerbation. Underlying pneumonia cannot be completely excluded especially in the left lower lobe. Meanwhile, the follow-up chest x-ray shows mild pulm vessel congestion and atelectatic changes bilaterally. She does have background COPD in addition contributing to her acute on top of chronic hypoxic respiratory failure. Follow-up chest x-ray shows some mild pulm vas congestion. No airspace disease or consolidation from today. Acute on chronic hypoxic respiratory failure, currently on 4 L of oxygen by nasal cannula Lingular pneumonia and patchy right lower lobe pulmonary filtrates, completed Rocephin Acute leukocytosis, stable Acute on chronic kidney disease, creatinine is improving Mild anion gap metabolic acidosis, improved History of questionable PE, anticoagulated on Eliquis Chronic dementia/developmental delay with impairment of the cognitive functions. Chronic gait dysfunction Hypertension Hyperlipidemia COPD/asthma maintained on Breo Ellipta on outpatient basis GERD Obesity, with a BMI of 26 kg/m Plan: The patient was seen and evaluated Medications reviewed Continue DuoNeb inhalations Continue Pulmicort and Perforomist inhalations Continue a prednisone taper Robitussin as needed Anticoagulated with Eliquis Titrate down the FiO2 as tolerated Plan is for [facility], possibly today This patient was seen independently by the pulmonary nurse practitioner addressing pulmonary issues I have personally seen and examined the patient, performed the documentation and the assessment and plan as written. Number of minutes spent on the visit: 23 Dictation was produced using [id number] dictation software. Please excuse any grammatical, word or spelling errors.
--- NOTE | 2025-03-15 18:07 | P.PN ---
Progress Note - Text Progress Note Date: 03/15/25 Chief Complaint: Short of breath This is a 79-year-old patient, resident of [facility]. Being followed by Dr. Larsen. baseline: Normally patient gets around with a walker. Speaks in short sentences, with limited vocabulary. December 22, 2024 patient diagnosed with acute PE. For which she is on Eliquis. Patient was discharged on 3 L of oxygen Patient was sent into the ER for shortness of breath. Per the EMS report patient had a cough and a runny nose all weekend. And patient's pulse ox dropped down to the 70s. Found the patient to have wheezing was given a nebulized bronchodilator. EMS took a pulse ox it was 86%.-RA Not really able to give much of history. March 08: Admitted with pneumonia, acute hypoxic respiratory failure. On 6 L nasal cannula this morning. Has been refusing food. Ensure ordered. Some audible wheezing with congested cough March 09: ICU. Patient is keep repeating that she wants to go back to her place. Keeps repeating this again and again. Refusing food and medications sometimes. Was ordered to calm her down. Will also add some Seroquel for tonight. Patient also continues to cough and wheezing. Requiring 4 L, nasal cannula March: ICU. oxygen requirement and got up to 11. Patient continues to repeat that she wants to go home. Refused breakfast but ate all her lunch March 11: Down to 10 L. Some congested cough still present. Oral intake fluctuating but better. Spoke to porter sample case looking into rehab. She is getting in touch with the guardian. March 12: Breathing is better. Less congestion. Down to 4 L. Oral intake variable. Awaiting to go to rehab. Will change Solu-Medrol every 12. Reclinin g in bed coloring March 13: Oxygenation status fluctuates. Chest x-ray shows some infiltrates. Patient was placed on IV cefepime yesterday for worsening pneumonia. Oral intake fair. March 14: Up in the chair. Appears more restful. Chest x-ray from yesterday may show some fluid overload. Will give 1 dose of IV Lasix 40 mg. Seen by pulmonary. Switched over to oral prednisone. Continue IV cefepime. Oxygen being scaled down. Looking at patient into rehab.. Decreased oral intake today March 15: Up in the chair. Sometimes refusing to eat. FiO2 4 L. Pending to go down to rehab. On IV cefepime. Switched over to oral prednisone. Active Medications Albuterol/Ipratropium (Ipratropium-Albuterol 3 Ml Neb) 3 ml INHALATION RT-QID [facility] Last Admin: 03/15/25 16:58 Dose: 3 ml Albuterol/Ipratropium (Ipratropium-Albuterol 3 Ml Neb) 3 ml INHALATION RT-Q2H PRN PRN Reason: Shortness Of Breath Or Wheezing Last Admin: 03/10/25 00:51 Dose: 3 ml Apixaban (Apixaban 5 Mg Tab) 5 mg PO BID@799,1999 [facility]; Protocol Last Admin: 03/15/25 09:16 Dose: 5 mg Aspirin (Aspirin 81 Mg) 81 mg PO DAILY@08 [facility] Last Admin: 03/15/25 09:16 Dose: 81 mg Atorvastatin Calcium (Atorvastatin 20 Mg Tab) 20 mg PO HS@1999 [facility] Last Admin: 03/14/25 21:53 Dose: 20 mg Budesonide (Budesonide 1 Mg/2 Ml Nebu) 1 mg INHALATION RT-BID [facility] Last Admin: 03/15/25 09:00 Dose: 1 mg Calcium Carbonate/Glycine (Calcium Carbonate 500 Mg Chewable) 500 mg PO BID PRN PRN Reason: GI Upset Last Admin: 03/11/25 09:10 Dose: 500 mg Cholecalciferol (Cholecalciferol 25 Mcg (1000 Iu) Tablet) 50 mcg PO DAILY@0800 [facility] Last Admin: 03/15/25 09:16 Dose: 50 mcg Clonidine (Clonidine Hcl 0.2 Mg Tab) 0.2 mg PO BID@ [facility] Last Admin: 03/15/25 09:16 Dose: 0.2 mg Cyanocobalamin (Cyanocobalamin 500 Mcg Tab) 1,000 mcg PO FR@1700 [facility] Last Admin: 03/11/25 17:32 Dose: 1,000 mcg Formoterol Fumarate (Formoterol Fumarate 20 Mcg/2 Ml Nebu) 20 mcg INHALATION RT-BID [facility] Last Admin: 03/15/25 08:59 Dose: 20 mcg Gabapentin (Gabapentin 100 Mg Cap) 100 mg PO TID@0800,1399,1999 [facility] Last Admin: 03/15/25 13:57 Dose: 100 mg Guaifenesin/Dextromethorphan (Guaifenesin-Dm 100-10mg/5ml 10 Ml Cup) 10 ml PO Q6HR PRN PRN Reason: Cough Cefepime HCl 2 gm/ Sodium (Chloride) 100 mls @ 25 mls/hr IVPB Q12HR [facility]; Protocol Last Admin: 03/15/25 09:17 Dose: 25 mls/hr Lactic Acid (Ammonium Lactate 12% Cream 140 Gm Tube) 1 applic TOPICAL BID [facility]; Protocol Last Admin: 03/15/25 09:17 Dose: 1 applic Naloxone HCl (Naloxone 0.4 Mg/Ml 1 Ml Vial) 0.2 mg IVP Q2M PRN PRN Reason: Opioid Reversal Nystatin (Nystatin 100,000 Unit/Gm Powd 15 Gm) 1 applic TOPICAL DAILY [facility]; Protocol Last Admin: 03/15/25 09:17 Dose: 1 applic Ondansetron HCl (Ondansetron Odt 4 Mg Tab) 4 mg PO TID PRN PRN Reason: NAUSEA WITH MEALS Pantoprazole Sodium (Pantoprazole 40 Mg Tablet) 40 mg PO DAILY@0700 [facility] Last Admin: 03/15/25 06:12 Dose: 40 mg Prednisone (Prednisone 20 Mg Tab) 40 mg PO DAILY [facility] Last Admin: 03/15/25 09:17 Dose: 40 mg Quetiapine Fumarate (Quetiapine 25 Mg Tab) 12.5 mg PO HS [facility] Last Admin: 03/14/25 21:53 Dose: 12.5 mg Social history: Resident of . Does use a four-wheel walker. No smoking alcohol history reported Physical examination: VITAL SIGNS: 98.6, 71, 18, 158 x 83, 94% on 4 L GENERAL: Up in a chair, breathing better EYES: Pupils equal. Conjunctiva damian l. HEENT: External appearance of nose and ears normal, oral cavity grossly normal. NECK: JVD unable to assess; masses not palpable. HEART: First and second heart sounds are normal; no edema. LUNGS: Respiratory rate normal, decreased breath sounds.. ABDOMEN: Soft, nontender, liver spleen not palpable, no masses palpable. PSYCH: Does answer simple questions. Does repeat herself. MUSCULOSKELETAL:No Clubbing/cyanosis;muscles-grossly intact. OA INVESTIGATIONS, reviewed in the clinical context: March 12: White count 14 hemoglobin 11.7 potassium 4.1 creatinine 1.26 March 11: White count 8.8 hemoglobin 10.9 potassium 4.5 creatinine 1.27 March 10: White count 11 hemoglobin 11.1 platelets 335 potassium 4.3 BUN 55 creatinine 1.39 March 09: 10.3 potassium 4.5 creatinine 1.24 March 08: Procalcitonin 0.54 . March 07, 2025: White count 15.8 hemoglobin 11.4 platelets 258 sodium 140 potassium 4.9 BUN 33 creatinine 1.44 Lactic acid 2.7 Troponin I less than 0.012, proBNP 1280 EKG tracing personally reviewed by me-normal sinus rhythm. Chest x-ray film personally reviewed by me-possible infiltrate Assessment and plan: -Pneumonia, suspect gram-negative organism, causing hypoxia: Improvement IV ceftriaxone. Discontinued IV cefepime started on March 12 Check procalcitonin -Acute hypoxic respiratory failure from above. AFC reported pulse ox in the 70s.: Some improvement Oxygen requirement-4 L -Chronic hypoxic respiratory failure. recently discharged on 3 L of oxygen. -Chronic PE. December 22, 2024 Eliquis -Increased agitation and anxiety: Improved Seroquel at night. 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 At baseline.). Speaks in short sentences. Repeats herself. 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 does use a four-wheel walker -GERD Omeprazole -Essential hypertension Catapres 0.2 mg twice daily -Hyperlipidemia Lipitor 20 mg nightly -Moderate persistent asthma Bronchodilators Full code -Public guardian Titrate oxygen down. Encouraged to eat. Pending going to rehab Past Medical History Past Medical History: Dementia Additional Past Medical History / Comment(s): mental retardation History of Any Multi-Drug Resistant Organisms: None Reported Past Surgical History: Unable to Obtain Past Anesthesia/Blood Transfusion Reactions: Unable to Obtain Past Psychological History: No Psychological Hx Reported Smoking Status: Never smoker Past Alcohol Use History: Unable to Obtain Past Drug Use History: Unable to Obtain
[2025-03-16 08:06] VITALS: BP 124/73; RESP 17; TEMP 97.8
--- NOTE | 2025-03-16 13:04 | P.PN ---
Subjective Progress Note Date: 03/16/25 Patient is a 79-year-old female with past medical history significant for hypertension, hyperlipidemia, COPD, home oxygen dependent, and advanced dementia. Patient is alert but unable to provide any useful information. I am told her baseline mentation is oriented to self. She resides at [place], an [facility] care facility. Of note, patient recently hospitalized December, with a urinary tract infection. During this time, felt to possibly have a pulmonary embolism. Pulmonary perfusion scan was indeterminate. She was placed on Eliquis. According to the ER note, yesterday morning, patient was sent in by EMS from her [facility] home after being found to have increased work of breathing. Workup in the ED including a chest x-ray showing mild vascular prominence. CBC remarkable for leukocytosis with a WBC count of 15.8, hemoglobin 11.4, platelets CMP: Sodium 140, potassium 4.9, chloride 109, serum bicarb 18, BUN 33, creatinine 1.44, glucose 186. 2.7 and now 3.2. Lactic troponin less than 0.0 12. EKG: Sinus rhythm, rate 79 bpm, no acute ST segment elevations. NT proBNP 1280. Most recent available echocardiogram from December, estimating a left ventricular ejection fraction of 60 to 65%, as well as, mild mitral and tricuspid regurgitation. Urinalysis unremarkable for infection. Viral screen negative for influenza A/B, RSV, COVID. She is currently being evaluated in the emergency department. She is on 8 L high flow nasal cannula. She appears nondistressed. She was placed empirically on a combination of azithromycin and Rocephin. Afebrile. Also, previously noted to be wheezing, and her COPD was felt to be an exacerbation. She was previously started on a combination of DuoN ebs and IV Solu-Medrol. 03/09/2024, the patient is being seen for a follow-up. The patient is calm and comfortable. She is advanced dementia and she is unable to volunteer any history. 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 No significant bronchospasm or wheezing. No significant respiratory distress at rest. She is currently on 40 Suboxone by nasal cannula. She is still slightly bronchospastic and wheezy and she is on DuoNeb updrafts, and she is also on IV Solu-Medrol 60 mg every 6 hours. She remains on empiric antibiotic coverage with a combination of Rocephin and Zithromax. Hemodynamically stable. Lactic acid level is improved. The white cell count of 14.4 with a heme of 10.3. He has 48 with a creatinine of 1.2 and sodium is at 139 and a potassium level is at 4.5. Lactic acid level is down to 1.6. Viral screen was negative. Urine cultures were negative. The most recent chest x-ray from today shows no acute pulmonary abnormalities. There is slight increase in diffuse interstitial markings bilaterally. Right lower lobe pulmonary infiltrate is noted although this is nonspecific finding. 03/10/2025, the patient is being seen for a follow-up. Overnight, the patient became more wheezy and tachycardic. She also had increased oxygen requirements and she was placed on 15 L of oxygen by nasal cannula. She is currently weaned down to 7 L. A chest x-ray was done and the patient was found to have a coarse reticular interstitial infiltrates bilaterally with background emphysema. There is also basal infiltrate and a 12 mm right lower lobe pulmonary nodule. Meanwhile, the patient remains hemodynamically stable. IV fluids are currently at KVO. The patient was given a dose of Lasix yesterday 40 mg IV push and she produced approximately 400 cc of urine output. The white cell count 14.4 with a hemoglobin 10.3 and a platelet count of 306. BUN 55 the creatinine 1.39. Sodium is at 140 with a potassium of 4.3 and a chloride is 105 and the bicarb is 23. LFTs are normal. proBNP level is 8700. Procalcitonin level is at 0.54. The patient remains on IV Rocephin. Remains on bronchodilators. Remains on IV Solu-Medrol and she seems to be less bronchospastic compared to earlier. She has advanced dementia, unable to volunteer any history and the patient continues to state that she wants to go back to her [facility] facility. On 03/11/2025, the patient is still requiring higher oxygen flow and earlier she was on 10 L and she was weaned down to 7 L and her pulse ox around 96%. Repeat chest x-ray revealed development of a lingular infiltrate and stable atelectatic change in the right lung base. The patient is currently on IV Rocephin. She is also being treated for an acute CF exacerbation probably due to pneumonia. She is on bronchodilators. Is on steroids. The white cell count is 8.8 with a hemoglobin 10.9 and platelet count of 295. BUN is 54 with a creatinine 1.27 and sodium levels at 138 and a potassium level is at 4.5. She has advanced dementia. She is on IV Solu-Medrol 40 mg every 8 hours. Rest of the home medications have been resumed. She is also on anticoagulation with Eliquis. No other significant events and the patient was transferred out of the intensive care unit yesterday. On 03/12/2025, the patient remains on 7 L of oxygen by nasal cannula. Repeat chest x-ray was done today and the findings are consistent with COPD and mild diffuse pulmonary edema and areas of atelectasis bilaterally. An area of left lower lobe consolidation cannot be completely ruled out. The patient remains on 7 L of O2 nasal cannula, white cell count of 14 with a hemoglobin 11.7 and a platelet count of 344. BUN is 46 with a creatinine of 1.2. Serum bicarbonate 24. In terms of antibiotic coverage, the patient was on IV Rocephin and the patient will be switched to IV cefepime. The patient is also on bronchodilators. The patient is on IV Solu-Medrol. The patient anticoagulation with Eliquis. She continues to have a congested cough. No significant respiratory distress at rest. Continue 03/13/2025, the patient is doing well. Oxygenation is improved and the patient is currently on 40 of oxygen by nasal cannula. Repeat chest x-ray from today shows some mild pulm vas congestion. No airspace disease or consolidation. The white cell count is at 14 with a hemoglobin of 11.7 from yesterday. Platelet count is at 344. BUN is 46 with a creatinine of 1.2. No chest pain. She is resting comfortably in bed. Sitter is at the bedside.She remains on bronchodilators. She remains on steroids. The patient is seen today March 14, 2025 in follow-up on the regular medical floor. She is currently sitting up in bed. Awake and alert in no acute distress. Maintaining O2 saturations in the 90s on 5 L/min per nasal cannula. She has been afebrile. Hemodynamically stable. Follow-up chest x-ray continues to show some mild fluid volume overload. She remains on DuoNeb inhalations, Pulmicort and Perforomist inhalations, Solu-Medrol. Remains on cefepime. Anticoagulated with Eliquis. The patient is seen today March 15, 2025 in follow-up on the regular medical floor. She is currently awake and alert in no acute distress. Sitting up in a chair. Denies any worsening shortness of breath, cough or congestion. She is maintaining good O2 saturations in the 90s on 4 L/min per nasal cannula. She has been afebrile. Hemodynamically stable. No new labs today. She remains on DuoNeb inhalations, Pulmicort and Perforomist inhalations, prednisone taper. Anticoagulated with Eliquis. Remains on antibiotics in the form of cefepime. The patient is seen today March 16, 2025 in follow-up on the regular medical floor. Sitting up in chair at the bedside. Awake and alert in no acute distress. She denies any worsening shortness of breath, cough or congestion. She is maintaining O2 saturations in the 90s on 3 L/min per nasal cannula. She has been afebrile. Hemodynamically stable. She remains on DuoNeb inhalations, Pulmicort and Perforomist inhalations, prednisone taper. Robitussin as needed for her cough. Anticoagulated with Eliquis. Remains on cefepime. Objective - Vital Signs Vital signs: Vital Signs Temp 97.8 F 03/16/25 08:00 Pulse 73 03/16/25 12:43 Resp 17 03/16/25 08:00 BP 124/73 03/16/25 08:00 Pulse Ox 93 L 03/16/25 08:00 FiO2 Intake & Output 03/15/25 03/16/25 03/16/25 18:59 06:59 18:59 Weight 66 kg Other: Voiding Method Bedside Commode Diaper Diaper Diaper Incontinent Incontinent # Voids 2 2 # Bowel Movements 0 - Exam GENERAL EXAM: Alert, 79-year-old female, up in a chair, on 3 L nasal cannula, in no apparent distress. HEAD: Normocephalic and atraumatic EYES: Normal reaction of pupils, equal size. NOSE: Clear with pink turbinates. THROAT: No erythema or exudates. NECK: No masses, no JVD. CHEST: No chest wall deformity. LUNGS: Equal air entry with no crackles, wheezing, or rhonchi. CVS: S1 and S2 normal with no audible murmur, regular rhythm. No extra heart sounds ABDOMEN: No hepatosplenomegaly, active bowel sounds, no guarding or rigidity. SPINE: No scoliosis or deformity SKIN: Moist erythemic rash underneath both breasts and sternum CENTRAL NERVOUS SYSTEM: No focal deficits, tone is normal in all 4 extremities. EXTREMITIES: There is no peripheral edema, clubbing, or cyanosis. Peripheral pulses are intact. - Labs CBC & Chem 7: 03/12/25 10:37 03/12/25 10:37 Assessment and Plan Assessment: Acute hypoxic respiratory failure, secondary to acute COPD/asthma exacerbation. Underlying pneumonia cannot be completely excluded especially in the left lower lobe. Meanwhile, the follow-up chest x-ray shows mild pulm vessel congestion and atelectatic changes bilaterally. She does have background COPD in addition contributing to her acute on top of chronic hypoxic respiratory failure. Follow-up chest x-ray shows some mild pulm vas congestion. No airspace disease or consolidation Acute on chronic hypoxic respiratory failure, currently on 3 L of oxygen by nasal cannula Lingular pneumonia and patchy right lower lobe pulmonary filtrates, completed Rocephin Acute leukocytosis, stable Acute on chronic kidney disease, creatinine is improving Mild anion gap metabolic acidosis, improved History of questionable PE, anticoagulated on Eliquis Chronic dementia/developmental delay with impairment of the cognitive functions. Chronic gait dysfunction Hypertension Hyperlipidemia COPD/asthma maintained on Breo Ellipta on outpatient basis GERD Obesity, with a BMI of 26 kg/m Plan: The patient was seen and evaluated Medications reviewed Continue DuoNeb inhalations Discontinue Pulmicort and Perforomist Add Symbicort Continue a prednisone taper Robitussin as needed Anticoagulated with Eliquis Titrate down/off the FiO2 as tolerated Discharge planning in place This patient was seen independently by the pulmonary nurse practitioner addressing pulmonary issues I have personally seen and examined the patient, performed the documentation and the assessment and plan as written. Number of minutes spent on the visit: 24 Dictation was produced using [employer] dictation software. Please excuse any grammatical, word or spelling errors.
--- NOTE | 2025-03-16 15:02 | P.DS ---
Providers Date of admission: 03/07/25 13:48 Expected date of discharge: 03/16/25 Attending physician: Dago Lynn Consults: 03/07/25 21:17 Consult Physician Routine Consulting Provider: Nery Jeffery Consult Reason/Comments: copd Do you want consulting provider notified?: Already Contacted Primary care physician: Nestor Larsen MD Hospital Course: Chief Complaint: Short of breath This is a 79-year-old patient, resident of [facility]. Being followed by Dr. Larsen. baseline: Normally patient gets around with a walker. Speaks in short sentences, with limited vocabulary. December 22, 2024 patient diagnosed with acute PE. For which she is on Eliquis. Patient was discharged on 3 L of oxygen Patient was sent into the ER for shortness of breath. Per the EMS report patient had a cough and a runny nose all weekend. And patient's pulse ox dropped down to the 70s. Found the patient to have wheezing was given a nebulized bronchodilator. EMS took a pulse ox it was 86%.-RA Not really able to give much of history. March 08: Admitted with pneumonia, acute hypoxic respiratory failure. On 6 L nasal cannula this morning. Has been refusing food. Ensure ordered. Some audible wheezing with congested cough March 09: ICU. Patient is keep repeating that she wants to go back to her place. Keeps repeating this again and again. Refusing food and medications sometimes. Was ordered to calm her down. Will also add some Seroquel for tonight. Patient also continues to cough and wheezing. Requiring 4 L, nasal cannula March: ICU. oxygen requirement and got up to 11. Patient continues to repeat that she wants to go home. Refused breakfast but ate all her lunch March 11: Down to 10 L. Some congested cough still present. Oral intake fluctuating but better. Spoke to bottle caser looking into rehab. She is getting in touch with the guardian. March 12: Breathing is better. Less congestion. Down to 4 L. Oral intake varia ble. Awaiting to go to rehab. Will change Solu-Medrol every 12. Reclining in bed coloring March 13: Oxygenation status fluctuates. Chest x-ray shows some infiltrates. Patient was placed on IV cefepime yesterday for worsening pneumonia. Oral intake fair. March 14: Up in the chair. Appears more restful. Chest x-ray from yesterday may show some fluid overload. Will give 1 dose of IV Lasix 40 mg. Seen by pulmonary. Switched over to oral prednisone. Continue IV cefepime. Oxygen being scaled down. Looking at patient into rehab.. Decreased oral intake today March 15: Up in the chair. Sometimes refusing to eat. FiO2 4 L. Pending to go down to rehab. On IV cefepime. Switched over to oral prednisone. March 16: A bit sleepy this morning. Seroquel being discontinued. Patient has been otherwise back to his baseline for last 2 to 3 days. With physical therapy walked about 30 feet. Requiring supervision. As did his peer to peer review with [employer] earlier today. Care was discussed in detail. Later patient's been accepted for rehab. Patient completed short course of Ceftin. Patient at baseline 3 L nasal cannula Discussion and discharge planning more than 35 minutes Social history: Resident of [facility]. Does use a four-wheel walker. No smoking alcohol history reported Physical examination: VITAL SIGNS: 97.8, 70, 17, 124 x 73, 93% on 3 L GENERAL: Reclining, comfortable EYES: Pupils equal. Conjunctiva damian l. HEENT: External appearance of nose and ears normal, oral cavity grossly normal. NECK: JVD unable to assess; masses not palpable. HEART: First and second heart sounds are normal; no edema. LUNGS: Respiratory rate normal, decreased breath sounds.. ABDOMEN: Soft, nontender, liver spleen not palpable, no masses palpable. PSYCH: Does answer simple questions. Does repeat herself. MUSCULOSKELETAL:No Clubbing/cyanosis;muscles-grossly intact. OA INVESTIGATIONS, reviewed in the clinical context: March 12: White count 14 hemoglobin 11.7 potassium 4.1 creatinine 1.26 March 11: White count 8.8 hemoglobin 10.9 potassium 4.5 creatinine 1.27 March 10: White count 11 hemoglobin 11.1 platelets 335 potassium 4.3 BUN 55 creatinine 1.39 March 09: 10.3 potassium 4.5 creatinine 1.24 March 08: Procalcitonin 0.54 . March 07, 2025: White count 15.8 hemoglobin 11.4 platelets 258 sodium 140 potassium 4.9 BUN 33 creatinine 1.44 Lactic acid 2.7 Troponin I less than 0.012, proBNP 1280 EKG tracing personally reviewed by me-normal sinus rhythm. Chest x-ray film personally reviewed by me-possible infiltrate Assessment and plan: -Pneumonia, suspect gram-negative organism, causing hypoxia: Improvement IV ceftriaxone. Discontinued IV cefepime started on March 12. Patient to complete 5 more days of Ceftin 5 mg twice daily Check procalcitonin -Acute hypoxic respiratory failure from above. AFC reported pulse ox in the 70s.: Improved Patient now down to home requirement of 3 L -Chronic hypoxic respiratory failure, from COPD.. recently discharged on 3 L of oxygen. -Chronic PE. 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 At baseline.). Speaks in short sentences. Repeats herself. 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 does use a four-wheel walker -GERD Omeprazole -Essential hypertension Catapres 0.2 mg twice daily -Hyperlipidemia Lipitor 20 mg nightly -Moderate persistent asthma Bronchodilators Full code -Public guardian Disposition: [facility] for rehab Past Medical History Past Medical History: Dementia Additional Past Medical History / Comment(s): mental retardation History of Any Multi-Drug Resistant Organisms: None Reported Past Surgical History: Unable to Obtain Past Anesthesia/Blood Transfusion Reactions: Unable to Obtain Past Psychological History: No Psychological Hx Reported Smoking Status: Never smoker Past Alcohol Use History: Unable to Obtain Past Drug Use History: Unable to Obtain Plan - Discharge Summary New Discharge Prescriptions: New cefuroxime axetiL [Ceftin] 500 mg PO BID #10 tab predniSONE 10 mg PO DAILY #30 tab Budesonide-Formot 160-4.5 Mcg [Symbicort 160-4.5 Mcg Inhaler] 2 puff INHALATION RT-BID each Continue Omeprazole 20 mg PO DAILY@0700 Cyanocobalamin (Vitamin B-12) [Vitamin B-12] 1,000 mcg PO FR@1700 Calcium Carbonate [Calcium] 600 mg PO DAILY PRN PRN Reason: Gi Upset Albuterol Sulfate [Albuterol Sulfate Hfa] 2 puff INHALATION RT-Q6H PRN PRN Reason: Shortness Of Breath Gabapentin [Neurontin] 100 mg PO TID@0800,1400,2000 Atorvastatin [Lipitor] 20 mg PO HS@2000 Ammonium Lactate Cream [Lac-Hydrin 12% Cream] 1 applic TOPICAL BID Bismuth Subsalicylate [Pepto-Bismol] 524 mg PO DIRECTED PRN PRN Reason: Gi Upset Ondansetron [Zofran] 4 mg PO TID PRN PRN Reason: NAUSEA WITH MEALS Calcium Carbonate [Tums] 500 mg PO BID PRN PRN Reason: Gi Upset Cholecalciferol (Vitamin D3) [Vitamin D3 (50 Mcg = 2000 Iu)] 50 mcg PO DAILY@0800 Nystatin [Nystop] 1 applic TOPICAL DAILY cloNIDine HCL [Catapres] 0.2 mg PO BID@799,1999 Aspirin EC [Ecotrin Low Dose] 81 mg PO DAILY@0800 Apixaban [Eliquis] 5 mg PO BID@ Albuterol Nebulized [Ventolin Nebulized] 2.5 mg INHALATION RT-TID Discharge Medication List Omeprazole 20 mg PO DAILY@0700 02/08/22 [History] Bismuth Subsalicylate [Pepto-Bismol] 524 mg PO DIRECTED PRN 07/02/23 [History] Calcium Carbonate [Calcium] 600 mg PO DAILY PRN 07/02/23 [History] Cyanocobalamin (Vitamin B-12) [Vitamin B-12] 1,000 mcg PO FR@1700 07/02/23 [History] Ondansetron [Zofran] 4 mg PO TID PRN 07/02/23 [History] Albuterol Sulfate [Albuterol Sulfate Hfa] 2 puff INHALATION RT-Q6H PRN 12/16/24 [History] Ammonium Lactate Cream [Lac-Hydrin 12% Cream] 1 applic TOPICAL BID 12/16/24 [History] Aspirin EC [Ecotrin Low Dose] 81 mg PO DAILY@0800 12/16/24 [History] Atorvastatin [Lipitor] 20 mg PO HS@199912/16/24 [History] Calcium Carbonate [Tums] 500 mg PO BID PRN 12/16/24 [History] Cholecalciferol (Vitamin D3) [Vitamin D3 (50 Mcg = 2000 Iu)] 50 mcg PO DAILY@0800 12/16/24 [History] Gabapentin [Neurontin] 100 mg PO TID@0800,1399,199912/16/24 [History] Nystatin [Nystop] 1 applic TOPICAL DAILY 12/16/24 [History] cloNIDine HCL [Catapres] 0.2 mg PO BID@799,199912/16/24 [History] Albuterol Nebulized [Ventolin Nebulized] 2.5 mg INHALATION RT-TID 03/07/25 [History] Apixaban [Eliquis] 5 mg PO BID@0800,199903/07/25 [History] cefuroxime axetiL [Ceftin] 500 mg PO BID #10 tab 03/15/25 [Rx] predniSONE 10 mg PO DAILY #30 tab 03/15/25 [Rx] Budesonide-Formot 160-4.5 Mcg [Symbicort 160-4.5 Mcg Inhaler] 2 puff INHALATION RT-BID each 03/16/25 [Rx] Follow up Appointment(s)/Referral(s): Emir Horton MD [STAFF PHYSICIAN] - 07/25/25 10:00 am (with Dr Bello) Raúl Bedolla DO [STAFF PHYSICIAN] - 1 Week Suzie,Nestor Villa MD [Primary Care Provider] - 1-2 days ([facility] please call for follow-up appointment.)
[2025-03-16 15:18] VITALS: PULSE 72
[2025-03-16] MEDS ORDERED: SYMBICORT 160-4.5 MCG INHALER INHALATION SCH (20:00)
== END 2025-03-16 18:49 | DRG 177 ==
LOC: EC 09:56 → 4SSUR 13:48 → 3SCARD 21:07 → 2SICU 23:13 → 3SCARD 03-11 08:42 → 4SSUR 03-13 09:43
PROVIDERS: ADMIT Hospitalist; ATTEND Hospitalist
DX: J15.69 Pneumonia due to other Gram-negative bacteria (principal); J96.21 Acute and chronic respiratory failure with hypoxia; E87.20 Acidosis, unspecified; I27.82 Chronic pulmonary embolism; J45.41 Moderate persistent asthma with (acute) exacerbation; N17.9 Acute kidney failure, unspecified; G30.9 Alzheimer's disease, unspecified; I12.9 Hypertensive chronic kidney disease with stage 1 through stage 4 chronic kidney disease, or unspecified chronic kidney disease; E66.9 Obesity, unspecified; N18.9 Chronic kidney disease, unspecified; J44.1 Chronic obstructive pulmonary disease with (acute) exacerbation; J44.0 Chronic obstructive pulmonary disease with (acute) lower respiratory infection; F02.818 Dementia in other diseases classified elsewhere, unspecified severity, with other behavioral disturbance; J98.11 Atelectasis; J43.9 Emphysema, unspecified; E78.5 Hyperlipidemia, unspecified; L30.4 Erythema intertrigo; Z68.30 Body mass index [BMI] 30.0-30.9, adult; K21.9 Gastro-esophageal reflux disease without esophagitis; F79 Unspecified intellectual disabilities; Z79.01 Long term (current) use of anticoagulants; Z79.82 Long term (current) use of aspirin; Z79.899 Other long term (current) drug therapy; Z99.81 Dependence on supplemental oxygen
CPT/HCPCS: 36415; 51701; 71045; 71046; 80048; 80053; 81003; 83605; 83735; 83880; 84145; 84484; 85025; 85027; 85610; 85730; 87636; 93005; 94640; 94760; 96365; 96375; 96376; 99291

== ENCOUNTER 2025-04-12 18:40 | Emergency (ER) | payer MEDICARE, OTHER ==
[2025-04-12 18:53] VITALS: BP 134/62; PULSE 79; RESP 18; TEMP 97.9
--- NOTE | 2025-04-12 19:46 | CT ---
EXAMINATION TYPE: CT brain berlinine wo con DATE OF EXAM: 04/12/2025 7:08 PM COMPARISON: None. CLINICAL INDICATION: Female, 79 years old with history of head injury on eliquis, Witnessed fall from standing, hit head. No LOC. On eliquis. No obvious injuries., pain TECHNIQUE: CT of the brain is performed utilizing 3 mm thick sections through the posterior fossa and 3 mm thick sections through the remaining calvarium. Study is performed within 24 hours of arrival to the hospital. Contrast used: mL of , (none if empty) CT DLP: 1266.6 mGycm, Automated exposure control for dose reduction was used. FINDINGS: No abnormal hyperdensity is present to suggest an acute intracranial hemorrhage. No mass lesion is evident. No acute infarcts are evident. Ventricles and sulci are mildly prominent for the patient age. Paranasal sinuses and mastoid air cells within the [id number] are clear. IMPRESSIONS: 1. No acute intracranial process. Follow-up MRI can be performed as clinically indicated. 2. Atrophy CT cervical spine. COMPARISON: None TECHNIQUE: CT of the cervical spine is performed in the axial plane at 2 mm thick sections. Reconstr ucted images in the coronal, and sagittal plane are reviewed on the computer. FINDINGS: No acute fractures are evident. There is exaggeration of the cervical lordosis from the thoracic kyphosis. Disc heights are mildly narrowed. Vertebral body heights are preserved. No spinal canal stenosis is evident. No neural foraminal stenosis is evident. IMPRESSION: 1. No acute osseous abnormality cervical spine. 2. Mild Degenerative disc changes [facility], , 04/12/2025 7:44 PM
--- NOTE | 2025-04-12 19:51 | ED ---
Fall HPI - General Chief Complaint: Fall Stated Complaint: Fall Time Seen by Provider: 04/12/25 18:50 Source: EMS Mode of arrival: EMS - History of Present Illness Initial Comments: 79-year-old female who presents to the emergency department after a fall. Patient had a witnessed fall from standing where she hit her head. No loss of consciousness. She is on Eliquis for history of DVT and PE and therefore she had to be transferred to our facility for evaluation. Patient does reside at an adult [facility]. She cannot provide much history due to her limited verbal status. She denies headache, nausea, vomiting, visual disturbance, weakness. No other alleviating, precipitating modifying factors - Related Data Home Medications Medication Instructions Recorded Confirmed Omeprazole 20 mg PO DAILY@0700 02/08/22 03/07/25 Bismuth Subsalicylate 524 mg PO DIRECTED PRN 07/02/23 03/07/25 [Pepto-Bismol] Calcium Carbonate [Calcium] 600 mg PO DAILY PRN 07/02/23 03/07/25 Cyanocobalamin (Vitamin B-12) 1,000 mcg PO FR@1700 07/02/23 03/07/25 [Vitamin B-12] Ondansetron [Zofran] 4 mg PO TID PRN 07/02/23 03/07/25 Albuterol Sulfate [Albuterol 2 puff INHALATION RT-Q6H PRN 12/16/24 03/07/25 Sulfate Hfa] Ammonium Lactate Cream [Lac-Hydrin 1 applic TOPICAL BID 12/16/24 03/07/25 12% Cream] Aspirin EC [Ecotrin Low Dose] 81 mg PO DAILY@0812/16/24 03/07/25 Atorvastatin [Lipitor] 20 mg PO HS@199912/16/24 03/07/25 Calcium Carbonate [Tums] 500 mg PO BID PRN 12/16/24 03/07/25 Cholecalciferol (Vitamin D3) 50 mcg PO DAILY@0800 12/16/24 03/07/25 [Vitamin D3 (50 Mcg = 2000 Iu)] Gabapentin [Neurontin] 100 mg PO TID@0800,1400,199912/16/24 03/07/25 Nystatin [Nystop] 1 applic TOPICAL DAILY 12/16/24 03/07/25 cloNIDine HCL [Catapres] 0.2 mg PO BID@0812/16/24 03/07/25 Albuterol Nebulized [Ventolin 2.5 mg INHALATION RT-TID 03/07/25 03/07/25 Nebulized] Apixaban [Eliquis] 5 mg PO BID@0800,199903/07/25 03/07/25 Previous Rx's Medication Instructions Recorded cefuroxime axetiL [Ceftin] 500 mg PO BID #10 tab 03/15/25 predniSONE 10 mg PO DAILY #30 tab 03/15/25 Budesonide-Formot 160-4.5 Mcg 2 puff INHALATION RT-BID each 03/16/25 [Symbicort 160-4.5 Mcg Inhaler] Allergies Allergy/AdvReac Type Severity Reaction Status Date / Time No Known Allergies Allergy Verified 03/07/25 17:43 Review of Systems ROS Statement: Those systems with pertinent positive or pertinent negative responses have been documented in the HPI. ROS Other: All systems not noted in ROS Statement are negative. Past Medical History Past Medical History: COPD, Dementia, Hypertension, Pulmonary Embolus (PE) Additional Past Medical History / Comment(s): mental retardation History of Any Multi-Drug Resistant Organisms: None Reported Past Surgical History: Unable to Obtain Past Anesthesia/Blood Transfusion Reactions: Unable to Obtain Past Psychological History: No Psychological Hx Reported Smoking Status: Never smoker General Exam Limitations: physical limitation General appearance: alert, in no apparent distress Head exam: Present: other (No visible signs of outward injury of head trauma) Eye exam: Present: normal appearance, PERRL, EOMI. Absent: scleral icterus, conjunctival injection, periorbital swelling ENT exam: Present: normal exam, mucous membranes moist Respiratory exam: Present: normal lung sounds bilaterally. Absent: respiratory distress, wheezes, rales, rhonchi, stridor Cardiovascular Exam: Present: regular rate, normal rhythm, normal heart sounds. Absent: systolic murmur, diastolic murmur, rubs, gallop, clicks Neurological exam: Present: alert Psychiatric exam: Present: flat affect Course Vital Signs 04/12/25 18:44 Temperature 97.9 F Pulse Rate 79 Respiratory 18 Rate Blood Pressure 134/62 O2 Sat by Pulse 97 Oximetry Medical Decision Making - Medical Decision Making Was pt. sent in by a medical professional or institution (, PA, HONEY BLENDER, urgent care, hospital, or fci...) When possible be specific @ -Patient was sent in from her [facility] Did you speak to anyone other than the patient for history (EMS, parent, family, police, friend...)? What history was obtained from this source @ -I spoke with EMS for history as patient is nonverbal Did you review nursing and triage notes (agree or disagree)? Why? @ -I reviewed and agree with nursing and triage notes Were old charts reviewed (outside hosp., previous admission, EMS record, old EKG, old radiological studies, urgent care reports/EKG's, fci records)? Report findings @ -No old charts were reviewed Differential Diagnosis (chest pain, altered mental status, abdominal pain women, abdominal pain men, vaginal bleeding, weakness, fever, dyspnea, syncope, headache, dizziness, GI bleed, back pain, seizure, CVA, palpatations, mental health, musculoskeletal)? @ -Subarachnoid, subdural, skull fracture, epidural EKG interpreted by me (3pts min.). @ -Not done X-rays interpreted by me (1pt min.). @ -None done CT interpreted by me (1pt min.). @ -Yes which demonstrates no acute process U/S interpreted by me (1pt. min.). @ -None done What testing was considered but not performed or refused? (CT, X-rays, U/S, labs)? Why? @ -None What meds were considered but not given or refused? Why? @ -None Did you discuss the management of the patient with other professionals (professionals i.e. , PA, HONEY BLENDER, lab, RT, psych nurse, psychiatric social worker, pneumatic tool repairer, teacher, commercial account officer, outsole caser)? Give summary @ -No Was smoking cessation discussed for >3mins.? @ -No Was critical care preformed (if so, how long)? @ -No Were there social determinants of health that impacted care today? How? (Homelessness, low income, unemployed, alcoholism, drug addiction, transportation, low edu. Level, literacy, decrease access to med. care, [facility], rehab)? @ -Patient lives in adult foster home Was there de-escalation of care discussed even if they declined (Discuss DNR or withdrawal of care, Hospice)? DNR status @ -No What co-morbidities impacted this encounter? (DM, HTN, Smoking, COPD, CAD, Cancer, CVA, ARF, Chemo, Hep., AIDS, mental health diagnosis, sleep apnea, morbid obesity)? @ -Developmental delay, PE Was patient admitted / discharged? Hospital course, mention meds given and rou te, prescriptions, significant lab abnormalities, going to OR and other pertinent info. @ -Upon arrival patient seen and evaluated. She is activated as a code coag. She has a CT performed of her head and neck which demonstrates no acute process. Patient eagerly wants to go home and therefore she is discharged as she does not report any further injuries Undiagnosed new problem with uncertain prognosis? @ -No Drug Therapy requiring intensive monitoring for toxicity (Heparin, Nitro, Insulin, Cardizem)? @ -No Were any procedures done? @ -No Diagnosis/symptom? @ -Acute fall, blunt head trauma, Eliquis coagulopathy Acute, or Chronic, or Acute on Chronic? @ -Acute Uncomplicated (without systemic symptoms) or Complicated (systemic symptoms)? @ -Complicated Side effects of treatment? @ -No Exacerbation, Progression, or Severe Exacerbation? @ -No Poses a threat to life or bodily function? How? (Chest pain, USA, MA, pneumonia, PE, COPD, DKA, ARF, appy, cholecystitis, CVA, Diverticulitis, Homicidal, Suicidal, threat to staff... and all critical care pts) @ -No Disposition Clinical Impression: Fall, Head injury Disposition: HOME SELF-CARE Condition: Stable Instructions (If sedation given, give patient instructions): Fall Prevention for Older Adults (ED) Additional Instructions: Your scan was negative. Please see your doctor in 2 to 4 days for follow-up Is patient prescribed a controlled substance at d/c from ED?: No Referrals: Nestor Larsen MD [Primary Care Provider] - 1-2 days Time of Disposition: 19:50
== END 2025-04-12 23:14 | disposition home or self-care (01) ==
LOC: EC 18:40
DX: S09.90XA Unspecified injury of head, initial encounter (principal); R62.50 Unspecified lack of expected normal physiological development in childhood; Z86.718 Personal history of other venous thrombosis and embolism; Z79.01 Long term (current) use of anticoagulants; W19.XXXA Unspecified fall, initial encounter
CPT/HCPCS: 70450; 72125; 99284